=== PATIENT | male | born 1975 | race Caucasian/White ===

== ENCOUNTER 2017-07-22 23:41 | Inpatient (IN) | payer MEDICARE, OTHER ==
[2017-07-23] MEDS: ALBUTEROL 0.083% (NEB) 2.5 MG/3 ML AMP HHN (00:58)
[2017-07-23] MEDS: METHYLPREDNISOLONE 125 MG INJ IV (01:02)
[2017-07-23] MEDS: CEFEPIME 1GM/50 ML (PMX) 50 ML IVPB ×2 (01:03→23:32)
[2017-07-23] MEDS: SODIUM CHLORIDE 0.9% 1L BAG IV* (01:03)
[2017-07-23 01:12] LABS: ADD MAN DIFF? NO
[2017-07-23 01:17] LABS: WHITE BLOOD COUNT 8.9 10^3/ul (4.8-10.8)
[2017-07-23 01:17] LABS: ABNORMAL IP MESSAGE 1; BASOPHILS % 0.1 % (0.0-2.0); EOSINOPHILS % 0.5 % (0.0-7.0); HEMATOCRIT 36.9 % (42.0-52.0); HEMOGLOBIN 11.3 g/dl (14.0-18.0); LYMPHOCYTES # 0.3 10^3/ul (0.8-2.9); LYMPHOCYTES % 2.9 % (15.0-51.0); MEAN CORPUSCULAR HGB CONC 30.6 g/dl (32.0-37.0); MEAN CORPUSCULAR VOLUME 94.9 fl (82.0-101.0); MEAN PLATELET VOLUME 13.3 fl (7.4-10.4); MONOCYTE # 0.3 10^3/ul (0.3-0.9); MONOCYTES % 2.9 % (0.0-11.0); NEUTROPHIL # 8.3 10^3/ul (1.6-7.5); NEUTROPHILS % 93.4 % (39.0-77.0); PLATELET COUNT 145 10^3/UL (140-415); POSITIVE DIFF @See below; RED BLOOD COUNT 3.89 10^6/ul (4.70-6.10); RED CELL DISTRIBUTION WIDTH 16.1 % (11.5-14.5)
[2017-07-23 01:18] LABS: AADO2 Arterial 592.7 mmHg (7.0-24.0); Allen Test ACCEPTAB; Arterial Base Excess -6.5 mmol/L (-3.0-3); Arterial Blood Gas Oxygen Sat 95.4 mmHG (95.0-98.0); Arterial COHb 0.3 % (0.0-3.0); Arterial Fraction of Oxyhgb 94.9 % (93.0-99.0); Arterial HCO3 19.3 mmol/L (22.0-26.0); Arterial MetHb 0.2 % (0.0-1.5); Arterial Total Hemglobin 12.1 g/dl (12.0-18.0); Arterial pCO2 39.8 mmhg (35-45); MODE VENT - AC; Site Right Radial
[2017-07-23 01:27] LABS: INR 0.98; PROTIME 13.1 Sec (11.9-14.9)
[2017-07-23 01:28] LABS: PARTIAL THROMBOPLASTIN TIME 35.8 Sec (25.0-35.0)
[2017-07-23 01:36] LABS: ALANINE AMINOTRANSFERASE 22 IU/L (13-69); ALBUMIN 4.5 g/dl (3.3-4.9); ALBUMIN/GLOBULIN RATIO 0.83; ALKALINE PHOSPHATASE 232 IU/L (42-121); ANION GAP 26 (8-16); ASPARTATE AMINO TRANSFERASE 22 IU/L (15-46); BILIRUBIN,INDIRECT 0.2 mg/dl (0-1.1); BILIRUBIN,TOTAL 0.2 mg/dl (0.2-1.3); CALCIUM 10.4 mg/dl (8.4-10.2); CARBON DIOXIDE 19 mmol/L (21-31); CHLORIDE 111 mmol/L (97-110); CREATININE 2.16 mg/dl (0.61-1.24); GLUCOSE 124 mg/dl (70-220); LIPASE 409 U/L (23-300); POTASSIUM 4.7 mmol/L (3.5-5.1); SODIUM 151 mmol/L (135-144); TOTAL PROTEIN 9.9 g/dl (6.1-8.1)
[2017-07-23 01:37] LABS: LACTIC ACID 0.8 mmol/L (0.5-2.0)
[2017-07-23 01:39] LABS: ADD UMIC YES; UR ASCORBIC ACID 40 mg/dL (NEGATIVE); UR BACTERIA FEW /HPF (NONE SEEN); UR BILIRUBIN (Dip) NEGATIVE (NEGATIVE); UR BLOOD (Dip) 3+ mg/dL (NEGATIVE); UR CLARITY TURBID (CLEAR); UR COLOR RED (YELLOW); UR GLUCOSE (Dip) NEGATIVE (NEGATIVE); UR KETONES (Dip) NEGATIVE (NEGATIVE); UR LEUKOCYTE ESTERASE (Dip) 3+ Leu/ul (NEGATIVE); UR NITRITE (Dip) NEGATIVE (NEGATIVE); UR RBC 5 /HPF (0-5); UR SPECIFIC GRAVITY (Dip) 1.013 (1.003-1.030); UR TOTAL PROTEIN (Dip) 2+ mg/dl (NEGATIVE); UR UROBILINOGEN (Dip) NEGATIVE (NEGATIVE); UR WBC 22 /HPF (0-5)
[2017-07-23 01:57] LABS: TROPONIN-I < 0.012 ng/ml (0.00-0.12)
[2017-07-23 02:11] LABS: BLOOD UREA NITROGEN 122 mg/dl (7-20)
[2017-07-23] MEDS: VANCOMYCIN 1 GM (PMX) 250 ML IVPB (02:35)
[2017-07-23 06:32] LABS: LACTIC ACID 0.7 mmol/L (0.5-2.0)
[2017-07-23] MEDS: DEXTROSE 5% 1,000 ML IV ×3 (11:09→21:55)
[2017-07-23] MEDS ORDERED: ONDANSETRON 4 MG TAB GTB (11:30)
[2017-07-23] MEDS ORDERED: BACLOFEN 10 MG TAB GTB (11:30)
[2017-07-23] MEDS ORDERED: BISACODYL 10 MG SUPP PR (11:30)
[2017-07-23] MEDS ORDERED: MAGNESIUM HYDROXIDE 30ML CUP GTB (11:30)
[2017-07-23] MEDS ORDERED: VANCOMYCIN IV PER PHARMACY XX (11:30)
[2017-07-23] MEDS ORDERED: VANCOMYCIN 1.5 GM in DEXTROSE 5% 500 ML IVPB (12:00)
[2017-07-23] MEDS: traMADol 50 MG TAB GTB (13:17)
[2017-07-23] MEDS: FAMOTIDINE 20 MG TAB GTB (13:17)
[2017-07-23] MEDS: CHLORHEXIDINE GLUCONATE 15 ML UD CUP MM ×2 (13:18→21:54)
[2017-07-23] MEDS: QUETIAPINE 25 MG TAB GTB ×2 (13:18→21:54)
[2017-07-23] MEDS: SENNA TAB GTB ×2 (13:18→21:54)
[2017-07-23] MEDS: FERROUS SULFATE 220 MG/5 ML ML GTB (13:43)
[2017-07-23] MEDS: ACETAMINOPHEN 325 MG TAB GTB (18:45)
[2017-07-23] MEDS: LORAZEPAM 0.5 MG TAB GTB (18:45)
[2017-07-23] MEDS ORDERED: NON-FORMULARY/PATIENT OWN MED (Cran/Vitc/Mannose/Inulin/Brom (Uti-Stat Liquid) 3,875 MG) GTB (21:00)
[2017-07-23] MEDS ORDERED: CEFEPIME 1GM/50 ML (PMX) 50 ML IVPB (21:00)
[2017-07-23] MEDS: traZODone 100 MG TAB GTB (21:54)
[2017-07-24] MEDS: traMADol 50 MG TAB GTB ×2 (03:43→08:26)
[2017-07-24] MEDS: LORAZEPAM 0.5 MG TAB GTB ×2 (03:51→15:32)
[2017-07-24 06:03] LABS: ADD MAN DIFF? NO
[2017-07-24 06:10] LABS: WHITE BLOOD COUNT 8.7 10^3/ul (4.8-10.8)
[2017-07-24 06:10] LABS: ABNORMAL IP MESSAGE 1; BASOPHILS % 0.2 % (0.0-2.0); EOSINOPHILS % 0.1 % (0.0-7.0); HEMATOCRIT 34.5 % (42.0-52.0); HEMOGLOBIN 10.3 g/dl (14.0-18.0); LYMPHOCYTES # 0.5 10^3/ul (0.8-2.9); LYMPHOCYTES % 5.7 % (15.0-51.0); MEAN CORPUSCULAR HEMOGLOBIN 29.3 pg (29.0-33.0); MEAN CORPUSCULAR HGB CONC 29.9 g/dl (32.0-37.0); MEAN CORPUSCULAR VOLUME 98.3 fl (82.0-101.0); MEAN PLATELET VOLUME 12.6 fl (7.4-10.4); MONOCYTE # 0.5 10^3/ul (0.3-0.9); MONOCYTES % 6.2 % (0.0-11.0); NEUTROPHIL # 7.6 10^3/ul (1.6-7.5); NEUTROPHILS % 87.5 % (39.0-77.0); PLATELET COUNT 144 10^3/UL (140-415); POSITIVE DIFF @See below; RED BLOOD COUNT 3.51 10^6/ul (4.70-6.10); RED CELL DISTRIBUTION WIDTH 16.1 % (11.5-14.5)
[2017-07-24 06:37] LABS: ANION GAP 19 (8-16); BLOOD UREA NITROGEN 93 mg/dl (7-20); CALCIUM 9.4 mg/dl (8.4-10.2); CARBON DIOXIDE 18 mmol/L (21-31); CHLORIDE 119 mmol/L (97-110); CREATININE 1.69 mg/dl (0.61-1.24); GLUCOSE 85 mg/dl (70-220); POTASSIUM 4.6 mmol/L (3.5-5.1); SODIUM 151 mmol/L (135-144)
[2017-07-24] MEDS: DEXTROSE 5% 1,000 ML IV ×3 (07:55→23:18)
[2017-07-24] MEDS: SENNA TAB GTB ×2 (08:58→21:00)
[2017-07-24] MEDS ORDERED: NON-FORMULARY/PATIENT OWN MED (Cranberry Fruit Concentrate (Cranberry) 450 MG) GTB (09:00)
[2017-07-24] MEDS: QUETIAPINE 25 MG TAB GTB ×2 (09:15→22:19)
[2017-07-24] MEDS: ASCORBIC ACID 500 MG TAB GTB (09:15)
[2017-07-24] MEDS: CHLORHEXIDINE GLUCONATE 15 ML UD CUP MM ×2 (09:15→21:43)
[2017-07-24] MEDS: FERROUS SULFATE 220 MG/5 ML ML GTB (09:16)
[2017-07-24] MEDS: FAMOTIDINE 20 MG TAB GTB (09:16)
[2017-07-24] MEDS: ZINC SULFATE 220 MG CAP GTB (09:16)
[2017-07-24] MEDS: MULTIVITAMINS THERAPEUTIC TAB GTB (09:16)
[2017-07-24] MEDS ORDERED: VANCOMYCIN 1 GM in SODIUM CHLORIDE 0.45 % 250 ML IVPB (12:00)
[2017-07-24] MEDS: ALBUTEROL 0.083% (NEB) 2.5 MG/3 ML AMP NEB ×2 (14:57→20:17)
[2017-07-24] MEDS: ACETYLCYSTEINE 20% 4 ML VIAL NEB ×2 (14:57→20:17)
[2017-07-24] MEDS: LORAZEPAM 2 MG INJ IV (18:30)
[2017-07-24] MEDS: VANCOMYCIN 1.25 GM in SODIUM CHLORIDE 0.45 % 250 ML IVPB (20:25)
[2017-07-24] MEDS ORDERED: ATENOLOL 25 MG TAB GTB (21:00)
[2017-07-24] MEDS: ATENOLOL 25 MG TAB PO (21:45)
[2017-07-24] MEDS: traZODone 100 MG TAB GTB (21:46)
[2017-07-24] MEDS: CEFEPIME 1GM/50 ML (PMX) 50 ML IVPB (23:18)
[2017-07-25] MEDS: ALBUTEROL 0.083% (NEB) 2.5 MG/3 ML AMP NEB ×2 (01:54→19:56)
[2017-07-25] MEDS: ACETYLCYSTEINE 20% 4 ML VIAL NEB ×4 (01:54→19:56)
[2017-07-25] MEDS: HYDROmorphONE 2 MG TAB GTB (03:48)
[2017-07-25] MEDS: traMADol 50 MG TAB GTB (03:50)
[2017-07-25 06:13] LABS: ADD MAN DIFF? NO
[2017-07-25 06:29] LABS: BASOPHILS % 0.2 % (0.0-2.0); EOSINOPHILS % 0.1 % (0.0-7.0); HEMATOCRIT 34.2 % (42.0-52.0); HEMOGLOBIN 10.4 g/dl (14.0-18.0); LYMPHOCYTES # 0.8 10^3/ul (0.8-2.9); LYMPHOCYTES % 6.8 % (15.0-51.0); MEAN CORPUSCULAR HEMOGLOBIN 29.2 pg (29.0-33.0); MEAN CORPUSCULAR HGB CONC 30.4 g/dl (32.0-37.0); MEAN CORPUSCULAR VOLUME 96.1 fl (82.0-101.0); MEAN PLATELET VOLUME 12.2 fl (7.4-10.4); MONOCYTE # 0.9 10^3/ul (0.3-0.9); MONOCYTES % 7.2 % (0.0-11.0); NEUTROPHIL # 10.5 10^3/ul (1.6-7.5); NEUTROPHILS % 85.4 % (39.0-77.0); PLATELET COUNT 128 10^3/UL (140-415); RED BLOOD COUNT 3.56 10^6/ul (4.70-6.10); RED CELL DISTRIBUTION WIDTH 16.1 % (11.5-14.5)
[2017-07-25 06:29] LABS: WHITE BLOOD COUNT 12.3 10^3/ul (4.8-10.8)
[2017-07-25 07:15] LABS: ANION GAP 20 (8-16); BLOOD UREA NITROGEN 77 mg/dl (7-20); CALCIUM 9.6 mg/dl (8.4-10.2); CARBON DIOXIDE 16 mmol/L (21-31); CHLORIDE 116 mmol/L (97-110); GLUCOSE 91 mg/dl (70-220); POTASSIUM 4.2 mmol/L (3.5-5.1); SODIUM 148 mmol/L (135-144)
[2017-07-25 07:32] LABS: HDL CHOLESTEROL 27 mg/dl (27-67); LDL CHOLESTEROL,CALCULATED 26 mg/dl; TRIGLYCERIDES 141 mg/dl (0-149)
[2017-07-25 07:32] LABS: CHOLESTEROL 81 mg/dl (100-200)
[2017-07-25 08:18] LABS: HEMOGLOBIN A1C 4.7 % (0-5.9)
[2017-07-25] MEDS ORDERED: LORAZEPAM 2 MG INJ IV (11:30)
[2017-07-25] MEDS: DEXTROSE 5% 1,000 ML IV ×2 (13:30→22:30)
[2017-07-25] MEDS: SENNA TAB GTB ×2 (14:00→21:45)
[2017-07-25] MEDS: MULTIVITAMINS THERAPEUTIC TAB GTB (14:00)
[2017-07-25] MEDS: ATENOLOL 25 MG TAB PO ×2 (14:00→21:49)
[2017-07-25] MEDS: ASCORBIC ACID 500 MG TAB GTB (14:00)
[2017-07-25] MEDS: CHLORHEXIDINE GLUCONATE 15 ML UD CUP MM ×2 (14:00→21:44)
[2017-07-25] MEDS: CITRIC ACID/SODIUM CITRATE 15 ML CUP PO ×2 (14:00→21:44)
[2017-07-25] MEDS: FAMOTIDINE 20 MG TAB GTB (14:00)
[2017-07-25] MEDS: QUETIAPINE 25 MG TAB GTB ×2 (14:00→21:44)
[2017-07-25] MEDS: ZINC SULFATE 220 MG CAP GTB (14:00)
[2017-07-25] MEDS: LORAZEPAM 0.5 MG TAB GTB (14:05)
[2017-07-25] MEDS: FERROUS SULFATE 60 MG/ML 5ML CUP GTB (14:13)
[2017-07-25] MEDS ORDERED: METOPROLOL 5 MG INJ IV (17:30)
[2017-07-25 20:36] LABS: THYROID STIMULATING HORMONE 0.169 MIU/L (0.465-4.680)
[2017-07-25] MEDS: traZODone 100 MG TAB GTB (21:44)
[2017-07-25] MEDS: ACETAMINOPHEN 325 MG TAB GTB (21:45)
[2017-07-26] MEDS: ACETYLCYSTEINE 20% 4 ML VIAL NEB ×4 (01:01→19:49)
[2017-07-26] MEDS: CEFEPIME 1GM/50 ML (PMX) 50 ML IVPB ×2 (01:34→23:00)
[2017-07-26] MEDS: HYDROmorphONE 2 MG TAB GTB ×3 (01:35→21:48)
[2017-07-26] MEDS: ALBUTEROL 0.083% (NEB) 2.5 MG/3 ML AMP NEB ×3 (07:56→19:48)
[2017-07-26] MEDS: ZINC SULFATE 220 MG CAP GTB (08:16)
[2017-07-26] MEDS: ASCORBIC ACID 500 MG TAB GTB (08:16)
[2017-07-26] MEDS: DEXTROSE 5% 1,000 ML IV ×2 (08:16→17:17)
[2017-07-26] MEDS: FERROUS SULFATE 60 MG/ML 5ML CUP GTB (08:17)
[2017-07-26] MEDS: MULTIVITAMINS THERAPEUTIC TAB GTB (08:17)
[2017-07-26] MEDS: FAMOTIDINE 20 MG TAB GTB (08:17)
[2017-07-26] MEDS: ACETAMINOPHEN 325 MG TAB GTB (08:17)
[2017-07-26] MEDS: QUETIAPINE 25 MG TAB GTB ×2 (08:17→21:48)
[2017-07-26] MEDS: CHLORHEXIDINE GLUCONATE 15 ML UD CUP MM ×2 (08:18→21:48)
[2017-07-26] MEDS: CITRIC ACID/SODIUM CITRATE 15 ML CUP PO ×3 (08:18→21:47)
[2017-07-26] MEDS: ATENOLOL 25 MG TAB PO ×2 (08:18→21:49)
[2017-07-26] MEDS: SENNA TAB GTB ×2 (08:19→21:00)
[2017-07-26 09:04] LABS: ADD MAN DIFF? NO
[2017-07-26 09:08] LABS: WHITE BLOOD COUNT 12.4 10^3/ul (4.8-10.8)
[2017-07-26 09:08] LABS: ABNORMAL IP MESSAGE 1; BASOPHILS % 0.2 % (0.0-2.0); EOSINOPHILS % 0.2 % (0.0-7.0); HEMATOCRIT 28.9 % (42.0-52.0); HEMOGLOBIN 9.1 g/dl (14.0-18.0); LYMPHOCYTES # 0.5 10^3/ul (0.8-2.9); MEAN CORPUSCULAR HEMOGLOBIN 29.4 pg (29.0-33.0); MEAN CORPUSCULAR HGB CONC 31.5 g/dl (32.0-37.0); MEAN CORPUSCULAR VOLUME 93.5 fl (82.0-101.0); MEAN PLATELET VOLUME 12.6 fl (7.4-10.4); MONOCYTE # 0.7 10^3/ul (0.3-0.9); MONOCYTES % 5.8 % (0.0-11.0); NEUTROPHIL # 11.1 10^3/ul (1.6-7.5); NEUTROPHILS % 89.5 % (39.0-77.0); PLATELET COUNT 139 10^3/UL (140-415); POSITIVE DIFF @See below; RED BLOOD COUNT 3.09 10^6/ul (4.70-6.10); RED CELL DISTRIBUTION WIDTH 16.1 % (11.5-14.5)
[2017-07-26 09:32] LABS: ANION GAP 21 (8-16); BLOOD UREA NITROGEN 74 mg/dl (7-20); CALCIUM 9.2 mg/dl (8.4-10.2); CARBON DIOXIDE 16 mmol/L (21-31); CHLORIDE 119 mmol/L (97-110); CREATININE 1.73 mg/dl (0.61-1.24); GLUCOSE 137 mg/dl (70-220); POTASSIUM 3.7 mmol/L (3.5-5.1); SODIUM 152 mmol/L (135-144)
[2017-07-26] MEDS: VANCOMYCIN 1.25 GM in SODIUM CHLORIDE 0.45 % 250 ML IVPB (17:16)
[2017-07-26 17:34] LABS: CK-MB 0.86 ng/ml (0.0-2.4); CREATINE KINASE < 20 IU/L (23-200); TROPONIN-I < 0.012 ng/ml (0.00-0.12)
[2017-07-26 19:13] LABS: TROPONIN-I < 0.012 ng/ml (0.00-0.12)
[2017-07-26] MEDS: traZODone 100 MG TAB GTB (21:47)
[2017-07-26] MEDS: COLLAGENASE 30 GM TUBE TOP (21:48)
[2017-07-27] MEDS: ALBUTEROL 0.083% (NEB) 2.5 MG/3 ML AMP NEB ×3 (01:34→19:52)
[2017-07-27] MEDS: ACETYLCYSTEINE 20% 4 ML VIAL NEB ×4 (01:34→19:52)
[2017-07-27 03:28] LABS: TROPONIN-I < 0.012 ng/ml (0.00-0.12)
[2017-07-27] MEDS: DEXTROSE 5% 1,000 ML IV ×3 (04:30→23:53)
[2017-07-27] MEDS: FERROUS SULFATE 60 MG/ML 5ML CUP GTB (09:01)
[2017-07-27] MEDS: ZINC SULFATE 220 MG CAP GTB (09:02)
[2017-07-27] MEDS: CITRIC ACID/SODIUM CITRATE 15 ML CUP PO ×3 (09:02→21:40)
[2017-07-27] MEDS: CHLORHEXIDINE GLUCONATE 15 ML UD CUP MM ×2 (09:02→21:43)
[2017-07-27] MEDS: SENNA TAB GTB ×2 (09:03→21:43)
[2017-07-27] MEDS: ATENOLOL 25 MG TAB PO ×2 (09:03→21:42)
[2017-07-27] MEDS: MULTIVITAMINS THERAPEUTIC TAB GTB (09:03)
[2017-07-27] MEDS: FAMOTIDINE 20 MG TAB GTB (09:03)
[2017-07-27] MEDS: COLLAGENASE 30 GM TUBE TOP (09:04)
[2017-07-27] MEDS: ASCORBIC ACID 500 MG TAB GTB (09:04)
[2017-07-27] MEDS: QUETIAPINE 25 MG TAB GTB ×2 (09:04→21:41)
[2017-07-27 09:12] LABS: ADD MAN DIFF? NO
[2017-07-27] MEDS: HYDROmorphONE 2 MG TAB GTB ×3 (09:14→23:52)
[2017-07-27 09:15] LABS: BASOPHILS % 0.1 % (0.0-2.0); EOSINOPHILS # 0.1 10^3/ul (0.0-0.5); HEMATOCRIT 26.6 % (42.0-52.0); HEMOGLOBIN 8.3 g/dl (14.0-18.0); LYMPHOCYTES # 0.7 10^3/ul (0.8-2.9); LYMPHOCYTES % 9.1 % (15.0-51.0); MEAN CORPUSCULAR HEMOGLOBIN 29.3 pg (29.0-33.0); MEAN CORPUSCULAR HGB CONC 31.2 g/dl (32.0-37.0); MEAN PLATELET VOLUME 12.4 fl (7.4-10.4); MONOCYTE # 0.5 10^3/ul (0.3-0.9); MONOCYTES % 6.8 % (0.0-11.0); NEUTROPHIL # 6.4 10^3/ul (1.6-7.5); NEUTROPHILS % 82.6 % (39.0-77.0); PLATELET COUNT 108 10^3/UL (140-415); RED BLOOD COUNT 2.83 10^6/ul (4.70-6.10)
[2017-07-27 09:15] LABS: WHITE BLOOD COUNT 7.8 10^3/ul (4.8-10.8)
[2017-07-27 09:38] LABS: ANION GAP 21 (8-16); BLOOD UREA NITROGEN 67 mg/dl (7-20); CALCIUM 8.9 mg/dl (8.4-10.2); CARBON DIOXIDE 18 mmol/L (21-31); CHLORIDE 114 mmol/L (97-110); GLUCOSE 108 mg/dl (70-220); SODIUM 149 mmol/L (135-144)
[2017-07-27] MEDS: MUPIROCIN 2% 22 GM OINT TOP ×2 (14:00→21:42)
[2017-07-27] MEDS: traZODone 100 MG TAB GTB (21:40)
[2017-07-27] MEDS: CEFEPIME 1GM/50 ML (PMX) 50 ML IVPB (23:44)
[2017-07-28] MEDS: ACETYLCYSTEINE 20% 4 ML VIAL NEB ×4 (03:19→19:34)
[2017-07-28] MEDS: ALBUTEROL 0.083% (NEB) 2.5 MG/3 ML AMP NEB ×4 (03:19→19:33)
[2017-07-28] MEDS: FERROUS SULFATE 60 MG/ML 5ML CUP GTB (09:23)
[2017-07-28] MEDS: CHLORHEXIDINE GLUCONATE 15 ML UD CUP MM ×2 (09:23→20:56)
[2017-07-28] MEDS: ATENOLOL 25 MG TAB PO ×2 (09:24→20:56)
[2017-07-28] MEDS: CITRIC ACID/SODIUM CITRATE 15 ML CUP PO ×3 (09:24→20:56)
[2017-07-28] MEDS: ZINC SULFATE 220 MG CAP GTB (09:24)
[2017-07-28] MEDS: QUETIAPINE 25 MG TAB GTB ×2 (09:25→20:57)
[2017-07-28] MEDS: SENNA TAB GTB ×2 (09:25→20:57)
[2017-07-28] MEDS: ASCORBIC ACID 500 MG TAB GTB (09:25)
[2017-07-28] MEDS: FAMOTIDINE 20 MG TAB GTB (09:26)
[2017-07-28] MEDS: MULTIVITAMINS THERAPEUTIC TAB GTB (09:26)
[2017-07-28] MEDS: MUPIROCIN 2% 22 GM OINT TOP ×2 (09:27→21:00)
[2017-07-28] MEDS: COLLAGENASE 30 GM TUBE TOP (09:27)
[2017-07-28] MEDS: HYDROmorphONE 2 MG TAB GTB ×3 (09:38→21:00)
[2017-07-28] MEDS: DEXTROSE 5% 1,000 ML IV ×2 (10:29→22:59)
[2017-07-28 17:36] LABS: ADD MAN DIFF? NO
[2017-07-28 17:37] LABS: BASOPHILS % 0.1 % (0.0-2.0); EOSINOPHILS # 0.1 10^3/ul (0.0-0.5); EOSINOPHILS % 0.9 % (0.0-7.0); HEMATOCRIT 27.9 % (42.0-52.0); HEMOGLOBIN 8.9 g/dl (14.0-18.0); LYMPHOCYTES # 0.6 10^3/ul (0.8-2.9); LYMPHOCYTES % 5.4 % (15.0-51.0); MEAN CORPUSCULAR HEMOGLOBIN 29.6 pg (29.0-33.0); MEAN CORPUSCULAR HGB CONC 31.9 g/dl (32.0-37.0); MEAN CORPUSCULAR VOLUME 92.7 fl (82.0-101.0); MEAN PLATELET VOLUME 11.8 fl (7.4-10.4); MONOCYTE # 0.6 10^3/ul (0.3-0.9); MONOCYTES % 4.9 % (0.0-11.0); NEUTROPHIL # 10.6 10^3/ul (1.6-7.5); NEUTROPHILS % 88.4 % (39.0-77.0); PLATELET COUNT 113 10^3/UL (140-415); RED BLOOD COUNT 3.01 10^6/ul (4.70-6.10); RED CELL DISTRIBUTION WIDTH 15.8 % (11.5-14.5)
[2017-07-28 18:01] LABS: ANION GAP 20 (8-16); BLOOD UREA NITROGEN 59 mg/dl (7-20); CARBON DIOXIDE 22 mmol/L (21-31); CHLORIDE 107 mmol/L (97-110); CREATININE 1.61 mg/dl (0.61-1.24); GLUCOSE 110 mg/dl (70-220); POTASSIUM 4.1 mmol/L (3.5-5.1); SODIUM 145 mmol/L (135-144)
[2017-07-28 18:07] LABS: VANCOMYCIN,TROUGH 20.1 ug/ml (10.0-20.0)
[2017-07-28] MEDS: VANCOMYCIN 1.25 GM in SODIUM CHLORIDE 0.45 % 250 ML IVPB (19:56)
[2017-07-28] MEDS: traZODone 100 MG TAB GTB (20:57)
[2017-07-28] MEDS: CEFEPIME 1GM/50 ML (PMX) 50 ML IVPB (23:00)
[2017-07-28] MEDS: ZOLPIDEM 5 MG TAB GTB (23:10)
[2017-07-29] MEDS: ALBUTEROL 0.083% (NEB) 2.5 MG/3 ML AMP NEB ×2 (01:39→19:42)
[2017-07-29] MEDS: ACETYLCYSTEINE 20% 4 ML VIAL NEB ×4 (01:39→19:42)
[2017-07-29] MEDS: DEXTROSE 5% 1,000 ML IV ×2 (06:30→15:56)
[2017-07-29] MEDS: HYDROmorphONE 2 MG TAB GTB ×3 (06:45→22:25)
[2017-07-29 06:54] LABS: ADD MAN DIFF? NO
[2017-07-29 07:02] LABS: BASOPHILS % 0.1 % (0.0-2.0); EOSINOPHILS # 0.2 10^3/ul (0.0-0.5); EOSINOPHILS % 1.8 % (0.0-7.0); HEMATOCRIT 26.6 % (42.0-52.0); HEMOGLOBIN 8.4 g/dl (14.0-18.0); LYMPHOCYTES % 10.1 % (15.0-51.0); MEAN CORPUSCULAR HEMOGLOBIN 29.3 pg (29.0-33.0); MEAN CORPUSCULAR HGB CONC 31.6 g/dl (32.0-37.0); MEAN CORPUSCULAR VOLUME 92.7 fl (82.0-101.0); MEAN PLATELET VOLUME 12.7 fl (7.4-10.4); MONOCYTE # 0.7 10^3/ul (0.3-0.9); MONOCYTES % 6.9 % (0.0-11.0); NEUTROPHIL # 7.7 10^3/ul (1.6-7.5); NEUTROPHILS % 80.7 % (39.0-77.0); PLATELET COUNT 115 10^3/UL (140-415); RED BLOOD COUNT 2.87 10^6/ul (4.70-6.10); RED CELL DISTRIBUTION WIDTH 15.7 % (11.5-14.5)
[2017-07-29 07:02] LABS: WHITE BLOOD COUNT 9.6 10^3/ul (4.8-10.8)
[2017-07-29 07:38] LABS: ANION GAP 20 (8-16); BLOOD UREA NITROGEN 55 mg/dl (7-20); CALCIUM 8.8 mg/dl (8.4-10.2); CARBON DIOXIDE 22 mmol/L (21-31); CHLORIDE 106 mmol/L (97-110); CREATININE 1.54 mg/dl (0.61-1.24); GLUCOSE 87 mg/dl (70-220); POTASSIUM 4.1 mmol/L (3.5-5.1); SODIUM 144 mmol/L (135-144)
[2017-07-29] MEDS: VANCOMYCIN 1 GM 250 ML IVPB (08:32)
[2017-07-29] MEDS: CHLORHEXIDINE GLUCONATE 15 ML UD CUP MM ×2 (08:33→21:00)
[2017-07-29] MEDS: ZINC SULFATE 220 MG CAP GTB (08:33)
[2017-07-29] MEDS: CITRIC ACID/SODIUM CITRATE 15 ML CUP PO ×3 (08:33→21:00)
[2017-07-29] MEDS: FERROUS SULFATE 60 MG/ML 5ML CUP GTB (08:33)
[2017-07-29] MEDS: QUETIAPINE 25 MG TAB GTB ×2 (08:33→21:00)
[2017-07-29] MEDS: SENNA TAB GTB ×2 (08:33→21:00)
[2017-07-29] MEDS: MULTIVITAMINS THERAPEUTIC TAB GTB (08:33)
[2017-07-29] MEDS: FAMOTIDINE 20 MG TAB GTB (08:34)
[2017-07-29] MEDS: ATENOLOL 25 MG TAB PO ×2 (08:34→21:00)
[2017-07-29] MEDS: ASCORBIC ACID 500 MG TAB GTB (08:34)
[2017-07-29] MEDS: MUPIROCIN 2% 22 GM OINT TOP ×2 (08:35→21:00)
[2017-07-29] MEDS: COLLAGENASE 30 GM TUBE TOP (08:35)
[2017-07-29] MEDS ORDERED: GENTAMICIN IV PER PHARMACY XX (18:30)
[2017-07-29] MEDS: ZYVOX 600 MG TAB PO (20:00)
[2017-07-29] MEDS: GENTAMICIN 300 MG in DEXTROSE 5% 100 ML IVPB (21:00)
[2017-07-29] MEDS ORDERED: DOXYCYCLINE 100 MG TAB PO (21:00)
[2017-07-29] MEDS: traZODone 100 MG TAB GTB (21:00)
[2017-07-29] MEDS: PIPER-TAZO 3.375 GM IV (PMX) 50 ML IVPB (22:00)
[2017-07-30] MEDS: ALBUTEROL 0.083% (NEB) 2.5 MG/3 ML AMP NEB ×2 (01:13→19:39)
[2017-07-30] MEDS: ACETYLCYSTEINE 20% 4 ML VIAL NEB ×4 (01:13→19:39)
[2017-07-30] MEDS: ZOLPIDEM 5 MG TAB GTB (03:03)
[2017-07-30] MEDS: DEXTROSE 5% 1,000 ML IV ×2 (03:03→11:36)
[2017-07-30] MEDS: PIPER-TAZO 3.375 GM IV (PMX) 50 ML IVPB ×3 (05:51→21:03)
[2017-07-30] MEDS: HYDROmorphONE 2 MG TAB GTB (05:52)
[2017-07-30 07:30] LABS: GENTAMICIN,RANDOM 11.2 ug/ml
[2017-07-30] MEDS: CITRIC ACID/SODIUM CITRATE 15 ML CUP PO ×3 (09:43→20:47)
[2017-07-30] MEDS: FERROUS SULFATE 60 MG/ML 5ML CUP GTB (09:43)
[2017-07-30] MEDS: CHLORHEXIDINE GLUCONATE 15 ML UD CUP MM ×2 (09:43→20:47)
[2017-07-30] MEDS: ASCORBIC ACID 500 MG TAB GTB (09:44)
[2017-07-30] MEDS: ATENOLOL 25 MG TAB PO ×2 (09:44→20:48)
[2017-07-30] MEDS: MULTIVITAMINS THERAPEUTIC TAB GTB (09:44)
[2017-07-30] MEDS: FAMOTIDINE 20 MG TAB GTB (09:44)
[2017-07-30] MEDS: SENNA TAB GTB ×2 (09:44→20:49)
[2017-07-30] MEDS: QUETIAPINE 25 MG TAB GTB ×2 (09:44→20:48)
[2017-07-30] MEDS: ZYVOX 600 MG TAB PO ×2 (09:44→20:48)
[2017-07-30] MEDS: ZINC SULFATE 220 MG CAP GTB (09:45)
[2017-07-30] MEDS: MUPIROCIN 2% 22 GM OINT TOP ×2 (09:45→20:49)
[2017-07-30] MEDS: COLLAGENASE 30 GM TUBE TOP (09:45)
[2017-07-30] MEDS: SOD CHLORIDE 0.9% 500 ML IV ×2 (12:08→12:11)
[2017-07-30] MEDS: traZODone 100 MG TAB GTB (20:48)
[2017-07-31] MEDS: HYDROmorphONE 2 MG TAB GTB ×5 (00:15→20:22)
[2017-07-31] MEDS: ALBUTEROL 0.083% (NEB) 2.5 MG/3 ML AMP NEB ×3 (00:59→19:28)
[2017-07-31] MEDS: ACETYLCYSTEINE 20% 4 ML VIAL NEB ×4 (01:00→19:28)
[2017-07-31] MEDS: DEXTROSE 5% 1,000 ML IV ×3 (05:12→20:29)
[2017-07-31] MEDS: PIPER-TAZO 3.375 GM IV (PMX) 50 ML IVPB ×3 (05:12→21:08)
[2017-07-31 08:42] LABS: ADD MAN DIFF? NO
[2017-07-31 08:50] LABS: ABNORMAL IP MESSAGE 1; BASOPHILS % 0.1 % (0.0-2.0); EOSINOPHILS # 0.1 10^3/ul (0.0-0.5); EOSINOPHILS % 1.4 % (0.0-7.0); HEMATOCRIT 26.3 % (42.0-52.0); HEMOGLOBIN 8.4 g/dl (14.0-18.0); LYMPHOCYTES # 0.6 10^3/ul (0.8-2.9); LYMPHOCYTES % 7.5 % (15.0-51.0); MEAN CORPUSCULAR HEMOGLOBIN 29.4 pg (29.0-33.0); MEAN CORPUSCULAR HGB CONC 31.9 g/dl (32.0-37.0); MEAN PLATELET VOLUME 13.1 fl (7.4-10.4); MONOCYTE # 0.6 10^3/ul (0.3-0.9); MONOCYTES % 7.7 % (0.0-11.0); NEUTROPHIL # 6.7 10^3/ul (1.6-7.5); NEUTROPHILS % 82.7 % (39.0-77.0); PLATELET COUNT 106 10^3/UL (140-415); POSITIVE DIFF @See below; RED BLOOD COUNT 2.86 10^6/ul (4.70-6.10); RED CELL DISTRIBUTION WIDTH 15.4 % (11.5-14.5)
[2017-07-31 08:50] LABS: WHITE BLOOD COUNT 8.1 10^3/ul (4.8-10.8)
[2017-07-31] MEDS: SENNA TAB GTB ×2 (09:00→20:23)
[2017-07-31 09:22] LABS: ANION GAP 18 (8-16); BLOOD UREA NITROGEN 50 mg/dl (7-20); CALCIUM 8.4 mg/dl (8.4-10.2); CARBON DIOXIDE 24 mmol/L (21-31); CHLORIDE 103 mmol/L (97-110); GLUCOSE 109 mg/dl (70-220); POTASSIUM 3.6 mmol/L (3.5-5.1); SODIUM 141 mmol/L (135-144)
[2017-07-31] MEDS: CITRIC ACID/SODIUM CITRATE 15 ML CUP PO ×3 (10:11→20:22)
[2017-07-31] MEDS: QUETIAPINE 25 MG TAB GTB ×2 (10:12→20:23)
[2017-07-31] MEDS: ATENOLOL 25 MG TAB PO ×2 (10:12→21:09)
[2017-07-31] MEDS: FERROUS SULFATE 60 MG/ML 5ML CUP GTB (10:12)
[2017-07-31] MEDS: ASCORBIC ACID 500 MG TAB GTB (10:12)
[2017-07-31] MEDS: CHLORHEXIDINE GLUCONATE 15 ML UD CUP MM ×2 (10:12→20:22)
[2017-07-31] MEDS: MULTIVITAMINS THERAPEUTIC TAB GTB (10:12)
[2017-07-31] MEDS: ZYVOX 600 MG TAB PO ×2 (10:12→20:23)
[2017-07-31] MEDS: FAMOTIDINE 20 MG TAB GTB (10:13)
[2017-07-31] MEDS: ZINC SULFATE 220 MG CAP GTB (10:13)
[2017-07-31] MEDS: MUPIROCIN 2% 22 GM OINT TOP ×2 (10:14→20:29)
[2017-07-31] MEDS: COLLAGENASE 30 GM TUBE TOP (10:14)
[2017-07-31] MEDS: traZODone 100 MG TAB GTB (20:23)
[2017-08-01] MEDS: DEXTROSE 5% 1,000 ML IV ×2 (00:52→12:05)
[2017-08-01] MEDS: ACETYLCYSTEINE 20% 4 ML VIAL NEB ×4 (01:26→19:20)
[2017-08-01] MEDS: ALBUTEROL 0.083% (NEB) 2.5 MG/3 ML AMP NEB ×3 (01:26→19:20)
[2017-08-01] MEDS: HYDROmorphONE 2 MG TAB GTB ×3 (03:12→18:31)
[2017-08-01] MEDS: PIPER-TAZO 3.375 GM IV (PMX) 50 ML IVPB ×2 (05:11→15:00)
[2017-08-01 08:54] LABS: ADD MAN DIFF? NO
[2017-08-01] MEDS: CITRIC ACID/SODIUM CITRATE 15 ML CUP PO ×2 (09:00→15:00)
[2017-08-01] MEDS: FERROUS SULFATE 60 MG/ML 5ML CUP GTB (09:00)
[2017-08-01] MEDS: ATENOLOL 25 MG TAB PO (09:00)
[2017-08-01] MEDS: COLLAGENASE 30 GM TUBE TOP (09:00)
[2017-08-01] MEDS: ZINC SULFATE 220 MG CAP GTB (09:00)
[2017-08-01] MEDS: ZYVOX 600 MG TAB PO (09:00)
[2017-08-01] MEDS: SENNA TAB GTB (09:00)
[2017-08-01] MEDS: MULTIVITAMINS THERAPEUTIC TAB GTB (09:00)
[2017-08-01] MEDS: ASCORBIC ACID 500 MG TAB GTB (09:00)
[2017-08-01] MEDS: QUETIAPINE 25 MG TAB GTB (09:00)
[2017-08-01] MEDS: MUPIROCIN 2% 22 GM OINT TOP (09:00)
[2017-08-01] MEDS: FAMOTIDINE 20 MG TAB GTB (09:00)
[2017-08-01] MEDS: CHLORHEXIDINE GLUCONATE 15 ML UD CUP MM (09:00)
[2017-08-01 09:03] LABS: WHITE BLOOD COUNT 7.9 10^3/ul (4.8-10.8)
[2017-08-01 09:03] LABS: ABNORMAL IP MESSAGE 1; BASOPHILS % 0.3 % (0.0-2.0); EOSINOPHILS # 0.2 10^3/ul (0.0-0.5); EOSINOPHILS % 1.9 % (0.0-7.0); HEMATOCRIT 26.9 % (42.0-52.0); HEMOGLOBIN 8.4 g/dl (14.0-18.0); LYMPHOCYTES # 0.5 10^3/ul (0.8-2.9); LYMPHOCYTES % 6.4 % (15.0-51.0); MEAN CORPUSCULAR HEMOGLOBIN 29.3 pg (29.0-33.0); MEAN CORPUSCULAR HGB CONC 31.2 g/dl (32.0-37.0); MEAN CORPUSCULAR VOLUME 93.7 fl (82.0-101.0); MEAN PLATELET VOLUME 13.5 fl (7.4-10.4); MONOCYTE # 0.6 10^3/ul (0.3-0.9); MONOCYTES % 7.2 % (0.0-11.0); NEUTROPHIL # 6.6 10^3/ul (1.6-7.5); NEUTROPHILS % 83.6 % (39.0-77.0); PLATELET COUNT 116 10^3/UL (140-415); POSITIVE DIFF @See below; RED BLOOD COUNT 2.87 10^6/ul (4.70-6.10)
[2017-08-01 09:31] LABS: ANION GAP 18 (8-16); BLOOD UREA NITROGEN 48 mg/dl (7-20); CALCIUM 8.8 mg/dl (8.4-10.2); CARBON DIOXIDE 27 mmol/L (21-31); CHLORIDE 102 mmol/L (97-110); CREATININE 1.85 mg/dl (0.61-1.24); GLUCOSE 108 mg/dl (70-220); POTASSIUM 3.5 mmol/L (3.5-5.1); SODIUM 143 mmol/L (135-144)
[2017-08-01] MEDS: METOCLOPRAMIDE 5 MG TAB GTB (11:02)
== END 2017-08-01 20:30 | DRG 207 ==
LOC: E/R 23:41 → TEL 07-23 02:15
PROC: 5A1955Z Respiratory Ventilation, Greater than 96 Consecutive Hours (ICD-10-PCS; principal; 2017-07-25)
DX: J18.9 Pneumonia, unspecified organism (principal); N17.0 Acute kidney failure with tubular necrosis; G93.40 Encephalopathy, unspecified; A41.9 Sepsis, unspecified organism; G82.50 Quadriplegia, unspecified; L89.154 Pressure ulcer of sacral region, stage 4; J96.20 Acute and chronic respiratory failure, unspecified whether with hypoxia or hypercapnia; L89.223 Pressure ulcer of left hip, stage 3; E87.0 Hyperosmolality and hypernatremia; Z99.11 Dependence on respirator [ventilator] status; N39.0 Urinary tract infection, site not specified; E86.0 Dehydration; N31.9 Neuromuscular dysfunction of bladder, unspecified; L89.90 Pressure ulcer of unspecified site, unspecified stage; F31.9 Bipolar disorder, unspecified; Z93.1 Gastrostomy status; B95.62 Methicillin resistant Staphylococcus aureus infection as the cause of diseases classified elsewhere; B96.89 Other specified bacterial agents as the cause of diseases classified elsewhere
CPT/HCPCS: 36415; 36600; 71010; 71045; 80048; 80053; 80061; 80170; 80202; 81001; 82550; 82553; 82803; 83036; 83605; 83690; 84439; 84443; 84484; 85025; 85610; 85730; 87040; 87070; 87081; 87086; 87400; 93005; 93306; 94002; 94003; 94640; 94664; 94667; 94668; 94799; 96365; 96366; 96375; 96376; 97162; 99291-25

== ENCOUNTER 2017-11-30 15:00 | Inpatient (IN) | payer MEDICARE, OTHER, MEDICAID ==
[2017-11-30] MEDS: LACTATED RINGER'S 1,000 ML IV (16:36)
[2017-11-30 17:08] LABS: ADD MAN DIFF? NO
[2017-11-30 17:13] LABS: WHITE BLOOD COUNT 13.7 10^3/ul (4.8-10.8)
[2017-11-30 17:13] LABS: ABNORMAL IP MESSAGE 1; BASOPHILS % 0.2 % (0.0-2.0); EOSINOPHILS # 0.3 10^3/ul (0.0-0.5); EOSINOPHILS % 1.8 % (0.0-7.0); HEMATOCRIT 33.4 % (42.0-52.0); HEMOGLOBIN 9.9 g/dl (14.0-18.0); LYMPHOCYTES # 0.6 10^3/ul (0.8-2.9); LYMPHOCYTES % 4.1 % (15.0-51.0); MEAN CORPUSCULAR HGB CONC 29.6 g/dl (32.0-37.0); MEAN CORPUSCULAR VOLUME 97.9 fl (82.0-101.0); MEAN PLATELET VOLUME 11.6 fl (7.4-10.4); MONOCYTE # 0.8 10^3/ul (0.3-0.9); MONOCYTES % 5.9 % (0.0-11.0); NEUTROPHILS % 87.5 % (39.0-77.0); PLATELET COUNT 175 10^3/UL (140-415); POSITIVE DIFF @See below; RED BLOOD COUNT 3.41 10^6/ul (4.70-6.10)
[2017-11-30 17:34] LABS: ALANINE AMINOTRANSFERASE 21 IU/L (13-69); ALBUMIN 3.4 g/dl (3.3-4.9); ALBUMIN/GLOBULIN RATIO 0.89; ALKALINE PHOSPHATASE 161 IU/L (42-121); ANION GAP 18 (8-16); ASPARTATE AMINO TRANSFERASE 12 IU/L (15-46); BILIRUBIN,INDIRECT 0.1 mg/dl (0-1.1); BILIRUBIN,TOTAL 0.1 mg/dl (0.2-1.3); BLOOD UREA NITROGEN 95 mg/dl (7-20); CALCIUM 8.4 mg/dl (8.4-10.2); CARBON DIOXIDE 22 mmol/L (21-31); CHLORIDE 103 mmol/L (97-110); CREATININE 2.81 mg/dl (0.61-1.24); GLUCOSE 74 mg/dl (70-220); LIPASE 109 U/L (23-300); POTASSIUM 5.1 mmol/L (3.5-5.1); SODIUM 138 mmol/L (135-144); TOTAL PROTEIN 7.2 g/dl (6.1-8.1)
[2017-11-30 17:35] LABS: ADD UMIC YES; UR ASCORBIC ACID 40 mg/dL (NEGATIVE); UR BACTERIA FEW /HPF (NONE SEEN); UR BILIRUBIN (Dip) NEGATIVE (NEGATIVE); UR BLOOD (Dip) 3+ mg/dL (NEGATIVE); UR CLARITY TURBID (CLEAR); UR COLOR YELLOW (YELLOW); UR GLUCOSE (Dip) NEGATIVE (NEGATIVE); UR KETONES (Dip) NEGATIVE (NEGATIVE); UR LEUKOCYTE ESTERASE (Dip) 3+ Leu/ul (NEGATIVE); UR NITRITE (Dip) NEGATIVE (NEGATIVE); UR RBC > 182 /HPF (0-5); UR SPECIFIC GRAVITY (Dip) 1.013 (1.003-1.030); UR SQUAMOUS EPITHELIAL CELL FEW /HPF (FEW); UR TOTAL PROTEIN (Dip) 2+ mg/dl (NEGATIVE); UR UROBILINOGEN (Dip) NEGATIVE (NEGATIVE); UR WBC > 182 /HPF (0-5)
[2017-11-30 17:45] LABS: TROPONIN-I < 0.012 ng/ml (0.00-0.12)
[2017-11-30] MEDS: PIPER-TAZO 3.375 GM IV (PMX) 100 ML IVPB (18:52)
[2017-11-30] MEDS ORDERED: traMADol 50 MG TAB GTB (21:00)
[2017-11-30] MEDS ORDERED: ACETAMINOPHEN 325 MG TAB GTB ×2 (21:00)
[2017-11-30] MEDS ORDERED: ONDANSETRON 4 MG TAB GTB (21:00)
[2017-11-30] MEDS: BISACODYL 10 MG SUPP PR (21:00)
[2017-11-30] MEDS ORDERED: HYDROmorphONE 2 MG TAB GTB (21:00)
[2017-11-30] MEDS ORDERED: ALBUTEROL 0.083% (NEB) 2.5 MG/3 ML AMP NEB (21:00)
[2017-11-30] MEDS: SENNA TAB GTB (23:00)
[2017-11-30] MEDS: CHLORHEXIDINE GLUCONATE 15 ML UD CUP MM (23:00)
[2017-11-30] MEDS: DOCUSATE SODIUM 100 MG CAP PO (23:00)
[2017-11-30] MEDS: ALBUMIN HUMAN 25% 100 ML IV (23:00)
[2017-11-30] MEDS: CITRIC ACID/SODIUM CITRATE 15 ML CUP GTB (23:00)
[2017-11-30] MEDS: DEXTROSE 5%-0.45% NACL 1,000 ML IV (23:30)
[2017-12-01] MEDS: traZODone 100 MG TAB GTB ×2 (02:39→21:23)
[2017-12-01] MEDS: QUETIAPINE 25 MG TAB GTB ×3 (02:39→21:23)
[2017-12-01] MEDS: MAGNESIUM HYDROXIDE 30ML CUP GTB ×2 (02:39→21:23)
[2017-12-01] MEDS: GABAPENTIN 100 MG CAP GTB ×4 (02:39→21:23)
[2017-12-01] MEDS: DANTROLENE 25 MG CAP GTB ×4 (02:39→21:22)
[2017-12-01] MEDS: DEXTROSE 5%-0.45% NACL 1,000 ML IV (03:37)
[2017-12-01 05:34] LABS: ADD MAN DIFF? NO
[2017-12-01 05:46] LABS: ABNORMAL IP MESSAGE 1; BASOPHILS % 0.3 % (0.0-2.0); EOSINOPHILS # 0.2 10^3/ul (0.0-0.5); EOSINOPHILS % 2.2 % (0.0-7.0); HEMATOCRIT 29.6 % (42.0-52.0); HEMOGLOBIN 8.9 g/dl (14.0-18.0); LYMPHOCYTES # 0.5 10^3/ul (0.8-2.9); LYMPHOCYTES % 6.7 % (15.0-51.0); MEAN CORPUSCULAR HEMOGLOBIN 29.7 pg (29.0-33.0); MEAN CORPUSCULAR HGB CONC 30.1 g/dl (32.0-37.0); MEAN CORPUSCULAR VOLUME 98.7 fl (82.0-101.0); MEAN PLATELET VOLUME 11.6 fl (7.4-10.4); MONOCYTE # 0.5 10^3/ul (0.3-0.9); MONOCYTES % 7.1 % (0.0-11.0); NEUTROPHIL # 6.1 10^3/ul (1.6-7.5); NEUTROPHILS % 83.2 % (39.0-77.0); PLATELET COUNT 120 10^3/UL (140-415); POSITIVE DIFF @See below
[2017-12-01 05:46] LABS: WHITE BLOOD COUNT 7.3 10^3/ul (4.8-10.8)
[2017-12-01 06:05] LABS: ANION GAP 13 (8-16); BLOOD UREA NITROGEN 83 mg/dl (7-20); CALCIUM 8.4 mg/dl (8.4-10.2); CARBON DIOXIDE 22 mmol/L (21-31); CHLORIDE 115 mmol/L (97-110); CREATININE 2.39 mg/dl (0.61-1.24); GLUCOSE 90 mg/dl (70-220); POTASSIUM 4.8 mmol/L (3.5-5.1); SODIUM 145 mmol/L (135-144)
[2017-12-01] MEDS: ALBUMIN HUMAN 25% 100 ML IV ×2 (06:06→15:06)
[2017-12-01] MEDS: FERROUS SULFATE 60 MG/ML 5ML CUP GTB (10:26)
[2017-12-01] MEDS: MULTIVITAMINS 30 ML CUP GTB (10:26)
[2017-12-01] MEDS: CITRIC ACID/SODIUM CITRATE 15 ML CUP GTB ×3 (10:26→21:24)
[2017-12-01] MEDS: BACLOFEN 10 MG TAB GTB ×2 (10:27→10:42)
[2017-12-01] MEDS: SENNA TAB GTB ×3 (10:29→21:23)
[2017-12-01] MEDS: METOCLOPRAMIDE 5 MG TAB GTB (10:29)
[2017-12-01] MEDS: PIPER-TAZO 2.25 GM (PMX) 50 ML IVPB ×3 (11:47→21:24)
[2017-12-01 12:08] LABS: Allen Test ACCEPTAB; Arterial Base Excess -6.7 mmol/L (-3.0-3); Arterial Blood Gas Oxygen Sat 94.8 mmHG (95.0-98.0); Arterial COHb 0.1 % (0.0-3.0); Arterial Fraction of Oxyhgb 94.5 % (93.0-99.0); Arterial HCO3 18.3 mmol/L (22.0-26.0); Arterial MetHb 0.2 % (0.0-1.5); Arterial pCO2 34.5 mmhg (35-45); MODE VENT - AC; Site Right Brachial
[2017-12-01] MEDS: CHLORHEXIDINE GLUCONATE 15 ML UD CUP MM ×2 (14:15→21:23)
[2017-12-01] MEDS: FAMOTIDINE 20 MG TAB GTB (14:19)
[2017-12-01] MEDS: HYDROmorphONE 0.5 MG/0.5 ML SYG IV ×3 (14:20→23:07)
[2017-12-01] MEDS: HYDROmorphONE 1 MG/5 ML IV SYRINGE IV (19:15)
[2017-12-01] MEDS: DOCUSATE SODIUM 100 MG CAP PO ×2 (21:00→21:26)
[2017-12-01] MEDS: BISACODYL 10 MG SUPP PR ×2 (21:00→21:26)
[2017-12-02] MEDS ORDERED: traZODone 100 MG TAB PO (01:30)
[2017-12-02] MEDS: LORAZEPAM 0.5 MG TAB GTB (02:03)
[2017-12-02] MEDS: HYDROmorphONE 0.5 MG/0.5 ML SYG IV ×4 (02:30→20:35)
[2017-12-02] MEDS: DEXTROSE 5%-0.45% NACL 1,000 ML IV (03:36)
[2017-12-02] MEDS: DANTROLENE 25 MG CAP GTB ×3 (06:15→21:54)
[2017-12-02] MEDS: PIPER-TAZO 2.25 GM (PMX) 50 ML IVPB ×3 (06:15→21:55)
[2017-12-02 08:49] LABS: ADD MAN DIFF? NO
[2017-12-02] MEDS: METOCLOPRAMIDE 5 MG TAB GTB (09:00)
[2017-12-02] MEDS ORDERED: PIPER-TAZO 2.25 GM (PMX) 50 ML IVPB (09:00)
[2017-12-02 09:13] LABS: ANION GAP 17 (8-16); BLOOD UREA NITROGEN 62 mg/dl (7-20); CALCIUM 8.5 mg/dl (8.4-10.2); CARBON DIOXIDE 20 mmol/L (21-31); CHLORIDE 118 mmol/L (97-110); CREATININE 2.12 mg/dl (0.61-1.24); GLUCOSE 81 mg/dl (70-220); POTASSIUM 4.6 mmol/L (3.5-5.1); SODIUM 150 mmol/L (135-144)
[2017-12-02 09:29] LABS: WHITE BLOOD COUNT 4.2 10^3/ul (4.8-10.8)
[2017-12-02 09:29] LABS: ABNORMAL IP MESSAGE 1; BASOPHILS % 0.5 % (0.0-2.0); EOSINOPHILS # 0.2 10^3/ul (0.0-0.5); EOSINOPHILS % 4.1 % (0.0-7.0); HEMATOCRIT 32.9 % (42.0-52.0); HEMOGLOBIN 9.7 g/dl (14.0-18.0); LYMPHOCYTES # 0.3 10^3/ul (0.8-2.9); LYMPHOCYTES % 7.9 % (15.0-51.0); MEAN CORPUSCULAR HEMOGLOBIN 29.5 pg (29.0-33.0); MEAN CORPUSCULAR HGB CONC 29.5 g/dl (32.0-37.0); MEAN PLATELET VOLUME 11.8 fl (7.4-10.4); MONOCYTE # 0.4 10^3/ul (0.3-0.9); MONOCYTES % 9.8 % (0.0-11.0); NEUTROPHIL # 3.2 10^3/ul (1.6-7.5); NEUTROPHILS % 77.2 % (39.0-77.0); PLATELET COUNT 111 10^3/UL (140-415); POSITIVE DIFF @See below; RED BLOOD COUNT 3.29 10^6/ul (4.70-6.10); RED CELL DISTRIBUTION WIDTH 14.8 % (11.5-14.5)
[2017-12-02] MEDS: IPRATROPIUM (NEB) 0.5 MG/2.5 ML AMP HHN (09:30)
[2017-12-02] MEDS: ALBUTEROL 0.083% (NEB) 2.5 MG/3 ML AMP HHN (09:30)
[2017-12-02] MEDS ORDERED: ALBUTEROL HFA 8 GM INHALER INH (10:00)
[2017-12-02] MEDS: MULTIVITAMINS 30 ML CUP GTB (11:15)
[2017-12-02] MEDS: FERROUS SULFATE 60 MG/ML 5ML CUP GTB (11:15)
[2017-12-02] MEDS: CITRIC ACID/SODIUM CITRATE 15 ML CUP GTB ×3 (11:15→20:35)
[2017-12-02] MEDS: GABAPENTIN 100 MG CAP GTB ×3 (11:16→20:34)
[2017-12-02] MEDS: FAMOTIDINE 20 MG TAB GTB (11:16)
[2017-12-02] MEDS: SENNA TAB GTB ×2 (11:17→20:26)
[2017-12-02] MEDS: CHLORHEXIDINE GLUCONATE 15 ML UD CUP MM ×2 (11:17→20:35)
[2017-12-02] MEDS: QUETIAPINE 25 MG TAB GTB ×2 (13:49→20:34)
[2017-12-02] MEDS: DEXTROSE 5% 1,000 ML IV ×2 (13:50→14:19)
[2017-12-02] MEDS: BACLOFEN 10 MG TAB GTB (14:01)
[2017-12-02] MEDS: ALBUTEROL HFA 8 GM INHALER INH ×2 (14:12→19:55)
[2017-12-02] MEDS: IPRATROPIUM (HFA) 12.9 GM INHALER INH ×2 (14:12→19:54)
[2017-12-02] MEDS: MAGNESIUM HYDROXIDE 30ML CUP GTB (20:26)
[2017-12-02] MEDS: DOCUSATE SODIUM 100 MG CAP PO (20:26)
[2017-12-02] MEDS: BISACODYL 10 MG SUPP PR (20:26)
[2017-12-02] MEDS: ZOLPIDEM 5 MG TAB PO (21:54)
[2017-12-02] MEDS: traZODone 100 MG TAB GTB (21:55)
[2017-12-03] MEDS: HYDROmorphONE 0.5 MG/0.5 ML SYG IV ×5 (03:12→22:47)
[2017-12-03] MEDS: PIPER-TAZO 2.25 GM (PMX) 50 ML IVPB ×3 (05:34→21:23)
[2017-12-03] MEDS: DANTROLENE 25 MG CAP GTB ×3 (05:34→21:15)
[2017-12-03] MEDS: DEXTROSE 5% 1,000 ML IV (05:34)
[2017-12-03 05:49] LABS: ADD MAN DIFF? NO
[2017-12-03 05:52] LABS: ABNORMAL IP MESSAGE 1; BASOPHILS % 0.4 % (0.0-2.0); EOSINOPHILS # 0.2 10^3/ul (0.0-0.5); EOSINOPHILS % 3.4 % (0.0-7.0); HEMOGLOBIN 8.9 g/dl (14.0-18.0); LYMPHOCYTES # 0.5 10^3/ul (0.8-2.9); LYMPHOCYTES % 10.5 % (15.0-51.0); MEAN CORPUSCULAR HEMOGLOBIN 29.4 pg (29.0-33.0); MEAN CORPUSCULAR HGB CONC 29.7 g/dl (32.0-37.0); MEAN PLATELET VOLUME 12.1 fl (7.4-10.4); MONOCYTE # 0.5 10^3/ul (0.3-0.9); MONOCYTES % 9.3 % (0.0-11.0); NEUTROPHIL # 3.8 10^3/ul (1.6-7.5); PLATELET COUNT 124 10^3/UL (140-415); POSITIVE DIFF @See below; RED BLOOD COUNT 3.03 10^6/ul (4.70-6.10); RED CELL DISTRIBUTION WIDTH 14.6 % (11.5-14.5)
[2017-12-03 06:47] LABS: ALANINE AMINOTRANSFERASE 14 IU/L (13-69); ALBUMIN 2.9 g/dl (3.3-4.9); ALKALINE PHOSPHATASE 123 IU/L (42-121); ANION GAP 15 (8-16); ASPARTATE AMINO TRANSFERASE 11 IU/L (15-46); BLOOD UREA NITROGEN 54 mg/dl (7-20); CARBON DIOXIDE 21 mmol/L (21-31); CHLORIDE 112 mmol/L (97-110); CREATININE 2.03 mg/dl (0.61-1.24); GLUCOSE 119 mg/dl (70-220); POTASSIUM 4.6 mmol/L (3.5-5.1); SODIUM 143 mmol/L (135-144); TOTAL PROTEIN 6.1 g/dl (6.1-8.1)
[2017-12-03] MEDS: ALBUTEROL HFA 8 GM INHALER INH ×3 (07:57→19:16)
[2017-12-03] MEDS: IPRATROPIUM (HFA) 12.9 GM INHALER INH ×3 (07:57→19:16)
[2017-12-03] MEDS: CITRIC ACID/SODIUM CITRATE 15 ML CUP GTB ×3 (09:00→21:14)
[2017-12-03] MEDS: SENNA TAB GTB ×2 (09:00→21:15)
[2017-12-03] MEDS: METOCLOPRAMIDE 5 MG TAB GTB (09:45)
[2017-12-03] MEDS: GABAPENTIN 100 MG CAP GTB ×3 (09:45→21:15)
[2017-12-03] MEDS: FAMOTIDINE 20 MG TAB GTB (09:45)
[2017-12-03] MEDS: QUETIAPINE 25 MG TAB GTB ×2 (09:45→21:22)
[2017-12-03] MEDS: FERROUS SULFATE 60 MG/ML 5ML CUP GTB (09:46)
[2017-12-03] MEDS: CHLORHEXIDINE GLUCONATE 15 ML UD CUP MM ×2 (09:46→21:15)
[2017-12-03] MEDS: MULTIVITAMINS 30 ML CUP GTB (09:46)
[2017-12-03] MEDS: COLLAGENASE 5 GM (UD JAR) TOP (09:46)
[2017-12-03] MEDS ORDERED: PENDING SANTYL ORDER FOR WOUND CARE XX (18:00)
[2017-12-03] MEDS: BISACODYL 10 MG SUPP PR (21:00)
[2017-12-03] MEDS: MAGNESIUM HYDROXIDE 30ML CUP GTB (21:14)
[2017-12-03] MEDS: DOCUSATE SODIUM 100 MG CAP PO (21:15)
[2017-12-03] MEDS: traZODone 100 MG TAB GTB (21:22)
[2017-12-04] MEDS: HYDROmorphONE 0.5 MG/0.5 ML SYG IV ×5 (04:09→22:03)
[2017-12-04] MEDS: PIPER-TAZO 2.25 GM (PMX) 50 ML IVPB (05:18)
[2017-12-04] MEDS: DANTROLENE 25 MG CAP GTB ×3 (05:18→22:01)
[2017-12-04] MEDS: ALBUTEROL HFA 8 GM INHALER INH ×3 (08:35→19:57)
[2017-12-04] MEDS: IPRATROPIUM (HFA) 12.9 GM INHALER INH ×3 (08:35→19:57)
[2017-12-04] MEDS: CITRIC ACID/SODIUM CITRATE 15 ML CUP GTB ×3 (09:00→22:01)
[2017-12-04] MEDS: METOCLOPRAMIDE 5 MG TAB GTB (09:48)
[2017-12-04] MEDS: CHLORHEXIDINE GLUCONATE 15 ML UD CUP MM ×2 (09:48→20:24)
[2017-12-04] MEDS: MULTIVITAMINS 30 ML CUP GTB (09:48)
[2017-12-04] MEDS: FERROUS SULFATE 60 MG/ML 5ML CUP GTB (09:48)
[2017-12-04] MEDS: COLLAGENASE 5 GM (UD JAR) TOP (09:48)
[2017-12-04] MEDS: GABAPENTIN 100 MG CAP GTB ×3 (09:48→20:32)
[2017-12-04] MEDS: FAMOTIDINE 20 MG TAB GTB (09:48)
[2017-12-04] MEDS: SENNA TAB GTB ×2 (09:48→20:24)
[2017-12-04] MEDS: QUETIAPINE 25 MG TAB GTB ×2 (09:49→20:24)
[2017-12-04 11:43] LABS: ADD MAN DIFF? NO
[2017-12-04 11:57] LABS: WHITE BLOOD COUNT 6.2 10^3/ul (4.8-10.8)
[2017-12-04 11:57] LABS: ABNORMAL IP MESSAGE 1; BASOPHILS % 0.2 % (0.0-2.0); EOSINOPHILS # 0.2 10^3/ul (0.0-0.5); EOSINOPHILS % 3.1 % (0.0-7.0); HEMATOCRIT 31.2 % (42.0-52.0); HEMOGLOBIN 9.4 g/dl (14.0-18.0); LYMPHOCYTES # 0.4 10^3/ul (0.8-2.9); MEAN CORPUSCULAR HEMOGLOBIN 29.4 pg (29.0-33.0); MEAN CORPUSCULAR HGB CONC 30.1 g/dl (32.0-37.0); MEAN CORPUSCULAR VOLUME 97.5 fl (82.0-101.0); MEAN PLATELET VOLUME 11.8 fl (7.4-10.4); MONOCYTE # 0.4 10^3/ul (0.3-0.9); MONOCYTES % 5.7 % (0.0-11.0); NEUTROPHIL # 5.2 10^3/ul (1.6-7.5); NEUTROPHILS % 83.7 % (39.0-77.0); PLATELET COUNT 118 10^3/UL (140-415); POSITIVE DIFF @See below; RED CELL DISTRIBUTION WIDTH 14.5 % (11.5-14.5)
[2017-12-04 12:03] LABS: ANION GAP 15 (8-16); BLOOD UREA NITROGEN 49 mg/dl (7-20); CALCIUM 8.2 mg/dl (8.4-10.2); CARBON DIOXIDE 23 mmol/L (21-31); CHLORIDE 110 mmol/L (97-110); GLUCOSE 115 mg/dl (70-220); SODIUM 143 mmol/L (135-144)
[2017-12-04] MEDS: COLISTIMETHATE (25 MG/ML INHAL SYG) NEB (20:00)
[2017-12-04] MEDS: DOCUSATE SODIUM 100 MG CAP PO (20:24)
[2017-12-04] MEDS: traZODone 100 MG TAB GTB (20:24)
[2017-12-04] MEDS: MAGNESIUM HYDROXIDE 30ML CUP GTB (20:25)
[2017-12-04] MEDS: CEFEPIME 1GM/50 ML (PMX) 50 ML IVPB (20:32)
[2017-12-04] MEDS: BISACODYL 10 MG SUPP PR (21:00)
[2017-12-05] MEDS: ACETAMINOPHEN 650MG/20.3ML CUP PO ×2 (00:43→10:04)
[2017-12-05] MEDS: HYDROmorphONE 0.5 MG/0.5 ML SYG IV ×6 (02:05→22:10)
[2017-12-05] MEDS: DANTROLENE 25 MG CAP GTB ×3 (06:05→20:49)
[2017-12-05 06:21] LABS: ADD MAN DIFF? NO
[2017-12-05 06:42] LABS: BASOPHILS % 0.3 % (0.0-2.0); EOSINOPHILS # 0.2 10^3/ul (0.0-0.5); EOSINOPHILS % 2.5 % (0.0-7.0); HEMOGLOBIN 9.1 g/dl (14.0-18.0); LYMPHOCYTES # 0.7 10^3/ul (0.8-2.9); LYMPHOCYTES % 8.8 % (15.0-51.0); MEAN CORPUSCULAR HEMOGLOBIN 29.9 pg (29.0-33.0); MEAN CORPUSCULAR HGB CONC 30.3 g/dl (32.0-37.0); MEAN CORPUSCULAR VOLUME 98.7 fl (82.0-101.0); MONOCYTE # 0.6 10^3/ul (0.3-0.9); MONOCYTES % 7.5 % (0.0-11.0); NEUTROPHIL # 6.1 10^3/ul (1.6-7.5); NEUTROPHILS % 80.6 % (39.0-77.0); PLATELET COUNT 133 10^3/UL (140-415); RED BLOOD COUNT 3.04 10^6/ul (4.70-6.10); RED CELL DISTRIBUTION WIDTH 14.3 % (11.5-14.5)
[2017-12-05 06:42] LABS: WHITE BLOOD COUNT 7.5 10^3/ul (4.8-10.8)
[2017-12-05 07:14] LABS: ANION GAP 15 (8-16); BLOOD UREA NITROGEN 47 mg/dl (7-20); CALCIUM 8.6 mg/dl (8.4-10.2); CARBON DIOXIDE 24 mmol/L (21-31); CHLORIDE 114 mmol/L (97-110); CREATININE 1.89 mg/dl (0.61-1.24); GLUCOSE 81 mg/dl (70-220); POTASSIUM 5.1 mmol/L (3.5-5.1); SODIUM 148 mmol/L (135-144)
[2017-12-05] MEDS: CEFEPIME 1GM/50 ML (PMX) 50 ML IVPB ×2 (10:05→20:49)
[2017-12-05] MEDS: MULTIVITAMINS 30 ML CUP GTB (10:06)
[2017-12-05] MEDS: COLLAGENASE 5 GM (UD JAR) TOP (10:06)
[2017-12-05] MEDS: FERROUS SULFATE 60 MG/ML 5ML CUP GTB (10:06)
[2017-12-05] MEDS: CITRIC ACID/SODIUM CITRATE 15 ML CUP GTB ×3 (10:07→20:48)
[2017-12-05] MEDS: METOCLOPRAMIDE 5 MG TAB GTB (10:07)
[2017-12-05] MEDS: CHLORHEXIDINE GLUCONATE 15 ML UD CUP MM ×2 (10:07→20:48)
[2017-12-05] MEDS: FAMOTIDINE 20 MG TAB GTB (10:07)
[2017-12-05] MEDS: SENNA TAB GTB ×2 (10:09→20:49)
[2017-12-05] MEDS: QUETIAPINE 25 MG TAB GTB ×2 (10:09→20:49)
[2017-12-05] MEDS: GABAPENTIN 100 MG CAP GTB ×3 (10:10→20:49)
[2017-12-05] MEDS: ALBUTEROL HFA 8 GM INHALER INH ×3 (11:21→19:37)
[2017-12-05] MEDS: IPRATROPIUM (HFA) 12.9 GM INHALER INH ×3 (11:21→19:37)
[2017-12-05] MEDS: COLISTIMETHATE (25 MG/ML INHAL SYG) NEB ×2 (11:22→19:38)
[2017-12-05] MEDS: DEXTROSE 5% 1,000 ML IV (12:00)
[2017-12-05] MEDS: MAGNESIUM HYDROXIDE 30ML CUP GTB (20:48)
[2017-12-05] MEDS: DOCUSATE SODIUM 100 MG CAP PO (20:50)
[2017-12-05] MEDS: BISACODYL 10 MG SUPP PR (20:50)
[2017-12-05] MEDS: traZODone 100 MG TAB GTB (20:50)
[2017-12-06] MEDS: DEXTROSE 5% 1,000 ML IV ×2 (01:47→16:36)
[2017-12-06] MEDS: HYDROmorphONE 0.5 MG/0.5 ML SYG IV ×5 (01:47→20:25)
[2017-12-06 05:31] LABS: ADD MAN DIFF? NO
[2017-12-06 05:43] LABS: WHITE BLOOD COUNT 4.3 10^3/ul (4.8-10.8)
[2017-12-06 05:43] LABS: BASOPHILS % 0.2 % (0.0-2.0); EOSINOPHILS # 0.3 10^3/ul (0.0-0.5); EOSINOPHILS % 6.3 % (0.0-7.0); HEMOGLOBIN 8.8 g/dl (14.0-18.0); LYMPHOCYTES # 0.7 10^3/ul (0.8-2.9); LYMPHOCYTES % 17.1 % (15.0-51.0); MEAN CORPUSCULAR HEMOGLOBIN 29.8 pg (29.0-33.0); MEAN CORPUSCULAR HGB CONC 30.3 g/dl (32.0-37.0); MEAN CORPUSCULAR VOLUME 98.3 fl (82.0-101.0); MEAN PLATELET VOLUME 11.8 fl (7.4-10.4); MONOCYTE # 0.4 10^3/ul (0.3-0.9); MONOCYTES % 9.8 % (0.0-11.0); NEUTROPHIL # 2.8 10^3/ul (1.6-7.5); NEUTROPHILS % 66.4 % (39.0-77.0); PLATELET COUNT 113 10^3/UL (140-415); RED BLOOD COUNT 2.95 10^6/ul (4.70-6.10); RED CELL DISTRIBUTION WIDTH 14.4 % (11.5-14.5)
[2017-12-06] MEDS: DANTROLENE 25 MG CAP GTB ×3 (05:49→20:24)
[2017-12-06 05:54] LABS: ANION GAP 15 (8-16); BLOOD UREA NITROGEN 44 mg/dl (7-20); CALCIUM 8.6 mg/dl (8.4-10.2); CARBON DIOXIDE 21 mmol/L (21-31); CHLORIDE 114 mmol/L (97-110); CREATININE 1.93 mg/dl (0.61-1.24); GLUCOSE 99 mg/dl (70-220); POTASSIUM 5.8 mmol/L (3.5-5.1); SODIUM 144 mmol/L (135-144)
[2017-12-06] MEDS: IPRATROPIUM (HFA) 12.9 GM INHALER INH ×3 (08:54→19:33)
[2017-12-06] MEDS: ALBUTEROL HFA 8 GM INHALER INH ×3 (08:54→19:33)
[2017-12-06] MEDS: COLISTIMETHATE (25 MG/ML INHAL SYG) NEB ×2 (08:55→19:32)
[2017-12-06] MEDS: CEFEPIME 1GM/50 ML (PMX) 50 ML IVPB ×2 (09:09→20:24)
[2017-12-06] MEDS: COLLAGENASE 5 GM (UD JAR) TOP (09:10)
[2017-12-06] MEDS: FERROUS SULFATE 60 MG/ML 5ML CUP GTB (09:11)
[2017-12-06] MEDS: MULTIVITAMINS 30 ML CUP GTB (09:11)
[2017-12-06] MEDS: CITRIC ACID/SODIUM CITRATE 15 ML CUP GTB ×3 (09:12→20:24)
[2017-12-06] MEDS: CHLORHEXIDINE GLUCONATE 15 ML UD CUP MM ×2 (09:12→20:24)
[2017-12-06] MEDS: GABAPENTIN 100 MG CAP GTB ×3 (09:13→20:25)
[2017-12-06] MEDS: FAMOTIDINE 20 MG TAB GTB (09:13)
[2017-12-06] MEDS: METOCLOPRAMIDE 5 MG TAB GTB (09:13)
[2017-12-06] MEDS: QUETIAPINE 25 MG TAB GTB ×2 (09:13→20:24)
[2017-12-06] MEDS: SENNA TAB GTB ×2 (09:13→20:24)
[2017-12-06] MEDS: NA POLYST SULFON 15 GM/60 ML BTL PO (14:53)
[2017-12-06] MEDS: MAGNESIUM HYDROXIDE 30ML CUP GTB (20:23)
[2017-12-06] MEDS: DOCUSATE SODIUM 100 MG CAP PO (20:25)
[2017-12-06] MEDS: traZODone 100 MG TAB GTB (20:25)
[2017-12-06] MEDS: BISACODYL 10 MG SUPP PR (20:26)
[2017-12-07] MEDS: HYDROmorphONE 0.5 MG/0.5 ML SYG IV ×5 (00:11→19:44)
[2017-12-07 05:26] LABS: ADD MAN DIFF? NO
[2017-12-07] MEDS: DANTROLENE 25 MG CAP GTB ×3 (05:31→21:31)
[2017-12-07 05:32] LABS: BASOPHILS % 0.4 % (0.0-2.0); EOSINOPHILS # 0.4 10^3/ul (0.0-0.5); EOSINOPHILS % 8.4 % (0.0-7.0); HEMATOCRIT 31.5 % (42.0-52.0); HEMOGLOBIN 9.4 g/dl (14.0-18.0); LYMPHOCYTES # 0.7 10^3/ul (0.8-2.9); LYMPHOCYTES % 15.8 % (15.0-51.0); MEAN CORPUSCULAR HEMOGLOBIN 29.3 pg (29.0-33.0); MEAN CORPUSCULAR HGB CONC 29.8 g/dl (32.0-37.0); MEAN CORPUSCULAR VOLUME 98.1 fl (82.0-101.0); MEAN PLATELET VOLUME 11.6 fl (7.4-10.4); MONOCYTE # 0.3 10^3/ul (0.3-0.9); MONOCYTES % 7.3 % (0.0-11.0); NEUTROPHIL # 3.2 10^3/ul (1.6-7.5); NEUTROPHILS % 67.9 % (39.0-77.0); RED BLOOD COUNT 3.21 10^6/ul (4.70-6.10); RED CELL DISTRIBUTION WIDTH 14.3 % (11.5-14.5)
[2017-12-07 05:32] LABS: WHITE BLOOD COUNT 4.7 10^3/ul (4.8-10.8)
[2017-12-07 05:42] LABS: PLATELET COUNT 136 10^3/UL (140-415)
[2017-12-07 05:53] LABS: ANION GAP 13 (8-16); BLOOD UREA NITROGEN 42 mg/dl (7-20); CARBON DIOXIDE 25 mmol/L (21-31); CHLORIDE 117 mmol/L (97-110); CREATININE 1.85 mg/dl (0.61-1.24); GLUCOSE 88 mg/dl (70-220); POTASSIUM 5.4 mmol/L (3.5-5.1); SODIUM 150 mmol/L (135-144)
[2017-12-07] MEDS: DEXTROSE 5% 1,000 ML IV ×2 (06:54→17:35)
[2017-12-07] MEDS: ALBUTEROL HFA 8 GM INHALER INH ×3 (07:34→19:14)
[2017-12-07] MEDS: IPRATROPIUM (HFA) 12.9 GM INHALER INH ×3 (07:34→19:14)
[2017-12-07] MEDS: GABAPENTIN 100 MG CAP GTB ×3 (08:35→21:31)
[2017-12-07] MEDS: SENNA TAB GTB ×2 (08:35→21:31)
[2017-12-07] MEDS: FERROUS SULFATE 60 MG/ML 5ML CUP GTB (08:36)
[2017-12-07] MEDS: METOCLOPRAMIDE 5 MG TAB GTB (08:36)
[2017-12-07] MEDS: QUETIAPINE 25 MG TAB GTB ×2 (08:36→21:31)
[2017-12-07] MEDS: CEFEPIME 1GM/50 ML (PMX) 50 ML IVPB ×2 (08:37→21:32)
[2017-12-07] MEDS: MULTIVITAMINS 30 ML CUP GTB (08:37)
[2017-12-07] MEDS: COLLAGENASE 5 GM (UD JAR) TOP (08:37)
[2017-12-07] MEDS: FAMOTIDINE 20 MG TAB GTB (08:37)
[2017-12-07] MEDS: CHLORHEXIDINE GLUCONATE 15 ML UD CUP MM ×2 (08:37→21:31)
[2017-12-07] MEDS: CITRIC ACID/SODIUM CITRATE 15 ML CUP GTB ×3 (08:38→21:31)
[2017-12-07] MEDS: COLISTIMETHATE (25 MG/ML INHAL SYG) NEB ×2 (08:43→19:13)
[2017-12-07] MEDS: NA POLYST SULFON 15 GM/60 ML BTL PO (10:24)
[2017-12-07] MEDS: ACETAMINOPHEN 650MG/20.3ML CUP PO (13:01)
[2017-12-07] MEDS: DOCUSATE SODIUM 100 MG CAP PO (21:31)
[2017-12-07] MEDS: BISACODYL 10 MG SUPP PR (21:31)
[2017-12-07] MEDS: traZODone 100 MG TAB GTB (21:32)
[2017-12-07] MEDS: MAGNESIUM HYDROXIDE 30ML CUP GTB (21:33)
[2017-12-08] MEDS: HYDROmorphONE 0.5 MG/0.5 ML SYG IV ×5 (01:17→22:55)
[2017-12-08] MEDS: EPOETIN 10000 UNITS/1 ML INJ (ESRD) SC (01:41)
[2017-12-08] MEDS: DEXTROSE 5% 1,000 ML IV ×3 (03:35→23:35)
[2017-12-08] MEDS: DANTROLENE 25 MG CAP GTB ×3 (05:43→21:51)
[2017-12-08 08:01] LABS: ADD MAN DIFF? NO
[2017-12-08 08:10] LABS: WHITE BLOOD COUNT 4.8 10^3/ul (4.8-10.8)
[2017-12-08 08:10] LABS: BASOPHILS % 0.6 % (0.0-2.0); EOSINOPHILS # 0.6 10^3/ul (0.0-0.5); EOSINOPHILS % 11.6 % (0.0-7.0); HEMATOCRIT 33.3 % (42.0-52.0); HEMOGLOBIN 9.8 g/dl (14.0-18.0); LYMPHOCYTES # 0.8 10^3/ul (0.8-2.9); LYMPHOCYTES % 15.8 % (15.0-51.0); MEAN CORPUSCULAR HEMOGLOBIN 29.3 pg (29.0-33.0); MEAN CORPUSCULAR HGB CONC 29.4 g/dl (32.0-37.0); MEAN CORPUSCULAR VOLUME 99.4 fl (82.0-101.0); MEAN PLATELET VOLUME 11.4 fl (7.4-10.4); MONOCYTE # 0.4 10^3/ul (0.3-0.9); MONOCYTES % 8.1 % (0.0-11.0); NEUTROPHIL # 3.1 10^3/ul (1.6-7.5); NEUTROPHILS % 63.5 % (39.0-77.0); PLATELET COUNT 139 10^3/UL (140-415); RED BLOOD COUNT 3.35 10^6/ul (4.70-6.10); RED CELL DISTRIBUTION WIDTH 14.4 % (11.5-14.5)
[2017-12-08] MEDS: IPRATROPIUM (HFA) 12.9 GM INHALER INH ×3 (08:10→21:00)
[2017-12-08] MEDS: ALBUTEROL HFA 8 GM INHALER INH ×3 (08:10→21:00)
[2017-12-08 08:29] LABS: ANION GAP 14 (8-16); BLOOD UREA NITROGEN 39 mg/dl (7-20); CALCIUM 8.9 mg/dl (8.4-10.2); CARBON DIOXIDE 27 mmol/L (21-31); CHLORIDE 116 mmol/L (97-110); CREATININE 1.58 mg/dl (0.61-1.24); GLUCOSE 91 mg/dl (70-220); POTASSIUM 4.9 mmol/L (3.5-5.1); SODIUM 152 mmol/L (135-144)
[2017-12-08] MEDS: CEFEPIME 1GM/50 ML (PMX) 50 ML IVPB (08:52)
[2017-12-08] MEDS: FERROUS SULFATE 60 MG/ML 5ML CUP GTB (08:54)
[2017-12-08] MEDS: GABAPENTIN 100 MG CAP GTB ×3 (08:54→21:58)
[2017-12-08] MEDS: COLLAGENASE 5 GM (UD JAR) TOP (08:54)
[2017-12-08] MEDS: CITRIC ACID/SODIUM CITRATE 15 ML CUP GTB ×3 (08:54→21:48)
[2017-12-08] MEDS: CHLORHEXIDINE GLUCONATE 15 ML UD CUP MM ×2 (08:55→21:50)
[2017-12-08] MEDS: SENNA TAB GTB ×2 (08:55→21:50)
[2017-12-08] MEDS: METOCLOPRAMIDE 5 MG TAB GTB (08:55)
[2017-12-08] MEDS: QUETIAPINE 25 MG TAB GTB ×2 (08:55→21:50)
[2017-12-08] MEDS: FAMOTIDINE 20 MG TAB GTB (08:55)
[2017-12-08] MEDS: COLISTIMETHATE (25 MG/ML INHAL SYG) NEB (09:00)
[2017-12-08] MEDS: MULTIVITAMINS 30 ML CUP GTB (14:54)
[2017-12-08] MEDS: BALSAM PERU/CASTOR OIL 60 GM TUBE TOP ×2 (14:54→22:07)
[2017-12-08] MEDS: traZODone 100 MG TAB GTB (21:48)
[2017-12-08] MEDS: MAGNESIUM HYDROXIDE 30ML CUP GTB (21:49)
[2017-12-08] MEDS: BISACODYL 10 MG SUPP PR (21:51)
[2017-12-08] MEDS: DOCUSATE SODIUM 100 MG CAP PO (21:58)
[2017-12-09] MEDS: HYDROmorphONE 0.5 MG/0.5 ML SYG IV ×6 (00:50→22:27)
[2017-12-09] MEDS: DANTROLENE 25 MG CAP GTB ×3 (05:28→23:36)
[2017-12-09 07:07] LABS: ADD MAN DIFF? NO
[2017-12-09 07:19] LABS: BASOPHILS % 0.4 % (0.0-2.0); EOSINOPHILS # 0.6 10^3/ul (0.0-0.5); EOSINOPHILS % 11.7 % (0.0-7.0); HEMATOCRIT 30.1 % (42.0-52.0); HEMOGLOBIN 9.1 g/dl (14.0-18.0); LYMPHOCYTES # 0.9 10^3/ul (0.8-2.9); LYMPHOCYTES % 18.4 % (15.0-51.0); MEAN CORPUSCULAR HEMOGLOBIN 29.8 pg (29.0-33.0); MEAN CORPUSCULAR HGB CONC 30.2 g/dl (32.0-37.0); MEAN CORPUSCULAR VOLUME 98.7 fl (82.0-101.0); MEAN PLATELET VOLUME 11.6 fl (7.4-10.4); MONOCYTE # 0.4 10^3/ul (0.3-0.9); MONOCYTES % 7.5 % (0.0-11.0); NEUTROPHIL # 3.1 10^3/ul (1.6-7.5); NEUTROPHILS % 61.8 % (39.0-77.0); PLATELET COUNT 135 10^3/UL (140-415); RED BLOOD COUNT 3.05 10^6/ul (4.70-6.10); RED CELL DISTRIBUTION WIDTH 14.3 % (11.5-14.5)
[2017-12-09 07:19] LABS: WHITE BLOOD COUNT 4.9 10^3/ul (4.8-10.8)
[2017-12-09 07:56] LABS: ANION GAP 15 (8-16); BLOOD UREA NITROGEN 39 mg/dl (7-20); CALCIUM 8.9 mg/dl (8.4-10.2); CARBON DIOXIDE 29 mmol/L (21-31); CHLORIDE 109 mmol/L (97-110); CREATININE 1.48 mg/dl (0.61-1.24); GLUCOSE 87 mg/dl (70-220); POTASSIUM 5.1 mmol/L (3.5-5.1); SODIUM 148 mmol/L (135-144)
[2017-12-09] MEDS: IPRATROPIUM (HFA) 12.9 GM INHALER INH ×3 (08:00→19:53)
[2017-12-09] MEDS: ALBUTEROL HFA 8 GM INHALER INH ×3 (08:00→19:53)
[2017-12-09] MEDS: GABAPENTIN 100 MG CAP GTB ×3 (08:30→22:28)
[2017-12-09] MEDS: FERROUS SULFATE 60 MG/ML 5ML CUP GTB (08:30)
[2017-12-09] MEDS: CITRIC ACID/SODIUM CITRATE 15 ML CUP GTB ×2 (08:30→22:29)
[2017-12-09] MEDS: SENNA TAB GTB ×2 (08:31→21:00)
[2017-12-09] MEDS: FAMOTIDINE 20 MG TAB GTB (08:31)
[2017-12-09] MEDS: COLLAGENASE 5 GM (UD JAR) TOP (08:32)
[2017-12-09] MEDS: MULTIVITAMINS 30 ML CUP GTB (08:32)
[2017-12-09] MEDS: CHLORHEXIDINE GLUCONATE 15 ML UD CUP MM ×2 (08:32→22:29)
[2017-12-09] MEDS: METOCLOPRAMIDE 5 MG TAB GTB (08:32)
[2017-12-09] MEDS: QUETIAPINE 25 MG TAB GTB ×2 (08:32→22:28)
[2017-12-09] MEDS: BALSAM PERU/CASTOR OIL 60 GM TUBE TOP ×2 (08:32→22:30)
[2017-12-09] MEDS: DEXTROSE 5% 1,000 ML IV ×2 (09:35→19:35)
[2017-12-09] MEDS: MAGNESIUM HYDROXIDE 30ML CUP GTB (21:00)
[2017-12-09] MEDS: BISACODYL 10 MG SUPP PR (21:00)
[2017-12-09] MEDS: DOCUSATE SODIUM 100 MG CAP PO (21:00)
[2017-12-09] MEDS: traZODone 100 MG TAB GTB (22:27)
[2017-12-10] MEDS: DANTROLENE 25 MG CAP GTB ×3 (06:36→21:38)
[2017-12-10 07:03] LABS: ADD MAN DIFF? NO
[2017-12-10 07:05] LABS: WHITE BLOOD COUNT 5.4 10^3/ul (4.8-10.8)
[2017-12-10 07:05] LABS: BASOPHILS % 0.2 % (0.0-2.0); EOSINOPHILS # 0.6 10^3/ul (0.0-0.5); EOSINOPHILS % 11.6 % (0.0-7.0); HEMATOCRIT 33.7 % (42.0-52.0); HEMOGLOBIN 10.1 g/dl (14.0-18.0); LYMPHOCYTES # 0.8 10^3/ul (0.8-2.9); LYMPHOCYTES % 14.4 % (15.0-51.0); MEAN CORPUSCULAR HEMOGLOBIN 29.7 pg (29.0-33.0); MEAN CORPUSCULAR VOLUME 99.1 fl (82.0-101.0); MEAN PLATELET VOLUME 11.8 fl (7.4-10.4); MONOCYTE # 0.5 10^3/ul (0.3-0.9); MONOCYTES % 8.3 % (0.0-11.0); NEUTROPHIL # 3.5 10^3/ul (1.6-7.5); NEUTROPHILS % 65.3 % (39.0-77.0); PLATELET COUNT 133 10^3/UL (140-415); RED CELL DISTRIBUTION WIDTH 14.6 % (11.5-14.5)
[2017-12-10] MEDS: CITRIC ACID/SODIUM CITRATE 15 ML CUP GTB ×2 (08:45→21:38)
[2017-12-10] MEDS: QUETIAPINE 25 MG TAB GTB ×2 (08:45→21:38)
[2017-12-10] MEDS: FERROUS SULFATE 60 MG/ML 5ML CUP GTB (08:45)
[2017-12-10] MEDS: SENNA TAB GTB ×2 (08:46→21:00)
[2017-12-10] MEDS: COLLAGENASE 5 GM (UD JAR) TOP (08:46)
[2017-12-10] MEDS: GABAPENTIN 100 MG CAP GTB ×3 (08:46→21:38)
[2017-12-10] MEDS: BALSAM PERU/CASTOR OIL 60 GM TUBE TOP ×2 (08:46→21:39)
[2017-12-10] MEDS: METOCLOPRAMIDE 5 MG TAB GTB (08:46)
[2017-12-10] MEDS: FAMOTIDINE 20 MG TAB GTB (08:46)
[2017-12-10] MEDS: MULTIVITAMINS 30 ML CUP GTB (08:50)
[2017-12-10] MEDS: CHLORHEXIDINE GLUCONATE 15 ML UD CUP MM ×2 (08:50→21:38)
[2017-12-10] MEDS: IPRATROPIUM (HFA) 12.9 GM INHALER INH ×3 (09:31→19:29)
[2017-12-10] MEDS: ALBUTEROL HFA 8 GM INHALER INH ×3 (09:32→19:29)
[2017-12-10] MEDS: HYDROmorphONE 0.5 MG/0.5 ML SYG IV ×3 (12:17→21:40)
[2017-12-10] MEDS: MAGNESIUM HYDROXIDE 30ML CUP GTB (21:00)
[2017-12-10] MEDS: BISACODYL 10 MG SUPP PR (21:00)
[2017-12-10] MEDS: DOCUSATE SODIUM 100 MG CAP PO (21:00)
[2017-12-10] MEDS: traZODone 100 MG TAB GTB (21:39)
[2017-12-11] MEDS: HYDROmorphONE 0.5 MG/0.5 ML SYG IV ×4 (02:04→21:26)
[2017-12-11] MEDS: DANTROLENE 25 MG CAP GTB ×3 (06:27→21:29)
[2017-12-11 06:33] LABS: ADD MAN DIFF? NO
[2017-12-11 06:41] LABS: BASOPHILS % 0.5 % (0.0-2.0); EOSINOPHILS # 0.5 10^3/ul (0.0-0.5); EOSINOPHILS % 8.4 % (0.0-7.0); HEMATOCRIT 37.4 % (42.0-52.0); HEMOGLOBIN 11.1 g/dl (14.0-18.0); LYMPHOCYTES % 16.4 % (15.0-51.0); MEAN CORPUSCULAR HEMOGLOBIN 29.6 pg (29.0-33.0); MEAN CORPUSCULAR HGB CONC 29.7 g/dl (32.0-37.0); MEAN CORPUSCULAR VOLUME 99.7 fl (82.0-101.0); MEAN PLATELET VOLUME 12.2 fl (7.4-10.4); MONOCYTE # 0.5 10^3/ul (0.3-0.9); MONOCYTES % 7.7 % (0.0-11.0); NEUTROPHIL # 4.1 10^3/ul (1.6-7.5); NEUTROPHILS % 66.5 % (39.0-77.0); PLATELET COUNT 154 10^3/UL (140-415); RED BLOOD COUNT 3.75 10^6/ul (4.70-6.10); RED CELL DISTRIBUTION WIDTH 14.7 % (11.5-14.5)
[2017-12-11 06:41] LABS: WHITE BLOOD COUNT 6.2 10^3/ul (4.8-10.8)
[2017-12-11 06:58] LABS: ALANINE AMINOTRANSFERASE 72 IU/L (13-69); ALBUMIN 3.7 g/dl (3.3-4.9); ALBUMIN/GLOBULIN RATIO 0.92; ALKALINE PHOSPHATASE 199 IU/L (42-121); ANION GAP 15 (8-16); ASPARTATE AMINO TRANSFERASE 54 IU/L (15-46); BILIRUBIN,INDIRECT 0.1 mg/dl (0-1.1); BILIRUBIN,TOTAL 0.1 mg/dl (0.2-1.3); BLOOD UREA NITROGEN 38 mg/dl (7-20); CALCIUM 8.9 mg/dl (8.4-10.2); CARBON DIOXIDE 27 mmol/L (21-31); CHLORIDE 112 mmol/L (97-110); CREATININE 1.88 mg/dl (0.61-1.24); GLUCOSE 91 mg/dl (70-220); POTASSIUM 5.2 mmol/L (3.5-5.1); SODIUM 149 mmol/L (135-144); TOTAL PROTEIN 7.7 g/dl (6.1-8.1)
[2017-12-11 07:00] LABS: PHOSPHORUS 4.1 mg/dl (2.5-4.9)
[2017-12-11 07:00] LABS: MAGNESIUM 2.4 mg/dl (1.7-2.5)
[2017-12-11 07:02] LABS: PARTIAL THROMBOPLASTIN TIME 37.4 Sec (25.0-35.0); PROTIME 13.3 Sec (11.9-14.9)
[2017-12-11] MEDS: ALBUTEROL HFA 8 GM INHALER INH ×3 (07:52→19:39)
[2017-12-11] MEDS: IPRATROPIUM (HFA) 12.9 GM INHALER INH ×3 (07:53→19:39)
[2017-12-11] MEDS: MULTIVITAMINS 30 ML CUP GTB (09:23)
[2017-12-11] MEDS: CHLORHEXIDINE GLUCONATE 15 ML UD CUP MM ×2 (09:23→21:30)
[2017-12-11] MEDS: NA POLYST SULFON 15 GM/60 ML BTL PO (09:23)
[2017-12-11] MEDS: BALSAM PERU/CASTOR OIL 60 GM TUBE TOP ×2 (09:24→21:31)
[2017-12-11] MEDS: FERROUS SULFATE 60 MG/ML 5ML CUP GTB (09:24)
[2017-12-11] MEDS: COLLAGENASE 5 GM (UD JAR) TOP (09:24)
[2017-12-11] MEDS: CITRIC ACID/SODIUM CITRATE 15 ML CUP GTB ×2 (09:25→21:27)
[2017-12-11] MEDS: SENNA TAB GTB ×2 (09:25→21:00)
[2017-12-11] MEDS: QUETIAPINE 25 MG TAB GTB ×2 (09:25→21:30)
[2017-12-11] MEDS: FAMOTIDINE 20 MG TAB GTB (09:25)
[2017-12-11] MEDS: METOCLOPRAMIDE 5 MG TAB GTB (09:26)
[2017-12-11] MEDS: GABAPENTIN 100 MG CAP GTB ×3 (09:28→21:29)
[2017-12-11] MEDS: DEXTROSE 5% 1,000 ML IV ×2 (09:36→17:58)
[2017-12-11] MEDS: BISACODYL 10 MG SUPP PR (21:00)
[2017-12-11] MEDS: DOCUSATE SODIUM 100 MG CAP PO (21:00)
[2017-12-11] MEDS: MAGNESIUM HYDROXIDE 30ML CUP GTB (21:00)
[2017-12-11] MEDS: traZODone 100 MG TAB GTB (21:29)
[2017-12-12] MEDS: ACETAMINOPHEN 650MG/20.3ML CUP PO (00:11)
[2017-12-12] MEDS: ZOLPIDEM 5 MG TAB PO (00:11)
[2017-12-12] MEDS: DEXTROSE 5% 1,000 ML IV (00:12)
[2017-12-12] MEDS: DANTROLENE 25 MG CAP GTB ×2 (06:57→13:14)
[2017-12-12] MEDS: ALBUTEROL HFA 8 GM INHALER INH ×2 (08:16→13:42)
[2017-12-12] MEDS: IPRATROPIUM (HFA) 12.9 GM INHALER INH ×2 (08:16→13:42)
[2017-12-12 08:51] LABS: ANION GAP 14 (8-16); BLOOD UREA NITROGEN 37 mg/dl (7-20); CALCIUM 8.3 mg/dl (8.4-10.2); CARBON DIOXIDE 25 mmol/L (21-31); CHLORIDE 108 mmol/L (97-110); CREATININE 1.56 mg/dl (0.61-1.24); GLUCOSE 100 mg/dl (70-220); POTASSIUM 4.5 mmol/L (3.5-5.1); SODIUM 142 mmol/L (135-144)
[2017-12-12] MEDS: COLLAGENASE 5 GM (UD JAR) TOP (09:09)
[2017-12-12] MEDS: BALSAM PERU/CASTOR OIL 60 GM TUBE TOP (09:09)
[2017-12-12] MEDS: HYDROmorphONE 0.5 MG/0.5 ML SYG IV (09:10)
[2017-12-12] MEDS: METOCLOPRAMIDE 5 MG TAB GTB (09:12)
[2017-12-12] MEDS: QUETIAPINE 25 MG TAB GTB (09:12)
[2017-12-12] MEDS: SENNA TAB GTB (09:12)
[2017-12-12] MEDS: FAMOTIDINE 20 MG TAB GTB (09:12)
[2017-12-12] MEDS: GABAPENTIN 100 MG CAP GTB ×2 (09:12→13:15)
[2017-12-12] MEDS: CHLORHEXIDINE GLUCONATE 15 ML UD CUP MM (09:13)
[2017-12-12] MEDS: CITRIC ACID/SODIUM CITRATE 15 ML CUP GTB (09:13)
[2017-12-12] MEDS: MULTIVITAMINS 30 ML CUP GTB (09:14)
[2017-12-12] MEDS: FERROUS SULFATE 60 MG/ML 5ML CUP GTB (09:14)
== END 2017-12-12 17:55 | DRG 870 ==
LOC: ICU 18:54 → TEL 12-08 00:45 → ICU 12-02 02:55 → E/R 15:00
PROC: 5A1955Z Respiratory Ventilation, Greater than 96 Consecutive Hours (ICD-10-PCS; principal; 2017-11-30)
DX: A41.9 Sepsis, unspecified organism (principal); L89.154 Pressure ulcer of sacral region, stage 4; J96.20 Acute and chronic respiratory failure, unspecified whether with hypoxia or hypercapnia; J18.9 Pneumonia, unspecified organism; N17.0 Acute kidney failure with tubular necrosis; G82.50 Quadriplegia, unspecified; N39.0 Urinary tract infection, site not specified; I13.0 Hypertensive heart and chronic kidney disease with heart failure and stage 1 through stage 4 chronic kidney disease, or unspecified chronic kidney disease; E87.0 Hyperosmolality and hypernatremia; E44.0 Moderate protein-calorie malnutrition; Z68.1 Body mass index [BMI] 19.9 or less, adult; Z99.11 Dependence on respirator [ventilator] status; D63.1 Anemia in chronic kidney disease; F31.9 Bipolar disorder, unspecified; G89.4 Chronic pain syndrome; I50.9 Heart failure, unspecified; I95.9 Hypotension, unspecified; N18.3 Chronic kidney disease, stage 3 (moderate); N20.0 Calculus of kidney; N31.8 Other neuromuscular dysfunction of bladder; R13.10 Dysphagia, unspecified; S14.9XXS Injury of unspecified nerves of neck, sequela; X58.XXXS Exposure to other specified factors, sequela; Z93.0 Tracheostomy status; Z93.1 Gastrostomy status; Z93.51 Cutaneous-vesicostomy status; Z90.5 Acquired absence of kidney
CPT/HCPCS: 36415; 36600; 71045; 80048; 80053; 81001; 82803; 83690; 83735; 84100; 84484; 85025; 85610; 85730; 87070; 87081; 87086; 89220; 93005; 94002; 94003; 94640; 96365; 96366; 96375; 96376; 97162; 99285-25

== ENCOUNTER 2018-03-03 21:07 | Inpatient (IN) | payer MEDICARE, OTHER ==
[2018-03-03 21:31] LABS: ADD MAN DIFF? NO
[2018-03-03 21:35] LABS: ABNORMAL IP MESSAGE 1; BASOPHILS % 0.1 % (0.0-2.0); EOSINOPHILS % 0.5 % (0.0-7.0); HEMATOCRIT 32.2 % (42.0-52.0); IMMATURE GRANS #M 0.03 10^3/ul; IMMATURE GRANS % (M) 0.3 %; LYMPHOCYTES # 0.4 10^3/ul (0.8-2.9); LYMPHOCYTES % 4.6 % (15.0-51.0); MEAN CORPUSCULAR HEMOGLOBIN 29.9 pg (29.0-33.0); MEAN CORPUSCULAR HGB CONC 31.1 g/dl (32.0-37.0); MEAN CORPUSCULAR VOLUME 96.1 fl (82.0-101.0); MEAN PLATELET VOLUME 11.3 fl (7.4-10.4); MONOCYTE # 0.5 10^3/ul (0.3-0.9); MONOCYTES % 6.1 % (0.0-11.0); NEUTROPHIL # 7.7 10^3/ul (1.6-7.5); NEUTROPHILS % 88.4 % (39.0-77.0); PLATELET COUNT 131 10^3/UL (140-415); POSITIVE DIFF @See below; RED BLOOD COUNT 3.35 10^6/ul (4.70-6.10); RED CELL DISTRIBUTION WIDTH 12.7 % (11.5-14.5)
[2018-03-03 21:35] LABS: WHITE BLOOD COUNT 8.8 10^3/ul (4.8-10.8)
[2018-03-03] MEDS: ACETAMINOPHEN 325 MG TAB GTB (21:35)
[2018-03-03] MEDS: SODIUM CHLORIDE 0.9% 1L BAG IV* (21:35)
[2018-03-03] MEDS: CEFEPIME 2GM/50 ML (PMX) 50 ML IVPB (21:39)
[2018-03-03] MEDS ORDERED: ACETAMINOPHEN 650 MG SUPP PR (21:49)
[2018-03-03 21:50] LABS: LACTIC ACID 0.6 mmol/L (0.5-2.0)
[2018-03-03] MEDS: HYDROmorphONE 0.5 MG/0.5 ML SYG IV (21:50)
[2018-03-03 21:53] LABS: ALANINE AMINOTRANSFERASE 19 IU/L (13-69); ALBUMIN/GLOBULIN RATIO 1.02; ALKALINE PHOSPHATASE 210 IU/L (42-121); ANION GAP 16 (8-16); ASPARTATE AMINO TRANSFERASE 16 IU/L (15-46); BLOOD UREA NITROGEN 70 mg/dl (7-20); CALCIUM 8.9 mg/dl (8.4-10.2); CARBON DIOXIDE 26 mmol/L (21-31); CHLORIDE 104 mmol/L (97-110); CREATININE 2.61 mg/dl (0.61-1.24); GLUCOSE 138 mg/dl (70-220); POTASSIUM 5.2 mmol/L (3.5-5.1); SODIUM 141 mmol/L (135-144); TOTAL PROTEIN 7.9 g/dl (6.1-8.1)
[2018-03-03 21:55] LABS: INR 1.06; PROTIME 13.9 Sec (11.9-14.9); PT RATIO 1.1
[2018-03-03 21:56] LABS: PARTIAL THROMBOPLASTIN TIME 40.5 Sec (25.0-35.0)
[2018-03-03 22:03] LABS: TROPONIN-I < 0.010 ng/ml (0.000-0.120)
[2018-03-03 22:13] LABS: ADD UMIC YES; UR AMORPHOUS CRYSTAL FEW /HPF (NONE SEEN); UR ASCORBIC ACID NEGATIVE (NEGATIVE); UR BACTERIA MODERATE /HPF (NONE SEEN); UR BILIRUBIN (Dip) NEGATIVE (NEGATIVE); UR BLOOD (Dip) 1+ mg/dL (NEGATIVE); UR CLARITY TURBID (CLEAR); UR COLOR AMBER (YELLOW); UR GLUCOSE (Dip) NEGATIVE (NEGATIVE); UR KETONES (Dip) NEGATIVE (NEGATIVE); UR LEUKOCYTE ESTERASE (Dip) 3+ Leu/ul (NEGATIVE); UR MUCUS FEW /HPF (NONE SEEN); UR NITRITE (Dip) NEGATIVE (NEGATIVE); UR RBC 54 /HPF (0-5); UR SQUAMOUS EPITHELIAL CELL MODERATE /HPF (FEW); UR TOTAL PROTEIN (Dip) 2+ mg/dl (NEGATIVE); UR UROBILINOGEN (Dip) NEGATIVE (NEGATIVE); UR WBC > 182 /HPF (0-5)
[2018-03-03] MEDS: VANCOMYCIN 1 GM (PMX) 250 ML IVPB (22:30)
[2018-03-03 22:37] LABS: AADO2 Arterial 298.8 mmHg (7.0-24.0); Allen Test ACCEPTAB; Arterial Blood Gas Oxygen Sat 99.4 mmHG (95.0-98.0); Arterial COHb 0.3 % (0.0-3.0); Arterial Fraction of Oxyhgb 98.6 % (93.0-99.0); Arterial HCO3 22.2 mmol/L (22.0-26.0); Arterial MetHb 0.5 % (0.0-1.5); Arterial Total Hemglobin 9.4 g/dl (12.0-18.0); Arterial pCO2 45.6 mmhg (35-45); MODE VENT - AC/VC+; Site Right Radial
[2018-03-03] MEDS: SOD CHLORIDE 0.9% 1,000 ML IV (22:58)
[2018-03-03] MEDS ORDERED: ONDANSETRON 4 MG INJ IV (23:00)
[2018-03-03] MEDS ORDERED: VANCOMYCIN IV PER PHARMACY XX (23:00)
[2018-03-03] MEDS ORDERED: NORepinephrine 8MG/250 ML (PMX 250 ML (23:19)
[2018-03-03 23:58] LABS: HEMOGLOBIN A1C 4.9 % (0-5.9)
[2018-03-04 00:21] LABS: LACTIC ACID < 0.5 mmol/L (0.5-2.0)
[2018-03-04] MEDS: SOD CHLORIDE 0.9% 1,000 ML IV ×3 (00:28→07:09)
[2018-03-04 00:36] LABS: ANION GAP 15 (8-16); BLOOD UREA NITROGEN 63 mg/dl (7-20); CALCIUM 7.7 mg/dl (8.4-10.2); CARBON DIOXIDE 20 mmol/L (21-31); CHLORIDE 110 mmol/L (97-110); CREATININE 2.24 mg/dl (0.61-1.24); GLUCOSE 128 mg/dl (70-220); POTASSIUM 4.7 mmol/L (3.5-5.1); SODIUM 140 mmol/L (135-144)
[2018-03-04] MEDS: morphine 2 MG INJ IV ×6 (01:29→23:24)
[2018-03-04 01:51] LABS: LACTIC ACID < 0.5 mmol/L (0.5-2.0)
[2018-03-04] MEDS: NORepinephrine 8MG/250 ML (PMX 250 ML IV (07:17)
[2018-03-04] MEDS ORDERED: NORepinephrine 8MG/250 ML (PMX 250 ML IV (09:00)
[2018-03-04] MEDS ORDERED: CEFEPIME 1GM/50 ML (PMX) 50 ML IVPB (09:00)
[2018-03-04] MEDS: LACTATED RINGER'S 1,000 ML IV ×2 (09:37→16:59)
[2018-03-04] MEDS: FAMOTIDINE 20 MG INJ IV (09:37)
[2018-03-04] MEDS: ENOXAPARIN 30 MG/0.3 ML SYG SC (09:38)
[2018-03-04 10:07] LABS: ADD MAN DIFF? NO
[2018-03-04 10:09] LABS: WHITE BLOOD COUNT 6.1 10^3/ul (4.8-10.8)
[2018-03-04 10:09] LABS: ABNORMAL IP MESSAGE 1; BASOPHILS % 0.3 % (0.0-2.0); EOSINOPHILS # 0.1 10^3/ul (0.0-0.5); EOSINOPHILS % 1.8 % (0.0-7.0); HEMOGLOBIN 9.2 g/dl (14.0-18.0); IMMATURE GRANS #M 0.01 10^3/ul; IMMATURE GRANS % (M) 0.2 %; LYMPHOCYTES # 0.5 10^3/ul (0.8-2.9); LYMPHOCYTES % 8.4 % (15.0-51.0); MEAN CORPUSCULAR HEMOGLOBIN 28.8 pg (29.0-33.0); MEAN CORPUSCULAR HGB CONC 29.7 g/dl (32.0-37.0); MEAN CORPUSCULAR VOLUME 96.9 fl (82.0-101.0); MEAN PLATELET VOLUME 11.4 fl (7.4-10.4); MONOCYTE # 0.5 10^3/ul (0.3-0.9); MONOCYTES % 8.5 % (0.0-11.0); NEUTROPHIL # 4.9 10^3/ul (1.6-7.5); NEUTROPHILS % 80.8 % (39.0-77.0); PLATELET COUNT 126 10^3/UL (140-415); POSITIVE DIFF @See below
[2018-03-04 10:30] LABS: ALANINE AMINOTRANSFERASE 13 IU/L (13-69); ALBUMIN 2.8 g/dl (3.3-4.9); ALBUMIN/GLOBULIN RATIO 0.82; ALKALINE PHOSPHATASE 143 IU/L (42-121); ANION GAP 11 (8-16); ASPARTATE AMINO TRANSFERASE 10 IU/L (15-46); BLOOD UREA NITROGEN 56 mg/dl (7-20); CALCIUM 8.5 mg/dl (8.4-10.2); CARBON DIOXIDE 20 mmol/L (21-31); CHLORIDE 118 mmol/L (97-110); CREATININE 2.06 mg/dl (0.61-1.24); GLUCOSE 104 mg/dl (70-220); SODIUM 145 mmol/L (135-144); TOTAL PROTEIN 6.2 g/dl (6.1-8.1)
[2018-03-04] MEDS: MEROPENEM 1 GM/50ML(PMX) 50 ML IVPB ×2 (10:54→21:52)
[2018-03-04] MEDS: BACLOFEN 10 MG TAB GTB ×2 (15:57→20:34)
[2018-03-04] MEDS: DANTROLENE 25 MG CAP GTB ×2 (16:59→21:53)
[2018-03-04] MEDS: traZODone 100 MG TAB GTB (20:34)
[2018-03-04] MEDS: ZOLPIDEM 5 MG TAB PEG (20:35)
[2018-03-04] MEDS: ACETAMINOPHEN 325 MG TAB PO (20:35)
[2018-03-05] MEDS: LACTATED RINGER'S 1,000 ML IV ×3 (01:07→17:10)
[2018-03-05] MEDS: morphine 2 MG INJ IV ×2 (03:24→07:57)
[2018-03-05] MEDS: DANTROLENE 25 MG CAP GTB ×3 (05:49→21:56)
[2018-03-05 05:51] LABS: ADD MAN DIFF? NO
[2018-03-05 05:57] LABS: WHITE BLOOD COUNT 12.8 10^3/ul (4.8-10.8)
[2018-03-05 05:57] LABS: ABNORMAL IP MESSAGE 1; BASOPHILS % 0.2 % (0.0-2.0); EOSINOPHILS # 0.1 10^3/ul (0.0-0.5); EOSINOPHILS % 0.5 % (0.0-7.0); HEMATOCRIT 32.4 % (42.0-52.0); HEMOGLOBIN 9.7 g/dl (14.0-18.0); IMMATURE GRANS #M 0.06 10^3/ul; IMMATURE GRANS % (M) 0.5 %; LYMPHOCYTES # 0.5 10^3/ul (0.8-2.9); LYMPHOCYTES % 3.8 % (15.0-51.0); MEAN CORPUSCULAR HEMOGLOBIN 29.3 pg (29.0-33.0); MEAN CORPUSCULAR HGB CONC 29.9 g/dl (32.0-37.0); MEAN CORPUSCULAR VOLUME 97.9 fl (82.0-101.0); MEAN PLATELET VOLUME 11.5 fl (7.4-10.4); MONOCYTE # 0.9 10^3/ul (0.3-0.9); MONOCYTES % 6.7 % (0.0-11.0); NEUTROPHIL # 11.3 10^3/ul (1.6-7.5); NEUTROPHILS % 88.3 % (39.0-77.0); PLATELET COUNT 158 10^3/UL (140-415); POSITIVE DIFF @See below; RED BLOOD COUNT 3.31 10^6/ul (4.70-6.10); RED CELL DISTRIBUTION WIDTH 13.1 % (11.5-14.5)
[2018-03-05 06:12] LABS: LACTIC ACID 0.7 mmol/L (0.5-2.0)
[2018-03-05 06:25] LABS: ANION GAP 11 (8-16); BLOOD UREA NITROGEN 44 mg/dl (7-20); CALCIUM 8.8 mg/dl (8.4-10.2); CARBON DIOXIDE 22 mmol/L (21-31); CHLORIDE 120 mmol/L (97-110); CREATININE 1.77 mg/dl (0.61-1.24); GLUCOSE 103 mg/dl (70-220); POTASSIUM 4.2 mmol/L (3.5-5.1); SODIUM 149 mmol/L (135-144)
[2018-03-05] MEDS: ACETAMINOPHEN 325 MG TAB PO (06:44)
[2018-03-05] MEDS: FAMOTIDINE 20 MG INJ IV (09:15)
[2018-03-05] MEDS: HYDROmorphONE 1 MG/ML SYG IV ×4 (09:15→21:56)
[2018-03-05] MEDS: BACLOFEN 10 MG TAB GTB ×3 (09:15→21:03)
[2018-03-05] MEDS: ENOXAPARIN 30 MG/0.3 ML SYG SC (09:17)
[2018-03-05] MEDS: MEROPENEM 1 GM/50ML(PMX) 50 ML IVPB ×2 (12:06→21:03)
[2018-03-05] MEDS: traZODone 100 MG TAB GTB (21:02)
[2018-03-05] MEDS: ZOLPIDEM 5 MG TAB PEG (21:03)
[2018-03-05] MEDS: VANCOMYCIN 1 GM 250 ML IVPB (21:56)
[2018-03-06] MEDS: LACTATED RINGER'S 1,000 ML IV ×3 (02:54→16:49)
[2018-03-06] MEDS: DANTROLENE 25 MG CAP GTB ×3 (05:09→21:09)
[2018-03-06] MEDS: HYDROmorphONE 1 MG/ML SYG IV ×4 (05:09→21:09)
[2018-03-06 06:12] LABS: ADD MAN DIFF? NO
[2018-03-06 06:17] LABS: WHITE BLOOD COUNT 7.6 10^3/ul (4.8-10.8)
[2018-03-06 06:17] LABS: ABNORMAL IP MESSAGE 1; BASOPHILS % 0.1 % (0.0-2.0); EOSINOPHILS # 0.3 10^3/ul (0.0-0.5); EOSINOPHILS % 3.4 % (0.0-7.0); HEMATOCRIT 29.4 % (42.0-52.0); IMMATURE GRANS #M 0.03 10^3/ul; IMMATURE GRANS % (M) 0.4 %; LYMPHOCYTES # 0.2 10^3/ul (0.8-2.9); LYMPHOCYTES % 3.2 % (15.0-51.0); MEAN CORPUSCULAR HEMOGLOBIN 29.6 pg (29.0-33.0); MEAN CORPUSCULAR HGB CONC 30.6 g/dl (32.0-37.0); MEAN CORPUSCULAR VOLUME 96.7 fl (82.0-101.0); MEAN PLATELET VOLUME 11.1 fl (7.4-10.4); MONOCYTE # 0.4 10^3/ul (0.3-0.9); MONOCYTES % 4.7 % (0.0-11.0); NEUTROPHIL # 6.7 10^3/ul (1.6-7.5); NEUTROPHILS % 88.2 % (39.0-77.0); PLATELET COUNT 126 10^3/UL (140-415); POSITIVE DIFF @See below; RED BLOOD COUNT 3.04 10^6/ul (4.70-6.10)
[2018-03-06 06:58] LABS: ANION GAP 13 (8-16); BLOOD UREA NITROGEN 33 mg/dl (7-20); CALCIUM 8.6 mg/dl (8.4-10.2); CARBON DIOXIDE 21 mmol/L (21-31); CHLORIDE 114 mmol/L (97-110); CREATININE 1.59 mg/dl (0.61-1.24); GLUCOSE 87 mg/dl (70-220); POTASSIUM 4.7 mmol/L (3.5-5.1); SODIUM 143 mmol/L (135-144)
[2018-03-06] MEDS: BACLOFEN 10 MG TAB GTB ×3 (09:15→20:57)
[2018-03-06] MEDS: MEROPENEM 1 GM/50ML(PMX) 50 ML IVPB ×2 (09:15→20:57)
[2018-03-06] MEDS: traZODone 100 MG TAB GTB (20:57)
[2018-03-07] MEDS: LACTATED RINGER'S 1,000 ML IV ×3 (00:49→14:23)
[2018-03-07] MEDS: HYDROmorphONE 1 MG/ML SYG IV ×4 (03:36→16:33)
[2018-03-07 05:30] LABS: ADD MAN DIFF? NO
[2018-03-07 05:41] LABS: ABNORMAL IP MESSAGE 1; BASOPHILS % 0.2 % (0.0-2.0); EOSINOPHILS # 0.4 10^3/ul (0.0-0.5); EOSINOPHILS % 6.8 % (0.0-7.0); HEMATOCRIT 29.9 % (42.0-52.0); HEMOGLOBIN 9.1 g/dl (14.0-18.0); IMMATURE GRANS #M 0.03 10^3/ul; IMMATURE GRANS % (M) 0.6 %; LYMPHOCYTES # 0.3 10^3/ul (0.8-2.9); LYMPHOCYTES % 4.7 % (15.0-51.0); MEAN CORPUSCULAR HEMOGLOBIN 29.2 pg (29.0-33.0); MEAN CORPUSCULAR HGB CONC 30.4 g/dl (32.0-37.0); MEAN CORPUSCULAR VOLUME 95.8 fl (82.0-101.0); MEAN PLATELET VOLUME 11.2 fl (7.4-10.4); MONOCYTE # 0.3 10^3/ul (0.3-0.9); MONOCYTES % 6.3 % (0.0-11.0); NEUTROPHIL # 4.3 10^3/ul (1.6-7.5); NEUTROPHILS % 81.4 % (39.0-77.0); PLATELET COUNT 120 10^3/UL (140-415); POSITIVE DIFF @See below; RED BLOOD COUNT 3.12 10^6/ul (4.70-6.10)
[2018-03-07 05:41] LABS: WHITE BLOOD COUNT 5.3 10^3/ul (4.8-10.8)
[2018-03-07] MEDS: PANTOPRAZOLE 40 MG INJ IV (05:49)
[2018-03-07] MEDS: DANTROLENE 25 MG CAP GTB ×3 (05:51→21:00)
[2018-03-07 06:06] LABS: ANION GAP 10 (8-16)
[2018-03-07 06:08] LABS: BLOOD UREA NITROGEN 26 mg/dl (7-20); CALCIUM 8.5 mg/dl (8.4-10.2); CARBON DIOXIDE 22 mmol/L (21-31); CHLORIDE 115 mmol/L (97-110); GLUCOSE 78 mg/dl (70-220); POTASSIUM 4.5 mmol/L (3.5-5.1); SODIUM 142 mmol/L (135-144)
[2018-03-07] MEDS: MEROPENEM 1 GM/50ML(PMX) 50 ML IVPB ×2 (09:12→20:30)
[2018-03-07] MEDS: BACLOFEN 10 MG TAB GTB ×3 (09:12→20:22)
[2018-03-07] MEDS: traZODone 100 MG TAB GTB (20:22)
[2018-03-07] MEDS: QUETIAPINE 25 MG TAB GTB (20:22)
[2018-03-07] MEDS: VANCOMYCIN 1 GM 250 ML IVPB (22:54)
[2018-03-08] MEDS: LACTATED RINGER'S 1,000 ML IV ×3 (03:32→12:34)
[2018-03-08] MEDS: DANTROLENE 25 MG CAP GTB ×3 (05:34→21:49)
[2018-03-08] MEDS: PANTOPRAZOLE 40 MG INJ IV (05:34)
[2018-03-08 06:09] LABS: ADD MAN DIFF? NO
[2018-03-08 06:15] LABS: WHITE BLOOD COUNT 3.5 10^3/ul (4.8-10.8)
[2018-03-08 06:15] LABS: ABNORMAL IP MESSAGE 1; BASOPHILS % 0.3 % (0.0-2.0); EOSINOPHILS # 0.2 10^3/ul (0.0-0.5); EOSINOPHILS % 6.9 % (0.0-7.0); HEMATOCRIT 30.6 % (42.0-52.0); HEMOGLOBIN 9.3 g/dl (14.0-18.0); LYMPHOCYTES # 0.3 10^3/ul (0.8-2.9); LYMPHOCYTES % 9.8 % (15.0-51.0); MEAN CORPUSCULAR HEMOGLOBIN 29.2 pg (29.0-33.0); MEAN CORPUSCULAR HGB CONC 30.4 g/dl (32.0-37.0); MEAN CORPUSCULAR VOLUME 95.9 fl (82.0-101.0); MONOCYTE # 0.4 10^3/ul (0.3-0.9); MONOCYTES % 11.3 % (0.0-11.0); NEUTROPHIL # 2.5 10^3/ul (1.6-7.5); NEUTROPHILS % 71.4 % (39.0-77.0); PLATELET COUNT 137 10^3/UL (140-415); POSITIVE DIFF @See below; RED BLOOD COUNT 3.19 10^6/ul (4.70-6.10); RED CELL DISTRIBUTION WIDTH 13.1 % (11.5-14.5)
[2018-03-08 06:48] LABS: ANION GAP 16 (8-16); BLOOD UREA NITROGEN 20 mg/dl (7-20); CALCIUM 8.4 mg/dl (8.4-10.2); CARBON DIOXIDE 18 mmol/L (21-31); CHLORIDE 116 mmol/L (97-110); CREATININE 1.46 mg/dl (0.61-1.24); GLUCOSE 74 mg/dl (70-220); POTASSIUM 4.5 mmol/L (3.5-5.1); SODIUM 145 mmol/L (135-144)
[2018-03-08] MEDS: MEROPENEM 1 GM/50ML(PMX) 50 ML IVPB ×2 (07:48→20:36)
[2018-03-08] MEDS: BACLOFEN 10 MG TAB GTB ×3 (07:48→20:37)
[2018-03-08] MEDS: HYDROmorphONE 1 MG/ML SYG IV ×4 (07:48→22:43)
[2018-03-08] MEDS: QUETIAPINE 25 MG TAB GTB ×2 (07:48→20:36)
[2018-03-08] MEDS: traZODone 100 MG TAB GTB (20:37)
[2018-03-08] MEDS: BALSAM PERU/CASTOR OIL 60 GM TUBE TOP (20:38)
[2018-03-09] MEDS: LACTATED RINGER'S 1,000 ML IV ×2 (00:16→08:15)
[2018-03-09 01:49] LABS: TROPONIN-I < 0.010 ng/ml (0.000-0.120)
[2018-03-09] MEDS: DANTROLENE 25 MG CAP GTB ×3 (05:59→22:34)
[2018-03-09] MEDS: PANTOPRAZOLE 40 MG INJ IV (05:59)
[2018-03-09] MEDS: HYDROmorphONE 1 MG/ML SYG IV ×5 (06:00→23:09)
[2018-03-09 08:05] LABS: ADD MAN DIFF? NO
[2018-03-09 08:11] LABS: WHITE BLOOD COUNT 4.6 10^3/ul (4.8-10.8)
[2018-03-09 08:11] LABS: ABNORMAL IP MESSAGE 1; EOSINOPHILS # 0.2 10^3/ul (0.0-0.5); EOSINOPHILS % 3.7 % (0.0-7.0); HEMATOCRIT 31.2 % (42.0-52.0); HEMOGLOBIN 9.6 g/dl (14.0-18.0); LYMPHOCYTES # 0.3 10^3/ul (0.8-2.9); LYMPHOCYTES % 7.1 % (15.0-51.0); MEAN CORPUSCULAR HEMOGLOBIN 29.2 pg (29.0-33.0); MEAN CORPUSCULAR HGB CONC 30.8 g/dl (32.0-37.0); MEAN CORPUSCULAR VOLUME 94.8 fl (82.0-101.0); MEAN PLATELET VOLUME 10.9 fl (7.4-10.4); MONOCYTE # 0.4 10^3/ul (0.3-0.9); MONOCYTES % 7.8 % (0.0-11.0); NEUTROPHIL # 3.7 10^3/ul (1.6-7.5); NEUTROPHILS % 80.8 % (39.0-77.0); PLATELET COUNT 138 10^3/UL (140-415); POSITIVE DIFF @See below; RED BLOOD COUNT 3.29 10^6/ul (4.70-6.10); RED CELL DISTRIBUTION WIDTH 13.2 % (11.5-14.5)
[2018-03-09] MEDS: MEROPENEM 1 GM/50ML(PMX) 50 ML IVPB ×2 (08:14→20:42)
[2018-03-09] MEDS: COLLAGENASE 5 GM (UD JAR) TOP (08:14)
[2018-03-09] MEDS: BACLOFEN 10 MG TAB GTB ×3 (08:15→20:42)
[2018-03-09] MEDS: BALSAM PERU/CASTOR OIL 60 GM TUBE TOP ×2 (08:15→20:42)
[2018-03-09] MEDS: QUETIAPINE 25 MG TAB GTB ×2 (08:15→20:42)
[2018-03-09 08:29] LABS: MAGNESIUM 1.5 mg/dl (1.7-2.5)
[2018-03-09 08:29] LABS: CHOL/HDL RATIO 4.7 RATIO; CHOLESTEROL 81 mg/dl (100-200); HDL CHOLESTEROL 17 mg/dl (27-67); LDL CHOLESTEROL,CALCULATED 30 mg/dl; TRIGLYCERIDES 170 mg/dl (0-149)
[2018-03-09 08:32] LABS: ANION GAP 14 (8-16); BLOOD UREA NITROGEN 17 mg/dl (7-20); CALCIUM 8.4 mg/dl (8.4-10.2); CARBON DIOXIDE 21 mmol/L (21-31); CHLORIDE 117 mmol/L (97-110); CREATININE 1.22 mg/dl (0.61-1.24); GLUCOSE 91 mg/dl (70-220); POTASSIUM 4.7 mmol/L (3.5-5.1); SODIUM 147 mmol/L (135-144)
[2018-03-09 08:41] LABS: TROPONIN-I < 0.010 ng/ml (0.000-0.120)
[2018-03-09] MEDS: MAGNESIUM SULFATE 2 GM/50 ML 50 ML IVPB (11:53)
[2018-03-09] MEDS: ALBUTEROL/IPRATROPIUM (NEB) 3 ML AMP HHN ×2 (17:16→19:21)
[2018-03-09] MEDS: traZODone 100 MG TAB GTB (20:41)
[2018-03-09 21:52] LABS: VANCOMYCIN,TROUGH 9.5 ug/ml (10.0-20.0)
[2018-03-09] MEDS: VANCOMYCIN 1 GM 250 ML IVPB (22:33)
[2018-03-10] MEDS: ALBUTEROL/IPRATROPIUM (NEB) 3 ML AMP HHN ×4 (01:08→19:10)
[2018-03-10] MEDS: HYDROmorphONE 1 MG/ML SYG IV ×5 (03:01→21:51)
[2018-03-10] MEDS: DANTROLENE 25 MG CAP GTB ×3 (05:30→20:57)
[2018-03-10] MEDS: PANTOPRAZOLE 40 MG INJ IV (05:30)
[2018-03-10] MEDS: MEROPENEM 1 GM/50ML(PMX) 50 ML IVPB ×2 (08:19→21:51)
[2018-03-10] MEDS: QUETIAPINE 25 MG TAB GTB ×2 (08:19→20:57)
[2018-03-10] MEDS: BACLOFEN 10 MG TAB GTB ×3 (08:20→20:57)
[2018-03-10] MEDS: BALSAM PERU/CASTOR OIL 60 GM TUBE TOP ×2 (08:20→20:57)
[2018-03-10] MEDS: COLLAGENASE 5 GM (UD JAR) TOP (08:20)
[2018-03-10 08:53] LABS: ANION GAP 11 (8-16); BLOOD UREA NITROGEN 19 mg/dl (7-20); CALCIUM 8.2 mg/dl (8.4-10.2); CARBON DIOXIDE 23 mmol/L (21-31); CHLORIDE 116 mmol/L (97-110); CREATININE 1.22 mg/dl (0.61-1.24); GLUCOSE 84 mg/dl (70-220); POTASSIUM 4.9 mmol/L (3.5-5.1); SODIUM 145 mmol/L (135-144)
[2018-03-10 12:58] LABS: MAGNESIUM 1.9 mg/dl (1.7-2.5)
[2018-03-10] MEDS: traZODone 100 MG TAB GTB (20:56)
[2018-03-11] MEDS: ALBUTEROL/IPRATROPIUM (NEB) 3 ML AMP HHN ×4 (01:10→20:00)
[2018-03-11] MEDS: HYDROmorphONE 1 MG/ML SYG IV ×5 (01:26→22:12)
[2018-03-11] MEDS: PANTOPRAZOLE 40 MG INJ IV (05:41)
[2018-03-11] MEDS: DANTROLENE 25 MG CAP GTB ×3 (05:41→22:11)
[2018-03-11 08:33] LABS: ADD MAN DIFF? NO
[2018-03-11 08:40] LABS: BASOPHILS % 0.5 % (0.0-2.0); EOSINOPHILS # 0.4 10^3/ul (0.0-0.5); EOSINOPHILS % 9.5 % (0.0-7.0); HEMATOCRIT 33.9 % (42.0-52.0); HEMOGLOBIN 10.2 g/dl (14.0-18.0); LYMPHOCYTES # 0.8 10^3/ul (0.8-2.9); LYMPHOCYTES % 20.4 % (15.0-51.0); MEAN CORPUSCULAR HEMOGLOBIN 29.4 pg (29.0-33.0); MEAN CORPUSCULAR HGB CONC 30.1 g/dl (32.0-37.0); MEAN CORPUSCULAR VOLUME 97.7 fl (82.0-101.0); MEAN PLATELET VOLUME 11.4 fl (7.4-10.4); MONOCYTE # 0.4 10^3/ul (0.3-0.9); MONOCYTES % 9.2 % (0.0-11.0); NEUTROPHIL # 2.5 10^3/ul (1.6-7.5); NEUTROPHILS % 59.7 % (39.0-77.0); PLATELET COUNT 144 10^3/UL (140-415); RED BLOOD COUNT 3.47 10^6/ul (4.70-6.10); RED CELL DISTRIBUTION WIDTH 13.4 % (11.5-14.5)
[2018-03-11 08:40] LABS: WHITE BLOOD COUNT 4.1 10^3/ul (4.8-10.8)
[2018-03-11 09:10] LABS: ANION GAP 11 (8-16); BLOOD UREA NITROGEN 21 mg/dl (7-20); CALCIUM 8.7 mg/dl (8.4-10.2); CARBON DIOXIDE 24 mmol/L (21-31); CHLORIDE 118 mmol/L (97-110); CREATININE 1.35 mg/dl (0.61-1.24); GLUCOSE 84 mg/dl (70-220); POTASSIUM 5.3 mmol/L (3.5-5.1); SODIUM 148 mmol/L (135-144)
[2018-03-11] MEDS: BACLOFEN 10 MG TAB GTB ×3 (09:14→20:11)
[2018-03-11] MEDS: MEROPENEM 1 GM/50ML(PMX) 50 ML IVPB ×2 (09:14→20:11)
[2018-03-11] MEDS: QUETIAPINE 25 MG TAB GTB ×2 (09:14→20:11)
[2018-03-11] MEDS: BALSAM PERU/CASTOR OIL 60 GM TUBE TOP ×2 (09:15→20:10)
[2018-03-11] MEDS: COLLAGENASE 5 GM (UD JAR) TOP (09:15)
[2018-03-11] MEDS: NA POLYST SULFON 15 GM/60 ML BTL PO (10:55)
[2018-03-11] MEDS: VANCOMYCIN 1 GM 250 ML IVPB (10:55)
[2018-03-11] MEDS: DEXTROSE 5% 1,000 ML IV (10:55)
[2018-03-11] MEDS: GLYCOPYRROLATE 1 MG TAB PO ×2 (13:15→20:11)
[2018-03-11] MEDS: traZODone 100 MG TAB GTB (20:11)
[2018-03-12] MEDS: DEXTROSE 5% 1,000 ML IV (02:11)
[2018-03-12] MEDS: HYDROmorphONE 1 MG/ML SYG IV ×5 (02:17→20:08)
[2018-03-12] MEDS: ALBUTEROL/IPRATROPIUM (NEB) 3 ML AMP HHN ×4 (02:53→19:37)
[2018-03-12] MEDS: PANTOPRAZOLE 40 MG INJ IV (05:35)
[2018-03-12] MEDS: DANTROLENE 25 MG CAP GTB ×3 (05:35→22:03)
[2018-03-12 09:40] LABS: ADD MAN DIFF? NO
[2018-03-12 09:44] LABS: ABNORMAL IP MESSAGE 1; BASOPHILS % 0.6 % (0.0-2.0); EOSINOPHILS # 0.5 10^3/ul (0.0-0.5); EOSINOPHILS % 8.5 % (0.0-7.0); HEMATOCRIT 31.7 % (42.0-52.0); HEMOGLOBIN 9.5 g/dl (14.0-18.0); LYMPHOCYTES # 0.6 10^3/ul (0.8-2.9); LYMPHOCYTES % 11.1 % (15.0-51.0); MEAN CORPUSCULAR HEMOGLOBIN 29.9 pg (29.0-33.0); MEAN CORPUSCULAR VOLUME 99.7 fl (82.0-101.0); MEAN PLATELET VOLUME 11.8 fl (7.4-10.4); MONOCYTE # 0.4 10^3/ul (0.3-0.9); MONOCYTES % 7.1 % (0.0-11.0); NEUTROPHIL # 3.9 10^3/ul (1.6-7.5); NEUTROPHILS % 72.3 % (39.0-77.0); PLATELET COUNT 140 10^3/UL (140-415); POSITIVE DIFF @See below; RED BLOOD COUNT 3.18 10^6/ul (4.70-6.10); RED CELL DISTRIBUTION WIDTH 13.4 % (11.5-14.5)
[2018-03-12 09:44] LABS: WHITE BLOOD COUNT 5.3 10^3/ul (4.8-10.8)
[2018-03-12] MEDS: MEROPENEM 1 GM/50ML(PMX) 50 ML IVPB (09:53)
[2018-03-12] MEDS: GLYCOPYRROLATE 1 MG TAB PO ×3 (09:53→20:10)
[2018-03-12] MEDS: QUETIAPINE 25 MG TAB GTB ×2 (09:54→20:09)
[2018-03-12] MEDS: BACLOFEN 10 MG TAB GTB ×3 (09:54→20:09)
[2018-03-12] MEDS: BALSAM PERU/CASTOR OIL 60 GM TUBE TOP ×2 (09:57→21:00)
[2018-03-12 10:16] LABS: ALANINE AMINOTRANSFERASE 18 IU/L (13-69); ALBUMIN 2.8 g/dl (3.3-4.9); ALBUMIN/GLOBULIN RATIO 0.84; ALKALINE PHOSPHATASE 147 IU/L (42-121); ANION GAP 15 (8-16); ASPARTATE AMINO TRANSFERASE 21 IU/L (15-46); BILIRUBIN,INDIRECT 0.1 mg/dl (0-1.1); BILIRUBIN,TOTAL 0.1 mg/dl (0.2-1.3); BLOOD UREA NITROGEN 24 mg/dl (7-20); CALCIUM 8.4 mg/dl (8.4-10.2); CARBON DIOXIDE 19 mmol/L (21-31); CHLORIDE 116 mmol/L (97-110); CREATININE 1.23 mg/dl (0.61-1.24); GLUCOSE 116 mg/dl (70-220); POTASSIUM 5.4 mmol/L (3.5-5.1); SODIUM 145 mmol/L (135-144); TOTAL PROTEIN 6.1 g/dl (6.1-8.1)
[2018-03-12] MEDS: COLLAGENASE 5 GM (UD JAR) TOP (10:21)
[2018-03-12 11:13] LABS: MAGNESIUM 1.5 mg/dl (1.7-2.5)
[2018-03-12] MEDS: NA POLYST SULFON 15 GM/60 ML BTL PO (12:43)
[2018-03-12] MEDS: SODIUM BICARBONATE (IV ADD) 100 MEQ in DEXTROSE 5% 900 ML IV (15:16)
[2018-03-12] MEDS: MAGNESIUM SULFATE 2 GM/50 ML 50 ML IVPB (20:09)
[2018-03-12] MEDS: CEFEPIME 1GM/50 ML (PMX) 50 ML IVPB (20:17)
[2018-03-12] MEDS: traZODone 100 MG TAB GTB (20:17)
[2018-03-13] MEDS: ALBUTEROL/IPRATROPIUM (NEB) 3 ML AMP HHN ×3 (02:00→14:15)
[2018-03-13] MEDS: HYDROmorphONE 1 MG/ML SYG IV ×4 (03:15→16:21)
[2018-03-13] MEDS: PANTOPRAZOLE 40 MG INJ IV (06:05)
[2018-03-13] MEDS: SODIUM BICARBONATE (IV ADD) 100 MEQ in DEXTROSE 5% 900 ML IV (06:05)
[2018-03-13] MEDS: DANTROLENE 25 MG CAP GTB ×3 (06:06→22:00)
[2018-03-13 07:18] LABS: ADD MAN DIFF? NO
[2018-03-13 07:24] LABS: BASOPHILS % 0.3 % (0.0-2.0); EOSINOPHILS # 0.5 10^3/ul (0.0-0.5); EOSINOPHILS % 12.4 % (0.0-7.0); HEMATOCRIT 30.6 % (42.0-52.0); HEMOGLOBIN 9.2 g/dl (14.0-18.0); LYMPHOCYTES # 0.6 10^3/ul (0.8-2.9); LYMPHOCYTES % 16.5 % (15.0-51.0); MEAN CORPUSCULAR HEMOGLOBIN 29.1 pg (29.0-33.0); MEAN CORPUSCULAR HGB CONC 30.1 g/dl (32.0-37.0); MEAN CORPUSCULAR VOLUME 96.8 fl (82.0-101.0); MEAN PLATELET VOLUME 11.6 fl (7.4-10.4); MONOCYTE # 0.4 10^3/ul (0.3-0.9); MONOCYTES % 9.6 % (0.0-11.0); NEUTROPHIL # 2.2 10^3/ul (1.6-7.5); NEUTROPHILS % 60.9 % (39.0-77.0); PLATELET COUNT 138 10^3/UL (140-415); RED BLOOD COUNT 3.16 10^6/ul (4.70-6.10); RED CELL DISTRIBUTION WIDTH 13.4 % (11.5-14.5)
[2018-03-13 07:24] LABS: WHITE BLOOD COUNT 3.6 10^3/ul (4.8-10.8)
[2018-03-13 07:43] LABS: ANION GAP 13 (8-16); BLOOD UREA NITROGEN 24 mg/dl (7-20); CALCIUM 8.6 mg/dl (8.4-10.2); CARBON DIOXIDE 24 mmol/L (21-31); CHLORIDE 114 mmol/L (97-110); CREATININE 1.45 mg/dl (0.61-1.24); GLUCOSE 86 mg/dl (70-220); POTASSIUM 4.7 mmol/L (3.5-5.1); SODIUM 146 mmol/L (135-144)
[2018-03-13] MEDS: CEFEPIME 1GM/50 ML (PMX) 50 ML IVPB ×2 (09:58→20:16)
[2018-03-13] MEDS: COLLAGENASE 5 GM (UD JAR) TOP (09:58)
[2018-03-13] MEDS: BACLOFEN 10 MG TAB GTB ×3 (09:58→20:14)
[2018-03-13] MEDS: BALSAM PERU/CASTOR OIL 60 GM TUBE TOP ×2 (09:58→20:15)
[2018-03-13] MEDS: GLYCOPYRROLATE 1 MG TAB PO ×3 (09:59→20:14)
[2018-03-13] MEDS: QUETIAPINE 25 MG TAB GTB ×2 (09:59→20:15)
[2018-03-13] MEDS: ACETAMINOPHEN 325 MG TAB PO (15:28)
[2018-03-13] MEDS: ALBUTEROL HFA 8 GM INHALER INH (19:33)
[2018-03-13] MEDS: IPRATROPIUM (HFA) 12.9 GM INHALER INH (19:33)
[2018-03-13] MEDS: traZODone 100 MG TAB GTB (20:14)
[2018-03-13] MEDS: HYDROmorphONE 4 MG TAB PO (20:30)
[2018-03-13] MEDS: ZOLPIDEM 5 MG TAB PEG (22:00)
== END 2018-03-13 23:30 | DRG 870 ==
LOC: E/R 21:07 → ICU 23:10 → TEL 03-07 21:16
PROC: 05HM33Z Insertion of Infusion Device into Right Internal Jugular Vein, Percutaneous Approach (ICD-10-PCS; principal; 2018-03-03)
PROC: 5A1955Z Respiratory Ventilation, Greater than 96 Consecutive Hours (ICD-10-PCS; 2018-03-03)
DX: A41.9 Sepsis, unspecified organism (principal); L89.153 Pressure ulcer of sacral region, stage 3; R65.21 Severe sepsis with septic shock; J96.21 Acute and chronic respiratory failure with hypoxia; N17.0 Acute kidney failure with tubular necrosis; J18.9 Pneumonia, unspecified organism; N39.0 Urinary tract infection, site not specified; G82.20 Paraplegia, unspecified; E87.0 Hyperosmolality and hypernatremia; Z99.11 Dependence on respirator [ventilator] status; N18.9 Chronic kidney disease, unspecified; F31.9 Bipolar disorder, unspecified; R13.10 Dysphagia, unspecified; N31.9 Neuromuscular dysfunction of bladder, unspecified; D63.1 Anemia in chronic kidney disease; D69.6 Thrombocytopenia, unspecified; I49.8 Other specified cardiac arrhythmias; D64.9 Anemia, unspecified; I44.1 Atrioventricular block, second degree; I12.9 Hypertensive chronic kidney disease with stage 1 through stage 4 chronic kidney disease, or unspecified chronic kidney disease; Z93.0 Tracheostomy status; Z93.1 Gastrostomy status
CPT/HCPCS: 36415; 36600; 71045; 76937; 80048; 80053; 80061; 80202; 81001; 82803; 83036; 83605; 83735; 84100; 84443; 84484; 85025; 85610; 85730; 87040; 87045; 87075; 87081; 87086; 92526; 92610; 93005; 93306; 94002; 94003; 94640; 94664; 94799; 96374; 96375; 99291-25

== ENCOUNTER 2018-05-10 06:21 | Inpatient (IN) | payer MEDICARE, OTHER ==
[2018-05-10] MEDS: SOD CHLORIDE 0.9% 1,000 ML IV ×2 (06:43→19:39)
[2018-05-10 07:50] LABS: ADD MAN DIFF? NO
[2018-05-10 07:52] LABS: ABNORMAL IP MESSAGE 1; HEMATOCRIT 25.3 % (42.0-52.0); HEMOGLOBIN 7.8 g/dl (14.0-18.0); LYMPHOCYTES # 0.2 10^3/ul (0.8-2.9); LYMPHOCYTES % 1.9 % (15.0-51.0); MEAN CORPUSCULAR HEMOGLOBIN 29.7 pg (29.0-33.0); MEAN CORPUSCULAR HGB CONC 30.8 g/dl (32.0-37.0); MEAN CORPUSCULAR VOLUME 96.2 fl (82.0-101.0); MEAN PLATELET VOLUME 12.7 fl (7.4-10.4); MONOCYTE # 0.4 10^3/ul (0.3-0.9); MONOCYTES % 4.3 % (0.0-11.0); NEUTROPHILS % 93.3 % (39.0-77.0); PLATELET COUNT 94 10^3/UL (140-415); POSITIVE DIFF @See below; RED BLOOD COUNT 2.63 10^6/ul (4.70-6.10); RED CELL DISTRIBUTION WIDTH 15.6 % (11.5-14.5)
[2018-05-10 07:52] LABS: WHITE BLOOD COUNT 9.6 10^3/ul (4.8-10.8)
[2018-05-10] MEDS ORDERED: ALBUTEROL/IPRATROPIUM (NEB) 3 ML AMP NEB (08:00)
[2018-05-10 08:20] LABS: LACTIC ACID 0.7 mmol/L (0.5-2.0)
[2018-05-10] MEDS: NORepinephrine 8MG/250 ML (PMX 250 ML IV (08:29)
[2018-05-10 08:41] LABS: ANION GAP 11 (5-13); BLOOD UREA NITROGEN 44 mg/dl (7-20); CALCIUM 8.4 mg/dl (8.4-10.2); CARBON DIOXIDE 17 mmol/L (21-31); CHLORIDE 111 mmol/L (97-110); CREATININE 1.76 mg/dl (0.61-1.24); GLUCOSE 147 mg/dl (70-220); POTASSIUM 5.1 mmol/L (3.5-5.1); SODIUM 139 mmol/L (135-144)
[2018-05-10] MEDS: QUETIAPINE 25 MG TAB PO (10:33)
[2018-05-10] MEDS: ENOXAPARIN 30 MG/0.3 ML SYG SC (10:36)
[2018-05-10] MEDS: HYDROmorphONE 2 MG TAB PO ×4 (10:48→23:49)
[2018-05-10] MEDS: IPRATROPIUM (HFA) 12.9 GM INHALER INH ×3 (11:28→19:18)
[2018-05-10] MEDS: ALBUTEROL HFA 8 GM INHALER INH ×3 (11:29→19:18)
[2018-05-10] MEDS ORDERED: ONDANSETRON 4 MG TAB GTB (13:30)
[2018-05-10] MEDS ORDERED: ALBUTEROL 0.083% (NEB) 2.5 MG/3 ML AMP NEB (14:00)
[2018-05-10] MEDS: MAGNESIUM HYDROXIDE 30ML CUP GTB (14:30)
[2018-05-10] MEDS: BISACODYL 10 MG SUPP PR (14:30)
[2018-05-10] MEDS: MEROPENEM 1 GM/50ML(PMX) 50 ML IVPB ×2 (14:47→22:25)
[2018-05-10] MEDS: GLYCOPYRROLATE 1 MG TAB GTB ×2 (14:47→20:57)
[2018-05-10] MEDS: BACLOFEN 10 MG TAB GTB (14:52)
[2018-05-10 14:57] LABS: THYROID STIMULATING HORMONE 0.353 MIU/L (0.465-4.680)
[2018-05-10] MEDS: EPOETIN 10000 UNITS/ML (NON ESRD/NON ONCOLOGY) SC (17:46)
[2018-05-10 18:38] LABS: CREATINE KINASE 43 IU/L (23-200)
[2018-05-10 18:49] LABS: CK INDEX 3.9; CK-MB 1.68 ng/ml (0.0-2.4); TROPONIN-I < 0.012 ng/ml (0.000-0.120)
[2018-05-10] MEDS: METOPROLOL 25 MG TAB GTB (20:57)
[2018-05-10] MEDS: traZODone 100 MG TAB GTB (20:57)
[2018-05-10] MEDS: QUETIAPINE 25 MG TAB GTB (20:57)
[2018-05-10] MEDS: DOCUSATE SODIUM 10 MG/ML (10ML CUP) GTB (21:00)
[2018-05-10] MEDS: SENNA TAB GTB (21:00)
[2018-05-10] MEDS ORDERED: QUETIAPINE 25 MG TAB GTB (21:00)
[2018-05-11] MEDS: IPRATROPIUM (HFA) 12.9 GM INHALER INH ×4 (01:12→19:51)
[2018-05-11] MEDS: ALBUTEROL HFA 8 GM INHALER INH ×4 (01:13→19:51)
[2018-05-11 02:12] LABS: CREATINE KINASE 23 IU/L (23-200)
[2018-05-11 02:23] LABS: CK-MB 1.39 ng/ml (0.0-2.4); TROPONIN-I < 0.012 ng/ml (0.000-0.120)
[2018-05-11] MEDS: ALBUTEROL 0.083% (NEB) 2.5 MG/3 ML AMP NEB (03:55)
[2018-05-11] MEDS: HYDROmorphONE 2 MG TAB PO ×4 (04:06→20:17)
[2018-05-11 05:26] LABS: ADD MAN DIFF? NO
[2018-05-11 06:04] LABS: ANION GAP 12 (5-13); BLOOD UREA NITROGEN 47 mg/dl (7-20); CALCIUM 8.4 mg/dl (8.4-10.2); CARBON DIOXIDE 15 mmol/L (21-31); CHLORIDE 115 mmol/L (97-110); CREATININE 1.76 mg/dl (0.61-1.24); GLUCOSE 96 mg/dl (70-220); MAGNESIUM 1.9 mg/dl (1.7-2.5); PHOSPHORUS 4.8 mg/dl (2.5-4.9); POTASSIUM 5.1 mmol/L (3.5-5.1); SODIUM 142 mmol/L (135-144)
[2018-05-11] MEDS: MEROPENEM 1 GM/50ML(PMX) 50 ML IVPB ×3 (06:14→22:25)
[2018-05-11 06:16] LABS: WHITE BLOOD COUNT 5.9 10^3/ul (4.8-10.8)
[2018-05-11 06:16] LABS: ABNORMAL IP MESSAGE 1; BASOPHILS % 0.2 % (0.0-2.0); EOSINOPHILS # 0.1 10^3/ul (0.0-0.5); EOSINOPHILS % 1.5 % (0.0-7.0); HEMATOCRIT 26.2 % (42.0-52.0); HEMOGLOBIN 7.9 g/dl (14.0-18.0); LYMPHOCYTES # 0.7 10^3/ul (0.8-2.9); MEAN CORPUSCULAR HEMOGLOBIN 29.3 pg (29.0-33.0); MEAN CORPUSCULAR HGB CONC 30.2 g/dl (32.0-37.0); MEAN PLATELET VOLUME 13.3 fl (7.4-10.4); MONOCYTE # 0.5 10^3/ul (0.3-0.9); NEUTROPHIL # 4.6 10^3/ul (1.6-7.5); NEUTROPHILS % 78.1 % (39.0-77.0); PLATELET COUNT 107 10^3/UL (140-415); POSITIVE DIFF @See below; RED CELL DISTRIBUTION WIDTH 15.7 % (11.5-14.5)
[2018-05-11 08:18] LABS: AADO2 Arterial 82.7 mmHg (7.0-24.0); Allen Test ACCEPTAB; Arterial Base Excess -10.2 mmol/L (-3.0-3); Arterial Blood Gas Oxygen Sat 95.8 mmHG (95.0-98.0); Arterial COHb 0.7 % (0.0-3.0); Arterial Fraction of Oxyhgb 94.8 % (93.0-99.0); Arterial HCO3 16.2 mmol/L (22.0-26.0); Arterial MetHb 0.3 % (0.0-1.5); Arterial Total Hemglobin 8.9 g/dl (12.0-18.0); Arterial pCO2 37.8 mmhg (35-45); MODE VENT - AC; Site Left Radial
[2018-05-11] MEDS: METOPROLOL 25 MG TAB GTB ×2 (09:00→20:37)
[2018-05-11] MEDS: FAMOTIDINE 20 MG TAB GTB (09:26)
[2018-05-11] MEDS: ASCORBIC ACID 500 MG TAB GTB (09:26)
[2018-05-11] MEDS: MULTIVITAMINS THERAPEUTIC TAB GTB (09:26)
[2018-05-11] MEDS: ZINC SULFATE 220 MG CAP GTB (09:27)
[2018-05-11] MEDS: SENNA TAB GTB ×2 (09:27→20:17)
[2018-05-11] MEDS: QUETIAPINE 25 MG TAB GTB ×2 (09:27→20:18)
[2018-05-11] MEDS: GLYCOPYRROLATE 1 MG TAB GTB ×3 (09:27→20:17)
[2018-05-11] MEDS: ENOXAPARIN 30 MG/0.3 ML SYG SC (09:38)
[2018-05-11] MEDS: SOD CHLORIDE 0.9% 1,000 ML IV ×3 (10:14→23:16)
[2018-05-11 10:25] LABS: CHOLESTEROL 73 mg/dl (100-200)
[2018-05-11 10:25] LABS: CHOL/HDL RATIO 3.3 RATIO; CREATINE KINASE 27 IU/L (23-200); HDL CHOLESTEROL 22 mg/dl (27-67); LDL CHOLESTEROL,CALCULATED 36 mg/dl; TRIGLYCERIDES 76 mg/dl (0-149)
[2018-05-11 10:38] LABS: CK INDEX 4.6; CK-MB 1.24 ng/ml (0.0-2.4); TROPONIN-I < 0.012 ng/ml (0.000-0.120)
[2018-05-11] MEDS: NA BICARBONATE 8.4% 50 ML SYG IV (14:10)
[2018-05-11] MEDS: MAGNESIUM HYDROXIDE 30ML CUP GTB (14:24)
[2018-05-11] MEDS: BISACODYL 10 MG SUPP PR (14:24)
[2018-05-11] MEDS: LIDOCAINE 1% (MPF) 5 ML VIAL SC (15:25)
[2018-05-11 17:30] LABS: AHG CROSSMATCH 1 1
[2018-05-11] MEDS: EPOETIN 10000 UNITS/ML (NON ESRD/NON ONCOLOGY) SC (18:25)
[2018-05-11] MEDS: traZODone 100 MG TAB GTB (20:18)
[2018-05-11] MEDS: DOCUSATE SODIUM 10 MG/ML (10ML CUP) GTB (20:38)
[2018-05-12] MEDS: HYDROmorphONE 2 MG TAB PO ×4 (00:17→19:45)
[2018-05-12 00:40] LABS: AADO2 Arterial 28.3 mmHg (7.0-24.0); Arterial Base Excess -10.1 mmol/L (-3.0-3); Arterial Blood Gas Oxygen Sat 98.7 mmHG (95.0-98.0); Arterial COHb 0.3 % (0.0-3.0); Arterial Fraction of Oxyhgb 97.9 % (93.0-99.0); Arterial HCO3 14.8 mmol/L (22.0-26.0); Arterial MetHb 0.5 % (0.0-1.5); Arterial Total Hemglobin 9.6 g/dl (12.0-18.0); Arterial pCO2 29.3 mmhg (35-45); MODE VENT - AC; Site Right Brachial
[2018-05-12] MEDS: IPRATROPIUM (HFA) 12.9 GM INHALER INH ×4 (01:37→20:22)
[2018-05-12] MEDS: ALBUTEROL HFA 8 GM INHALER INH ×4 (01:37→20:22)
[2018-05-12 04:45] LABS: ADD MAN DIFF? NO
[2018-05-12 04:48] LABS: ABNORMAL IP MESSAGE 1; EOSINOPHILS # 0.1 10^3/ul (0.0-0.5); HEMATOCRIT 27.5 % (42.0-52.0); HEMOGLOBIN 8.4 g/dl (14.0-18.0); LYMPHOCYTES # 0.4 10^3/ul (0.8-2.9); LYMPHOCYTES % 9.8 % (15.0-51.0); MEAN CORPUSCULAR HEMOGLOBIN 29.7 pg (29.0-33.0); MEAN CORPUSCULAR HGB CONC 30.5 g/dl (32.0-37.0); MEAN CORPUSCULAR VOLUME 97.2 fl (82.0-101.0); MEAN PLATELET VOLUME 12.7 fl (7.4-10.4); MONOCYTE # 0.6 10^3/ul (0.3-0.9); MONOCYTES % 13.7 % (0.0-11.0); NEUTROPHILS % 73.8 % (39.0-77.0); PLATELET COUNT 104 10^3/UL (140-415); POSITIVE DIFF @See below; RED BLOOD COUNT 2.83 10^6/ul (4.70-6.10); RED CELL DISTRIBUTION WIDTH 15.3 % (11.5-14.5)
[2018-05-12 04:48] LABS: WHITE BLOOD COUNT 4.1 10^3/ul (4.8-10.8)
[2018-05-12 05:06] LABS: ANION GAP 10 (5-13); BLOOD UREA NITROGEN 40 mg/dl (7-20); CALCIUM 8.5 mg/dl (8.4-10.2); CARBON DIOXIDE 16 mmol/L (21-31); CHLORIDE 119 mmol/L (97-110); CREATININE 1.66 mg/dl (0.61-1.24); GLUCOSE 92 mg/dl (70-220); POTASSIUM 5.2 mmol/L (3.5-5.1); SODIUM 145 mmol/L (135-144)
[2018-05-12] MEDS: MEROPENEM 1 GM/50ML(PMX) 50 ML IVPB ×3 (05:33→22:33)
[2018-05-12] MEDS ORDERED: PENDING SANTYL ORDER FOR WOUND CARE XX (06:00)
[2018-05-12] MEDS: MULTIVITAMINS THERAPEUTIC TAB GTB (08:45)
[2018-05-12] MEDS: SENNA TAB GTB ×2 (08:46→20:52)
[2018-05-12] MEDS: FAMOTIDINE 20 MG TAB GTB (08:46)
[2018-05-12] MEDS: ZINC SULFATE 220 MG CAP GTB (08:46)
[2018-05-12] MEDS: GLYCOPYRROLATE 1 MG TAB GTB ×3 (08:46→20:52)
[2018-05-12] MEDS: QUETIAPINE 25 MG TAB GTB ×2 (08:47→20:52)
[2018-05-12] MEDS: ASCORBIC ACID 500 MG TAB GTB (08:47)
[2018-05-12] MEDS: ENOXAPARIN 30 MG/0.3 ML SYG SC (08:49)
[2018-05-12] MEDS: METOPROLOL 25 MG TAB GTB ×2 (08:59→20:52)
[2018-05-12] MEDS: SOD CHLORIDE 0.9% 1,000 ML IV (12:53)
[2018-05-12] MEDS: BISACODYL 10 MG SUPP PR (14:30)
[2018-05-12] MEDS: MAGNESIUM HYDROXIDE 30ML CUP GTB (14:30)
[2018-05-12] MEDS: NA POLYST SULFON 15 GM/60 ML BTL PO (15:55)
[2018-05-12] MEDS: FLUCONAZOLE 100 MG TAB PO (16:06)
[2018-05-12] MEDS: traZODone 100 MG TAB GTB (20:52)
[2018-05-12] MEDS: DOCUSATE SODIUM 10 MG/ML (10ML CUP) GTB (20:52)
[2018-05-13] MEDS: SOD CHLORIDE 0.9% 1,000 ML IV ×3 (00:39→13:40)
[2018-05-13] MEDS: HYDROmorphONE 2 MG TAB PO ×6 (00:46→23:00)
[2018-05-13] MEDS: ALBUTEROL HFA 8 GM INHALER INH ×4 (01:52→20:27)
[2018-05-13] MEDS: IPRATROPIUM (HFA) 12.9 GM INHALER INH ×4 (01:52→20:27)
[2018-05-13 04:51] LABS: ADD MAN DIFF? NO
[2018-05-13 04:56] LABS: ABNORMAL IP MESSAGE 1; BASOPHILS % 0.3 % (0.0-2.0); EOSINOPHILS # 0.3 10^3/ul (0.0-0.5); EOSINOPHILS % 7.1 % (0.0-7.0); HEMATOCRIT 29.8 % (42.0-52.0); HEMOGLOBIN 9.1 g/dl (14.0-18.0); LYMPHOCYTES # 0.7 10^3/ul (0.8-2.9); LYMPHOCYTES % 18.5 % (15.0-51.0); MEAN CORPUSCULAR HEMOGLOBIN 29.8 pg (29.0-33.0); MEAN CORPUSCULAR HGB CONC 30.5 g/dl (32.0-37.0); MEAN CORPUSCULAR VOLUME 97.7 fl (82.0-101.0); MEAN PLATELET VOLUME 12.5 fl (7.4-10.4); MONOCYTE # 0.7 10^3/ul (0.3-0.9); MONOCYTES % 18.5 % (0.0-11.0); NEUTROPHIL # 1.9 10^3/ul (1.6-7.5); NEUTROPHILS % 54.7 % (39.0-77.0); PLATELET COUNT 99 10^3/UL (140-415); POSITIVE DIFF @See below; RED BLOOD COUNT 3.05 10^6/ul (4.70-6.10); RED CELL DISTRIBUTION WIDTH 15.3 % (11.5-14.5)
[2018-05-13 04:56] LABS: WHITE BLOOD COUNT 3.5 10^3/ul (4.8-10.8)
[2018-05-13 05:38] LABS: ALANINE AMINOTRANSFERASE 23 IU/L (13-69); ALBUMIN 2.9 g/dl (3.3-4.9); ALBUMIN/GLOBULIN RATIO 0.78; ALKALINE PHOSPHATASE 130 IU/L (42-121); ANION GAP 10 (5-13); ASPARTATE AMINO TRANSFERASE 18 IU/L (15-46); BILIRUBIN,INDIRECT 0.2 mg/dl (0-1.1); BILIRUBIN,TOTAL 0.2 mg/dl (0.2-1.3); BLOOD UREA NITROGEN 37 mg/dl (7-20); CALCIUM 9.2 mg/dl (8.4-10.2); CARBON DIOXIDE 18 mmol/L (21-31); CHLORIDE 117 mmol/L (97-110); CREATININE 1.43 mg/dl (0.61-1.24); GLUCOSE 105 mg/dl (70-220); SODIUM 145 mmol/L (135-144); TOTAL PROTEIN 6.6 g/dl (6.1-8.1)
[2018-05-13 05:44] LABS: POTASSIUM 6.1 mmol/L (3.5-5.1)
[2018-05-13] MEDS: ACETAMINOPHEN 325 MG TAB PO (05:54)
[2018-05-13] MEDS: MEROPENEM 1 GM/50ML(PMX) 50 ML IVPB (05:54)
[2018-05-13] MEDS: NA POLYST SULFON 15 GM/60 ML BTL PO (06:23)
[2018-05-13] MEDS: METOPROLOL 25 MG TAB GTB ×2 (08:52→20:24)
[2018-05-13] MEDS: MULTIVITAMINS THERAPEUTIC TAB GTB (08:53)
[2018-05-13] MEDS: ZINC SULFATE 220 MG CAP GTB (08:53)
[2018-05-13] MEDS: ASCORBIC ACID 500 MG TAB GTB (08:53)
[2018-05-13] MEDS: FLUCONAZOLE 100 MG TAB PO (08:53)
[2018-05-13] MEDS: FAMOTIDINE 20 MG TAB GTB (08:53)
[2018-05-13] MEDS: GLYCOPYRROLATE 1 MG TAB GTB ×3 (08:53→20:24)
[2018-05-13] MEDS: QUETIAPINE 25 MG TAB GTB ×2 (08:53→20:24)
[2018-05-13] MEDS: SENNA TAB GTB ×2 (08:53→20:24)
[2018-05-13] MEDS: ENOXAPARIN 30 MG/0.3 ML SYG SC (09:01)
[2018-05-13] MEDS: MAGNESIUM HYDROXIDE 30ML CUP GTB (14:28)
[2018-05-13] MEDS: BISACODYL 10 MG SUPP PR (14:29)
[2018-05-13] MEDS: traZODone 100 MG TAB GTB (20:24)
[2018-05-13] MEDS: DOCUSATE SODIUM 10 MG/ML (10ML CUP) GTB (20:24)
[2018-05-13] MEDS: VORICONAZOLE 200 MG TAB PO (20:24)
[2018-05-13] MEDS: SODIUM BICARBONATE (IV ADD) 100 MEQ in DEXTROSE 5% 1,000 ML IV (21:00)
[2018-05-13] MEDS: TOBRAMYCIN/0.25NS 300 MG/5 ML INHAL NEB (21:47)
[2018-05-14] MEDS: IPRATROPIUM (HFA) 12.9 GM INHALER INH ×4 (01:48→20:42)
[2018-05-14] MEDS: ALBUTEROL HFA 8 GM INHALER INH ×4 (01:48→20:43)
[2018-05-14] MEDS: HYDROmorphONE 2 MG TAB PO ×5 (02:59→23:50)
[2018-05-14] MEDS: ALBUTEROL 0.083% (NEB) 2.5 MG/3 ML AMP NEB (03:31)
[2018-05-14 04:58] LABS: ADD MAN DIFF? NO
[2018-05-14 04:59] LABS: ABNORMAL IP MESSAGE 1; EOSINOPHILS # 0.4 10^3/ul (0.0-0.5); EOSINOPHILS % 11.9 % (0.0-7.0); HEMATOCRIT 26.8 % (42.0-52.0); HEMOGLOBIN 8.3 g/dl (14.0-18.0); LYMPHOCYTES # 0.5 10^3/ul (0.8-2.9); LYMPHOCYTES % 13.7 % (15.0-51.0); MEAN CORPUSCULAR HEMOGLOBIN 30.1 pg (29.0-33.0); MEAN CORPUSCULAR VOLUME 97.1 fl (82.0-101.0); MEAN PLATELET VOLUME 11.8 fl (7.4-10.4); MONOCYTE # 0.5 10^3/ul (0.3-0.9); MONOCYTES % 12.7 % (0.0-11.0); NEUTROPHIL # 2.3 10^3/ul (1.6-7.5); NEUTROPHILS % 60.9 % (39.0-77.0); PLATELET COUNT 97 10^3/UL (140-415); POSITIVE DIFF @See below; RED BLOOD COUNT 2.76 10^6/ul (4.70-6.10); RED CELL DISTRIBUTION WIDTH 15.1 % (11.5-14.5)
[2018-05-14 04:59] LABS: WHITE BLOOD COUNT 3.7 10^3/ul (4.8-10.8)
[2018-05-14 05:52] LABS: ANION GAP 8 (5-13); BLOOD UREA NITROGEN 30 mg/dl (7-20); CALCIUM 8.5 mg/dl (8.4-10.2); CARBON DIOXIDE 21 mmol/L (21-31); CHLORIDE 113 mmol/L (97-110); GLUCOSE 85 mg/dl (70-220); MAGNESIUM 1.3 mg/dl (1.7-2.5); PHOSPHORUS 3.1 mg/dl (2.5-4.9); POTASSIUM 4.8 mmol/L (3.5-5.1); SODIUM 142 mmol/L (135-144)
[2018-05-14] MEDS: SODIUM BICARBONATE (IV ADD) 100 MEQ in DEXTROSE 5% 1,000 ML IV ×2 (06:14→11:26)
[2018-05-14] MEDS: GLYCOPYRROLATE 1 MG TAB GTB ×3 (08:36→21:28)
[2018-05-14] MEDS: VORICONAZOLE 200 MG TAB PO ×2 (08:36→21:29)
[2018-05-14] MEDS: ASCORBIC ACID 500 MG TAB GTB (08:36)
[2018-05-14] MEDS: MULTIVITAMINS THERAPEUTIC TAB GTB (08:36)
[2018-05-14] MEDS: SENNA TAB GTB ×2 (08:36→21:29)
[2018-05-14] MEDS: FAMOTIDINE 20 MG TAB GTB (08:37)
[2018-05-14] MEDS: QUETIAPINE 25 MG TAB GTB ×2 (08:37→21:28)
[2018-05-14] MEDS: ZINC SULFATE 220 MG CAP GTB (08:37)
[2018-05-14] MEDS: METOPROLOL 25 MG TAB GTB ×2 (08:38→21:30)
[2018-05-14] MEDS: ENOXAPARIN 30 MG/0.3 ML SYG SC (08:47)
[2018-05-14] MEDS: TOBRAMYCIN/0.25NS 300 MG/5 ML INHAL NEB ×2 (09:00→20:00)
[2018-05-14] MEDS: ACYCLOVIR 400 MG TAB PO ×2 (12:34→22:24)
[2018-05-14] MEDS: MAGNESIUM HYDROXIDE 30ML CUP GTB (14:30)
[2018-05-14] MEDS: BISACODYL 10 MG SUPP PR (14:30)
[2018-05-14] MEDS: SOD CHLORIDE 0.9% 1,000 ML IV ×2 (16:39→21:32)
[2018-05-14] MEDS: EPOETIN 10000 UNITS/ML (NON ESRD/NON ONCOLOGY) SC (16:53)
[2018-05-14] MEDS: traZODone 100 MG TAB GTB (21:29)
[2018-05-14] MEDS: DOCUSATE SODIUM 10 MG/ML (10ML CUP) GTB (21:31)
[2018-05-15] MEDS: MAGNESIUM SULFATE 3 GM in DEXTROSE 5% 100 ML IVPB (01:14)
[2018-05-15] MEDS: ALBUTEROL HFA 8 GM INHALER INH ×4 (02:03→20:48)
[2018-05-15] MEDS: IPRATROPIUM (HFA) 12.9 GM INHALER INH ×4 (02:03→20:47)
[2018-05-15] MEDS: HYDROmorphONE 2 MG TAB PO ×5 (04:46→22:32)
[2018-05-15 05:40] LABS: ADD MAN DIFF? NO
[2018-05-15 05:55] LABS: WHITE BLOOD COUNT 3.8 10^3/ul (4.8-10.8)
[2018-05-15 05:55] LABS: BASOPHILS % 0.3 % (0.0-2.0); EOSINOPHILS # 0.3 10^3/ul (0.0-0.5); EOSINOPHILS % 7.7 % (0.0-7.0); HEMATOCRIT 28.6 % (42.0-52.0); HEMOGLOBIN 8.8 g/dl (14.0-18.0); LYMPHOCYTES # 0.8 10^3/ul (0.8-2.9); LYMPHOCYTES % 20.3 % (15.0-51.0); MEAN CORPUSCULAR HEMOGLOBIN 29.9 pg (29.0-33.0); MEAN CORPUSCULAR HGB CONC 30.8 g/dl (32.0-37.0); MEAN CORPUSCULAR VOLUME 97.3 fl (82.0-101.0); MEAN PLATELET VOLUME 12.2 fl (7.4-10.4); MONOCYTE # 0.5 10^3/ul (0.3-0.9); MONOCYTES % 13.9 % (0.0-11.0); NEUTROPHIL # 2.2 10^3/ul (1.6-7.5); NEUTROPHILS % 57.3 % (39.0-77.0); PLATELET COUNT 103 10^3/UL (140-415); RED BLOOD COUNT 2.94 10^6/ul (4.70-6.10)
[2018-05-15] MEDS: SOD CHLORIDE 0.9% 1,000 ML IV ×2 (05:59→17:26)
[2018-05-15 06:01] LABS: ANION GAP 9 (5-13); BLOOD UREA NITROGEN 28 mg/dl (7-20); CALCIUM 8.5 mg/dl (8.4-10.2); CARBON DIOXIDE 23 mmol/L (21-31); CHLORIDE 112 mmol/L (97-110); CREATININE 1.43 mg/dl (0.61-1.24); GLUCOSE 85 mg/dl (70-220); POTASSIUM 4.7 mmol/L (3.5-5.1); SODIUM 144 mmol/L (135-144)
[2018-05-15 06:04] LABS: MAGNESIUM 2.3 mg/dl (1.7-2.5)
[2018-05-15] MEDS: ACYCLOVIR 400 MG TAB PO ×2 (09:00→22:33)
[2018-05-15] MEDS: GLYCOPYRROLATE 1 MG TAB GTB ×3 (09:00→22:33)
[2018-05-15] MEDS: TOBRAMYCIN/0.25NS 300 MG/5 ML INHAL NEB ×2 (09:00→20:51)
[2018-05-15] MEDS: METOPROLOL 25 MG TAB GTB ×2 (09:01→22:34)
[2018-05-15] MEDS: ZINC SULFATE 220 MG CAP GTB (09:01)
[2018-05-15] MEDS: VORICONAZOLE 200 MG TAB PO ×2 (09:01→22:32)
[2018-05-15] MEDS: QUETIAPINE 25 MG TAB GTB ×2 (09:01→22:32)
[2018-05-15] MEDS: FAMOTIDINE 20 MG TAB GTB (09:02)
[2018-05-15] MEDS: SENNA TAB GTB ×2 (09:02→22:33)
[2018-05-15] MEDS: MULTIVITAMINS THERAPEUTIC TAB GTB (09:02)
[2018-05-15] MEDS: ASCORBIC ACID 500 MG TAB GTB (09:02)
[2018-05-15] MEDS: ENOXAPARIN 30 MG/0.3 ML SYG SC (09:21)
[2018-05-15] MEDS: MAGNESIUM HYDROXIDE 30ML CUP GTB (14:22)
[2018-05-15] MEDS: BISACODYL 10 MG SUPP PR (14:22)
[2018-05-15] MEDS: traZODone 100 MG TAB GTB (22:32)
[2018-05-15] MEDS: DOCUSATE SODIUM 10 MG/ML (10ML CUP) GTB (22:33)
[2018-05-16] MEDS: HYDROmorphONE 2 MG TAB PO ×4 (03:25→21:35)
[2018-05-16] MEDS ORDERED: COLLAGENASE 5 GM (UD JAR) TOP (03:30)
[2018-05-16] MEDS: IPRATROPIUM (HFA) 12.9 GM INHALER INH ×4 (03:32→19:42)
[2018-05-16] MEDS: ALBUTEROL HFA 8 GM INHALER INH ×4 (03:33→19:42)
[2018-05-16 06:03] LABS: ADD MAN DIFF? NO
[2018-05-16 06:09] LABS: ABNORMAL IP MESSAGE 1; BASOPHILS % 0.3 % (0.0-2.0); EOSINOPHILS # 0.2 10^3/ul (0.0-0.5); EOSINOPHILS % 7.2 % (0.0-7.0); HEMATOCRIT 31.8 % (42.0-52.0); HEMOGLOBIN 9.7 g/dl (14.0-18.0); LYMPHOCYTES # 0.9 10^3/ul (0.8-2.9); LYMPHOCYTES % 26.3 % (15.0-51.0); MEAN CORPUSCULAR HGB CONC 30.5 g/dl (32.0-37.0); MEAN CORPUSCULAR VOLUME 98.5 fl (82.0-101.0); MEAN PLATELET VOLUME 12.7 fl (7.4-10.4); MONOCYTE # 0.4 10^3/ul (0.3-0.9); MONOCYTES % 12.2 % (0.0-11.0); NEUTROPHIL # 1.8 10^3/ul (1.6-7.5); NEUTROPHILS % 53.4 % (39.0-77.0); PLATELET COUNT 90 10^3/UL (140-415); POSITIVE DIFF @See below; RED BLOOD COUNT 3.23 10^6/ul (4.70-6.10); RED CELL DISTRIBUTION WIDTH 15.7 % (11.5-14.5)
[2018-05-16 06:09] LABS: WHITE BLOOD COUNT 3.4 10^3/ul (4.8-10.8)
[2018-05-16 06:45] LABS: ANION GAP 10 (5-13); BLOOD UREA NITROGEN 31 mg/dl (7-20); CALCIUM 8.6 mg/dl (8.4-10.2); CARBON DIOXIDE 22 mmol/L (21-31); CHLORIDE 114 mmol/L (97-110); Estimated GFR 45 mL/min (>60); GLUCOSE 81 mg/dl (70-220); POTASSIUM 5.1 mmol/L (3.5-5.1); SODIUM 146 mmol/L (135-144)
[2018-05-16] MEDS: METOPROLOL 25 MG TAB GTB ×2 (09:00→21:34)
[2018-05-16] MEDS: ASCORBIC ACID 500 MG TAB GTB (09:03)
[2018-05-16] MEDS: COLLAGENASE 5 GM (UD JAR) TOP (09:03)
[2018-05-16] MEDS: ENOXAPARIN 30 MG/0.3 ML SYG SC (09:03)
[2018-05-16] MEDS: MULTIVITAMINS THERAPEUTIC TAB GTB (09:03)
[2018-05-16] MEDS: QUETIAPINE 25 MG TAB GTB ×2 (09:03→21:34)
[2018-05-16] MEDS: GLYCOPYRROLATE 1 MG TAB GTB ×3 (09:04→21:35)
[2018-05-16] MEDS: SENNA TAB GTB ×2 (09:04→21:00)
[2018-05-16] MEDS: FAMOTIDINE 20 MG TAB GTB (09:04)
[2018-05-16] MEDS: VORICONAZOLE 200 MG TAB PO ×2 (09:04→21:32)
[2018-05-16] MEDS: ACYCLOVIR 400 MG TAB PO ×2 (09:04→21:34)
[2018-05-16] MEDS: ZINC SULFATE 220 MG CAP GTB (09:06)
[2018-05-16] MEDS: SOD CHLORIDE 0.9% 1,000 ML IV (09:25)
[2018-05-16] MEDS: TOBRAMYCIN/0.25NS 300 MG/5 ML INHAL NEB ×2 (09:54→19:42)
[2018-05-16] MEDS: MAGNESIUM HYDROXIDE 30ML CUP GTB (14:43)
[2018-05-16] MEDS: BISACODYL 10 MG SUPP PR (14:43)
[2018-05-16] MEDS: EPOETIN 10000 UNITS/ML (NON ESRD/NON ONCOLOGY) SC (16:19)
[2018-05-16] MEDS: DOCUSATE SODIUM 10 MG/ML (10ML CUP) GTB (21:00)
[2018-05-16] MEDS: traZODone 100 MG TAB GTB (21:33)
[2018-05-17] MEDS: HYDROmorphONE 2 MG TAB PO ×3 (01:48→22:12)
[2018-05-17] MEDS: IPRATROPIUM (HFA) 12.9 GM INHALER INH ×4 (01:51→20:29)
[2018-05-17] MEDS: ALBUTEROL HFA 8 GM INHALER INH ×4 (01:51→20:29)
[2018-05-17 05:38] LABS: ADD MAN DIFF? NO
[2018-05-17 05:42] LABS: BASOPHILS % 0.2 % (0.0-2.0); EOSINOPHILS # 0.2 10^3/ul (0.0-0.5); EOSINOPHILS % 5.2 % (0.0-7.0); HEMATOCRIT 30.9 % (42.0-52.0); LYMPHOCYTES # 0.7 10^3/ul (0.8-2.9); LYMPHOCYTES % 18.2 % (15.0-51.0); MEAN CORPUSCULAR HEMOGLOBIN 29.5 pg (29.0-33.0); MEAN CORPUSCULAR HGB CONC 29.1 g/dl (32.0-37.0); MEAN CORPUSCULAR VOLUME 101.3 fl (82.0-101.0); MEAN PLATELET VOLUME 11.9 fl (7.4-10.4); MONOCYTE # 0.3 10^3/ul (0.3-0.9); MONOCYTES % 8.5 % (0.0-11.0); NEUTROPHIL # 2.7 10^3/ul (1.6-7.5); NEUTROPHILS % 67.7 % (39.0-77.0); PLATELET COUNT 115 10^3/UL (140-415); RED BLOOD COUNT 3.05 10^6/ul (4.70-6.10); RED CELL DISTRIBUTION WIDTH 16.2 % (11.5-14.5)
[2018-05-17 06:17] LABS: ANION GAP 10 (5-13); BLOOD UREA NITROGEN 37 mg/dl (7-20); CALCIUM 8.7 mg/dl (8.4-10.2); CARBON DIOXIDE 21 mmol/L (21-31); CHLORIDE 114 mmol/L (97-110); CREATININE 1.76 mg/dl (0.61-1.24); Estimated GFR 43 mL/min (>60); GLUCOSE 83 mg/dl (70-220); POTASSIUM 5.4 mmol/L (3.5-5.1); SODIUM 145 mmol/L (135-144)
[2018-05-17] MEDS: ENOXAPARIN 30 MG/0.3 ML SYG SC (08:58)
[2018-05-17] MEDS: ACYCLOVIR 400 MG TAB PO ×2 (09:00→22:13)
[2018-05-17] MEDS: METOPROLOL 25 MG TAB GTB ×2 (09:00→22:13)
[2018-05-17] MEDS: GLYCOPYRROLATE 1 MG TAB GTB ×3 (09:00→22:12)
[2018-05-17] MEDS: VORICONAZOLE 200 MG TAB PO ×2 (09:00→22:12)
[2018-05-17] MEDS: ZINC SULFATE 220 MG CAP GTB (09:00)
[2018-05-17] MEDS: MULTIVITAMINS THERAPEUTIC TAB GTB (09:00)
[2018-05-17] MEDS: ASCORBIC ACID 500 MG TAB GTB (09:00)
[2018-05-17] MEDS: SENNA TAB GTB ×2 (09:01→22:12)
[2018-05-17] MEDS: FAMOTIDINE 20 MG TAB GTB (09:01)
[2018-05-17] MEDS: QUETIAPINE 25 MG TAB GTB ×2 (09:01→22:13)
[2018-05-17] MEDS: COLLAGENASE 5 GM (UD JAR) TOP (09:02)
[2018-05-17] MEDS: TOBRAMYCIN/0.25NS 300 MG/5 ML INHAL NEB ×2 (09:17→20:29)
[2018-05-17] MEDS: BISACODYL 10 MG SUPP PR ×2 (13:49→14:00)
[2018-05-17] MEDS: MAGNESIUM HYDROXIDE 30ML CUP GTB (13:49)
[2018-05-17] MEDS: NA POLYST SULFON 15 GM/60 ML BTL GTB (18:26)
[2018-05-17] MEDS: DOCUSATE SODIUM 10 MG/ML (10ML CUP) GTB (22:11)
[2018-05-17] MEDS: traZODone 100 MG TAB GTB (22:12)
[2018-05-18] MEDS: IPRATROPIUM (HFA) 12.9 GM INHALER INH ×4 (02:03→20:10)
[2018-05-18] MEDS: ALBUTEROL HFA 8 GM INHALER INH ×4 (02:03→20:10)
[2018-05-18] MEDS: HYDROmorphONE 2 MG TAB PO ×3 (02:14→18:49)
[2018-05-18] MEDS: TOBRAMYCIN/0.25NS 300 MG/5 ML INHAL NEB ×2 (09:00→20:23)
[2018-05-18] MEDS: ZINC SULFATE 220 MG CAP GTB (09:24)
[2018-05-18] MEDS: ASCORBIC ACID 500 MG TAB GTB (09:25)
[2018-05-18] MEDS: ACYCLOVIR 400 MG TAB PO ×2 (09:25→21:46)
[2018-05-18] MEDS: VORICONAZOLE 200 MG TAB PO ×2 (09:25→21:47)
[2018-05-18] MEDS: SENNA TAB GTB ×2 (09:25→21:00)
[2018-05-18] MEDS: GLYCOPYRROLATE 1 MG TAB GTB ×3 (09:25→21:46)
[2018-05-18] MEDS: QUETIAPINE 25 MG TAB GTB ×2 (09:26→21:47)
[2018-05-18] MEDS: MULTIVITAMINS THERAPEUTIC TAB GTB (09:26)
[2018-05-18] MEDS: COLLAGENASE 5 GM (UD JAR) TOP (09:30)
[2018-05-18] MEDS: ENOXAPARIN 30 MG/0.3 ML SYG SC (09:41)
[2018-05-18] MEDS: METOPROLOL 25 MG TAB GTB ×2 (09:43→21:47)
[2018-05-18] MEDS: FAMOTIDINE 20 MG TAB GTB (09:43)
[2018-05-18] MEDS: MAGNESIUM HYDROXIDE 30ML CUP GTB (13:20)
[2018-05-18] MEDS: BISACODYL 10 MG SUPP PR (13:29)
[2018-05-18] MEDS: EPOETIN 10000 UNITS/ML (NON ESRD/NON ONCOLOGY) SC (18:52)
[2018-05-18] MEDS: DOCUSATE SODIUM 10 MG/ML (10ML CUP) GTB (21:00)
[2018-05-18] MEDS: traZODone 100 MG TAB GTB (21:47)
[2018-05-19] MEDS: IPRATROPIUM (HFA) 12.9 GM INHALER INH ×4 (01:37→19:32)
[2018-05-19] MEDS: ALBUTEROL HFA 8 GM INHALER INH ×4 (01:37→19:32)
[2018-05-19] MEDS: HYDROmorphONE 2 MG TAB PO ×4 (01:46→22:04)
[2018-05-19 06:20] LABS: ADD MAN DIFF? NO
[2018-05-19 06:26] LABS: ABNORMAL IP MESSAGE 1; BASOPHILS % 0.2 % (0.0-2.0); EOSINOPHILS # 0.1 10^3/ul (0.0-0.5); EOSINOPHILS % 2.7 % (0.0-7.0); HEMATOCRIT 31.2 % (42.0-52.0); HEMOGLOBIN 9.5 g/dl (14.0-18.0); LYMPHOCYTES # 0.8 10^3/ul (0.8-2.9); LYMPHOCYTES % 18.7 % (15.0-51.0); MEAN CORPUSCULAR HEMOGLOBIN 30.7 pg (29.0-33.0); MEAN CORPUSCULAR HGB CONC 30.4 g/dl (32.0-37.0); MEAN PLATELET VOLUME 13.1 fl (7.4-10.4); MONOCYTE # 0.4 10^3/ul (0.3-0.9); NEUTROPHIL # 2.8 10^3/ul (1.6-7.5); NEUTROPHILS % 68.9 % (39.0-77.0); PLATELET COUNT 113 10^3/UL (140-415); POSITIVE DIFF @See below; RED BLOOD COUNT 3.09 10^6/ul (4.70-6.10); RED CELL DISTRIBUTION WIDTH 17.3 % (11.5-14.5)
[2018-05-19 06:45] LABS: ANION GAP 8 (5-13); BLOOD UREA NITROGEN 42 mg/dl (7-20); CALCIUM 8.9 mg/dl (8.4-10.2); CARBON DIOXIDE 23 mmol/L (21-31); CHLORIDE 111 mmol/L (97-110); CREATININE 1.79 mg/dl (0.61-1.24); Estimated GFR 42 mL/min (>60); GLUCOSE 80 mg/dl (70-220); POTASSIUM 5.1 mmol/L (3.5-5.1); SODIUM 142 mmol/L (135-144)
[2018-05-19] MEDS: TOBRAMYCIN/0.25NS 300 MG/5 ML INHAL NEB ×2 (08:33→19:33)
[2018-05-19] MEDS: FAMOTIDINE 20 MG TAB GTB (09:00)
[2018-05-19] MEDS: SENNA TAB GTB ×2 (09:00→21:25)
[2018-05-19] MEDS: VORICONAZOLE 200 MG TAB PO ×2 (10:00→21:25)
[2018-05-19] MEDS: MULTIVITAMINS THERAPEUTIC TAB GTB (10:00)
[2018-05-19] MEDS: QUETIAPINE 25 MG TAB GTB ×2 (10:01→21:32)
[2018-05-19] MEDS: METOPROLOL 25 MG TAB GTB ×2 (10:01→21:00)
[2018-05-19] MEDS: ZINC SULFATE 220 MG CAP GTB (10:01)
[2018-05-19] MEDS: ACYCLOVIR 400 MG TAB PO ×2 (10:02→21:32)
[2018-05-19] MEDS: GLYCOPYRROLATE 1 MG TAB GTB ×3 (10:02→21:25)
[2018-05-19] MEDS: ASCORBIC ACID 500 MG TAB GTB (10:02)
[2018-05-19] MEDS: COLLAGENASE 5 GM (UD JAR) TOP (10:03)
[2018-05-19] MEDS: ENOXAPARIN 30 MG/0.3 ML SYG SC (10:18)
[2018-05-19] MEDS: BISACODYL 10 MG SUPP PR (13:41)
[2018-05-19] MEDS: ACETAMINOPHEN 325 MG TAB PO (13:41)
[2018-05-19] MEDS: MAGNESIUM HYDROXIDE 30ML CUP GTB (13:41)
[2018-05-19] MEDS: DOCUSATE SODIUM 10 MG/ML (10ML CUP) GTB (21:25)
[2018-05-19] MEDS: traZODone 100 MG TAB GTB (21:32)
[2018-05-20] MEDS: ALBUTEROL HFA 8 GM INHALER INH ×4 (01:31→19:36)
[2018-05-20] MEDS: IPRATROPIUM (HFA) 12.9 GM INHALER INH ×4 (01:31→19:36)
[2018-05-20] MEDS: HYDROmorphONE 2 MG TAB PO ×4 (03:18→20:10)
[2018-05-20 06:19] LABS: ADD MAN DIFF? NO
[2018-05-20 06:35] LABS: ABNORMAL IP MESSAGE 1; BASOPHILS % 0.2 % (0.0-2.0); EOSINOPHILS # 0.1 10^3/ul (0.0-0.5); EOSINOPHILS % 2.5 % (0.0-7.0); HEMATOCRIT 33.8 % (42.0-52.0); LYMPHOCYTES # 0.7 10^3/ul (0.8-2.9); LYMPHOCYTES % 13.6 % (15.0-51.0); MEAN CORPUSCULAR HEMOGLOBIN 30.1 pg (29.0-33.0); MEAN CORPUSCULAR HGB CONC 29.6 g/dl (32.0-37.0); MEAN CORPUSCULAR VOLUME 101.8 fl (82.0-101.0); MEAN PLATELET VOLUME 13.2 fl (7.4-10.4); MONOCYTE # 0.4 10^3/ul (0.3-0.9); NEUTROPHIL # 4.1 10^3/ul (1.6-7.5); NEUTROPHILS % 76.3 % (39.0-77.0); PLATELET COUNT 142 10^3/UL (140-415); POSITIVE DIFF @See below; RED BLOOD COUNT 3.32 10^6/ul (4.70-6.10); RED CELL DISTRIBUTION WIDTH 17.9 % (11.5-14.5)
[2018-05-20 06:35] LABS: WHITE BLOOD COUNT 5.3 10^3/ul (4.8-10.8)
[2018-05-20 07:09] LABS: ANION GAP 10 (5-13); BLOOD UREA NITROGEN 46 mg/dl (7-20); CALCIUM 8.9 mg/dl (8.4-10.2); CARBON DIOXIDE 22 mmol/L (21-31); CHLORIDE 110 mmol/L (97-110); CREATININE 1.84 mg/dl (0.61-1.24); Estimated GFR 41 mL/min (>60); GLUCOSE 73 mg/dl (70-220); SODIUM 142 mmol/L (135-144)
[2018-05-20 07:17] LABS: POTASSIUM 5.4 mmol/L (3.5-5.1)
[2018-05-20] MEDS: TOBRAMYCIN/0.25NS 300 MG/5 ML INHAL NEB ×2 (08:34→19:36)
[2018-05-20] MEDS: SENNA TAB GTB ×2 (08:49→21:43)
[2018-05-20] MEDS: QUETIAPINE 25 MG TAB GTB ×2 (08:49→21:42)
[2018-05-20] MEDS: GLYCOPYRROLATE 1 MG TAB GTB ×3 (08:49→21:43)
[2018-05-20] MEDS: ACYCLOVIR 400 MG TAB PO ×2 (08:49→21:42)
[2018-05-20] MEDS: MULTIVITAMINS THERAPEUTIC TAB GTB (08:49)
[2018-05-20] MEDS: VORICONAZOLE 200 MG TAB PO ×2 (08:50→21:42)
[2018-05-20] MEDS: FAMOTIDINE 20 MG TAB GTB (08:50)
[2018-05-20] MEDS: ASCORBIC ACID 500 MG TAB GTB (08:50)
[2018-05-20] MEDS: METOPROLOL 25 MG TAB GTB ×2 (08:50→21:43)
[2018-05-20] MEDS: COLLAGENASE 5 GM (UD JAR) TOP (08:51)
[2018-05-20] MEDS: ZINC SULFATE 220 MG CAP GTB (09:11)
[2018-05-20] MEDS: ENOXAPARIN 30 MG/0.3 ML SYG SC (09:11)
[2018-05-20] MEDS: MAGNESIUM HYDROXIDE 30ML CUP GTB (13:11)
[2018-05-20] MEDS: BISACODYL 10 MG SUPP PR (14:30)
[2018-05-20] MEDS: traZODone 100 MG TAB GTB (21:42)
[2018-05-20] MEDS: DOCUSATE SODIUM 10 MG/ML (10ML CUP) GTB (21:42)
[2018-05-20] MEDS: ALBUTEROL 0.083% (NEB) 2.5 MG/3 ML AMP NEB (23:08)
[2018-05-21] MEDS: HYDROmorphONE 2 MG TAB PO ×6 (00:18→23:15)
[2018-05-21] MEDS: IPRATROPIUM (HFA) 12.9 GM INHALER INH ×3 (01:11→21:30)
[2018-05-21] MEDS: ALBUTEROL HFA 8 GM INHALER INH ×4 (01:11→21:29)
[2018-05-21 05:45] LABS: ADD MAN DIFF? NO
[2018-05-21 06:00] LABS: WHITE BLOOD COUNT 4.5 10^3/ul (4.8-10.8)
[2018-05-21 06:00] LABS: BASOPHILS % 0.2 % (0.0-2.0); EOSINOPHILS # 0.2 10^3/ul (0.0-0.5); EOSINOPHILS % 3.3 % (0.0-7.0); HEMATOCRIT 35.7 % (42.0-52.0); HEMOGLOBIN 10.7 g/dl (14.0-18.0); LYMPHOCYTES # 0.9 10^3/ul (0.8-2.9); LYMPHOCYTES % 19.9 % (15.0-51.0); MEAN CORPUSCULAR HEMOGLOBIN 30.4 pg (29.0-33.0); MEAN CORPUSCULAR VOLUME 101.4 fl (82.0-101.0); MONOCYTE # 0.3 10^3/ul (0.3-0.9); MONOCYTES % 7.5 % (0.0-11.0); NEUTROPHIL # 3.1 10^3/ul (1.6-7.5); NEUTROPHILS % 68.9 % (39.0-77.0); PLATELET COUNT 138 10^3/UL (140-415); RED BLOOD COUNT 3.52 10^6/ul (4.70-6.10); RED CELL DISTRIBUTION WIDTH 17.8 % (11.5-14.5)
[2018-05-21 06:20] LABS: ANION GAP 10 (5-13); BLOOD UREA NITROGEN 57 mg/dl (7-20); CALCIUM 9.1 mg/dl (8.4-10.2); CARBON DIOXIDE 21 mmol/L (21-31); CHLORIDE 111 mmol/L (97-110); CREATININE 2.02 mg/dl (0.61-1.24); Estimated GFR 37 mL/min (>60); GLUCOSE 80 mg/dl (70-220); POTASSIUM 5.8 mmol/L (3.5-5.1); SODIUM 142 mmol/L (135-144)
[2018-05-21] MEDS: METOPROLOL 25 MG TAB GTB ×2 (09:00→21:00)
[2018-05-21] MEDS: GLYCOPYRROLATE 1 MG TAB GTB ×3 (09:03→21:49)
[2018-05-21] MEDS: ACYCLOVIR 400 MG TAB PO (09:03)
[2018-05-21] MEDS: ZINC SULFATE 220 MG CAP GTB (09:03)
[2018-05-21] MEDS: QUETIAPINE 25 MG TAB GTB ×2 (09:04→21:49)
[2018-05-21] MEDS: VORICONAZOLE 200 MG TAB PO (09:04)
[2018-05-21] MEDS: ASCORBIC ACID 500 MG TAB GTB (09:04)
[2018-05-21] MEDS: FAMOTIDINE 20 MG TAB GTB (09:04)
[2018-05-21] MEDS: MULTIVITAMINS THERAPEUTIC TAB GTB (09:04)
[2018-05-21] MEDS: SENNA TAB GTB ×2 (09:04→21:50)
[2018-05-21] MEDS: COLLAGENASE 5 GM (UD JAR) TOP (09:05)
[2018-05-21] MEDS: ENOXAPARIN 30 MG/0.3 ML SYG SC (09:23)
[2018-05-21] MEDS: TOBRAMYCIN/0.25NS 300 MG/5 ML INHAL NEB (09:47)
[2018-05-21] MEDS: MAGNESIUM HYDROXIDE 30ML CUP GTB (13:20)
[2018-05-21] MEDS: BISACODYL 10 MG SUPP PR (13:21)
[2018-05-21] MEDS: NA POLYST SULFON 15 GM/60 ML BTL PO (15:53)
[2018-05-21] MEDS: EPOETIN 10000 UNITS/ML (NON ESRD/NON ONCOLOGY) SC (18:03)
[2018-05-21] MEDS: DOCUSATE SODIUM 10 MG/ML (10ML CUP) GTB (21:49)
[2018-05-21] MEDS: traZODone 100 MG TAB GTB (21:52)
[2018-05-22] MEDS: IPRATROPIUM (HFA) 12.9 GM INHALER INH ×5 (02:00→19:50)
[2018-05-22] MEDS: ALBUTEROL HFA 8 GM INHALER INH ×4 (02:00→19:50)
[2018-05-22] MEDS: HYDROmorphONE 2 MG TAB PO ×4 (04:12→21:52)
[2018-05-22 06:46] LABS: ANION GAP 12 (5-13); BLOOD UREA NITROGEN 62 mg/dl (7-20); CALCIUM 9.4 mg/dl (8.4-10.2); CARBON DIOXIDE 22 mmol/L (21-31); CHLORIDE 109 mmol/L (97-110); CREATININE 2.14 mg/dl (0.61-1.24); Estimated GFR 34 mL/min (>60); GLUCOSE 85 mg/dl (70-220); POTASSIUM 5.5 mmol/L (3.5-5.1); SODIUM 143 mmol/L (135-144)
[2018-05-22] MEDS: METOPROLOL 25 MG TAB GTB ×2 (08:43→21:00)
[2018-05-22] MEDS: SENNA TAB GTB ×2 (08:43→21:51)
[2018-05-22] MEDS: QUETIAPINE 25 MG TAB GTB ×2 (08:43→21:51)
[2018-05-22] MEDS: ZINC SULFATE 220 MG CAP GTB (08:43)
[2018-05-22] MEDS: GLYCOPYRROLATE 1 MG TAB GTB ×3 (08:43→21:51)
[2018-05-22] MEDS: ASCORBIC ACID 500 MG TAB GTB (08:43)
[2018-05-22] MEDS: FAMOTIDINE 20 MG TAB GTB (08:43)
[2018-05-22] MEDS: COLLAGENASE 5 GM (UD JAR) TOP (08:44)
[2018-05-22] MEDS: MULTIVITAMINS THERAPEUTIC TAB GTB (08:44)
[2018-05-22] MEDS: ENOXAPARIN 30 MG/0.3 ML SYG SC (08:59)
[2018-05-22] MEDS: NA POLYST SULFON 15 GM/60 ML BTL PO (09:30)
[2018-05-22] MEDS: BISACODYL 10 MG SUPP PR (14:14)
[2018-05-22] MEDS: MAGNESIUM HYDROXIDE 30ML CUP GTB (14:14)
[2018-05-22] MEDS: SOD CHLORIDE 0.9% 250 ML IV (16:29)
[2018-05-22] MEDS: DOCUSATE SODIUM 10 MG/ML (10ML CUP) GTB (21:51)
[2018-05-22] MEDS: traZODone 100 MG TAB GTB (21:51)
[2018-05-22] MEDS: DEXTROSE 5%-0.45% NACL 1,000 ML IV (21:53)
[2018-05-23] MEDS: ALBUTEROL HFA 8 GM INHALER INH ×4 (01:00→19:44)
[2018-05-23] MEDS: IPRATROPIUM (HFA) 12.9 GM INHALER INH ×4 (01:00→19:44)
[2018-05-23] MEDS: HYDROmorphONE 2 MG TAB PO ×3 (02:14→21:01)
[2018-05-23 05:21] LABS: ADD MAN DIFF? NO
[2018-05-23 05:34] LABS: WHITE BLOOD COUNT 6.3 10^3/ul (4.8-10.8)
[2018-05-23 05:34] LABS: BASOPHILS % 0.3 % (0.0-2.0); EOSINOPHILS # 0.1 10^3/ul (0.0-0.5); EOSINOPHILS % 0.8 % (0.0-7.0); HEMATOCRIT 34.9 % (42.0-52.0); HEMOGLOBIN 10.7 g/dl (14.0-18.0); LYMPHOCYTES # 0.6 10^3/ul (0.8-2.9); LYMPHOCYTES % 9.9 % (15.0-51.0); MEAN CORPUSCULAR HEMOGLOBIN 30.9 pg (29.0-33.0); MEAN CORPUSCULAR HGB CONC 30.7 g/dl (32.0-37.0); MEAN CORPUSCULAR VOLUME 100.9 fl (82.0-101.0); MEAN PLATELET VOLUME 12.6 fl (7.4-10.4); MONOCYTE # 0.6 10^3/ul (0.3-0.9); MONOCYTES % 8.7 % (0.0-11.0); NEUTROPHIL # 5.1 10^3/ul (1.6-7.5); PLATELET COUNT 136 10^3/UL (140-415); RED BLOOD COUNT 3.46 10^6/ul (4.70-6.10); RED CELL DISTRIBUTION WIDTH 18.2 % (11.5-14.5)
[2018-05-23 05:59] LABS: ANION GAP 13 (5-13); BLOOD UREA NITROGEN 62 mg/dl (7-20); CALCIUM 8.8 mg/dl (8.4-10.2); CARBON DIOXIDE 22 mmol/L (21-31); CHLORIDE 107 mmol/L (97-110); CREATININE 2.26 mg/dl (0.61-1.24); Estimated GFR 32 mL/min (>60); GLUCOSE 100 mg/dl (70-220); POTASSIUM 4.5 mmol/L (3.5-5.1); SODIUM 142 mmol/L (135-144)
[2018-05-23] MEDS: SENNA TAB GTB ×2 (08:57→21:01)
[2018-05-23] MEDS: GLYCOPYRROLATE 1 MG TAB GTB ×3 (08:57→21:00)
[2018-05-23] MEDS: QUETIAPINE 25 MG TAB GTB ×2 (08:57→21:00)
[2018-05-23] MEDS: FAMOTIDINE 20 MG TAB GTB (08:57)
[2018-05-23] MEDS: ASCORBIC ACID 500 MG TAB GTB (08:57)
[2018-05-23] MEDS: ZINC SULFATE 220 MG CAP GTB (08:57)
[2018-05-23] MEDS: MULTIVITAMINS THERAPEUTIC TAB GTB (08:57)
[2018-05-23] MEDS: COLLAGENASE 5 GM (UD JAR) TOP (08:57)
[2018-05-23] MEDS: METOPROLOL 25 MG TAB GTB ×2 (08:58→21:01)
[2018-05-23] MEDS: ENOXAPARIN 30 MG/0.3 ML SYG SC (09:06)
[2018-05-23] MEDS: DEXTROSE 5%-0.45% NACL 1,000 ML IV (11:50)
[2018-05-23] MEDS: BISACODYL 10 MG SUPP PR (16:54)
[2018-05-23] MEDS: MAGNESIUM HYDROXIDE 30ML CUP GTB (16:54)
[2018-05-23] MEDS: DOCUSATE SODIUM 10 MG/ML (10ML CUP) GTB (21:01)
[2018-05-23] MEDS: traZODone 100 MG TAB GTB (21:01)
[2018-05-23] MEDS: EPOETIN 10000 UNITS/ML (NON ESRD/NON ONCOLOGY) SC (23:31)
[2018-05-24] MEDS: ALBUTEROL HFA 8 GM INHALER INH ×4 (01:08→19:33)
[2018-05-24] MEDS: IPRATROPIUM (HFA) 12.9 GM INHALER INH ×4 (01:08→19:33)
[2018-05-24] MEDS: HYDROmorphONE 2 MG TAB PO ×5 (01:20→18:00)
[2018-05-24 06:21] LABS: ANION GAP 12 (5-13); BLOOD UREA NITROGEN 56 mg/dl (7-20); CALCIUM 8.9 mg/dl (8.4-10.2); CARBON DIOXIDE 21 mmol/L (21-31); CHLORIDE 109 mmol/L (97-110); CREATININE 2.07 mg/dl (0.61-1.24); Estimated GFR 36 mL/min (>60); GLUCOSE 103 mg/dl (70-220); POTASSIUM 4.8 mmol/L (3.5-5.1); SODIUM 142 mmol/L (135-144)
[2018-05-24] MEDS: SENNA TAB GTB ×2 (09:07→21:04)
[2018-05-24] MEDS: ZINC SULFATE 220 MG CAP GTB (09:07)
[2018-05-24] MEDS: QUETIAPINE 25 MG TAB GTB ×2 (09:08→21:04)
[2018-05-24] MEDS: FAMOTIDINE 20 MG TAB GTB (09:08)
[2018-05-24] MEDS: METOPROLOL 25 MG TAB GTB ×2 (09:09→21:04)
[2018-05-24] MEDS: ASCORBIC ACID 500 MG TAB GTB (09:09)
[2018-05-24] MEDS: MULTIVITAMINS THERAPEUTIC TAB GTB (09:09)
[2018-05-24] MEDS: GLYCOPYRROLATE 1 MG TAB GTB ×3 (09:09→21:04)
[2018-05-24] MEDS: ENOXAPARIN 30 MG/0.3 ML SYG SC (09:16)
[2018-05-24] MEDS: COLLAGENASE 5 GM (UD JAR) TOP (09:27)
[2018-05-24] MEDS: MAGNESIUM HYDROXIDE 30ML CUP GTB (13:52)
[2018-05-24] MEDS: BISACODYL 10 MG SUPP PR ×2 (13:53→14:02)
[2018-05-24] MEDS: DOCUSATE SODIUM 10 MG/ML (10ML CUP) GTB (21:03)
[2018-05-24] MEDS: traZODone 100 MG TAB GTB (21:04)
[2018-05-25] MEDS: HYDROmorphONE 2 MG TAB PO ×4 (00:02→17:10)
[2018-05-25] MEDS: IPRATROPIUM (HFA) 12.9 GM INHALER INH ×4 (01:42→19:24)
[2018-05-25] MEDS: ALBUTEROL HFA 8 GM INHALER INH ×4 (01:42→19:25)
[2018-05-25] MEDS: GLYCOPYRROLATE 1 MG TAB GTB ×3 (08:46→21:07)
[2018-05-25] MEDS: MULTIVITAMINS THERAPEUTIC TAB GTB (08:47)
[2018-05-25] MEDS: ASCORBIC ACID 500 MG TAB GTB (08:47)
[2018-05-25] MEDS: ZINC SULFATE 220 MG CAP GTB (08:47)
[2018-05-25] MEDS: QUETIAPINE 25 MG TAB GTB ×2 (08:47→21:07)
[2018-05-25] MEDS: METOPROLOL 25 MG TAB GTB ×2 (08:47→21:09)
[2018-05-25] MEDS: COLLAGENASE 5 GM (UD JAR) TOP (08:48)
[2018-05-25] MEDS: SENNA TAB GTB ×2 (09:00→21:08)
[2018-05-25] MEDS: FAMOTIDINE 20 MG TAB GTB (09:00)
[2018-05-25] MEDS: ENOXAPARIN 30 MG/0.3 ML SYG SC (09:13)
[2018-05-25] MEDS: BISACODYL 10 MG SUPP PR (14:30)
[2018-05-25 15:12] LABS: ANION GAP 9 (5-13); BLOOD UREA NITROGEN 54 mg/dl (7-20); CALCIUM 8.9 mg/dl (8.4-10.2); CARBON DIOXIDE 21 mmol/L (21-31); CHLORIDE 112 mmol/L (97-110); CREATININE 1.73 mg/dl (0.61-1.24); Estimated GFR 44 mL/min (>60); GLUCOSE 93 mg/dl (70-220); POTASSIUM 5.7 mmol/L (3.5-5.1); SODIUM 142 mmol/L (135-144)
[2018-05-25] MEDS: MAGNESIUM HYDROXIDE 30ML CUP GTB (17:10)
[2018-05-25] MEDS: EPOETIN 10000 UNITS/ML (NON ESRD/NON ONCOLOGY) SC (17:13)
[2018-05-25] MEDS: DOCUSATE SODIUM 10 MG/ML (10ML CUP) GTB (21:07)
[2018-05-25] MEDS: traZODone 100 MG TAB GTB (21:07)
[2018-05-26] MEDS: IPRATROPIUM (HFA) 12.9 GM INHALER INH ×4 (01:39→20:29)
[2018-05-26] MEDS: ALBUTEROL HFA 8 GM INHALER INH ×4 (01:39→20:29)
[2018-05-26] MEDS: HYDROmorphONE 2 MG TAB PO ×3 (03:13→13:48)
[2018-05-26] MEDS: METOPROLOL 25 MG TAB GTB ×2 (09:27→21:01)
[2018-05-26] MEDS: SENNA TAB GTB ×2 (09:27→21:02)
[2018-05-26] MEDS: MULTIVITAMINS THERAPEUTIC TAB GTB (09:27)
[2018-05-26] MEDS: FAMOTIDINE 20 MG TAB GTB (09:27)
[2018-05-26] MEDS: ASCORBIC ACID 500 MG TAB GTB (09:27)
[2018-05-26] MEDS: QUETIAPINE 25 MG TAB GTB ×2 (09:27→21:01)
[2018-05-26] MEDS: GLYCOPYRROLATE 1 MG TAB GTB ×3 (09:27→21:01)
[2018-05-26] MEDS: ZINC SULFATE 220 MG CAP GTB (09:28)
[2018-05-26] MEDS: COLLAGENASE 5 GM (UD JAR) TOP (09:28)
[2018-05-26] MEDS: ENOXAPARIN 30 MG/0.3 ML SYG SC (09:30)
[2018-05-26] MEDS: MAGNESIUM HYDROXIDE 30ML CUP GTB (13:46)
[2018-05-26] MEDS: BISACODYL 10 MG SUPP PR ×2 (13:46→14:08)
[2018-05-26] MEDS: DOCUSATE SODIUM 10 MG/ML (10ML CUP) GTB (21:01)
[2018-05-26] MEDS: traZODone 100 MG TAB GTB (21:01)
[2018-05-27] MEDS: HYDROmorphONE 2 MG TAB PO ×2 (01:01→09:44)
[2018-05-27] MEDS: ALBUTEROL HFA 8 GM INHALER INH ×4 (01:11→19:34)
[2018-05-27] MEDS: IPRATROPIUM (HFA) 12.9 GM INHALER INH ×4 (01:11→19:34)
[2018-05-27 05:54] LABS: ADD MAN DIFF? NO
[2018-05-27 05:56] LABS: ABNORMAL IP MESSAGE 1; BASOPHILS % 0.6 % (0.0-2.0); EOSINOPHILS # 0.1 10^3/ul (0.0-0.5); EOSINOPHILS % 2.1 % (0.0-7.0); HEMATOCRIT 40.3 % (42.0-52.0); LYMPHOCYTES # 0.7 10^3/ul (0.8-2.9); LYMPHOCYTES % 21.2 % (15.0-51.0); MEAN CORPUSCULAR HEMOGLOBIN 30.5 pg (29.0-33.0); MEAN CORPUSCULAR HGB CONC 29.8 g/dl (32.0-37.0); MEAN CORPUSCULAR VOLUME 102.5 fl (82.0-101.0); MEAN PLATELET VOLUME 13.3 fl (7.4-10.4); MONOCYTE # 0.4 10^3/ul (0.3-0.9); MONOCYTES % 12.9 % (0.0-11.0); NEUTROPHIL # 2.1 10^3/ul (1.6-7.5); NEUTROPHILS % 62.9 % (39.0-77.0); PLATELET COUNT 149 10^3/UL (140-415); POSITIVE DIFF @See below; RED BLOOD COUNT 3.93 10^6/ul (4.70-6.10); RED CELL DISTRIBUTION WIDTH 18.6 % (11.5-14.5)
[2018-05-27 05:56] LABS: WHITE BLOOD COUNT 3.3 10^3/ul (4.8-10.8)
[2018-05-27 06:29] LABS: ANION GAP 11 (5-13); BLOOD UREA NITROGEN 65 mg/dl (7-20); CALCIUM 9.2 mg/dl (8.4-10.2); CARBON DIOXIDE 21 mmol/L (21-31); CHLORIDE 110 mmol/L (97-110); CREATININE 2.19 mg/dl (0.61-1.24); Estimated GFR 33 mL/min (>60); GLUCOSE 88 mg/dl (70-220); POTASSIUM 5.9 mmol/L (3.5-5.1); SODIUM 142 mmol/L (135-144)
[2018-05-27] MEDS: COLLAGENASE 5 GM (UD JAR) TOP (09:44)
[2018-05-27] MEDS: METOPROLOL 25 MG TAB GTB ×2 (09:45→20:42)
[2018-05-27] MEDS: QUETIAPINE 25 MG TAB GTB ×2 (09:45→20:43)
[2018-05-27] MEDS: GLYCOPYRROLATE 1 MG TAB GTB ×3 (09:45→20:41)
[2018-05-27] MEDS: SENNA TAB GTB ×2 (09:45→20:41)
[2018-05-27] MEDS: MULTIVITAMINS THERAPEUTIC TAB GTB (09:45)
[2018-05-27] MEDS: ASCORBIC ACID 500 MG TAB GTB (09:45)
[2018-05-27] MEDS: ZINC SULFATE 220 MG CAP GTB (09:45)
[2018-05-27] MEDS: FAMOTIDINE 20 MG TAB GTB (09:45)
[2018-05-27] MEDS: ENOXAPARIN 30 MG/0.3 ML SYG SC (09:46)
[2018-05-27] MEDS: BISACODYL 10 MG SUPP PR (13:32)
[2018-05-27] MEDS: NA POLYST SULFON 15 GM/60 ML BTL PO (13:32)
[2018-05-27] MEDS: MAGNESIUM HYDROXIDE 30ML CUP GTB (13:32)
[2018-05-27 15:54] LABS: ANION GAP 6 (5-13); BLOOD UREA NITROGEN 68 mg/dl (7-20); CARBON DIOXIDE 23 mmol/L (21-31); CHLORIDE 113 mmol/L (97-110); CREATININE 2.11 mg/dl (0.61-1.24); Estimated GFR 35 mL/min (>60); GLUCOSE 92 mg/dl (70-220); POTASSIUM 5.6 mmol/L (3.5-5.1); SODIUM 142 mmol/L (135-144)
[2018-05-27] MEDS: traZODone 100 MG TAB GTB (20:41)
[2018-05-27] MEDS: DOCUSATE SODIUM 10 MG/ML (10ML CUP) GTB (20:41)
[2018-05-28] MEDS: HYDROmorphONE 2 MG TAB PO ×3 (02:32→20:04)
[2018-05-28] MEDS: IPRATROPIUM (HFA) 12.9 GM INHALER INH ×4 (03:34→19:44)
[2018-05-28] MEDS: ALBUTEROL HFA 8 GM INHALER INH ×4 (03:34→19:44)
[2018-05-28 05:33] LABS: ADD MAN DIFF? NO
[2018-05-28 05:34] LABS: ABNORMAL IP MESSAGE 1; BASOPHILS % 0.5 % (0.0-2.0); EOSINOPHILS # 0.1 10^3/ul (0.0-0.5); EOSINOPHILS % 2.5 % (0.0-7.0); HEMATOCRIT 41.2 % (42.0-52.0); HEMOGLOBIN 12.2 g/dl (14.0-18.0); LYMPHOCYTES # 0.7 10^3/ul (0.8-2.9); MEAN CORPUSCULAR HEMOGLOBIN 30.7 pg (29.0-33.0); MEAN CORPUSCULAR HGB CONC 29.6 g/dl (32.0-37.0); MEAN CORPUSCULAR VOLUME 103.5 fl (82.0-101.0); MEAN PLATELET VOLUME 13.1 fl (7.4-10.4); MONOCYTE # 0.4 10^3/ul (0.3-0.9); MONOCYTES % 10.9 % (0.0-11.0); NEUTROPHIL # 2.5 10^3/ul (1.6-7.5); NEUTROPHILS % 67.8 % (39.0-77.0); PLATELET COUNT 136 10^3/UL (140-415); POSITIVE DIFF @See below; RED BLOOD COUNT 3.98 10^6/ul (4.70-6.10); RED CELL DISTRIBUTION WIDTH 18.2 % (11.5-14.5)
[2018-05-28 05:34] LABS: WHITE BLOOD COUNT 3.7 10^3/ul (4.8-10.8)
[2018-05-28 05:58] LABS: ANION GAP 12 (5-13); BLOOD UREA NITROGEN 64 mg/dl (7-20); CALCIUM 8.6 mg/dl (8.4-10.2); CARBON DIOXIDE 21 mmol/L (21-31); CHLORIDE 110 mmol/L (97-110); CREATININE 1.82 mg/dl (0.61-1.24); Estimated GFR 41 mL/min (>60); GLUCOSE 104 mg/dl (70-220); POTASSIUM 4.3 mmol/L (3.5-5.1); SODIUM 143 mmol/L (135-144)
[2018-05-28] MEDS: COLLAGENASE 5 GM (UD JAR) TOP (09:49)
[2018-05-28] MEDS: ASCORBIC ACID 500 MG TAB GTB (09:49)
[2018-05-28] MEDS: MULTIVITAMINS THERAPEUTIC TAB GTB (09:50)
[2018-05-28] MEDS: METOPROLOL 25 MG TAB GTB ×2 (09:50→21:24)
[2018-05-28] MEDS: SENNA TAB GTB ×2 (09:50→20:05)
[2018-05-28] MEDS: QUETIAPINE 25 MG TAB GTB ×2 (09:50→20:05)
[2018-05-28] MEDS: GLYCOPYRROLATE 1 MG TAB GTB ×3 (09:50→20:05)
[2018-05-28] MEDS: FAMOTIDINE 20 MG TAB GTB (09:50)
[2018-05-28] MEDS: ZINC SULFATE 220 MG CAP GTB (09:50)
[2018-05-28] MEDS: ENOXAPARIN 30 MG/0.3 ML SYG SC (09:52)
[2018-05-28] MEDS: MAGNESIUM HYDROXIDE 30ML CUP GTB (16:18)
[2018-05-28] MEDS: BISACODYL 10 MG SUPP PR (16:18)
[2018-05-28] MEDS: traZODone 100 MG TAB GTB (20:03)
[2018-05-28] MEDS: DOCUSATE SODIUM 10 MG/ML (10ML CUP) GTB (20:03)
[2018-05-29] MEDS: IPRATROPIUM (HFA) 12.9 GM INHALER INH ×4 (01:20→19:48)
[2018-05-29] MEDS: ALBUTEROL HFA 8 GM INHALER INH ×4 (01:20→19:48)
[2018-05-29] MEDS: HYDROmorphONE 2 MG TAB PO ×3 (05:35→17:45)
[2018-05-29 05:48] LABS: ADD MAN DIFF? NO
[2018-05-29 05:52] LABS: WHITE BLOOD COUNT 4.4 10^3/ul (4.8-10.8)
[2018-05-29 05:52] LABS: BASOPHILS % 0.2 % (0.0-2.0); EOSINOPHILS # 0.2 10^3/ul (0.0-0.5); EOSINOPHILS % 3.6 % (0.0-7.0); HEMATOCRIT 43.3 % (42.0-52.0); HEMOGLOBIN 13.3 g/dl (14.0-18.0); LYMPHOCYTES # 0.7 10^3/ul (0.8-2.9); LYMPHOCYTES % 15.2 % (15.0-51.0); MEAN CORPUSCULAR HEMOGLOBIN 31.2 pg (29.0-33.0); MEAN CORPUSCULAR HGB CONC 30.7 g/dl (32.0-37.0); MEAN CORPUSCULAR VOLUME 101.6 fl (82.0-101.0); MEAN PLATELET VOLUME 12.8 fl (7.4-10.4); MONOCYTE # 0.5 10^3/ul (0.3-0.9); MONOCYTES % 10.5 % (0.0-11.0); NEUTROPHIL # 3.1 10^3/ul (1.6-7.5); NEUTROPHILS % 70.3 % (39.0-77.0); PLATELET COUNT 133 10^3/UL (140-415); RED BLOOD COUNT 4.26 10^6/ul (4.70-6.10); RED CELL DISTRIBUTION WIDTH 18.2 % (11.5-14.5)
[2018-05-29 06:09] LABS: ANION GAP 10 (5-13); BLOOD UREA NITROGEN 69 mg/dl (7-20); CALCIUM 9.2 mg/dl (8.4-10.2); CARBON DIOXIDE 24 mmol/L (21-31); CHLORIDE 110 mmol/L (97-110); CREATININE 1.76 mg/dl (0.61-1.24); Estimated GFR 43 mL/min (>60); GLUCOSE 93 mg/dl (70-220); SODIUM 144 mmol/L (135-144)
[2018-05-29] MEDS: FAMOTIDINE 20 MG TAB GTB (09:14)
[2018-05-29] MEDS: SENNA TAB GTB ×2 (09:14→20:34)
[2018-05-29] MEDS: GLYCOPYRROLATE 1 MG TAB GTB ×3 (09:15→20:34)
[2018-05-29] MEDS: METOPROLOL 25 MG TAB GTB ×2 (09:15→20:35)
[2018-05-29] MEDS: MULTIVITAMINS THERAPEUTIC TAB GTB (09:15)
[2018-05-29] MEDS: ASCORBIC ACID 500 MG TAB GTB (09:15)
[2018-05-29] MEDS: ZINC SULFATE 220 MG CAP GTB (09:15)
[2018-05-29] MEDS: QUETIAPINE 25 MG TAB GTB ×2 (09:16→20:34)
[2018-05-29] MEDS: ENOXAPARIN 30 MG/0.3 ML SYG SC (09:21)
[2018-05-29] MEDS: COLLAGENASE 5 GM (UD JAR) TOP (09:23)
[2018-05-29] MEDS: BISACODYL 10 MG SUPP PR ×2 (14:30→17:41)
[2018-05-29] MEDS: MAGNESIUM HYDROXIDE 30ML CUP GTB (17:41)
[2018-05-29] MEDS: traZODone 100 MG TAB GTB (20:34)
[2018-05-29] MEDS: DOCUSATE SODIUM 10 MG/ML (10ML CUP) GTB (21:00)
== END 2018-05-29 22:22 | disposition short-term general hospital (02) | DRG 870 ==
LOC: 6WM 05-14 18:21 → ICU 06:21
PROVIDERS: Internal Medicine
PROC: 5A1955Z Respiratory Ventilation, Greater than 96 Consecutive Hours (ICD-10-PCS; principal; 2018-05-10)
PROC: 30233N1 Transfusion of Nonautologous Red Blood Cells into Peripheral Vein, Percutaneous Approach (ICD-10-PCS; 2018-05-11)
PROC: 02HV33Z Insertion of Infusion Device into Superior Vena Cava, Percutaneous Approach (ICD-10-PCS; 2018-05-11)
PROC: B54CZZA Ultrasonography of Left Lower Extremity Veins, Guidance (ICD-10-PCS; 2018-05-11)
DX: A41.9 Sepsis, unspecified organism (principal); L89.154 Pressure ulcer of sacral region, stage 4; R65.21 Severe sepsis with septic shock; N17.0 Acute kidney failure with tubular necrosis; J96.20 Acute and chronic respiratory failure, unspecified whether with hypoxia or hypercapnia; N39.0 Urinary tract infection, site not specified; E87.0 Hyperosmolality and hypernatremia; Z99.11 Dependence on respirator [ventilator] status; E87.2 Acidosis; G82.20 Paraplegia, unspecified; I12.9 Hypertensive chronic kidney disease with stage 1 through stage 4 chronic kidney disease, or unspecified chronic kidney disease; N18.9 Chronic kidney disease, unspecified; T17.990A Other foreign object in respiratory tract, part unspecified in causing asphyxiation, initial encounter; Z90.5 Acquired absence of kidney; D63.1 Anemia in chronic kidney disease; Z93.0 Tracheostomy status; Z93.1 Gastrostomy status; Z96.0 Presence of urogenital implants; F31.9 Bipolar disorder, unspecified; N31.9 Neuromuscular dysfunction of bladder, unspecified; R13.10 Dysphagia, unspecified; Z87.442 Personal history of urinary calculi; G89.4 Chronic pain syndrome; E87.5 Hyperkalemia; D69.6 Thrombocytopenia, unspecified; B00.1 Herpesviral vesicular dermatitis; T14.8XXS Other injury of unspecified body region, sequela
CPT/HCPCS: 36430; 36569; 36600; 71045; 76937; 80048; 80053; 80061; 82550; 82553; 82803; 83605; 83735; 84100; 84443; 84484; 85025; 86850; 86870; 86900; 86901; 86920; 87040; 87070; 87081; 87086; 89220; 93005; 94002; 94003; 94640; 94664

== ENCOUNTER 2018-10-29 13:22 | Inpatient (IN) | payer MEDICARE, OTHER ==
[2018-10-29 14:21] LABS: URINE PH (Dip) POC 7.5 (5.0-8.5)
[2018-10-29 14:21] LABS: URINE BLOOD (Dip) POC 2+ (NEGATIVE); URINE GLUCOSE (Dip) POC Negative (NEGATIVE); URINE KETONES (Dip) POC Negative (NEGATIVE); URINE LEUKOCYTE EST (Dip) POC 3+ (NEGATIVE); URINE NITRITE (Dip) POC Negative (NEGATIVE); URINE TOTAL PROTEIN POC 2+ (NEGATIVE)
[2018-10-29 14:52] LABS: ADD UMIC YES; UR ASCORBIC ACID 40 mg/dL (NEGATIVE); UR BACTERIA FEW /HPF (NONE SEEN); UR BILIRUBIN (Dip) NEGATIVE (NEGATIVE); UR BLOOD (Dip) 1+ mg/dL (NEGATIVE); UR CLARITY SLIGHTLY CLOUDY (CLEAR); UR COLOR YELLOW (YELLOW); UR GLUCOSE (Dip) NEGATIVE (NEGATIVE); UR KETONES (Dip) NEGATIVE (NEGATIVE); UR LEUKOCYTE ESTERASE (Dip) 3+ Leu/ul (NEGATIVE); UR MUCUS FEW /HPF (NONE SEEN); UR NITRITE (Dip) NEGATIVE (NEGATIVE); UR RBC 11 /HPF (0-5); UR SPECIFIC GRAVITY (Dip) 1.011 (1.003-1.030); UR SQUAMOUS EPITHELIAL CELL FEW /HPF (FEW); UR TOTAL PROTEIN (Dip) 1+ mg/dl (NEGATIVE); UR UROBILINOGEN (Dip) NEGATIVE (NEGATIVE); UR WBC 56 /HPF (0-5)
[2018-10-29 15:05] LABS: ADD MAN DIFF? NO
[2018-10-29 15:19] LABS: ABNORMAL IP MESSAGE 1; BASOPHILS % 0.2 % (0.0-2.0); EOSINOPHILS % 0.1 % (0.0-7.0); HEMATOCRIT 28.5 % (42.0-52.0); HEMOGLOBIN 8.7 g/dl (14.0-18.0); LYMPHOCYTES # 0.3 10^3/ul (0.8-2.9); LYMPHOCYTES % 2.5 % (15.0-51.0); MEAN CORPUSCULAR HEMOGLOBIN 28.7 pg (29.0-33.0); MEAN CORPUSCULAR HGB CONC 30.5 g/dl (32.0-37.0); MEAN CORPUSCULAR VOLUME 94.1 fl (82.0-101.0); MEAN PLATELET VOLUME 12.3 fl (7.4-10.4); MONOCYTE # 0.6 10^3/ul (0.3-0.9); MONOCYTES % 4.9 % (0.0-11.0); NEUTROPHIL # 11.9 10^3/ul (1.6-7.5); NEUTROPHILS % 91.3 % (39.0-77.0); PLATELET COUNT 188 10^3/UL (140-415); POSITIVE DIFF @See below; RED BLOOD COUNT 3.03 10^6/ul (4.70-6.10); RED CELL DISTRIBUTION WIDTH 15.1 % (11.5-14.5)
[2018-10-29 15:27] LABS: ALANINE AMINOTRANSFERASE 8 IU/L (13-69); ALBUMIN 3.3 g/dl (3.3-4.9); ALKALINE PHOSPHATASE 135 IU/L (42-121); ANION GAP 10 (5-13); ASPARTATE AMINO TRANSFERASE 13 IU/L (15-46); CALCIUM 9.1 mg/dl (8.4-10.2); CARBON DIOXIDE 32 mmol/L (21-31); CHLORIDE 96 mmol/L (97-110); CREATININE 3.01 mg/dl (0.61-1.24); Estimated GFR 23 mL/min (>60); GLUCOSE 126 mg/dl (70-220); POTASSIUM 4.7 mmol/L (3.5-5.1); SODIUM 138 mmol/L (135-144); TOTAL PROTEIN 7.4 g/dl (6.1-8.1)
[2018-10-29 15:29] LABS: INR 1.03; PROTIME 13.6 Sec (11.9-14.9); PT RATIO 1.1
[2018-10-29 15:30] LABS: PARTIAL THROMBOPLASTIN TIME 31.5 Sec (23.0-35.0)
[2018-10-29 15:35] LABS: BLOOD UREA NITROGEN 154 mg/dl (7-20)
[2018-10-29 15:39] LABS: TROPONIN-I < 0.012 ng/ml (0.000-0.120)
[2018-10-29] MEDS: PIPER-TAZO 2.25 GM (PMX) 50 ML IVPB (15:52)
[2018-10-29] MEDS: HYDROmorphONE 1 MG/ML SYG IV (15:52)
[2018-10-29] MEDS: SOD CHLORIDE 0.9% 2,040 ML IV (15:53)
[2018-10-29] MEDS: LEVOFLOXACIN 750MG/D5W (PMX) 150 ML IVPB (16:28)
[2018-10-29] MEDS: ACETAMINOPHEN 650 MG SUPP PR (16:38)
[2018-10-29 18:20] LABS: AADO2 Arterial 246.6 mmHg (7.0-24.0); Allen Test ACCEPTAB; Arterial Base Excess 4.6 mmol/L (-3.0-3); Arterial COHb 0.3 % (0.0-3.0); Arterial Fraction of Oxyhgb 95.4 % (93.0-99.0); Arterial HCO3 27.8 mmol/L (22.0-26.0); Arterial MetHb 0.3 % (0.0-1.5); Arterial pCO2 35.1 mmhg (35-45); MODE VENT - AC; Site Left Radial
[2018-10-29] MEDS ORDERED: NACL 0.9% 3 ML SYG IV (18:30)
[2018-10-29] MEDS ORDERED: ONDANSETRON 4 MG INJ IV (18:30)
[2018-10-29] MEDS ORDERED: MAGNESIUM HYDROXIDE 30ML CUP PO (18:30)
[2018-10-29] MEDS ORDERED: DOCUSATE SODIUM 100 MG CAP PO (18:30)
[2018-10-29] MEDS: VANCOMYCIN 1 GM (PMX) 250 ML IVPB (18:36)
[2018-10-29] MEDS: FAMOTIDINE 20 MG TAB PO (21:00)
[2018-10-29] MEDS: SOD CHLORIDE 0.9% 1,000 ML IV (21:32)
[2018-10-29] MEDS: HYDROmorphONE 0.5 MG/0.5 ML SYG IV (22:28)
[2018-10-29] MEDS ORDERED: PENDING SANTYL ORDER FOR WOUND CARE XX (23:00)
[2018-10-30] MEDS: HYDROmorphONE 0.5 MG/0.5 ML SYG IV ×6 (03:13→20:53)
[2018-10-30 05:25] LABS: ADD MAN DIFF? NO
[2018-10-30 05:32] LABS: WHITE BLOOD COUNT 19.2 10^3/ul (4.8-10.8)
[2018-10-30 05:32] LABS: ABNORMAL IP MESSAGE 1; BASOPHILS % 0.2 % (0.0-2.0); HEMOGLOBIN 9.1 g/dl (14.0-18.0); LYMPHOCYTES # 0.4 10^3/ul (0.8-2.9); LYMPHOCYTES % 2.1 % (15.0-51.0); MEAN CORPUSCULAR HEMOGLOBIN 28.5 pg (29.0-33.0); MEAN CORPUSCULAR HGB CONC 30.3 g/dl (32.0-37.0); MEAN PLATELET VOLUME 11.3 fl (7.4-10.4); MONOCYTE # 0.8 10^3/ul (0.3-0.9); MONOCYTES % 4.2 % (0.0-11.0); NEUTROPHIL # 17.9 10^3/ul (1.6-7.5); NEUTROPHILS % 92.9 % (39.0-77.0); PLATELET COUNT 226 10^3/UL (140-415); POSITIVE DIFF @See below; RED BLOOD COUNT 3.19 10^6/ul (4.70-6.10); RED CELL DISTRIBUTION WIDTH 15.4 % (11.5-14.5)
[2018-10-30 05:49] LABS: ALANINE AMINOTRANSFERASE 9 IU/L (13-69); ALBUMIN/GLOBULIN RATIO 0.76; ALKALINE PHOSPHATASE 123 IU/L (42-121); ANION GAP 10 (5-13); ASPARTATE AMINO TRANSFERASE 14 IU/L (15-46); BILIRUBIN,INDIRECT 0.2 mg/dl (0-1.1); BILIRUBIN,TOTAL 0.2 mg/dl (0.2-1.3); CALCIUM 8.4 mg/dl (8.4-10.2); CARBON DIOXIDE 29 mmol/L (21-31); CHLORIDE 105 mmol/L (97-110); CREATININE 2.91 mg/dl (0.61-1.24); Estimated GFR 24 mL/min (>60); GLUCOSE 107 mg/dl (70-220); POTASSIUM 4.3 mmol/L (3.5-5.1); SODIUM 144 mmol/L (135-144); TOTAL PROTEIN 6.9 g/dl (6.1-8.1)
[2018-10-30 06:04] LABS: BLOOD UREA NITROGEN 139 mg/dl (7-20)
[2018-10-30 06:20] LABS: THYROID STIMULATING HORMONE 0.502 MIU/L (0.465-4.680)
[2018-10-30] MEDS ORDERED: PHENYLephrine 20MG IN 250 ML 0 ML (06:34)
[2018-10-30] MEDS: SOD CHLORIDE 0.9% 1,000 ML IV ×3 (06:45→14:37)
[2018-10-30] MEDS: HYDROCODONE/APAP (5/325) TAB PO ×5 (06:49→11:58)
[2018-10-30] MEDS: FAMOTIDINE 20 MG TAB PO (08:00)
[2018-10-30] MEDS: ENOXAPARIN 30 MG/0.3 ML SYG SC (08:07)
[2018-10-30] MEDS: LIDOCAINE 1% (MPF) 5 ML VIAL SC (09:00)
[2018-10-30 09:03] LABS: HEMOGLOBIN A1C 4.7 % (0-5.9)
[2018-10-30] MEDS: PHENYLephrine 20MG IN 250 ML 250 ML IV ×3 (09:08→16:55)
[2018-10-30] MEDS: ALBUTEROL HFA 8 GM INHALER INH ×2 (13:19→19:16)
[2018-10-30] MEDS: IPRATROPIUM (HFA) 12.9 GM INHALER INH ×2 (13:20→19:16)
[2018-10-30] MEDS ORDERED: ALBUTEROL/IPRATROPIUM (NEB) 3 ML AMP HHN (14:00)
[2018-10-30] MEDS: COLLAGENASE 5 GM (UD JAR) TOP (16:29)
[2018-10-30] MEDS: CHLORHEXIDINE GLUCONATE 15 ML UD CUP MM (16:29)
[2018-10-30] MEDS: LINEZOLID 600 MG/D5W (PMX) 300 ML IVPB ×2 (16:30→22:06)
[2018-10-30] MEDS: LEVETIRACETAM (100 MG/ML) 5ML CUP GTB (16:59)
[2018-10-30] MEDS: MEROPENEM 500MG/50 ML (PMX) 50 ML IVPB (18:40)
[2018-10-30] MEDS: DOCUSATE SODIUM 10 MG/ML (10ML CUP) GTB (20:53)
[2018-10-30] MEDS: QUETIAPINE 25 MG TAB GTB (20:54)
[2018-10-30] MEDS ORDERED: DOCUSATE SODIUM 100 MG CAP PO (21:00)
[2018-10-31] MEDS: HYDROCODONE/APAP (5/325) TAB PO (00:15)
[2018-10-31] MEDS: MEROPENEM 500MG/50 ML (PMX) 50 ML IVPB ×3 (01:12→20:04)
[2018-10-31] MEDS: IPRATROPIUM (HFA) 12.9 GM INHALER INH ×4 (01:16→20:00)
[2018-10-31] MEDS: ALBUTEROL HFA 8 GM INHALER INH ×4 (01:16→20:00)
[2018-10-31] MEDS: SOD CHLORIDE 0.9% 1,000 ML IV (01:45)
[2018-10-31] MEDS: HYDROmorphONE 0.5 MG/0.5 ML SYG IV ×5 (02:06→22:08)
[2018-10-31] MEDS: PHENYLephrine 20MG IN 250 ML 250 ML IV ×2 (02:53→14:59)
[2018-10-31 05:22] LABS: ADD MAN DIFF? NO
[2018-10-31 05:35] LABS: WHITE BLOOD COUNT 14.7 10^3/ul (4.8-10.8)
[2018-10-31 05:35] LABS: BASOPHILS % 0.3 % (0.0-2.0); EOSINOPHILS % 0.2 % (0.0-7.0); HEMATOCRIT 28.8 % (42.0-52.0); HEMOGLOBIN 8.7 g/dl (14.0-18.0); LYMPHOCYTES # 0.7 10^3/ul (0.8-2.9); LYMPHOCYTES % 4.8 % (15.0-51.0); MEAN CORPUSCULAR HEMOGLOBIN 28.9 pg (29.0-33.0); MEAN CORPUSCULAR HGB CONC 30.2 g/dl (32.0-37.0); MEAN CORPUSCULAR VOLUME 95.7 fl (82.0-101.0); MEAN PLATELET VOLUME 11.8 fl (7.4-10.4); MONOCYTE # 0.8 10^3/ul (0.3-0.9); MONOCYTES % 5.3 % (0.0-11.0); NEUTROPHIL # 13.1 10^3/ul (1.6-7.5); NEUTROPHILS % 88.7 % (39.0-77.0); PLATELET COUNT 197 10^3/UL (140-415); RED BLOOD COUNT 3.01 10^6/ul (4.70-6.10); RED CELL DISTRIBUTION WIDTH 15.7 % (11.5-14.5)
[2018-10-31 05:43] LABS: ANION GAP 7 (5-13); BLOOD UREA NITROGEN 111 mg/dl (7-20); CALCIUM 7.6 mg/dl (8.4-10.2); CARBON DIOXIDE 24 mmol/L (21-31); CHLORIDE 116 mmol/L (97-110); CREATININE 2.37 mg/dl (0.61-1.24); Estimated GFR 30 mL/min (>60); GLUCOSE 111 mg/dl (70-220); POTASSIUM 3.5 mmol/L (3.5-5.1); SODIUM 147 mmol/L (135-144)
[2018-10-31] MEDS: DOCUSATE SODIUM 10 MG/ML (10ML CUP) GTB ×2 (08:03→20:04)
[2018-10-31] MEDS: FAMOTIDINE 20 MG TAB PO (08:03)
[2018-10-31] MEDS: CHLORHEXIDINE GLUCONATE 15 ML UD CUP MM ×2 (08:03→20:04)
[2018-10-31] MEDS: LINEZOLID 600 MG/D5W (PMX) 300 ML IVPB ×2 (08:03→21:13)
[2018-10-31] MEDS: LEVETIRACETAM (100 MG/ML) 5ML CUP GTB ×2 (08:03→20:04)
[2018-10-31] MEDS: QUETIAPINE 25 MG TAB GTB ×2 (08:03→20:04)
[2018-10-31] MEDS: MULTIVIT/CA CARB/B CMPLX/FA TAB GTB (08:04)
[2018-10-31] MEDS: ZINC SULFATE 220 MG CAP GTB (08:04)
[2018-10-31] MEDS: ASCORBIC ACID 250 MG TAB GTB (08:04)
[2018-10-31] MEDS: COLLAGENASE 5 GM (UD JAR) TOP (08:04)
[2018-10-31] MEDS: ENOXAPARIN 30 MG/0.3 ML SYG SC (08:05)
[2018-10-31] MEDS: DEXTROSE 5%-0.45% NACL 1,000 ML IV ×2 (10:02→20:04)
[2018-10-31] MEDS: ACETAMINOPHEN 650MG/20.3ML CUP PO (21:13)
[2018-11-01] MEDS: ALBUTEROL HFA 8 GM INHALER INH ×4 (01:38→19:23)
[2018-11-01] MEDS: IPRATROPIUM (HFA) 12.9 GM INHALER INH ×4 (01:38→19:22)
[2018-11-01] MEDS: HYDROmorphONE 0.5 MG/0.5 ML SYG IV ×5 (01:47→20:37)
[2018-11-01 05:37] LABS: ADD MAN DIFF? NO
[2018-11-01] MEDS: DEXTROSE 5%-0.45% NACL 1,000 ML IV ×2 (05:59→16:13)
[2018-11-01 06:01] LABS: ANION GAP 9 (5-13); BLOOD UREA NITROGEN 88 mg/dl (7-20); CALCIUM 7.4 mg/dl (8.4-10.2); CARBON DIOXIDE 23 mmol/L (21-31); CHLORIDE 114 mmol/L (97-110); CREATININE 2.13 mg/dl (0.61-1.24); Estimated GFR 34 mL/min (>60); GLUCOSE 111 mg/dl (70-220); POTASSIUM 3.4 mmol/L (3.5-5.1); SODIUM 146 mmol/L (135-144)
[2018-11-01] MEDS: DOCUSATE SODIUM 10 MG/ML (10ML CUP) GTB ×2 (08:33→20:23)
[2018-11-01] MEDS: ZINC SULFATE 220 MG CAP GTB (09:20)
[2018-11-01] MEDS: CHLORHEXIDINE GLUCONATE 15 ML UD CUP MM ×2 (09:20→20:23)
[2018-11-01] MEDS: MEROPENEM 500MG/50 ML (PMX) 50 ML IVPB ×2 (09:20→20:23)
[2018-11-01] MEDS: LEVETIRACETAM (100 MG/ML) 5ML CUP GTB ×2 (09:20→20:23)
[2018-11-01] MEDS: LINEZOLID 600 MG/D5W (PMX) 300 ML IVPB ×2 (09:20→21:12)
[2018-11-01] MEDS: FAMOTIDINE 20 MG TAB PO (09:21)
[2018-11-01] MEDS: COLLAGENASE 5 GM (UD JAR) TOP (09:21)
[2018-11-01] MEDS: MULTIVIT/CA CARB/B CMPLX/FA TAB GTB (09:21)
[2018-11-01] MEDS: ASCORBIC ACID 250 MG TAB GTB (09:21)
[2018-11-01] MEDS: QUETIAPINE 25 MG TAB GTB ×2 (09:21→20:23)
[2018-11-01] MEDS: ENOXAPARIN 30 MG/0.3 ML SYG SC (09:34)
[2018-11-01 09:56] LABS: ABNORMAL IP MESSAGE 1; BASOPHILS % 0.1 % (0.0-2.0); EOSINOPHILS # 0.1 10^3/ul (0.0-0.5); EOSINOPHILS % 1.1 % (0.0-7.0); HEMOGLOBIN 7.5 g/dl (14.0-18.0); LYMPHOCYTES # 0.6 10^3/ul (0.8-2.9); LYMPHOCYTES % 7.2 % (15.0-51.0); MEAN CORPUSCULAR HEMOGLOBIN 28.1 pg (29.0-33.0); MEAN CORPUSCULAR HGB CONC 28.8 g/dl (32.0-37.0); MEAN CORPUSCULAR VOLUME 97.4 fl (82.0-101.0); MEAN PLATELET VOLUME 11.8 fl (7.4-10.4); MONOCYTE # 0.6 10^3/ul (0.3-0.9); MONOCYTES % 7.2 % (0.0-11.0); NEUTROPHIL # 6.6 10^3/ul (1.6-7.5); NEUTROPHILS % 83.6 % (39.0-77.0); PLATELET COUNT 169 10^3/UL (140-415); POSITIVE DIFF @See below; RED BLOOD COUNT 2.67 10^6/ul (4.70-6.10); RED CELL DISTRIBUTION WIDTH 16.1 % (11.5-14.5)
[2018-11-01 09:56] LABS: WHITE BLOOD COUNT 7.9 10^3/ul (4.8-10.8)
[2018-11-01] MEDS: D5W-0.45 NACL + KCL 20 MEQ 1,000 ML IV (19:35)
[2018-11-02] MEDS: HYDROmorphONE 0.5 MG/0.5 ML SYG IV ×6 (01:01→20:48)
[2018-11-02] MEDS: IPRATROPIUM (HFA) 12.9 GM INHALER INH ×4 (01:07→19:26)
[2018-11-02] MEDS: ALBUTEROL HFA 8 GM INHALER INH ×4 (01:07→19:26)
[2018-11-02 05:37] LABS: ADD MAN DIFF? NO
[2018-11-02 05:42] LABS: WHITE BLOOD COUNT 5.6 10^3/ul (4.8-10.8)
[2018-11-02 05:42] LABS: ABNORMAL IP MESSAGE 1; BASOPHILS % 0.2 % (0.0-2.0); EOSINOPHILS # 0.3 10^3/ul (0.0-0.5); EOSINOPHILS % 5.5 % (0.0-7.0); HEMATOCRIT 25.4 % (42.0-52.0); HEMOGLOBIN 7.4 g/dl (14.0-18.0); LYMPHOCYTES # 0.3 10^3/ul (0.8-2.9); MEAN CORPUSCULAR HEMOGLOBIN 27.8 pg (29.0-33.0); MEAN CORPUSCULAR HGB CONC 29.1 g/dl (32.0-37.0); MEAN CORPUSCULAR VOLUME 95.5 fl (82.0-101.0); MEAN PLATELET VOLUME 12.4 fl (7.4-10.4); MONOCYTE # 0.3 10^3/ul (0.3-0.9); MONOCYTES % 5.5 % (0.0-11.0); NEUTROPHIL # 4.6 10^3/ul (1.6-7.5); NEUTROPHILS % 82.3 % (39.0-77.0); PLATELET COUNT 155 10^3/UL (140-415); POSITIVE DIFF @See below; RED BLOOD COUNT 2.66 10^6/ul (4.70-6.10); RED CELL DISTRIBUTION WIDTH 15.9 % (11.5-14.5)
[2018-11-02 06:18] LABS: ANION GAP 10 (5-13); BLOOD UREA NITROGEN 71 mg/dl (7-20); CALCIUM 7.6 mg/dl (8.4-10.2); CARBON DIOXIDE 20 mmol/L (21-31); CHLORIDE 117 mmol/L (97-110); CREATININE 1.84 mg/dl (0.61-1.24); Estimated GFR 41 mL/min (>60); GLUCOSE 102 mg/dl (70-220); POTASSIUM 3.8 mmol/L (3.5-5.1); SODIUM 147 mmol/L (135-144)
[2018-11-02] MEDS: DOCUSATE SODIUM 10 MG/ML (10ML CUP) GTB ×2 (07:53→20:48)
[2018-11-02] MEDS: LINEZOLID 600 MG/D5W (PMX) 300 ML IVPB ×2 (10:33→20:48)
[2018-11-02] MEDS: COLLAGENASE 5 GM (UD JAR) TOP (10:33)
[2018-11-02] MEDS: LEVETIRACETAM (100 MG/ML) 5ML CUP GTB ×2 (10:33→20:49)
[2018-11-02] MEDS: MEROPENEM 500MG/50 ML (PMX) 50 ML IVPB ×2 (10:33→20:49)
[2018-11-02] MEDS: D5W-0.45 NACL + KCL 20 MEQ 1,000 ML IV ×2 (10:33→21:47)
[2018-11-02] MEDS: ZINC SULFATE 220 MG CAP GTB (10:34)
[2018-11-02] MEDS: CHLORHEXIDINE GLUCONATE 15 ML UD CUP MM ×2 (10:34→20:48)
[2018-11-02] MEDS: ASCORBIC ACID 250 MG TAB GTB (10:34)
[2018-11-02] MEDS: FAMOTIDINE 20 MG TAB PO (10:34)
[2018-11-02] MEDS: QUETIAPINE 25 MG TAB GTB ×2 (10:34→20:48)
[2018-11-02] MEDS: MULTIVIT/CA CARB/B CMPLX/FA TAB GTB (10:34)
[2018-11-02] MEDS: ENOXAPARIN 30 MG/0.3 ML SYG SC (11:14)
[2018-11-02] MEDS: LORAZEPAM 2 MG INJ IV (12:19)
[2018-11-02] MEDS: HYDROCODONE/APAP (5/325) TAB PO (23:39)
[2018-11-03] MEDS: HYDROmorphONE 0.5 MG/0.5 ML SYG IV ×6 (01:26→21:58)
[2018-11-03] MEDS: LORAZEPAM 2 MG INJ IV (01:56)
[2018-11-03] MEDS: D5W-0.45 NACL + KCL 20 MEQ 1,000 ML IV ×3 (01:59→18:00)
[2018-11-03] MEDS: ALBUTEROL HFA 8 GM INHALER INH ×4 (02:00→20:16)
[2018-11-03] MEDS: IPRATROPIUM (HFA) 12.9 GM INHALER INH ×4 (02:00→20:16)
[2018-11-03 06:56] LABS: ALANINE AMINOTRANSFERASE 11 IU/L (13-69); ALBUMIN 2.7 g/dl (3.3-4.9); ALBUMIN/GLOBULIN RATIO 0.71; ALKALINE PHOSPHATASE 90 IU/L (42-121); ANION GAP 9 (5-13); ASPARTATE AMINO TRANSFERASE 15 IU/L (15-46); BILIRUBIN,INDIRECT 0.1 mg/dl (0-1.1); BILIRUBIN,TOTAL 0.1 mg/dl (0.2-1.3); BLOOD UREA NITROGEN 59 mg/dl (7-20); CALCIUM 7.8 mg/dl (8.4-10.2); CARBON DIOXIDE 21 mmol/L (21-31); CHLORIDE 114 mmol/L (97-110); CREATININE 1.67 mg/dl (0.61-1.24); Estimated GFR 46 mL/min (>60); GLUCOSE 108 mg/dl (70-220); POTASSIUM 4.2 mmol/L (3.5-5.1); SODIUM 144 mmol/L (135-144); TOTAL PROTEIN 6.5 g/dl (6.1-8.1)
[2018-11-03] MEDS: DOCUSATE SODIUM 10 MG/ML (10ML CUP) GTB ×2 (09:00→20:34)
[2018-11-03] MEDS: MULTIVIT/CA CARB/B CMPLX/FA TAB GTB (10:05)
[2018-11-03] MEDS: FAMOTIDINE 20 MG TAB PO (10:05)
[2018-11-03] MEDS: QUETIAPINE 25 MG TAB GTB ×2 (10:06→20:29)
[2018-11-03] MEDS: ZINC SULFATE 220 MG CAP GTB (10:06)
[2018-11-03] MEDS: LEVETIRACETAM (100 MG/ML) 5ML CUP GTB ×2 (10:07→20:28)
[2018-11-03] MEDS: LINEZOLID 600 MG/D5W (PMX) 300 ML IVPB (10:08)
[2018-11-03] MEDS: CHLORHEXIDINE GLUCONATE 15 ML UD CUP MM ×2 (10:17→20:28)
[2018-11-03] MEDS: ENOXAPARIN 30 MG/0.3 ML SYG SC (10:28)
[2018-11-03] MEDS: MEROPENEM 500MG/50 ML (PMX) 50 ML IVPB ×2 (11:02→20:29)
[2018-11-03] MEDS: COLLAGENASE 5 GM (UD JAR) TOP (14:00)
[2018-11-03] MEDS ORDERED: ALBUTEROL HFA 8 GM INHALER INH (14:00)
[2018-11-03] MEDS: ASCORBIC ACID 250 MG TAB GTB (14:00)
[2018-11-03] MEDS: HYDROCODONE/APAP (5/325) TAB PO (20:29)
[2018-11-03] MEDS: BALSAM PERU/CASTOR OIL 60 GM TUBE TOP (20:29)
[2018-11-04] MEDS: LORAZEPAM 2 MG INJ IV ×2 (01:41→22:26)
[2018-11-04] MEDS: HYDROmorphONE 0.5 MG/0.5 ML SYG IV ×6 (01:41→22:26)
[2018-11-04] MEDS: IPRATROPIUM (HFA) 12.9 GM INHALER INH ×4 (01:50→19:29)
[2018-11-04] MEDS: ALBUTEROL HFA 8 GM INHALER INH ×4 (01:50→19:29)
[2018-11-04] MEDS: BALSAM PERU/CASTOR OIL 60 GM TUBE TOP ×2 (08:35→20:56)
[2018-11-04] MEDS: MULTIVIT/CA CARB/B CMPLX/FA TAB GTB (08:36)
[2018-11-04] MEDS: ZINC SULFATE 220 MG CAP GTB (08:36)
[2018-11-04] MEDS: COLLAGENASE 5 GM (UD JAR) TOP (08:36)
[2018-11-04] MEDS: FAMOTIDINE 20 MG TAB PO (08:36)
[2018-11-04] MEDS: LEVETIRACETAM (100 MG/ML) 5ML CUP GTB ×2 (08:36→20:54)
[2018-11-04] MEDS: ASCORBIC ACID 250 MG TAB GTB (08:36)
[2018-11-04] MEDS: CHLORHEXIDINE GLUCONATE 15 ML UD CUP MM ×2 (08:36→20:54)
[2018-11-04] MEDS: QUETIAPINE 25 MG TAB GTB ×2 (08:36→20:55)
[2018-11-04] MEDS: DOCUSATE SODIUM 10 MG/ML (10ML CUP) GTB ×2 (08:37→20:54)
[2018-11-04] MEDS: ENOXAPARIN 30 MG/0.3 ML SYG SC (08:42)
[2018-11-04] MEDS: MEROPENEM 500MG/50 ML (PMX) 50 ML IVPB ×2 (08:45→20:56)
[2018-11-04] MEDS: D5W-0.45 NACL + KCL 20 MEQ 1,000 ML IV (09:59)
[2018-11-04] MEDS: HYDROCODONE/APAP (5/325) TAB PO (20:55)
[2018-11-05] MEDS: D5W-0.45 NACL + KCL 20 MEQ 1,000 ML IV (01:18)
[2018-11-05] MEDS: IPRATROPIUM (HFA) 12.9 GM INHALER INH ×4 (01:39→19:44)
[2018-11-05] MEDS: ALBUTEROL HFA 8 GM INHALER INH ×4 (01:39→19:44)
[2018-11-05] MEDS: HYDROmorphONE 0.5 MG/0.5 ML SYG IV ×6 (02:22→21:57)
[2018-11-05 06:46] LABS: ADD MAN DIFF? NO
[2018-11-05 06:53] LABS: WHITE BLOOD COUNT 3.9 10^3/ul (4.8-10.8)
[2018-11-05 06:53] LABS: ABNORMAL IP MESSAGE 1; BASOPHILS % 0.5 % (0.0-2.0); EOSINOPHILS # 0.2 10^3/ul (0.0-0.5); EOSINOPHILS % 4.6 % (0.0-7.0); HEMATOCRIT 25.1 % (42.0-52.0); HEMOGLOBIN 7.3 g/dl (14.0-18.0); LYMPHOCYTES # 0.4 10^3/ul (0.8-2.9); LYMPHOCYTES % 11.1 % (15.0-51.0); MEAN CORPUSCULAR HGB CONC 29.1 g/dl (32.0-37.0); MEAN CORPUSCULAR VOLUME 96.2 fl (82.0-101.0); MEAN PLATELET VOLUME 11.5 fl (7.4-10.4); MONOCYTE # 0.3 10^3/ul (0.3-0.9); MONOCYTES % 6.7 % (0.0-11.0); NEUTROPHILS % 76.6 % (39.0-77.0); PLATELET COUNT 160 10^3/UL (140-415); POSITIVE DIFF @See below; RED BLOOD COUNT 2.61 10^6/ul (4.70-6.10); RED CELL DISTRIBUTION WIDTH 15.7 % (11.5-14.5)
[2018-11-05 07:10] LABS: INR 1.03; PARTIAL THROMBOPLASTIN TIME 35.2 Sec (23.0-35.0); PROTIME 13.6 Sec (11.9-14.9); PT RATIO 1.1
[2018-11-05 07:11] LABS: ALANINE AMINOTRANSFERASE 11 IU/L (13-69); ALBUMIN/GLOBULIN RATIO 0.73; ALKALINE PHOSPHATASE 106 IU/L (42-121); ANION GAP 7 (5-13); ASPARTATE AMINO TRANSFERASE 21 IU/L (15-46); BILIRUBIN,INDIRECT 0.2 mg/dl (0-1.1); BILIRUBIN,TOTAL 0.2 mg/dl (0.2-1.3); BLOOD UREA NITROGEN 49 mg/dl (7-20); CALCIUM 8.7 mg/dl (8.4-10.2); CARBON DIOXIDE 20 mmol/L (21-31); CHLORIDE 120 mmol/L (97-110); CREATININE 1.41 mg/dl (0.61-1.24); Estimated GFR 55 mL/min (>60); GLUCOSE 100 mg/dl (70-220); SODIUM 147 mmol/L (135-144); TOTAL PROTEIN 7.1 g/dl (6.1-8.1)
[2018-11-05 07:33] LABS: MAGNESIUM 2.1 mg/dl (1.7-2.5)
[2018-11-05] MEDS: BALSAM PERU/CASTOR OIL 60 GM TUBE TOP ×2 (09:00→21:16)
[2018-11-05] MEDS: DOCUSATE SODIUM 10 MG/ML (10ML CUP) GTB ×2 (09:59→21:05)
[2018-11-05] MEDS: QUETIAPINE 25 MG TAB GTB ×2 (09:59→21:06)
[2018-11-05] MEDS: CHLORHEXIDINE GLUCONATE 15 ML UD CUP MM ×2 (09:59→21:05)
[2018-11-05] MEDS: FAMOTIDINE 20 MG TAB PO (09:59)
[2018-11-05] MEDS: LEVETIRACETAM (100 MG/ML) 5ML CUP GTB ×2 (09:59→21:06)
[2018-11-05] MEDS: ASCORBIC ACID 250 MG TAB GTB (09:59)
[2018-11-05] MEDS: ZINC SULFATE 220 MG CAP GTB (09:59)
[2018-11-05] MEDS: MULTIVIT/CA CARB/B CMPLX/FA TAB GTB (09:59)
[2018-11-05] MEDS: COLLAGENASE 5 GM (UD JAR) TOP (09:59)
[2018-11-05] MEDS: MEROPENEM 500MG/50 ML (PMX) 50 ML IVPB ×2 (10:57→21:14)
[2018-11-05] MEDS: ENOXAPARIN 30 MG/0.3 ML SYG SC (11:02)
[2018-11-05] MEDS: HYDROCODONE/APAP (5/325) TAB PO ×3 (12:44→21:05)
[2018-11-05] MEDS: DEXTROSE 5% 1,000 ML IV (21:11)
[2018-11-06] MEDS: ALBUTEROL HFA 8 GM INHALER INH ×4 (01:12→19:23)
[2018-11-06] MEDS: IPRATROPIUM (HFA) 12.9 GM INHALER INH ×4 (01:13→19:23)
[2018-11-06] MEDS: HYDROmorphONE 0.5 MG/0.5 ML SYG IV ×6 (02:22→22:40)
[2018-11-06] MEDS: ENOXAPARIN 30 MG/0.3 ML SYG SC (09:00)
[2018-11-06] MEDS: FAMOTIDINE 20 MG TAB PO (09:00)
[2018-11-06] MEDS: ASCORBIC ACID 250 MG TAB GTB (09:45)
[2018-11-06] MEDS: DOCUSATE SODIUM 10 MG/ML (10ML CUP) GTB ×2 (09:45→21:31)
[2018-11-06] MEDS: ZINC SULFATE 220 MG CAP GTB (09:45)
[2018-11-06] MEDS: MEROPENEM 500MG/50 ML (PMX) 50 ML IVPB ×2 (09:45→21:30)
[2018-11-06] MEDS: CHLORHEXIDINE GLUCONATE 15 ML UD CUP MM ×2 (09:45→21:31)
[2018-11-06] MEDS: MULTIVIT/CA CARB/B CMPLX/FA TAB GTB (09:46)
[2018-11-06] MEDS: BALSAM PERU/CASTOR OIL 60 GM TUBE TOP ×2 (09:46→21:32)
[2018-11-06] MEDS: LEVETIRACETAM (100 MG/ML) 5ML CUP GTB ×2 (09:46→21:31)
[2018-11-06] MEDS: QUETIAPINE 25 MG TAB GTB ×2 (09:46→21:32)
[2018-11-06] MEDS: COLLAGENASE 5 GM (UD JAR) TOP (09:46)
[2018-11-06] MEDS: DEXTROSE 5% 1,000 ML IV (10:31)
[2018-11-06 15:13] LABS: ADD MAN DIFF? NO
[2018-11-06 15:15] LABS: ABNORMAL IP MESSAGE 1; BASOPHILS % 0.2 % (0.0-2.0); EOSINOPHILS # 0.1 10^3/ul (0.0-0.5); EOSINOPHILS % 3.1 % (0.0-7.0); HEMATOCRIT 24.9 % (42.0-52.0); HEMOGLOBIN 7.4 g/dl (14.0-18.0); LYMPHOCYTES # 0.4 10^3/ul (0.8-2.9); LYMPHOCYTES % 8.8 % (15.0-51.0); MEAN CORPUSCULAR HEMOGLOBIN 28.5 pg (29.0-33.0); MEAN CORPUSCULAR HGB CONC 29.7 g/dl (32.0-37.0); MEAN CORPUSCULAR VOLUME 95.8 fl (82.0-101.0); MEAN PLATELET VOLUME 12.5 fl (7.4-10.4); MONOCYTE # 0.3 10^3/ul (0.3-0.9); MONOCYTES % 6.4 % (0.0-11.0); NEUTROPHIL # 3.4 10^3/ul (1.6-7.5); PLATELET COUNT 129 10^3/UL (140-415); POSITIVE DIFF @See below; RED CELL DISTRIBUTION WIDTH 15.5 % (11.5-14.5)
[2018-11-06 15:15] LABS: WHITE BLOOD COUNT 4.2 10^3/ul (4.8-10.8)
[2018-11-06 15:41] LABS: ANION GAP 8 (5-13); Estimated GFR > 60 mL/min (>60)
[2018-11-06 15:52] LABS: BLOOD UREA NITROGEN 43 mg/dl (7-20); CALCIUM 8.6 mg/dl (8.4-10.2); CARBON DIOXIDE 20 mmol/L (21-31); CHLORIDE 112 mmol/L (97-110); CREATININE 1.26 mg/dl (0.61-1.24); GLUCOSE 236 mg/dl (70-220); POTASSIUM 5.3 mmol/L (3.5-5.1); SODIUM 140 mmol/L (135-144)
[2018-11-06] MEDS: NA POLYST SULFON 15 GM/60 ML BTL PO (17:30)
[2018-11-07] MEDS: DEXTROSE 5% 1,000 ML IV (00:51)
[2018-11-07] MEDS: ALBUTEROL HFA 8 GM INHALER INH ×4 (01:10→20:03)
[2018-11-07] MEDS: IPRATROPIUM (HFA) 12.9 GM INHALER INH ×4 (01:10→20:03)
[2018-11-07] MEDS: HYDROmorphONE 0.5 MG/0.5 ML SYG IV ×5 (02:56→23:22)
[2018-11-07 06:47] LABS: ADD MAN DIFF? NO
[2018-11-07 06:52] LABS: ABNORMAL IP MESSAGE 1; BASOPHILS % 0.3 % (0.0-2.0); EOSINOPHILS # 0.1 10^3/ul (0.0-0.5); EOSINOPHILS % 3.8 % (0.0-7.0); HEMATOCRIT 25.8 % (42.0-52.0); HEMOGLOBIN 7.7 g/dl (14.0-18.0); LYMPHOCYTES # 0.4 10^3/ul (0.8-2.9); LYMPHOCYTES % 13.3 % (15.0-51.0); MEAN CORPUSCULAR HEMOGLOBIN 28.3 pg (29.0-33.0); MEAN CORPUSCULAR HGB CONC 29.8 g/dl (32.0-37.0); MEAN CORPUSCULAR VOLUME 94.9 fl (82.0-101.0); MEAN PLATELET VOLUME 11.8 fl (7.4-10.4); MONOCYTE # 0.3 10^3/ul (0.3-0.9); MONOCYTES % 9.5 % (0.0-11.0); NEUTROPHIL # 2.3 10^3/ul (1.6-7.5); NEUTROPHILS % 72.8 % (39.0-77.0); PLATELET COUNT 150 10^3/UL (140-415); POSITIVE DIFF @See below; RED BLOOD COUNT 2.72 10^6/ul (4.70-6.10); RED CELL DISTRIBUTION WIDTH 15.6 % (11.5-14.5)
[2018-11-07 06:52] LABS: WHITE BLOOD COUNT 3.2 10^3/ul (4.8-10.8)
[2018-11-07 07:13] LABS: ANION GAP 9 (5-13); BLOOD UREA NITROGEN 46 mg/dl (7-20); CARBON DIOXIDE 22 mmol/L (21-31); CHLORIDE 112 mmol/L (97-110); CREATININE 1.26 mg/dl (0.61-1.24); Estimated GFR > 60 mL/min (>60); GLUCOSE 106 mg/dl (70-220); POTASSIUM 5.9 mmol/L (3.5-5.1); SODIUM 143 mmol/L (135-144)
[2018-11-07] MEDS: COLLAGENASE 5 GM (UD JAR) TOP (09:00)
[2018-11-07] MEDS: DOCUSATE SODIUM 10 MG/ML (10ML CUP) GTB ×2 (10:19→20:56)
[2018-11-07] MEDS: BALSAM PERU/CASTOR OIL 60 GM TUBE TOP ×2 (10:19→20:57)
[2018-11-07] MEDS: LEVETIRACETAM (100 MG/ML) 5ML CUP GTB ×2 (10:19→20:56)
[2018-11-07] MEDS: CHLORHEXIDINE GLUCONATE 15 ML UD CUP MM ×2 (10:19→20:56)
[2018-11-07] MEDS: ASCORBIC ACID 250 MG TAB GTB (10:20)
[2018-11-07] MEDS: MULTIVIT/CA CARB/B CMPLX/FA TAB GTB (10:20)
[2018-11-07] MEDS: FAMOTIDINE 20 MG TAB PO (10:20)
[2018-11-07] MEDS: QUETIAPINE 25 MG TAB GTB ×2 (10:20→20:57)
[2018-11-07] MEDS: ZINC SULFATE 220 MG CAP GTB (10:20)
[2018-11-07] MEDS: MEROPENEM 500MG/50 ML (PMX) 50 ML IVPB (10:21)
[2018-11-07] MEDS: ENOXAPARIN 30 MG/0.3 ML SYG SC (10:37)
[2018-11-07] MEDS: NA POLYST SULFON 15 GM/60 ML BTL GTB (11:17)
[2018-11-07 16:47] LABS: ANION GAP 8 (5-13); BLOOD UREA NITROGEN 46 mg/dl (7-20); CALCIUM 9.3 mg/dl (8.4-10.2); CARBON DIOXIDE 22 mmol/L (21-31); CHLORIDE 114 mmol/L (97-110); CREATININE 1.26 mg/dl (0.61-1.24); Estimated GFR > 60 mL/min (>60); GLUCOSE 97 mg/dl (70-220); POTASSIUM 5.5 mmol/L (3.5-5.1); SODIUM 144 mmol/L (135-144)
[2018-11-07] MEDS: HYDROCODONE/APAP (5/325) TAB PO (20:57)
[2018-11-08] MEDS: ALBUTEROL HFA 8 GM INHALER INH ×4 (01:23→19:21)
[2018-11-08] MEDS: IPRATROPIUM (HFA) 12.9 GM INHALER INH ×4 (01:23→19:21)
[2018-11-08] MEDS: HYDROmorphONE 0.5 MG/0.5 ML SYG IV ×4 (03:50→22:23)
[2018-11-08] MEDS: ASCORBIC ACID 250 MG TAB GTB (08:08)
[2018-11-08] MEDS: LEVETIRACETAM (100 MG/ML) 5ML CUP GTB ×2 (08:08→22:23)
[2018-11-08] MEDS: DOCUSATE SODIUM 10 MG/ML (10ML CUP) GTB ×2 (08:08→22:23)
[2018-11-08] MEDS: QUETIAPINE 25 MG TAB GTB ×2 (08:08→22:24)
[2018-11-08] MEDS: MULTIVIT/CA CARB/B CMPLX/FA TAB GTB (08:08)
[2018-11-08] MEDS: ZINC SULFATE 220 MG CAP GTB (08:08)
[2018-11-08] MEDS: FAMOTIDINE 20 MG TAB PO (08:08)
[2018-11-08] MEDS: CHLORHEXIDINE GLUCONATE 15 ML UD CUP MM ×2 (08:09→22:24)
[2018-11-08] MEDS: COLLAGENASE 5 GM (UD JAR) TOP (08:09)
[2018-11-08] MEDS: BALSAM PERU/CASTOR OIL 60 GM TUBE TOP ×2 (08:10→21:00)
[2018-11-08] MEDS: ENOXAPARIN 30 MG/0.3 ML SYG SC (08:11)
[2018-11-08] MEDS: HYDROCODONE/APAP (5/325) TAB PO (08:15)
[2018-11-08 10:30] LABS: ADD MAN DIFF? NO
[2018-11-08 10:32] LABS: WHITE BLOOD COUNT 2.8 10^3/ul (4.8-10.8)
[2018-11-08 10:32] LABS: ABNORMAL IP MESSAGE 1; BASOPHILS % 0.4 % (0.0-2.0); EOSINOPHILS # 0.1 10^3/ul (0.0-0.5); HEMATOCRIT 24.2 % (42.0-52.0); HEMOGLOBIN 7.3 g/dl (14.0-18.0); LYMPHOCYTES # 0.5 10^3/ul (0.8-2.9); LYMPHOCYTES % 17.8 % (15.0-51.0); MEAN CORPUSCULAR HEMOGLOBIN 28.7 pg (29.0-33.0); MEAN CORPUSCULAR HGB CONC 30.2 g/dl (32.0-37.0); MEAN CORPUSCULAR VOLUME 95.3 fl (82.0-101.0); MEAN PLATELET VOLUME 11.9 fl (7.4-10.4); MONOCYTE # 0.2 10^3/ul (0.3-0.9); MONOCYTES % 8.3 % (0.0-11.0); NEUTROPHIL # 1.9 10^3/ul (1.6-7.5); NEUTROPHILS % 69.1 % (39.0-77.0); PLATELET COUNT 140 10^3/UL (140-415); POSITIVE DIFF @See below; RED BLOOD COUNT 2.54 10^6/ul (4.70-6.10); RED CELL DISTRIBUTION WIDTH 15.4 % (11.5-14.5)
[2018-11-08 11:17] LABS: ANION GAP 7 (5-13); BLOOD UREA NITROGEN 44 mg/dl (7-20); CALCIUM 9.2 mg/dl (8.4-10.2); CARBON DIOXIDE 21 mmol/L (21-31); CHLORIDE 115 mmol/L (97-110); CREATININE 1.32 mg/dl (0.61-1.24); Estimated GFR 60 mL/min (>60); GLUCOSE 113 mg/dl (70-220); POTASSIUM 5.3 mmol/L (3.5-5.1); SODIUM 143 mmol/L (135-144)
[2018-11-08] MEDS: NA POLYST SULFON 15 GM/60 ML BTL GTB (13:00)
[2018-11-08] MEDS: ALTEPLASE (CATHFLO) 2 MG INJ CATHETER (16:03)
[2018-11-09] MEDS: ALBUTEROL HFA 8 GM INHALER INH ×4 (02:02→19:18)
[2018-11-09] MEDS: IPRATROPIUM (HFA) 12.9 GM INHALER INH ×4 (02:02→19:19)
[2018-11-09] MEDS: HYDROmorphONE 0.5 MG/0.5 ML SYG IV ×5 (04:03→23:11)
[2018-11-09 06:28] LABS: ANION GAP 9 (5-13); BLOOD UREA NITROGEN 61 mg/dl (7-20); CALCIUM 9.3 mg/dl (8.4-10.2); CARBON DIOXIDE 21 mmol/L (21-31); CHLORIDE 117 mmol/L (97-110); CREATININE 1.25 mg/dl (0.61-1.24); Estimated GFR > 60 mL/min (>60); GLUCOSE 125 mg/dl (70-220); POTASSIUM 5.1 mmol/L (3.5-5.1); SODIUM 147 mmol/L (135-144)
[2018-11-09] MEDS: ASCORBIC ACID 250 MG TAB GTB (09:00)
[2018-11-09] MEDS: MULTIVIT/CA CARB/B CMPLX/FA TAB GTB (09:00)
[2018-11-09] MEDS: COLLAGENASE 5 GM (UD JAR) TOP (09:01)
[2018-11-09] MEDS: FAMOTIDINE 20 MG TAB PO (09:01)
[2018-11-09] MEDS: DOCUSATE SODIUM 10 MG/ML (10ML CUP) GTB ×2 (09:01→23:12)
[2018-11-09] MEDS: CHLORHEXIDINE GLUCONATE 15 ML UD CUP MM ×2 (09:01→23:12)
[2018-11-09] MEDS: ZINC SULFATE 220 MG CAP GTB (09:01)
[2018-11-09] MEDS: LEVETIRACETAM (100 MG/ML) 5ML CUP GTB ×2 (09:01→23:12)
[2018-11-09] MEDS: QUETIAPINE 25 MG TAB GTB ×2 (09:01→23:12)
[2018-11-09] MEDS: BALSAM PERU/CASTOR OIL 60 GM TUBE TOP ×2 (09:02→23:13)
[2018-11-09] MEDS: ENOXAPARIN 30 MG/0.3 ML SYG SC (09:54)
[2018-11-10] MEDS: ALBUTEROL HFA 8 GM INHALER INH ×4 (01:38→20:06)
[2018-11-10] MEDS: IPRATROPIUM (HFA) 12.9 GM INHALER INH ×4 (01:38→20:06)
[2018-11-10] MEDS: HYDROmorphONE 0.5 MG/0.5 ML SYG IV ×5 (03:01→20:13)
[2018-11-10 06:45] LABS: ANION GAP 12 (5-13); BLOOD UREA NITROGEN 65 mg/dl (7-20); CALCIUM 9.5 mg/dl (8.4-10.2); CARBON DIOXIDE 23 mmol/L (21-31); CHLORIDE 113 mmol/L (97-110); CREATININE 1.32 mg/dl (0.61-1.24); Estimated GFR 60 mL/min (>60); GLUCOSE 112 mg/dl (70-220); POTASSIUM 5.2 mmol/L (3.5-5.1); SODIUM 148 mmol/L (135-144)
[2018-11-10] MEDS: MULTIVIT/CA CARB/B CMPLX/FA TAB GTB (07:57)
[2018-11-10] MEDS: ZINC SULFATE 220 MG CAP GTB (07:57)
[2018-11-10] MEDS: ASCORBIC ACID 250 MG TAB GTB (07:58)
[2018-11-10] MEDS: QUETIAPINE 25 MG TAB GTB ×2 (07:58→20:16)
[2018-11-10] MEDS: CHLORHEXIDINE GLUCONATE 15 ML UD CUP MM ×2 (07:58→20:13)
[2018-11-10] MEDS: DOCUSATE SODIUM 10 MG/ML (10ML CUP) GTB ×2 (07:58→20:12)
[2018-11-10] MEDS: COLLAGENASE 5 GM (UD JAR) TOP (07:58)
[2018-11-10] MEDS: FAMOTIDINE 20 MG TAB PO (07:59)
[2018-11-10] MEDS: BALSAM PERU/CASTOR OIL 60 GM TUBE TOP (07:59)
[2018-11-10] MEDS: ENOXAPARIN 30 MG/0.3 ML SYG SC (08:02)
[2018-11-10] MEDS: LEVETIRACETAM (100 MG/ML) 5ML CUP GTB ×2 (08:12→20:12)
[2018-11-10] MEDS: NA POLYST SULFON 15 GM/60 ML BTL GTB (18:06)
[2018-11-11] MEDS: ALBUTEROL HFA 8 GM INHALER INH ×4 (01:12→19:30)
[2018-11-11] MEDS: IPRATROPIUM (HFA) 12.9 GM INHALER INH ×4 (01:12→19:30)
[2018-11-11] MEDS: BALSAM PERU/CASTOR OIL 60 GM TUBE TOP ×3 (01:19→21:40)
[2018-11-11] MEDS: HYDROmorphONE 0.5 MG/0.5 ML SYG IV ×5 (01:20→19:34)
[2018-11-11] MEDS: COLLAGENASE 5 GM (UD JAR) TOP (08:16)
[2018-11-11] MEDS: LEVETIRACETAM (100 MG/ML) 5ML CUP GTB ×2 (08:16→21:40)
[2018-11-11] MEDS: ZINC SULFATE 220 MG CAP GTB (08:17)
[2018-11-11] MEDS: CHLORHEXIDINE GLUCONATE 15 ML UD CUP MM ×2 (08:17→21:40)
[2018-11-11] MEDS: ASCORBIC ACID 250 MG TAB GTB (08:17)
[2018-11-11] MEDS: FAMOTIDINE 20 MG TAB PO (08:17)
[2018-11-11] MEDS: DOCUSATE SODIUM 10 MG/ML (10ML CUP) GTB ×2 (08:17→21:40)
[2018-11-11] MEDS: MULTIVIT/CA CARB/B CMPLX/FA TAB GTB (08:17)
[2018-11-11] MEDS: QUETIAPINE 25 MG TAB GTB ×2 (08:17→21:39)
[2018-11-11] MEDS: ENOXAPARIN 30 MG/0.3 ML SYG SC (08:29)
[2018-11-11 18:07] LABS: ADD MAN DIFF? NO
[2018-11-11 18:09] LABS: WHITE BLOOD COUNT 5.1 10^3/ul (4.8-10.8)
[2018-11-11 18:09] LABS: BASOPHILS % 0.8 % (0.0-2.0); EOSINOPHILS # 0.3 10^3/ul (0.0-0.5); EOSINOPHILS % 4.9 % (0.0-7.0); HEMOGLOBIN 7.8 g/dl (14.0-18.0); LYMPHOCYTES # 0.9 10^3/ul (0.8-2.9); LYMPHOCYTES % 17.9 % (15.0-51.0); MEAN CORPUSCULAR HEMOGLOBIN 29.1 pg (29.0-33.0); MEAN PLATELET VOLUME 12.3 fl (7.4-10.4); MONOCYTE # 0.4 10^3/ul (0.3-0.9); MONOCYTES % 7.3 % (0.0-11.0); NEUTROPHIL # 3.5 10^3/ul (1.6-7.5); NEUTROPHILS % 68.9 % (39.0-77.0); PLATELET COUNT 157 10^3/UL (140-415); RED BLOOD COUNT 2.68 10^6/ul (4.70-6.10); RED CELL DISTRIBUTION WIDTH 16.9 % (11.5-14.5)
[2018-11-11 18:30] LABS: ANION GAP 13 (5-13); BLOOD UREA NITROGEN 76 mg/dl (7-20); CALCIUM 9.4 mg/dl (8.4-10.2); CARBON DIOXIDE 23 mmol/L (21-31); CHLORIDE 110 mmol/L (97-110); CREATININE 1.41 mg/dl (0.61-1.24); Estimated GFR 55 mL/min (>60); GLUCOSE 96 mg/dl (70-220); SODIUM 146 mmol/L (135-144)
[2018-11-12] MEDS: ALBUTEROL HFA 8 GM INHALER INH ×4 (01:56→20:55)
[2018-11-12] MEDS: IPRATROPIUM (HFA) 12.9 GM INHALER INH ×4 (01:56→20:55)
[2018-11-12] MEDS: HYDROmorphONE 0.5 MG/0.5 ML SYG IV ×4 (02:43→20:51)
[2018-11-12 06:27] LABS: ADD MAN DIFF? NO
[2018-11-12 06:33] LABS: WHITE BLOOD COUNT 5.2 10^3/ul (4.8-10.8)
[2018-11-12 06:33] LABS: BASOPHILS % 0.6 % (0.0-2.0); EOSINOPHILS # 0.2 10^3/ul (0.0-0.5); EOSINOPHILS % 3.6 % (0.0-7.0); HEMATOCRIT 28.3 % (42.0-52.0); HEMOGLOBIN 8.5 g/dl (14.0-18.0); LYMPHOCYTES # 0.8 10^3/ul (0.8-2.9); LYMPHOCYTES % 14.7 % (15.0-51.0); MEAN CORPUSCULAR HEMOGLOBIN 28.7 pg (29.0-33.0); MEAN CORPUSCULAR VOLUME 95.6 fl (82.0-101.0); MEAN PLATELET VOLUME 12.6 fl (7.4-10.4); MONOCYTE # 0.3 10^3/ul (0.3-0.9); MONOCYTES % 5.7 % (0.0-11.0); NEUTROPHIL # 3.9 10^3/ul (1.6-7.5); PLATELET COUNT 153 10^3/UL (140-415); RED BLOOD COUNT 2.96 10^6/ul (4.70-6.10); RED CELL DISTRIBUTION WIDTH 17.2 % (11.5-14.5)
[2018-11-12 07:18] LABS: ANION GAP 13 (5-13); BLOOD UREA NITROGEN 82 mg/dl (7-20); CALCIUM 9.5 mg/dl (8.4-10.2); CARBON DIOXIDE 22 mmol/L (21-31); CHLORIDE 110 mmol/L (97-110); CREATININE 1.42 mg/dl (0.61-1.24); Estimated GFR 55 mL/min (>60); GLUCOSE 103 mg/dl (70-220); POTASSIUM 5.3 mmol/L (3.5-5.1); SODIUM 145 mmol/L (135-144)
[2018-11-12] MEDS: ENOXAPARIN 30 MG/0.3 ML SYG SC (08:48)
[2018-11-12] MEDS: CHLORHEXIDINE GLUCONATE 15 ML UD CUP MM ×2 (08:49→20:52)
[2018-11-12] MEDS: COLLAGENASE 5 GM (UD JAR) TOP (08:49)
[2018-11-12] MEDS: LEVETIRACETAM (100 MG/ML) 5ML CUP GTB ×2 (08:49→20:51)
[2018-11-12] MEDS: DOCUSATE SODIUM 10 MG/ML (10ML CUP) GTB ×2 (08:49→20:51)
[2018-11-12] MEDS: ASCORBIC ACID 250 MG TAB GTB (08:50)
[2018-11-12] MEDS: QUETIAPINE 25 MG TAB GTB ×2 (08:50→20:51)
[2018-11-12] MEDS: MULTIVIT/CA CARB/B CMPLX/FA TAB GTB (08:50)
[2018-11-12] MEDS: ZINC SULFATE 220 MG CAP GTB (08:50)
[2018-11-12] MEDS: FAMOTIDINE 20 MG TAB PO (08:51)
[2018-11-12] MEDS: BALSAM PERU/CASTOR OIL 60 GM TUBE TOP ×2 (08:52→20:52)
[2018-11-13] MEDS: IPRATROPIUM (HFA) 12.9 GM INHALER INH ×4 (01:40→19:35)
[2018-11-13] MEDS: ALBUTEROL HFA 8 GM INHALER INH ×4 (01:40→19:36)
[2018-11-13] MEDS: HYDROmorphONE 0.5 MG/0.5 ML SYG IV ×6 (02:07→23:14)
[2018-11-13] MEDS: LEVETIRACETAM (100 MG/ML) 5ML CUP GTB ×2 (09:35→23:15)
[2018-11-13] MEDS: CHLORHEXIDINE GLUCONATE 15 ML UD CUP MM ×2 (09:35→23:15)
[2018-11-13] MEDS: DOCUSATE SODIUM 10 MG/ML (10ML CUP) GTB ×2 (09:35→21:00)
[2018-11-13] MEDS: FAMOTIDINE 20 MG TAB PO (09:36)
[2018-11-13] MEDS: QUETIAPINE 25 MG TAB GTB ×2 (09:36→23:15)
[2018-11-13] MEDS: ZINC SULFATE 220 MG CAP GTB (09:36)
[2018-11-13] MEDS: MULTIVIT/CA CARB/B CMPLX/FA TAB GTB (09:36)
[2018-11-13] MEDS: COLLAGENASE 5 GM (UD JAR) TOP (09:37)
[2018-11-13] MEDS: ENOXAPARIN 30 MG/0.3 ML SYG SC (09:54)
[2018-11-13] MEDS: ASCORBIC ACID 250 MG TAB GTB (10:01)
[2018-11-13] MEDS: BALSAM PERU/CASTOR OIL 60 GM TUBE TOP ×2 (10:02→23:20)
[2018-11-13 14:10] LABS: ADD MAN DIFF? NO
[2018-11-13 14:13] LABS: WHITE BLOOD COUNT 15.1 10^3/ul (4.8-10.8)
[2018-11-13 14:13] LABS: ABNORMAL IP MESSAGE 1; BASOPHILS % 0.1 % (0.0-2.0); EOSINOPHILS # 0.1 10^3/ul (0.0-0.5); EOSINOPHILS % 0.7 % (0.0-7.0); HEMATOCRIT 29.8 % (42.0-52.0); LYMPHOCYTES # 0.4 10^3/ul (0.8-2.9); LYMPHOCYTES % 2.5 % (15.0-51.0); MEAN CORPUSCULAR HEMOGLOBIN 29.2 pg (29.0-33.0); MEAN CORPUSCULAR HGB CONC 30.2 g/dl (32.0-37.0); MEAN CORPUSCULAR VOLUME 96.8 fl (82.0-101.0); MEAN PLATELET VOLUME 12.9 fl (7.4-10.4); MONOCYTE # 0.6 10^3/ul (0.3-0.9); NEUTROPHIL # 13.9 10^3/ul (1.6-7.5); NEUTROPHILS % 92.1 % (39.0-77.0); PLATELET COUNT 195 10^3/UL (140-415); POSITIVE DIFF @See below; RED BLOOD COUNT 3.08 10^6/ul (4.70-6.10); RED CELL DISTRIBUTION WIDTH 17.5 % (11.5-14.5)
[2018-11-13 14:36] LABS: ANION GAP 13 (5-13); BLOOD UREA NITROGEN 74 mg/dl (7-20); CARBON DIOXIDE 20 mmol/L (21-31); CHLORIDE 113 mmol/L (97-110); CREATININE 1.46 mg/dl (0.61-1.24); Estimated GFR 53 mL/min (>60); GLUCOSE 162 mg/dl (70-220); POTASSIUM 5.1 mmol/L (3.5-5.1); SODIUM 146 mmol/L (135-144)
[2018-11-13] MEDS: DEXTROSE 5% 1,000 ML IV ×2 (14:44→23:24)
[2018-11-13] MEDS: SOD CHLORIDE 0.9% 1,000 ML IV (19:00)
[2018-11-13] MEDS ORDERED: VANCOMYCIN IV PER PHARMACY XX (21:00)
[2018-11-13] MEDS: VANCOMYCIN 1 GM 250 ML IVPB (23:18)
[2018-11-13] MEDS: MEROPENEM 1 GM/50ML(PMX) 50 ML IVPB (23:18)
[2018-11-14] MEDS: IPRATROPIUM (HFA) 12.9 GM INHALER INH ×4 (01:17→19:19)
[2018-11-14] MEDS: ALBUTEROL HFA 8 GM INHALER INH ×4 (01:17→19:20)
[2018-11-14] MEDS: HYDROmorphONE 0.5 MG/0.5 ML SYG IV ×4 (03:40→22:59)
[2018-11-14] MEDS: MEROPENEM 1 GM/50ML(PMX) 50 ML IVPB ×3 (05:00→21:40)
[2018-11-14] MEDS: DOCUSATE SODIUM 10 MG/ML (10ML CUP) GTB ×2 (08:52→21:38)
[2018-11-14] MEDS: LEVETIRACETAM (100 MG/ML) 5ML CUP GTB ×2 (08:52→21:39)
[2018-11-14] MEDS: COLLAGENASE 5 GM (UD JAR) TOP (08:52)
[2018-11-14] MEDS: ASCORBIC ACID 250 MG TAB GTB (08:52)
[2018-11-14] MEDS: MULTIVIT/CA CARB/B CMPLX/FA TAB GTB (08:52)
[2018-11-14] MEDS: ZINC SULFATE 220 MG CAP GTB (08:52)
[2018-11-14] MEDS: QUETIAPINE 25 MG TAB GTB ×2 (08:53→21:38)
[2018-11-14] MEDS: BALSAM PERU/CASTOR OIL 60 GM TUBE TOP ×2 (08:53→21:40)
[2018-11-14] MEDS: FAMOTIDINE 20 MG TAB PO (08:53)
[2018-11-14] MEDS: CHLORHEXIDINE GLUCONATE 15 ML UD CUP MM ×2 (08:53→21:38)
[2018-11-14] MEDS: ENOXAPARIN 30 MG/0.3 ML SYG SC (08:58)
[2018-11-14] MEDS ORDERED: VANCOMYCIN 750 MG (PMX) 250 ML IVPB (10:30)
[2018-11-14 11:02] LABS: ADD MAN DIFF? NO
[2018-11-14 11:07] LABS: WHITE BLOOD COUNT 9.4 10^3/ul (4.8-10.8)
[2018-11-14 11:07] LABS: ABNORMAL IP MESSAGE 1; BASOPHILS % 0.1 % (0.0-2.0); EOSINOPHILS # 0.1 10^3/ul (0.0-0.5); EOSINOPHILS % 0.7 % (0.0-7.0); HEMATOCRIT 25.3 % (42.0-52.0); HEMOGLOBIN 7.6 g/dl (14.0-18.0); LYMPHOCYTES # 0.5 10^3/ul (0.8-2.9); LYMPHOCYTES % 4.9 % (15.0-51.0); MEAN CORPUSCULAR HEMOGLOBIN 29.5 pg (29.0-33.0); MEAN CORPUSCULAR VOLUME 98.1 fl (82.0-101.0); MEAN PLATELET VOLUME 12.4 fl (7.4-10.4); MONOCYTE # 0.5 10^3/ul (0.3-0.9); MONOCYTES % 5.6 % (0.0-11.0); NEUTROPHIL # 8.3 10^3/ul (1.6-7.5); NEUTROPHILS % 88.3 % (39.0-77.0); PLATELET COUNT 143 10^3/UL (140-415); POSITIVE DIFF @See below; RED BLOOD COUNT 2.58 10^6/ul (4.70-6.10); RED CELL DISTRIBUTION WIDTH 18.1 % (11.5-14.5)
[2018-11-14 11:22] LABS: ANION GAP 10 (5-13); BLOOD UREA NITROGEN 78 mg/dl (7-20); CALCIUM 9.3 mg/dl (8.4-10.2); CARBON DIOXIDE 20 mmol/L (21-31); CHLORIDE 114 mmol/L (97-110); CREATININE 1.76 mg/dl (0.61-1.24); Estimated GFR 43 mL/min (>60); GLUCOSE 116 mg/dl (70-220); POTASSIUM 5.1 mmol/L (3.5-5.1); SODIUM 144 mmol/L (135-144)
[2018-11-14] MEDS: SODIUM BICARBONATE (IV ADD) 50 MEQ in DEXTROSE 5% 1,000 ML IV (16:05)
[2018-11-14] MEDS: DEXTROSE 5%-0.45% NACL 1,000 ML IV (18:30)
[2018-11-14] MEDS: ATENOLOL 25 MG TAB GTB (21:39)
[2018-11-15] MEDS: SOD CHLORIDE 0.9% 500 ML IV ×2 (01:12)
[2018-11-15] MEDS: IPRATROPIUM (HFA) 12.9 GM INHALER INH ×4 (01:17→19:47)
[2018-11-15] MEDS: ALBUTEROL HFA 8 GM INHALER INH ×4 (01:17→19:47)
[2018-11-15] MEDS: SODIUM BICARBONATE (IV ADD) 50 MEQ in DEXTROSE 5% 1,000 ML IV ×2 (02:00→11:33)
[2018-11-15] MEDS: HYDROmorphONE 0.5 MG/0.5 ML SYG IV ×2 (05:11→21:32)
[2018-11-15] MEDS: VANCOMYCIN 1 GM 250 ML IVPB (05:12)
[2018-11-15] MEDS: COLLAGENASE 5 GM (UD JAR) TOP (08:44)
[2018-11-15] MEDS: CHLORHEXIDINE GLUCONATE 15 ML UD CUP MM ×2 (08:44→21:31)
[2018-11-15] MEDS: LEVETIRACETAM (100 MG/ML) 5ML CUP GTB ×2 (08:44→21:30)
[2018-11-15] MEDS: DOCUSATE SODIUM 10 MG/ML (10ML CUP) GTB ×2 (08:44→21:31)
[2018-11-15] MEDS: BALSAM PERU/CASTOR OIL 60 GM TUBE TOP ×2 (08:44→21:33)
[2018-11-15] MEDS: MEROPENEM 1 GM/50ML(PMX) 50 ML IVPB ×2 (08:45→21:31)
[2018-11-15] MEDS: QUETIAPINE 25 MG TAB GTB ×2 (08:45→21:31)
[2018-11-15] MEDS: ZINC SULFATE 220 MG CAP GTB (08:45)
[2018-11-15] MEDS: ASCORBIC ACID 250 MG TAB GTB (08:45)
[2018-11-15] MEDS: FAMOTIDINE 20 MG TAB PO (08:46)
[2018-11-15] MEDS: MULTIVIT/CA CARB/B CMPLX/FA TAB GTB (08:46)
[2018-11-15] MEDS: ATENOLOL 25 MG TAB GTB ×2 (08:46→21:31)
[2018-11-15] MEDS: ENOXAPARIN 30 MG/0.3 ML SYG SC (08:48)
[2018-11-15] MEDS: HYDROCODONE/APAP (5/325) TAB PO (16:03)
[2018-11-15] MEDS: FLUCONAZOLE 100 MG TAB PO (16:03)
[2018-11-15 20:54] LABS: ADD MAN DIFF? NO
[2018-11-15 20:55] LABS: WHITE BLOOD COUNT 4.4 10^3/ul (4.8-10.8)
[2018-11-15 20:55] LABS: ABNORMAL IP MESSAGE 1; BASOPHILS % 0.2 % (0.0-2.0); EOSINOPHILS # 0.5 10^3/ul (0.0-0.5); EOSINOPHILS % 12.3 % (0.0-7.0); HEMATOCRIT 24.9 % (42.0-52.0); HEMOGLOBIN 7.5 g/dl (14.0-18.0); LYMPHOCYTES # 0.4 10^3/ul (0.8-2.9); LYMPHOCYTES % 9.6 % (15.0-51.0); MEAN CORPUSCULAR HEMOGLOBIN 29.3 pg (29.0-33.0); MEAN CORPUSCULAR HGB CONC 30.1 g/dl (32.0-37.0); MEAN CORPUSCULAR VOLUME 97.3 fl (82.0-101.0); MEAN PLATELET VOLUME 13.2 fl (7.4-10.4); MONOCYTE # 0.4 10^3/ul (0.3-0.9); NEUTROPHIL # 3.1 10^3/ul (1.6-7.5); NEUTROPHILS % 69.7 % (39.0-77.0); PLATELET COUNT 121 10^3/UL (140-415); POSITIVE DIFF @See below; RED BLOOD COUNT 2.56 10^6/ul (4.70-6.10); RED CELL DISTRIBUTION WIDTH 17.9 % (11.5-14.5)
[2018-11-15 21:21] LABS: ANION GAP 11 (5-13); BLOOD UREA NITROGEN 76 mg/dl (7-20); CALCIUM 9.4 mg/dl (8.4-10.2); CARBON DIOXIDE 21 mmol/L (21-31); CHLORIDE 113 mmol/L (97-110); CREATININE 1.76 mg/dl (0.61-1.24); Estimated GFR 43 mL/min (>60); GLUCOSE 121 mg/dl (70-220); SODIUM 145 mmol/L (135-144)
[2018-11-16] MEDS: ALBUTEROL HFA 8 GM INHALER INH ×4 (01:15→20:05)
[2018-11-16] MEDS: IPRATROPIUM (HFA) 12.9 GM INHALER INH ×4 (01:15→20:05)
[2018-11-16] MEDS: HYDROmorphONE 0.5 MG/0.5 ML SYG IV ×5 (04:24→21:30)
[2018-11-16 06:09] LABS: ADD MAN DIFF? NO
[2018-11-16 06:18] LABS: WHITE BLOOD COUNT 3.4 10^3/ul (4.8-10.8)
[2018-11-16 06:18] LABS: ABNORMAL IP MESSAGE 1; BASOPHILS % 0.3 % (0.0-2.0); EOSINOPHILS # 0.7 10^3/ul (0.0-0.5); EOSINOPHILS % 20.2 % (0.0-7.0); HEMATOCRIT 24.2 % (42.0-52.0); HEMOGLOBIN 7.1 g/dl (14.0-18.0); LYMPHOCYTES # 0.3 10^3/ul (0.8-2.9); MEAN CORPUSCULAR HGB CONC 29.3 g/dl (32.0-37.0); MEAN CORPUSCULAR VOLUME 98.8 fl (82.0-101.0); MEAN PLATELET VOLUME 13.7 fl (7.4-10.4); MONOCYTE # 0.3 10^3/ul (0.3-0.9); MONOCYTES % 8.6 % (0.0-11.0); NEUTROPHIL # 2.1 10^3/ul (1.6-7.5); NEUTROPHILS % 62.6 % (39.0-77.0); PLATELET COUNT 113 10^3/UL (140-415); POSITIVE DIFF @See below; RED BLOOD COUNT 2.45 10^6/ul (4.70-6.10); RED CELL DISTRIBUTION WIDTH 17.8 % (11.5-14.5)
[2018-11-16 06:39] LABS: CREATININE 1.73 mg/dl (0.61-1.24)
[2018-11-16 06:39] LABS: BLOOD UREA NITROGEN 80 mg/dl (7-20)
[2018-11-16 06:51] LABS: ANION GAP 9 (5-13); BLOOD UREA NITROGEN 80 mg/dl (7-20); CALCIUM 9.4 mg/dl (8.4-10.2); CARBON DIOXIDE 21 mmol/L (21-31); CHLORIDE 116 mmol/L (97-110); CREATININE 1.79 mg/dl (0.61-1.24); Estimated GFR 42 mL/min (>60); GLUCOSE 127 mg/dl (70-220); POTASSIUM 4.9 mmol/L (3.5-5.1); SODIUM 146 mmol/L (135-144)
[2018-11-16] MEDS: DOCUSATE SODIUM 10 MG/ML (10ML CUP) GTB ×2 (08:59→21:30)
[2018-11-16] MEDS: QUETIAPINE 25 MG TAB GTB ×2 (08:59→21:30)
[2018-11-16] MEDS: ASCORBIC ACID 250 MG TAB GTB (08:59)
[2018-11-16] MEDS: FLUCONAZOLE 100 MG TAB PO (08:59)
[2018-11-16] MEDS: CHLORHEXIDINE GLUCONATE 15 ML UD CUP MM ×2 (08:59→21:30)
[2018-11-16] MEDS: MULTIVIT/CA CARB/B CMPLX/FA TAB GTB (08:59)
[2018-11-16] MEDS: FAMOTIDINE 20 MG TAB PO (08:59)
[2018-11-16] MEDS: ZINC SULFATE 220 MG CAP GTB (08:59)
[2018-11-16] MEDS: LEVETIRACETAM (100 MG/ML) 5ML CUP GTB ×2 (08:59→21:30)
[2018-11-16] MEDS: COLLAGENASE 5 GM (UD JAR) TOP (09:00)
[2018-11-16] MEDS: MEROPENEM 1 GM/50ML(PMX) 50 ML IVPB (09:00)
[2018-11-16] MEDS: ATENOLOL 25 MG TAB GTB ×2 (09:00→21:30)
[2018-11-16] MEDS: BALSAM PERU/CASTOR OIL 60 GM TUBE TOP (09:01)
[2018-11-16] MEDS: ENOXAPARIN 30 MG/0.3 ML SYG SC (09:02)
[2018-11-16 16:04] LABS: ADD UMIC YES; UR ASCORBIC ACID 20 mg/dL (NEGATIVE); UR BACTERIA FEW /HPF (NONE SEEN); UR BILIRUBIN (Dip) NEGATIVE (NEGATIVE); UR BLOOD (Dip) 2+ mg/dL (NEGATIVE); UR CLARITY TURBID (CLEAR); UR COLOR AMBER (YELLOW); UR GLUCOSE (Dip) NEGATIVE (NEGATIVE); UR KETONES (Dip) NEGATIVE (NEGATIVE); UR LEUKOCYTE ESTERASE (Dip) 3+ Leu/ul (NEGATIVE); UR MUCUS FEW /HPF (NONE SEEN); UR NITRITE (Dip) NEGATIVE (NEGATIVE); UR NONSQUAMOUS EPITHELIAL CELL 1 /HPF (NONE SEEN); UR RBC 33 /HPF (0-5); UR SPECIFIC GRAVITY (Dip) 1.012 (1.003-1.030); UR SQUAMOUS EPITHELIAL CELL MODERATE /HPF (FEW); UR TOTAL PROTEIN (Dip) 2+ mg/dl (NEGATIVE); UR UROBILINOGEN (Dip) 2+ mg/dL (NEGATIVE); UR WBC > 182 /HPF (0-5)
[2018-11-16] MEDS: VANCOMYCIN 1 GM 250 ML IVPB (17:35)
== END 2018-11-16 21:45 | DRG 870 ==
LOC: 6WM 11-07 11:57 → ICU 18:34 → E/R 13:22 → TEL 11-02 21:38
PROVIDERS: Internal Medicine
PROC: 5A1955Z Respiratory Ventilation, Greater than 96 Consecutive Hours (ICD-10-PCS; 2018-10-29)
PROC: 02HV33Z Insertion of Infusion Device into Superior Vena Cava, Percutaneous Approach (ICD-10-PCS; principal; 2018-10-30)
DX: A41.9 Sepsis, unspecified organism (principal); L89.313 Pressure ulcer of right buttock, stage 3; L89.323 Pressure ulcer of left buttock, stage 3; R65.21 Severe sepsis with septic shock; L89.154 Pressure ulcer of sacral region, stage 4; L89.223 Pressure ulcer of left hip, stage 3; L89.213 Pressure ulcer of right hip, stage 3; J18.9 Pneumonia, unspecified organism; N39.0 Urinary tract infection, site not specified; G82.20 Paraplegia, unspecified; Z68.1 Body mass index [BMI] 19.9 or less, adult; N17.9 Acute kidney failure, unspecified; J96.10 Chronic respiratory failure, unspecified whether with hypoxia or hypercapnia; E87.0 Hyperosmolality and hypernatremia; Z99.11 Dependence on respirator [ventilator] status; N31.9 Neuromuscular dysfunction of bladder, unspecified; N18.9 Chronic kidney disease, unspecified; F31.9 Bipolar disorder, unspecified; G40.909 Epilepsy, unspecified, not intractable, without status epilepticus; E87.5 Hyperkalemia; E86.0 Dehydration; B96.4 Proteus (mirabilis) (morganii) as the cause of diseases classified elsewhere; Z93.1 Gastrostomy status; Z93.0 Tracheostomy status; Z93.50 Unspecified cystostomy status
CPT/HCPCS: 36415; 36569; 36600; 71045; 76937; 80048; 80053; 81001; 81003; 82565; 82803; 83036; 83605; 83735; 84443; 84484; 84520; 85025; 85610; 85730; 87040-91; 87070; 87081; 87086; 89220; 92610; 93005; 93306; 94002; 94003; 94640; 99285-25

== ENCOUNTER 2019-01-02 12:02 | Inpatient (IN) | payer MEDICARE ==
[2019-01-02] MEDS ORDERED: NORepinephrine 8MG/250 ML (PMX 250 ML IV (12:17)
[2019-01-02 12:34] LABS: ADD MAN DIFF? NO
[2019-01-02 12:36] LABS: WHITE BLOOD COUNT 9.9 10^3/ul (4.8-10.8)
[2019-01-02 12:36] LABS: ABNORMAL IP MESSAGE 1; BASOPHILS % 0.1 % (0.0-2.0); HEMATOCRIT 28.1 % (42.0-52.0); HEMOGLOBIN 8.3 g/dl (14.0-18.0); LYMPHOCYTES # 0.6 10^3/ul (0.8-2.9); LYMPHOCYTES % 6.1 % (15.0-51.0); MEAN CORPUSCULAR HEMOGLOBIN 27.8 pg (29.0-33.0); MEAN CORPUSCULAR HGB CONC 29.5 g/dl (32.0-37.0); MEAN PLATELET VOLUME 13.8 fl (7.4-10.4); MONOCYTE # 0.7 10^3/ul (0.3-0.9); NEUTROPHIL # 8.5 10^3/ul (1.6-7.5); NEUTROPHILS % 86.3 % (39.0-77.0); PLATELET COUNT 111 10^3/UL (140-415); POSITIVE DIFF @See below; RED BLOOD COUNT 2.99 10^6/ul (4.70-6.10); RED CELL DISTRIBUTION WIDTH 18.4 % (11.5-14.5)
[2019-01-02 12:55] LABS: ALANINE AMINOTRANSFERASE 19 IU/L (13-69); ALBUMIN 2.9 g/dl (3.3-4.9); ALKALINE PHOSPHATASE 67 IU/L (42-121); ANION GAP 17 (5-13); ASPARTATE AMINO TRANSFERASE 22 IU/L (15-46); BILIRUBIN,INDIRECT 0.2 mg/dl (0-1.1); BILIRUBIN,TOTAL 0.2 mg/dl (0.2-1.3); CALCIUM 6.9 mg/dl (8.4-10.2); CARBON DIOXIDE 31 mmol/L (21-31); CHLORIDE 88 mmol/L (97-110); CREATININE 5.69 mg/dl (0.61-1.24); Estimated GFR 11 mL/min (>60); GLUCOSE 115 mg/dl (70-220); POTASSIUM 4.6 mmol/L (3.5-5.1); SODIUM 136 mmol/L (135-144); TOTAL PROTEIN 6.5 g/dl (6.1-8.1)
[2019-01-02 13:02] LABS: INR 1.21; PROTIME 15.4 Sec (11.9-14.9); PT RATIO 1.2
[2019-01-02 13:03] LABS: PARTIAL THROMBOPLASTIN TIME 37.4 Sec (23.0-35.0)
[2019-01-02 13:04] LABS: BLOOD UREA NITROGEN 216 mg/dl (7-20)
[2019-01-02 13:06] LABS: TROPONIN-I < 0.012 ng/ml (0.000-0.120)
[2019-01-02] MEDS: SODIUM CHLORIDE 0.9% 1L BAG IV* (13:13)
[2019-01-02] MEDS: ACETAMINOPHEN 650MG/20.3ML CUP NGT (13:14)
[2019-01-02] MEDS: CEFEPIME 2GM/50 ML (PMX) 50 ML IVPB (13:14)
[2019-01-02 13:55] LABS: ADD UMIC YES; UR AMORPHOUS CRYSTAL MANY /HPF (NONE SEEN); UR ASCORBIC ACID 20 mg/dL (NEGATIVE); UR BILIRUBIN (Dip) NEGATIVE (NEGATIVE); UR BLOOD (Dip) 1+ mg/dL (NEGATIVE); UR CLARITY CLOUDY (CLEAR); UR COLOR AMBER (YELLOW); UR GLUCOSE (Dip) NEGATIVE (NEGATIVE); UR KETONES (Dip) NEGATIVE (NEGATIVE); UR LEUKOCYTE ESTERASE (Dip) 3+ Leu/ul (NEGATIVE); UR NITRITE (Dip) NEGATIVE (NEGATIVE); UR RBC 0 /HPF (0-5); UR SPECIFIC GRAVITY (Dip) 1.018 (1.003-1.030); UR TOTAL PROTEIN (Dip) 2+ mg/dl (NEGATIVE); UR UROBILINOGEN (Dip) NEGATIVE (NEGATIVE); UR WBC 0 /HPF (0-5)
[2019-01-02] MEDS: VANCOMYCIN 1 GM (PMX) 250 ML IVPB (13:59)
[2019-01-02 14:45] LABS: LACTIC ACID 0.8 mmol/L (0.5-2.0)
[2019-01-02 16:59] LABS: LACTIC ACID 0.6 mmol/L (0.5-2.0)
[2019-01-02] MEDS: NORepinephrine 8MG/250 ML (PMX 250 ML IV (17:30)
[2019-01-02] MEDS ORDERED: VANCOMYCIN IV PER PHARMACY XX (18:30)
[2019-01-02] MEDS ORDERED: NACL 0.9% 3 ML SYG IV (18:30)
[2019-01-02] MEDS ORDERED: HYDROCODONE/APAP (5/325) TAB PO (18:30)
[2019-01-02] MEDS ORDERED: HYDROmorphONE 0.5 MG/0.5 ML SYG IV (18:30)
[2019-01-02] MEDS ORDERED: DOCUSATE SODIUM 100 MG CAP PO (18:30)
[2019-01-02] MEDS ORDERED: ACETAMINOPHEN 650MG/20.3ML CUP PO (18:30)
[2019-01-02] MEDS: SOD CHLORIDE 0.9% 1,000 ML IV ×2 (18:33→18:50)
[2019-01-02] MEDS: ALBUMIN HUMAN 25% 100 ML IV (18:47)
[2019-01-02] MEDS: FAMOTIDINE 20 MG TAB PO (18:52)
[2019-01-02 18:54] LABS: ADD MAN DIFF? NO
[2019-01-02 19:02] LABS: ABNORMAL IP MESSAGE 1; BASOPHILS % 0.1 % (0.0-2.0); HEMATOCRIT 31.4 % (42.0-52.0); HEMOGLOBIN 9.3 g/dl (14.0-18.0); LYMPHOCYTES # 0.7 10^3/ul (0.8-2.9); LYMPHOCYTES % 5.6 % (15.0-51.0); MEAN CORPUSCULAR HEMOGLOBIN 27.6 pg (29.0-33.0); MEAN CORPUSCULAR HGB CONC 29.6 g/dl (32.0-37.0); MEAN CORPUSCULAR VOLUME 93.2 fl (82.0-101.0); MONOCYTE # 0.9 10^3/ul (0.3-0.9); MONOCYTES % 6.6 % (0.0-11.0); NEUTROPHIL # 11.4 10^3/ul (1.6-7.5); NEUTROPHILS % 87.1 % (39.0-77.0); PLATELET COUNT 124 10^3/UL (140-415); POSITIVE DIFF @See below; RED BLOOD COUNT 3.37 10^6/ul (4.70-6.10); RED CELL DISTRIBUTION WIDTH 18.5 % (11.5-14.5)
[2019-01-02 19:02] LABS: WHITE BLOOD COUNT 13.1 10^3/ul (4.8-10.8)
[2019-01-02 19:23] LABS: ANION GAP 18 (5-13); CALCIUM 6.6 mg/dl (8.4-10.2); CARBON DIOXIDE 25 mmol/L (21-31); CHLORIDE 93 mmol/L (97-110); CREATININE 5.12 mg/dl (0.61-1.24); Estimated GFR 13 mL/min (>60); GLUCOSE 112 mg/dl (70-220); MAGNESIUM 4.4 mg/dl (1.7-2.5); POTASSIUM 4.4 mmol/L (3.5-5.1); SODIUM 136 mmol/L (135-144)
[2019-01-02 19:31] LABS: BLOOD UREA NITROGEN 212 mg/dl (7-20)
[2019-01-02] MEDS: LIDOCAINE 1% (MPF) 5 ML VIAL SC (20:00)
[2019-01-02] MEDS ORDERED: FAMOTIDINE 20 MG TAB PO (21:00)
[2019-01-02] MEDS: LEVETIRACETAM (100 MG/ML PO SYG) GTB (21:29)
[2019-01-02] MEDS: DOCUSATE SODIUM 100 MG CAP PO (21:30)
[2019-01-02] MEDS: QUETIAPINE 25 MG TAB GTB (21:30)
[2019-01-02] MEDS: HEPARIN 5,000 UNIT/1 ML VIAL SC (21:32)
[2019-01-03] MEDS: ALBUMIN HUMAN 25% 100 ML IV ×3 (01:37→18:37)
[2019-01-03] MEDS: SOD CHLORIDE 0.9% 1,000 ML IV ×3 (01:37→17:15)
[2019-01-03] MEDS: NORepinephrine 8MG/250 ML (PMX 250 ML IV ×2 (04:42→19:36)
[2019-01-03] MEDS: LEVETIRACETAM (100 MG/ML PO SYG) GTB ×2 (05:55→18:37)
[2019-01-03] MEDS: HYDROmorphONE 0.5 MG/0.5 ML SYG IV ×4 (08:41→22:42)
[2019-01-03] MEDS: ZINC SULFATE 220 MG CAP GTB (09:11)
[2019-01-03] MEDS: QUETIAPINE 25 MG TAB GTB ×2 (09:11→21:20)
[2019-01-03] MEDS: BISACODYL 10 MG SUPP PR (09:11)
[2019-01-03] MEDS: MULTIVITAMINS THERAPEUTIC TAB GTB (09:11)
[2019-01-03] MEDS: HEPARIN 5,000 UNIT/1 ML VIAL SC ×2 (09:12→21:55)
[2019-01-03 10:55] LABS: Allen Test ACCEPTAB; Arterial Base Excess -2.2 mmol/L (-3.0-3); Arterial Blood Gas Oxygen Sat 94.2 mmHG (95.0-98.0); Arterial COHb 0.5 % (0.0-3.0); Arterial Fraction of Oxyhgb 93.3 % (93.0-99.0); Arterial HCO3 21.4 mmol/L (22.0-26.0); Arterial MetHb 0.5 % (0.0-1.5); Arterial pCO2 33.2 mmhg (35-45); MODE VENT - AC; Site Right Radial
[2019-01-03] MEDS: ACETAMINOPHEN 650MG/20.3ML CUP GTB (10:58)
[2019-01-03] MEDS: HYDROCODONE/APAP (5/325) TAB GTB (12:57)
[2019-01-03] MEDS: CEFEPIME 1GM/50 ML (PMX) 50 ML IVPB (12:57)
[2019-01-03] MEDS: MEROPENEM 500MG/50 ML (PMX) 50 ML IVPB ×2 (14:44→21:19)
[2019-01-03] MEDS: FLUCONAZOLE 100 MG/50 ML (PMX) 50 ML IVPB (15:12)
[2019-01-03] MEDS: DOCUSATE SODIUM 10 MG/ML (10ML CUP) GTB (21:19)
[2019-01-03] MEDS: FAMOTIDINE 20 MG TAB GTB (21:20)
[2019-01-03] MEDS: LINEZOLID 600 MG/300 ML (PMX) 300 ML IVPB (21:20)
[2019-01-04] MEDS: HYDROCODONE/APAP (5/325) TAB GTB ×2 (01:18→13:44)
[2019-01-04] MEDS: SOD CHLORIDE 0.9% 1,000 ML IV ×3 (01:24→18:23)
[2019-01-04] MEDS: ALBUMIN HUMAN 25% 100 ML IV ×2 (02:22→11:05)
[2019-01-04] MEDS: HYDROmorphONE 0.5 MG/0.5 ML SYG IV ×6 (02:27→22:52)
[2019-01-04] MEDS: IPRATROPIUM (NEB) 0.5 MG/2.5 ML AMP NEB (03:25)
[2019-01-04] MEDS: ALBUTEROL 0.083% (NEB) 2.5 MG/3 ML AMP NEB ×2 (03:25→23:05)
[2019-01-04 05:04] LABS: ADD MAN DIFF? NO
[2019-01-04 05:08] LABS: ABNORMAL IP MESSAGE 1; BASOPHIL # 0.1 10^3/ul (0.0-0.1); BASOPHILS % 0.5 % (0.0-2.0); EOSINOPHILS % 0.3 % (0.0-7.0); HEMATOCRIT 28.2 % (42.0-52.0); HEMOGLOBIN 7.8 g/dl (14.0-18.0); LYMPHOCYTES # 0.5 10^3/ul (0.8-2.9); LYMPHOCYTES % 4.7 % (15.0-51.0); MEAN CORPUSCULAR HEMOGLOBIN 27.2 pg (29.0-33.0); MEAN CORPUSCULAR HGB CONC 27.7 g/dl (32.0-37.0); MEAN CORPUSCULAR VOLUME 98.3 fl (82.0-101.0); MONOCYTE # 0.7 10^3/ul (0.3-0.9); MONOCYTES % 5.9 % (0.0-11.0); NEUTROPHIL # 9.9 10^3/ul (1.6-7.5); NEUTROPHILS % 86.7 % (39.0-77.0); PLATELET COUNT 123 10^3/UL (140-415); POSITIVE DIFF @See below; RED BLOOD COUNT 2.87 10^6/ul (4.70-6.10); RED CELL DISTRIBUTION WIDTH 18.3 % (11.5-14.5)
[2019-01-04 05:08] LABS: WHITE BLOOD COUNT 11.4 10^3/ul (4.8-10.8)
[2019-01-04 05:36] LABS: ANION GAP 18 (5-13); CALCIUM 7.6 mg/dl (8.4-10.2); CARBON DIOXIDE 18 mmol/L (21-31); CHLORIDE 107 mmol/L (97-110); CREATININE 4.26 mg/dl (0.61-1.24); Estimated GFR 15 mL/min (>60); GLUCOSE 110 mg/dl (70-220); POTASSIUM 3.9 mmol/L (3.5-5.1); SODIUM 143 mmol/L (135-144)
[2019-01-04 05:52] LABS: BLOOD UREA NITROGEN 169 mg/dl (7-20)
[2019-01-04] MEDS: LEVETIRACETAM (100 MG/ML PO SYG) GTB (06:11)
[2019-01-04] MEDS: QUETIAPINE 25 MG TAB GTB ×2 (08:34→21:59)
[2019-01-04] MEDS: MULTIVITAMINS THERAPEUTIC TAB GTB (08:34)
[2019-01-04] MEDS: BISACODYL 10 MG SUPP PR (08:34)
[2019-01-04] MEDS: ZINC SULFATE 220 MG CAP GTB (08:34)
[2019-01-04] MEDS: NORepinephrine 8MG/250 ML (PMX 250 ML IV ×2 (08:36→18:23)
[2019-01-04] MEDS: HEPARIN 5,000 UNIT/1 ML VIAL SC ×2 (08:36→22:08)
[2019-01-04] MEDS: MEROPENEM 500MG/50 ML (PMX) 50 ML IVPB (08:37)
[2019-01-04] MEDS: LINEZOLID 600 MG/300 ML (PMX) 300 ML IVPB ×2 (08:37→21:00)
[2019-01-04] MEDS ORDERED: GENTAMICIN IV PER PHARMACY XX (14:00)
[2019-01-04] MEDS: FLUCONAZOLE 100 MG/50 ML (PMX) 50 ML IVPB (15:02)
[2019-01-04] MEDS: GENTAMICIN 180 MG in SOD CHLORIDE 0.9% 100 ML IVPB (16:12)
[2019-01-04] MEDS: FAMOTIDINE 20 MG TAB GTB (18:23)
[2019-01-04] MEDS: ACETAMINOPHEN 650MG/20.3ML CUP GTB (21:59)
[2019-01-04] MEDS: LEVETIRACETAM (100 MG/ML) 5ML CUP GTB (21:59)
[2019-01-04] MEDS: DOCUSATE SODIUM 10 MG/ML (10ML CUP) GTB (21:59)
[2019-01-05] MEDS: HYDROCODONE/APAP (5/325) TAB GTB ×3 (01:51→22:50)
[2019-01-05] MEDS: SOD CHLORIDE 0.9% 1,000 ML IV ×2 (03:00→11:05)
[2019-01-05] MEDS: HYDROmorphONE 0.5 MG/0.5 ML SYG IV ×5 (03:54→19:52)
[2019-01-05] MEDS: NORepinephrine 8MG/250 ML (PMX 250 ML IV ×2 (04:55→17:52)
[2019-01-05] MEDS: LEVETIRACETAM (100 MG/ML) 5ML CUP GTB ×2 (09:52→20:56)
[2019-01-05] MEDS: LINEZOLID 600 MG/300 ML (PMX) 300 ML IVPB ×2 (09:55→21:04)
[2019-01-05] MEDS: MULTIVITAMINS THERAPEUTIC TAB GTB (09:55)
[2019-01-05] MEDS: ZINC SULFATE 220 MG CAP GTB (09:55)
[2019-01-05] MEDS: BISACODYL 10 MG SUPP PR (09:55)
[2019-01-05] MEDS: QUETIAPINE 25 MG TAB GTB ×2 (09:55→20:56)
[2019-01-05] MEDS: HEPARIN 5,000 UNIT/1 ML VIAL SC ×2 (10:29→20:59)
[2019-01-05] MEDS: metroNIDAZOLE 500 MG TAB PO ×2 (14:58→22:50)
[2019-01-05] MEDS: FLUCONAZOLE 100 MG/50 ML (PMX) 50 ML IVPB (14:59)
[2019-01-05] MEDS: FAMOTIDINE 20 MG TAB GTB (19:51)
[2019-01-05] MEDS: MUPIROCIN 2% 22 GM OINT TOP (20:55)
[2019-01-05] MEDS: DOCUSATE SODIUM 10 MG/ML (10ML CUP) GTB (21:00)
[2019-01-06] MEDS: HYDROmorphONE 0.5 MG/0.5 ML SYG IV ×6 (01:24→23:04)
[2019-01-06 05:13] LABS: ADD MAN DIFF? NO
[2019-01-06 05:23] LABS: WHITE BLOOD COUNT 4.4 10^3/ul (4.8-10.8)
[2019-01-06 05:23] LABS: ABNORMAL IP MESSAGE 1; BASOPHILS % 0.2 % (0.0-2.0); EOSINOPHILS # 0.2 10^3/ul (0.0-0.5); EOSINOPHILS % 4.1 % (0.0-7.0); HEMATOCRIT 25.8 % (42.0-52.0); HEMOGLOBIN 7.2 g/dl (14.0-18.0); LYMPHOCYTES # 0.5 10^3/ul (0.8-2.9); LYMPHOCYTES % 10.3 % (15.0-51.0); MEAN CORPUSCULAR HEMOGLOBIN 27.7 pg (29.0-33.0); MEAN CORPUSCULAR HGB CONC 27.9 g/dl (32.0-37.0); MEAN CORPUSCULAR VOLUME 99.2 fl (82.0-101.0); MONOCYTE # 0.4 10^3/ul (0.3-0.9); MONOCYTES % 8.3 % (0.0-11.0); NEUTROPHIL # 3.3 10^3/ul (1.6-7.5); NEUTROPHILS % 76.2 % (39.0-77.0); PLATELET COUNT 98 10^3/UL (140-415); POSITIVE DIFF @See below; RED CELL DISTRIBUTION WIDTH 18.5 % (11.5-14.5)
[2019-01-06] MEDS: metroNIDAZOLE 500 MG TAB PO ×3 (05:35→21:55)
[2019-01-06 05:42] LABS: ANION GAP 11 (5-13); BLOOD UREA NITROGEN 114 mg/dl (7-20); CALCIUM 7.6 mg/dl (8.4-10.2); CARBON DIOXIDE 19 mmol/L (21-31); CHLORIDE 118 mmol/L (97-110); CREATININE 2.51 mg/dl (0.61-1.24); Estimated GFR 28 mL/min (>60); GLUCOSE 99 mg/dl (70-220); POTASSIUM 3.1 mmol/L (3.5-5.1); SODIUM 148 mmol/L (135-144)
[2019-01-06] MEDS: BISACODYL 10 MG SUPP PR (09:00)
[2019-01-06] MEDS: COLLAGENASE 5 GM (UD JAR) TOP ×2 (09:00→20:39)
[2019-01-06] MEDS: DAKINS 0.0125%(1/40) 473 ML SOLUTION TP ×2 (09:00→20:40)
[2019-01-06] MEDS: MUPIROCIN 2% 22 GM OINT TOP ×2 (09:00→20:41)
[2019-01-06] MEDS: LEVETIRACETAM (100 MG/ML) 5ML CUP GTB ×2 (09:25→20:39)
[2019-01-06] MEDS: BALSAM PERU/CASTOR OIL 60 GM TUBE TOP ×2 (09:26→21:55)
[2019-01-06] MEDS: QUETIAPINE 25 MG TAB GTB ×2 (09:26→20:39)
[2019-01-06] MEDS: MULTIVITAMINS THERAPEUTIC TAB GTB (09:26)
[2019-01-06] MEDS: ZINC SULFATE 220 MG CAP GTB (09:26)
[2019-01-06] MEDS: LINEZOLID 600 MG/300 ML (PMX) 300 ML IVPB ×2 (09:26→23:31)
[2019-01-06] MEDS: HEPARIN 5,000 UNIT/1 ML VIAL SC ×2 (09:50→20:43)
[2019-01-06] MEDS: FAMOTIDINE 20 MG TAB GTB (19:58)
[2019-01-06] MEDS: DOCUSATE SODIUM 10 MG/ML (10ML CUP) GTB (20:45)
[2019-01-07] MEDS: HYDROmorphONE 0.5 MG/0.5 ML SYG IV ×4 (03:34→21:25)
[2019-01-07] MEDS: HYDROCODONE/APAP (5/325) TAB GTB ×2 (04:34→11:57)
[2019-01-07] MEDS: metroNIDAZOLE 500 MG TAB PO ×3 (05:33→21:26)
[2019-01-07 05:53] LABS: ADD MAN DIFF? NO
[2019-01-07 06:15] LABS: WHITE BLOOD COUNT 5.3 10^3/ul (4.8-10.8)
[2019-01-07 06:15] LABS: ABNORMAL IP MESSAGE 1; BASOPHILS % 0.4 % (0.0-2.0); EOSINOPHILS # 0.2 10^3/ul (0.0-0.5); EOSINOPHILS % 3.2 % (0.0-7.0); HEMATOCRIT 27.8 % (42.0-52.0); HEMOGLOBIN 7.5 g/dl (14.0-18.0); LYMPHOCYTES # 0.4 10^3/ul (0.8-2.9); LYMPHOCYTES % 6.6 % (15.0-51.0); MEAN CORPUSCULAR HEMOGLOBIN 27.6 pg (29.0-33.0); MEAN CORPUSCULAR VOLUME 102.2 fl (82.0-101.0); MONOCYTE # 0.2 10^3/ul (0.3-0.9); MONOCYTES % 4.5 % (0.0-11.0); NEUTROPHIL # 4.5 10^3/ul (1.6-7.5); NEUTROPHILS % 84.9 % (39.0-77.0); PLATELET COUNT 114 10^3/UL (140-415); POSITIVE DIFF @See below; RED BLOOD COUNT 2.72 10^6/ul (4.70-6.10); RED CELL DISTRIBUTION WIDTH 18.5 % (11.5-14.5)
[2019-01-07 07:04] LABS: ANION GAP 9 (5-13); BLOOD UREA NITROGEN 103 mg/dl (7-20); CALCIUM 7.9 mg/dl (8.4-10.2); CARBON DIOXIDE 21 mmol/L (21-31); CHLORIDE 119 mmol/L (97-110); CREATININE 2.19 mg/dl (0.61-1.24); Estimated GFR 33 mL/min (>60); GLUCOSE 90 mg/dl (70-220); POTASSIUM 3.7 mmol/L (3.5-5.1); SODIUM 149 mmol/L (135-144)
[2019-01-07] MEDS: ONDANSETRON 4 MG INJ IV ×2 (07:51→21:38)
[2019-01-07] MEDS: BISACODYL 10 MG SUPP PR (08:29)
[2019-01-07] MEDS: QUETIAPINE 25 MG TAB GTB ×2 (08:46→21:26)
[2019-01-07] MEDS: LEVETIRACETAM (100 MG/ML) 5ML CUP GTB ×2 (08:46→21:25)
[2019-01-07] MEDS: LINEZOLID 600 MG/300 ML (PMX) 300 ML IVPB ×2 (08:46→21:26)
[2019-01-07] MEDS: ZINC SULFATE 220 MG CAP GTB (08:46)
[2019-01-07] MEDS: MULTIVITAMINS THERAPEUTIC TAB GTB (08:46)
[2019-01-07] MEDS: MUPIROCIN 2% 22 GM OINT TOP ×2 (08:47→21:27)
[2019-01-07] MEDS: BALSAM PERU/CASTOR OIL 60 GM TUBE TOP ×2 (08:47→21:26)
[2019-01-07] MEDS: COLLAGENASE 5 GM (UD JAR) TOP ×2 (08:47→21:26)
[2019-01-07] MEDS: DAKINS 0.0125%(1/40) 473 ML SOLUTION TP ×2 (08:48→21:27)
[2019-01-07] MEDS: HEPARIN 5,000 UNIT/1 ML VIAL SC (08:50)
[2019-01-07 14:52] LABS: ADD MAN DIFF? NO
[2019-01-07 14:54] LABS: ABNORMAL IP MESSAGE 1; BASOPHILS % 0.1 % (0.0-2.0); HEMATOCRIT 26.4 % (42.0-52.0); HEMOGLOBIN 7.2 g/dl (14.0-18.0); LYMPHOCYTES # 0.1 10^3/ul (0.8-2.9); LYMPHOCYTES % 1.4 % (15.0-51.0); MEAN CORPUSCULAR HEMOGLOBIN 27.6 pg (29.0-33.0); MEAN CORPUSCULAR HGB CONC 27.3 g/dl (32.0-37.0); MEAN CORPUSCULAR VOLUME 101.1 fl (82.0-101.0); MEAN PLATELET VOLUME 14.7 fl (7.4-10.4); MONOCYTE # 0.3 10^3/ul (0.3-0.9); MONOCYTES % 4.2 % (0.0-11.0); NEUTROPHIL # 7.3 10^3/ul (1.6-7.5); PLATELET COUNT 101 10^3/UL (140-415); POSITIVE DIFF @See below; RED BLOOD COUNT 2.61 10^6/ul (4.70-6.10); RED CELL DISTRIBUTION WIDTH 18.7 % (11.5-14.5)
[2019-01-07 14:54] LABS: WHITE BLOOD COUNT 7.9 10^3/ul (4.8-10.8)
[2019-01-07] MEDS: GENTAMICIN 180 MG in SOD CHLORIDE 0.9% 100 ML IVPB (15:05)
[2019-01-07] MEDS: FAMOTIDINE 20 MG TAB GTB (16:58)
[2019-01-07] MEDS ORDERED: NORepinephrine 8MG/250 ML (PMX 250 ML IV (17:30)
[2019-01-07] MEDS: SOD CHLORIDE 0.9% 250 ML IV* (18:16)
[2019-01-07] MEDS: DEXTROSE 5% 1,000 ML IV (18:29)
[2019-01-07] MEDS: EPOETIN ALFA-EPBX (NON-ESRD 10,000 UNIT/ML VIAL SC (19:43)
[2019-01-07] MEDS: FAMOTIDINE 20 MG INJ IV (21:25)
[2019-01-07] MEDS: ACETAMINOPHEN 650MG/20.3ML CUP GTB (21:26)
[2019-01-07] MEDS: DOCUSATE SODIUM 10 MG/ML (10ML CUP) GTB (21:26)
[2019-01-08] MEDS: HYDROmorphONE 0.5 MG/0.5 ML SYG IV ×4 (03:28→23:27)
[2019-01-08] MEDS: DEXTROSE 5% 1,000 ML IV ×2 (03:30→13:41)
[2019-01-08 05:08] LABS: ADD MAN DIFF? NO
[2019-01-08 05:11] LABS: ABNORMAL IP MESSAGE 1; BASOPHILS % 0.2 % (0.0-2.0); HEMATOCRIT 25.4 % (42.0-52.0); LYMPHOCYTES # 0.4 10^3/ul (0.8-2.9); LYMPHOCYTES % 5.9 % (15.0-51.0); MEAN CORPUSCULAR HEMOGLOBIN 27.3 pg (29.0-33.0); MEAN CORPUSCULAR HGB CONC 26.8 g/dl (32.0-37.0); MEAN PLATELET VOLUME 14.9 fl (7.4-10.4); MONOCYTE # 0.4 10^3/ul (0.3-0.9); MONOCYTES % 6.3 % (0.0-11.0); NEUTROPHIL # 5.5 10^3/ul (1.6-7.5); NEUTROPHILS % 87.3 % (39.0-77.0); PLATELET COUNT 97 10^3/UL (140-415); POSITIVE DIFF @See below; RED BLOOD COUNT 2.49 10^6/ul (4.70-6.10)
[2019-01-08 05:11] LABS: WHITE BLOOD COUNT 6.3 10^3/ul (4.8-10.8)
[2019-01-08 05:20] LABS: HEMOGLOBIN 6.8 g/dl (14.0-18.0)
[2019-01-08 05:32] LABS: ANION GAP 11 (5-13); BLOOD UREA NITROGEN 103 mg/dl (7-20); CALCIUM 8.3 mg/dl (8.4-10.2); CARBON DIOXIDE 21 mmol/L (21-31); CHLORIDE 115 mmol/L (97-110); CREATININE 2.24 mg/dl (0.61-1.24); Estimated GFR 32 mL/min (>60); GLUCOSE 113 mg/dl (70-220); POTASSIUM 3.3 mmol/L (3.5-5.1); SODIUM 147 mmol/L (135-144)
[2019-01-08] MEDS: metroNIDAZOLE 500 MG TAB PO ×3 (06:31→21:09)
[2019-01-08 07:53] LABS: ANISOCYTOSIS 2+ (0-0); BAND NEUTROPHILS #M 0.4 10^3/ul (0.0-0.6); BAND NEUTROPHILS % (M) 7 % (0-4); HYPOCHROMASIA 1+ (0-0); LYMPHOCYTES #M 0.5 10^3/ul (0.8-2.9); LYMPHOCYTES % (M) 8 % (15-51); MICROCYTOSIS 1+ (0-0); MONOCYTE #M 0.1 10^3/ul (0.3-0.9); MONOCYTES % (M) 2 % (0-11); MYELOCYTES #M 0.1 10^3/ul (0.0-0.0); MYELOCYTES % (M) 2 % (0-0); OVALOCYTES 1+ (0-0); PLATELET ESTIMATE DECREASED; POIKILOCYTOSIS 1+ (0-0); POLYCHROMASIA 1+ (0-0); SEG NEUT #M 5.1 10^3/ul (1.6-7.5); SEGMENTED NEUTROPHILS (M) % 81 % (39-77); SMUDGE%M 2 % (0-0)
[2019-01-08] MEDS: BISACODYL 10 MG SUPP PR ×2 (09:00→09:28)
[2019-01-08] MEDS: LINEZOLID 600 MG/300 ML (PMX) 300 ML IVPB (09:26)
[2019-01-08] MEDS: COLLAGENASE 5 GM (UD JAR) TOP ×2 (09:28→21:09)
[2019-01-08] MEDS: LEVETIRACETAM (100 MG/ML) 5ML CUP GTB ×2 (09:28→21:08)
[2019-01-08] MEDS: METOCLOPRAMIDE 10 MG INJ IV ×3 (09:28→21:08)
[2019-01-08] MEDS: QUETIAPINE 25 MG TAB GTB ×2 (09:29→21:08)
[2019-01-08] MEDS: MULTIVITAMINS THERAPEUTIC TAB GTB (09:29)
[2019-01-08] MEDS: ZINC SULFATE 220 MG CAP GTB (09:29)
[2019-01-08] MEDS: HYDROCODONE/APAP (5/325) TAB GTB ×3 (09:30→21:09)
[2019-01-08] MEDS: DAKINS 0.0125%(1/40) 473 ML SOLUTION TP ×2 (09:30→21:10)
[2019-01-08] MEDS: BALSAM PERU/CASTOR OIL 60 GM TUBE TOP ×2 (09:31→21:09)
[2019-01-08] MEDS: FAMOTIDINE 20 MG INJ IV ×2 (09:48→21:38)
[2019-01-08 10:09] LABS: RETICULOCYTE RBC 2.43
[2019-01-08 10:09] LABS: RETICULOCYTE COUNT # 0.048 X10^6 (0.020-0.110)
[2019-01-08 10:51] LABS: IRON < 10 ug/dl (35-150)
[2019-01-08 10:58] LABS: TOTAL IRON BINDING CAPACITY 122 ug/dl (241-421)
[2019-01-08] MEDS: MUPIROCIN 2% 22 GM OINT TOP ×2 (11:49→21:09)
[2019-01-08] MEDS: ACETAMINOPHEN 650MG/20.3ML CUP GTB (12:05)
[2019-01-08 13:04] LABS: FOLATE > 20.0 ng/ml (2.8-20.0)
[2019-01-08 16:07] LABS: AHG CROSSMATCH 1 1
[2019-01-08] MEDS: D5W + KCL 20 MEQ 1,000 ML IV ×2 (16:30→23:26)
[2019-01-08] MEDS: DOCUSATE SODIUM 10 MG/ML (10ML CUP) GTB (21:00)
[2019-01-08 21:14] LABS: ADD MAN DIFF? NO
[2019-01-08 21:15] LABS: ABNORMAL IP MESSAGE 1; BASOPHILS % 0.1 % (0.0-2.0); EOSINOPHILS # 0.1 10^3/ul (0.0-0.5); EOSINOPHILS % 1.2 % (0.0-7.0); HEMATOCRIT 27.9 % (42.0-52.0); HEMOGLOBIN 7.9 g/dl (14.0-18.0); LYMPHOCYTES # 0.2 10^3/ul (0.8-2.9); LYMPHOCYTES % 3.2 % (15.0-51.0); MEAN CORPUSCULAR HEMOGLOBIN 27.9 pg (29.0-33.0); MEAN CORPUSCULAR HGB CONC 28.3 g/dl (32.0-37.0); MEAN CORPUSCULAR VOLUME 98.6 fl (82.0-101.0); MEAN PLATELET VOLUME 14.2 fl (7.4-10.4); MONOCYTE # 0.4 10^3/ul (0.3-0.9); MONOCYTES % 5.4 % (0.0-11.0); NEUTROPHIL # 6.2 10^3/ul (1.6-7.5); NEUTROPHILS % 89.8 % (39.0-77.0); PLATELET COUNT 104 10^3/UL (140-415); POSITIVE DIFF @See below; RED BLOOD COUNT 2.83 10^6/ul (4.70-6.10); RED CELL DISTRIBUTION WIDTH 19.6 % (11.5-14.5)
[2019-01-08 21:15] LABS: WHITE BLOOD COUNT 6.9 10^3/ul (4.8-10.8)
[2019-01-09] MEDS: HYDROmorphONE 0.5 MG/0.5 ML SYG IV ×5 (04:07→22:17)
[2019-01-09 04:48] LABS: ADD MAN DIFF? NO
[2019-01-09 04:50] LABS: WHITE BLOOD COUNT 5.7 10^3/ul (4.8-10.8)
[2019-01-09 04:50] LABS: ABNORMAL IP MESSAGE 1; BASOPHILS % 0.2 % (0.0-2.0); EOSINOPHILS # 0.1 10^3/ul (0.0-0.5); EOSINOPHILS % 1.7 % (0.0-7.0); HEMATOCRIT 28.9 % (42.0-52.0); HEMOGLOBIN 8.1 g/dl (14.0-18.0); LYMPHOCYTES # 0.3 10^3/ul (0.8-2.9); LYMPHOCYTES % 4.5 % (15.0-51.0); MEAN CORPUSCULAR HEMOGLOBIN 27.3 pg (29.0-33.0); MEAN CORPUSCULAR VOLUME 97.3 fl (82.0-101.0); MONOCYTE # 0.4 10^3/ul (0.3-0.9); MONOCYTES % 6.3 % (0.0-11.0); NEUTROPHILS % 87.1 % (39.0-77.0); PLATELET COUNT 109 10^3/UL (140-415); POSITIVE DIFF @See below; RED BLOOD COUNT 2.97 10^6/ul (4.70-6.10); RED CELL DISTRIBUTION WIDTH 20.2 % (11.5-14.5)
[2019-01-09 05:15] LABS: ANION GAP 10 (5-13); BLOOD UREA NITROGEN 89 mg/dl (7-20); CALCIUM 8.3 mg/dl (8.4-10.2); CARBON DIOXIDE 20 mmol/L (21-31); CHLORIDE 113 mmol/L (97-110); CREATININE 2.05 mg/dl (0.61-1.24); Estimated GFR 36 mL/min (>60); GLUCOSE 106 mg/dl (70-220); POTASSIUM 3.6 mmol/L (3.5-5.1); SODIUM 143 mmol/L (135-144)
[2019-01-09] MEDS: metroNIDAZOLE 500 MG TAB PO ×3 (05:59→21:23)
[2019-01-09] MEDS: D5W + KCL 20 MEQ 1,000 ML IV ×2 (08:08→18:36)
[2019-01-09] MEDS: COLLAGENASE 5 GM (UD JAR) TOP ×2 (08:08→21:24)
[2019-01-09] MEDS: BISACODYL 10 MG SUPP PR (08:09)
[2019-01-09] MEDS: MULTIVITAMINS THERAPEUTIC TAB GTB (08:09)
[2019-01-09] MEDS: METOCLOPRAMIDE 10 MG INJ IV ×3 (08:09→21:23)
[2019-01-09] MEDS: MUPIROCIN 2% 22 GM OINT TOP ×2 (08:09→21:24)
[2019-01-09] MEDS: QUETIAPINE 25 MG TAB GTB ×2 (08:09→21:23)
[2019-01-09] MEDS: ZINC SULFATE 220 MG CAP GTB (08:09)
[2019-01-09] MEDS: LEVETIRACETAM (100 MG/ML) 5ML CUP GTB ×2 (08:09→21:23)
[2019-01-09] MEDS: BALSAM PERU/CASTOR OIL 60 GM TUBE TOP ×2 (08:10→21:00)
[2019-01-09] MEDS: DAKINS 0.0125%(1/40) 473 ML SOLUTION TP ×2 (08:10→21:24)
[2019-01-09] MEDS: FAMOTIDINE 20 MG INJ IV ×2 (08:52→21:23)
[2019-01-09] MEDS: HYDROCODONE/APAP (5/325) TAB GTB (14:29)
[2019-01-09] MEDS: EPOETIN ALFA-EPBX (NON-ESRD 10,000 UNIT/ML VIAL SC (17:00)
[2019-01-09] MEDS: DOCUSATE SODIUM 10 MG/ML (10ML CUP) GTB (21:23)
[2019-01-09] MEDS ORDERED: ERYTHROMYCIN BASE (DR) 250 MG CAP PO (22:00)
[2019-01-10] MEDS: HYDROmorphONE 0.5 MG/0.5 ML SYG IV ×5 (02:00→21:24)
[2019-01-10] MEDS: D5W + KCL 20 MEQ 1,000 ML IV ×2 (03:22→09:54)
[2019-01-10] MEDS: metroNIDAZOLE 500 MG TAB PO ×3 (05:49→21:23)
[2019-01-10] MEDS: LEVETIRACETAM (100 MG/ML) 5ML CUP GTB ×2 (09:51→20:14)
[2019-01-10] MEDS: MULTIVITAMINS THERAPEUTIC TAB GTB (09:52)
[2019-01-10] MEDS: METOCLOPRAMIDE 10 MG INJ IV ×3 (09:52→20:14)
[2019-01-10] MEDS: BISACODYL 10 MG SUPP PR (09:52)
[2019-01-10] MEDS: FAMOTIDINE 20 MG INJ IV ×2 (09:52→20:14)
[2019-01-10] MEDS: ZINC SULFATE 220 MG CAP GTB (09:52)
[2019-01-10] MEDS: DAKINS 0.0125%(1/40) 473 ML SOLUTION TP ×2 (09:52→21:31)
[2019-01-10] MEDS: DOCUSATE SODIUM 10 MG/ML (10ML CUP) GTB ×2 (09:52→20:25)
[2019-01-10] MEDS: QUETIAPINE 25 MG TAB GTB ×2 (09:52→20:15)
[2019-01-10] MEDS: COLLAGENASE 5 GM (UD JAR) TOP ×2 (09:53→20:13)
[2019-01-10] MEDS: BALSAM PERU/CASTOR OIL 60 GM TUBE TOP ×2 (09:53→21:31)
[2019-01-10] MEDS: MUPIROCIN 2% 22 GM OINT TOP ×2 (09:53→21:31)
[2019-01-10] MEDS: HYDROCODONE/APAP (5/325) TAB GTB ×2 (13:57→20:15)
[2019-01-10] MEDS: GENTAMICIN 180 MG in SOD CHLORIDE 0.9% 100 ML IVPB (17:16)
[2019-01-11] MEDS: HYDROmorphONE 0.5 MG/0.5 ML SYG IV ×6 (01:24→22:01)
[2019-01-11] MEDS: D5W + KCL 20 MEQ 1,000 ML IV ×2 (03:08→09:25)
[2019-01-11] MEDS: metroNIDAZOLE 500 MG TAB PO ×3 (05:33→21:44)
[2019-01-11 06:20] LABS: ADD MAN DIFF? NO
[2019-01-11 06:23] LABS: ABNORMAL IP MESSAGE 1; BASOPHILS % 0.2 % (0.0-2.0); EOSINOPHILS # 0.1 10^3/ul (0.0-0.5); EOSINOPHILS % 2.2 % (0.0-7.0); HEMATOCRIT 28.8 % (42.0-52.0); HEMOGLOBIN 8.1 g/dl (14.0-18.0); LYMPHOCYTES # 0.2 10^3/ul (0.8-2.9); LYMPHOCYTES % 3.2 % (15.0-51.0); MEAN CORPUSCULAR HEMOGLOBIN 27.3 pg (29.0-33.0); MEAN CORPUSCULAR HGB CONC 28.1 g/dl (32.0-37.0); MEAN PLATELET VOLUME 12.3 fl (7.4-10.4); MONOCYTE # 0.4 10^3/ul (0.3-0.9); MONOCYTES % 6.7 % (0.0-11.0); NEUTROPHIL # 5.2 10^3/ul (1.6-7.5); PLATELET COUNT 118 10^3/UL (140-415); POSITIVE DIFF @See below; RED BLOOD COUNT 2.97 10^6/ul (4.70-6.10); RED CELL DISTRIBUTION WIDTH 18.6 % (11.5-14.5)
[2019-01-11] MEDS: DOCUSATE SODIUM 10 MG/ML (10ML CUP) GTB ×2 (09:25→21:41)
[2019-01-11] MEDS: BISACODYL 10 MG SUPP PR (09:25)
[2019-01-11] MEDS: FAMOTIDINE 20 MG INJ IV ×2 (09:25→21:42)
[2019-01-11] MEDS: MULTIVITAMINS THERAPEUTIC TAB GTB (09:25)
[2019-01-11] MEDS: QUETIAPINE 25 MG TAB GTB ×2 (09:25→21:41)
[2019-01-11] MEDS: METOCLOPRAMIDE 10 MG INJ IV ×3 (09:25→21:42)
[2019-01-11] MEDS: LEVETIRACETAM (100 MG/ML) 5ML CUP GTB ×2 (09:25→21:41)
[2019-01-11] MEDS: ZINC SULFATE 220 MG CAP GTB (09:25)
[2019-01-11] MEDS: MUPIROCIN 2% 22 GM OINT TOP ×2 (09:26→21:43)
[2019-01-11] MEDS: BALSAM PERU/CASTOR OIL 60 GM TUBE TOP ×2 (09:26→21:43)
[2019-01-11] MEDS: DAKINS 0.0125%(1/40) 473 ML SOLUTION TP ×2 (09:26→21:43)
[2019-01-11] MEDS: COLLAGENASE 5 GM (UD JAR) TOP ×2 (09:26→21:43)
[2019-01-11 09:31] LABS: ANION GAP 8 (5-13); BLOOD UREA NITROGEN 62 mg/dl (7-20); CALCIUM 8.3 mg/dl (8.4-10.2); CARBON DIOXIDE 20 mmol/L (21-31); CHLORIDE 114 mmol/L (97-110); CREATININE 1.57 mg/dl (0.61-1.24); Estimated GFR 49 mL/min (>60); GLUCOSE 121 mg/dl (70-220); POTASSIUM 5.2 mmol/L (3.5-5.1); SODIUM 142 mmol/L (135-144)
[2019-01-11] MEDS: HYDROCODONE/APAP (5/325) TAB GTB (13:18)
[2019-01-11] MEDS: EPOETIN ALFA-EPBX (NON-ESRD 10,000 UNIT/ML VIAL SC (17:57)
[2019-01-12] MEDS: HYDROmorphONE 0.5 MG/0.5 ML SYG IV ×5 (02:16→20:13)
[2019-01-12 06:35] LABS: ADD MAN DIFF? NO
[2019-01-12 06:39] LABS: ABNORMAL IP MESSAGE 1; BASOPHILS % 0.3 % (0.0-2.0); EOSINOPHILS # 0.2 10^3/ul (0.0-0.5); EOSINOPHILS % 5.1 % (0.0-7.0); HEMATOCRIT 33.8 % (42.0-52.0); HEMOGLOBIN 9.4 g/dl (14.0-18.0); LYMPHOCYTES # 0.4 10^3/ul (0.8-2.9); LYMPHOCYTES % 12.4 % (15.0-51.0); MEAN CORPUSCULAR HEMOGLOBIN 26.9 pg (29.0-33.0); MEAN CORPUSCULAR HGB CONC 27.8 g/dl (32.0-37.0); MEAN CORPUSCULAR VOLUME 96.8 fl (82.0-101.0); MEAN PLATELET VOLUME 13.2 fl (7.4-10.4); MONOCYTE # 0.5 10^3/ul (0.3-0.9); MONOCYTES % 15.3 % (0.0-11.0); NEUTROPHIL # 2.4 10^3/ul (1.6-7.5); NEUTROPHILS % 66.6 % (39.0-77.0); PLATELET COUNT 160 10^3/UL (140-415); POSITIVE DIFF @See below; RED BLOOD COUNT 3.49 10^6/ul (4.70-6.10); RED CELL DISTRIBUTION WIDTH 18.5 % (11.5-14.5)
[2019-01-12 06:39] LABS: WHITE BLOOD COUNT 3.5 10^3/ul (4.8-10.8)
[2019-01-12] MEDS: metroNIDAZOLE 500 MG TAB PO ×3 (06:48→22:53)
[2019-01-12 06:56] LABS: ANION GAP 11 (5-13); BLOOD UREA NITROGEN 53 mg/dl (7-20); CALCIUM 8.9 mg/dl (8.4-10.2); CARBON DIOXIDE 22 mmol/L (21-31); CHLORIDE 116 mmol/L (97-110); CREATININE 1.49 mg/dl (0.61-1.24); Estimated GFR 52 mL/min (>60); GLUCOSE 99 mg/dl (70-220); POTASSIUM 5.1 mmol/L (3.5-5.1)
[2019-01-12 07:38] LABS: SODIUM 146 mmol/L (135-144)
[2019-01-12] MEDS: BISACODYL 10 MG SUPP PR (09:00)
[2019-01-12] MEDS: QUETIAPINE 25 MG TAB GTB ×2 (09:47→22:53)
[2019-01-12] MEDS: METOCLOPRAMIDE 10 MG INJ IV ×3 (09:48→22:53)
[2019-01-12] MEDS: ZINC SULFATE 220 MG CAP GTB (09:48)
[2019-01-12] MEDS: HYDROCODONE/APAP (5/325) TAB GTB (09:48)
[2019-01-12] MEDS: LEVETIRACETAM (100 MG/ML) 5ML CUP GTB ×2 (09:48→22:53)
[2019-01-12] MEDS: MULTIVITAMINS THERAPEUTIC TAB GTB (09:49)
[2019-01-12] MEDS: DAKINS 0.0125%(1/40) 473 ML SOLUTION TP ×2 (09:49→22:55)
[2019-01-12] MEDS: FAMOTIDINE 20 MG INJ IV ×2 (09:49→22:54)
[2019-01-12] MEDS: MUPIROCIN 2% 22 GM OINT TOP ×2 (09:51→22:54)
[2019-01-12] MEDS: COLLAGENASE 5 GM (UD JAR) TOP ×2 (09:51→22:55)
[2019-01-12] MEDS: BALSAM PERU/CASTOR OIL 60 GM TUBE TOP ×2 (09:51→22:54)
[2019-01-12 10:10] LABS: OCCULT BLOOD STOOL NEGATIVE (NEGATIVE)
[2019-01-12] MEDS: MAGNESIUM CITRATE 300 ML BTL PO (13:00)
[2019-01-12] MEDS: IPRATROPIUM (NEB) 0.5 MG/2.5 ML AMP NEB (17:38)
[2019-01-12] MEDS: ALBUTEROL 0.083% (NEB) 2.5 MG/3 ML AMP NEB (17:38)
[2019-01-12] MEDS: DOCUSATE SODIUM 10 MG/ML (10ML CUP) GTB (22:53)
[2019-01-13] MEDS: HYDROmorphONE 0.5 MG/0.5 ML SYG IV ×6 (00:11→20:16)
[2019-01-13] MEDS: HYDROCODONE/APAP (5/325) TAB GTB ×2 (02:26→10:30)
[2019-01-13] MEDS: metroNIDAZOLE 500 MG TAB PO ×3 (06:17→22:07)
[2019-01-13 06:47] LABS: ADD MAN DIFF? NO
[2019-01-13 06:52] LABS: WHITE BLOOD COUNT 3.5 10^3/ul (4.8-10.8)
[2019-01-13 06:52] LABS: ABNORMAL IP MESSAGE 1; BASOPHILS % 0.6 % (0.0-2.0); EOSINOPHILS # 0.1 10^3/ul (0.0-0.5); EOSINOPHILS % 2.3 % (0.0-7.0); HEMATOCRIT 31.7 % (42.0-52.0); HEMOGLOBIN 8.8 g/dl (14.0-18.0); LYMPHOCYTES # 0.4 10^3/ul (0.8-2.9); LYMPHOCYTES % 12.2 % (15.0-51.0); MEAN CORPUSCULAR HGB CONC 27.8 g/dl (32.0-37.0); MEAN CORPUSCULAR VOLUME 97.2 fl (82.0-101.0); MEAN PLATELET VOLUME 12.7 fl (7.4-10.4); MONOCYTE # 0.5 10^3/ul (0.3-0.9); MONOCYTES % 15.4 % (0.0-11.0); NEUTROPHIL # 2.4 10^3/ul (1.6-7.5); NEUTROPHILS % 69.2 % (39.0-77.0); PLATELET COUNT 157 10^3/UL (140-415); POSITIVE DIFF @See below; RED BLOOD COUNT 3.26 10^6/ul (4.70-6.10); RED CELL DISTRIBUTION WIDTH 18.6 % (11.5-14.5)
[2019-01-13 07:13] LABS: ANION GAP 7 (5-13); BLOOD UREA NITROGEN 49 mg/dl (7-20); CALCIUM 8.9 mg/dl (8.4-10.2); CARBON DIOXIDE 24 mmol/L (21-31); CHLORIDE 120 mmol/L (97-110); CREATININE 1.38 mg/dl (0.61-1.24); Estimated GFR 57 mL/min (>60); GLUCOSE 111 mg/dl (70-220); SODIUM 151 mmol/L (135-144)
[2019-01-13 07:30] LABS: POTASSIUM 4.5 mmol/L (3.5-5.1)
[2019-01-13] MEDS: MULTIVITAMINS THERAPEUTIC TAB GTB (08:35)
[2019-01-13] MEDS: COLLAGENASE 5 GM (UD JAR) TOP ×2 (08:35→20:17)
[2019-01-13] MEDS: ZINC SULFATE 220 MG CAP GTB (08:35)
[2019-01-13] MEDS: BALSAM PERU/CASTOR OIL 60 GM TUBE TOP ×2 (08:35→20:31)
[2019-01-13] MEDS: MUPIROCIN 2% 22 GM OINT TOP ×2 (08:35→20:31)
[2019-01-13] MEDS: LEVETIRACETAM (100 MG/ML) 5ML CUP GTB ×2 (08:35→20:16)
[2019-01-13] MEDS: DAKINS 0.0125%(1/40) 473 ML SOLUTION TP ×2 (08:35→20:31)
[2019-01-13] MEDS: QUETIAPINE 25 MG TAB GTB ×2 (08:36→20:17)
[2019-01-13] MEDS: METOCLOPRAMIDE 10 MG INJ IV ×3 (08:44→20:25)
[2019-01-13] MEDS: FAMOTIDINE 20 MG INJ IV ×2 (08:44→20:25)
[2019-01-13] MEDS: BISACODYL 10 MG SUPP PR (08:45)
[2019-01-13] MEDS: ALBUTEROL 0.083% (NEB) 2.5 MG/3 ML AMP NEB ×2 (13:03→23:00)
[2019-01-13] MEDS: IPRATROPIUM (NEB) 0.5 MG/2.5 ML AMP NEB ×2 (13:03→23:00)
[2019-01-13] MEDS: GENTAMICIN 120 MG/NS (PMX) 100 ML IVPB (17:17)
[2019-01-13] MEDS: DOCUSATE SODIUM 10 MG/ML (10ML CUP) GTB (20:16)
[2019-01-14] MEDS: HYDROmorphONE 0.5 MG/0.5 ML SYG IV ×6 (00:13→21:32)
[2019-01-14] MEDS: metroNIDAZOLE 500 MG TAB PO ×2 (06:19→14:41)
[2019-01-14] MEDS: BISACODYL 10 MG SUPP PR ×2 (09:00→09:15)
[2019-01-14] MEDS: COLLAGENASE 5 GM (UD JAR) TOP ×2 (09:14→21:31)
[2019-01-14] MEDS: BALSAM PERU/CASTOR OIL 60 GM TUBE TOP ×2 (09:14→21:31)
[2019-01-14] MEDS: QUETIAPINE 25 MG TAB GTB ×2 (09:14→21:29)
[2019-01-14] MEDS: ZINC SULFATE 220 MG CAP GTB (09:14)
[2019-01-14] MEDS: LEVETIRACETAM (100 MG/ML) 5ML CUP GTB ×2 (09:14→21:29)
[2019-01-14] MEDS: MULTIVITAMINS THERAPEUTIC TAB GTB (09:14)
[2019-01-14] MEDS: MUPIROCIN 2% 22 GM OINT TOP ×2 (09:15→21:31)
[2019-01-14] MEDS: FAMOTIDINE 20 MG INJ IV ×2 (09:15→21:29)
[2019-01-14] MEDS: METOCLOPRAMIDE 10 MG INJ IV ×3 (09:15→21:29)
[2019-01-14] MEDS: DAKINS 0.0125%(1/40) 473 ML SOLUTION TP ×2 (09:16→21:31)
[2019-01-14 10:07] LABS: ADD MAN DIFF? NO
[2019-01-14 10:08] LABS: ABNORMAL IP MESSAGE 1; BASOPHILS % 0.3 % (0.0-2.0); EOSINOPHILS # 0.1 10^3/ul (0.0-0.5); EOSINOPHILS % 2.5 % (0.0-7.0); HEMOGLOBIN 9.7 g/dl (14.0-18.0); LYMPHOCYTES # 0.5 10^3/ul (0.8-2.9); LYMPHOCYTES % 13.8 % (15.0-51.0); MEAN CORPUSCULAR HEMOGLOBIN 27.4 pg (29.0-33.0); MEAN CORPUSCULAR HGB CONC 27.7 g/dl (32.0-37.0); MEAN CORPUSCULAR VOLUME 98.9 fl (82.0-101.0); MEAN PLATELET VOLUME 11.5 fl (7.4-10.4); MONOCYTE # 0.5 10^3/ul (0.3-0.9); MONOCYTES % 13.2 % (0.0-11.0); NEUTROPHIL # 2.5 10^3/ul (1.6-7.5); NEUTROPHILS % 69.9 % (39.0-77.0); PLATELET COUNT 150 10^3/UL (140-415); POSITIVE DIFF @See below; RED BLOOD COUNT 3.54 10^6/ul (4.70-6.10); RED CELL DISTRIBUTION WIDTH 18.8 % (11.5-14.5)
[2019-01-14 10:08] LABS: WHITE BLOOD COUNT 3.6 10^3/ul (4.8-10.8)
[2019-01-14 10:25] LABS: ANION GAP 11 (5-13); BLOOD UREA NITROGEN 45 mg/dl (7-20); CALCIUM 9.2 mg/dl (8.4-10.2); CARBON DIOXIDE 22 mmol/L (21-31); CHLORIDE 122 mmol/L (97-110); Estimated GFR > 60 mL/min (>60); GLUCOSE 110 mg/dl (70-220); SODIUM 155 mmol/L (135-144)
[2019-01-14] MEDS: ALBUTEROL 0.083% (NEB) 2.5 MG/3 ML AMP NEB (13:48)
[2019-01-14] MEDS: IPRATROPIUM (NEB) 0.5 MG/2.5 ML AMP NEB (13:48)
[2019-01-14] MEDS: EPOETIN ALFA-EPBX (NON-ESRD 10,000 UNIT/ML VIAL SC (17:16)
[2019-01-14] MEDS: DEXTROSE 5% 1,000 ML IV (17:41)
[2019-01-14] MEDS: HYDROCODONE/APAP (5/325) TAB GTB (19:57)
[2019-01-14] MEDS: DOCUSATE SODIUM 10 MG/ML (10ML CUP) GTB (21:29)
[2019-01-14] MEDS: LUBIPROSTONE 24 MCG CAP PO (21:30)
[2019-01-15] MEDS: HYDROmorphONE 0.5 MG/0.5 ML SYG IV ×5 (01:58→21:40)
[2019-01-15] MEDS: HYDROCODONE/APAP (5/325) TAB GTB ×3 (04:17→23:12)
[2019-01-15] MEDS: ALBUTEROL 0.083% (NEB) 2.5 MG/3 ML AMP NEB (08:28)
[2019-01-15] MEDS: IPRATROPIUM (NEB) 0.5 MG/2.5 ML AMP NEB (08:28)
[2019-01-15] MEDS: LEVETIRACETAM (100 MG/ML) 5ML CUP GTB ×2 (08:42→21:21)
[2019-01-15] MEDS: METOCLOPRAMIDE 10 MG INJ IV ×3 (08:43→21:21)
[2019-01-15] MEDS: BISACODYL 10 MG SUPP PR (08:43)
[2019-01-15] MEDS: LUBIPROSTONE 24 MCG CAP PO ×2 (08:43→21:22)
[2019-01-15] MEDS: COLLAGENASE 5 GM (UD JAR) TOP ×2 (08:43→21:22)
[2019-01-15] MEDS: FAMOTIDINE 20 MG INJ IV ×2 (08:43→21:21)
[2019-01-15] MEDS: ZINC SULFATE 220 MG CAP GTB (08:43)
[2019-01-15] MEDS: MULTIVITAMINS THERAPEUTIC TAB GTB (08:43)
[2019-01-15] MEDS: MUPIROCIN 2% 22 GM OINT TOP ×2 (08:46→21:22)
[2019-01-15] MEDS: QUETIAPINE 25 MG TAB GTB ×2 (08:47→21:21)
[2019-01-15] MEDS: DAKINS 0.0125%(1/40) 473 ML SOLUTION TP ×2 (08:48→21:22)
[2019-01-15] MEDS: BALSAM PERU/CASTOR OIL 60 GM TUBE TOP ×2 (08:48→21:22)
[2019-01-15] MEDS: LORAZEPAM 2 MG INJ IV (09:26)
[2019-01-15 09:58] LABS: ADD MAN DIFF? NO
[2019-01-15 09:59] LABS: ABNORMAL IP MESSAGE 1; BASOPHILS % 0.2 % (0.0-2.0); EOSINOPHILS # 0.1 10^3/ul (0.0-0.5); HEMOGLOBIN 9.9 g/dl (14.0-18.0); LYMPHOCYTES # 0.5 10^3/ul (0.8-2.9); LYMPHOCYTES % 7.6 % (15.0-51.0); MEAN CORPUSCULAR HEMOGLOBIN 27.9 pg (29.0-33.0); MEAN CORPUSCULAR HGB CONC 28.3 g/dl (32.0-37.0); MEAN CORPUSCULAR VOLUME 98.6 fl (82.0-101.0); MEAN PLATELET VOLUME 12.2 fl (7.4-10.4); MONOCYTE # 0.4 10^3/ul (0.3-0.9); MONOCYTES % 7.3 % (0.0-11.0); NEUTROPHIL # 4.9 10^3/ul (1.6-7.5); NEUTROPHILS % 83.6 % (39.0-77.0); PLATELET COUNT 164 10^3/UL (140-415); POSITIVE DIFF @See below; RED BLOOD COUNT 3.55 10^6/ul (4.70-6.10); RED CELL DISTRIBUTION WIDTH 18.7 % (11.5-14.5)
[2019-01-15 09:59] LABS: WHITE BLOOD COUNT 5.9 10^3/ul (4.8-10.8)
[2019-01-15 10:16] LABS: ANION GAP 13 (5-13); BLOOD UREA NITROGEN 40 mg/dl (7-20); CALCIUM 9.3 mg/dl (8.4-10.2); CARBON DIOXIDE 22 mmol/L (21-31); CHLORIDE 121 mmol/L (97-110); CREATININE 1.54 mg/dl (0.61-1.24); Estimated GFR 50 mL/min (>60); GLUCOSE 149 mg/dl (70-220); POTASSIUM 4.1 mmol/L (3.5-5.1); SODIUM 156 mmol/L (135-144)
[2019-01-15] MEDS: DEXTROSE 5% 1,000 ML IV (10:41)
[2019-01-15] MEDS ORDERED: BISACODYL 10 MG SUPP PR (13:30)
[2019-01-15] MEDS: DOCUSATE SODIUM 10 MG/ML (10ML CUP) GTB (21:21)
[2019-01-16] MEDS: HYDROmorphONE 0.5 MG/0.5 ML SYG IV ×4 (03:55→20:29)
[2019-01-16] MEDS: ALBUTEROL 0.083% (NEB) 2.5 MG/3 ML AMP NEB ×2 (04:44→10:58)
[2019-01-16] MEDS: IPRATROPIUM (NEB) 0.5 MG/2.5 ML AMP NEB (04:44)
[2019-01-16] MEDS: LUBIPROSTONE 24 MCG CAP PO ×2 (08:45→20:27)
[2019-01-16] MEDS: ZINC SULFATE 220 MG CAP GTB (08:46)
[2019-01-16] MEDS: QUETIAPINE 25 MG TAB GTB ×2 (08:46→20:27)
[2019-01-16] MEDS: MULTIVITAMINS THERAPEUTIC TAB GTB (08:46)
[2019-01-16] MEDS: LEVETIRACETAM (100 MG/ML) 5ML CUP GTB ×2 (08:47→20:26)
[2019-01-16] MEDS: METOCLOPRAMIDE 10 MG INJ IV ×3 (08:47→20:26)
[2019-01-16] MEDS: FAMOTIDINE 20 MG INJ IV ×2 (08:48→20:26)
[2019-01-16] MEDS: MUPIROCIN 2% 22 GM OINT TOP ×2 (08:48→20:28)
[2019-01-16] MEDS: COLLAGENASE 5 GM (UD JAR) TOP ×2 (08:48→20:26)
[2019-01-16] MEDS: BALSAM PERU/CASTOR OIL 60 GM TUBE TOP ×2 (08:48→20:28)
[2019-01-16] MEDS: BISACODYL 10 MG SUPP PR (08:49)
[2019-01-16] MEDS: DAKINS 0.0125%(1/40) 473 ML SOLUTION TP ×2 (08:50→20:29)
[2019-01-16] MEDS: HYDROCODONE/APAP (5/325) TAB GTB (09:00)
[2019-01-16] MEDS: EPOETIN ALFA-EPBX (NON-ESRD 10,000 UNIT/ML VIAL SC (17:41)
[2019-01-16] MEDS: DOCUSATE SODIUM 10 MG/ML (10ML CUP) GTB (20:26)
[2019-01-17] MEDS: HYDROmorphONE 0.5 MG/0.5 ML SYG IV ×6 (00:30→20:53)
[2019-01-17 06:44] LABS: ADD MAN DIFF? NO
[2019-01-17 06:54] LABS: ABNORMAL IP MESSAGE 1; BASOPHILS % 0.1 % (0.0-2.0); EOSINOPHILS # 0.1 10^3/ul (0.0-0.5); EOSINOPHILS % 1.3 % (0.0-7.0); HEMATOCRIT 28.2 % (42.0-52.0); HEMOGLOBIN 7.7 g/dl (14.0-18.0); LYMPHOCYTES # 0.6 10^3/ul (0.8-2.9); LYMPHOCYTES % 8.3 % (15.0-51.0); MEAN CORPUSCULAR HEMOGLOBIN 27.3 pg (29.0-33.0); MEAN CORPUSCULAR HGB CONC 27.3 g/dl (32.0-37.0); MEAN PLATELET VOLUME 11.8 fl (7.4-10.4); MONOCYTE # 0.6 10^3/ul (0.3-0.9); MONOCYTES % 7.9 % (0.0-11.0); NEUTROPHIL # 5.9 10^3/ul (1.6-7.5); PLATELET COUNT 179 10^3/UL (140-415); POSITIVE DIFF @See below; RED BLOOD COUNT 2.82 10^6/ul (4.70-6.10); RED CELL DISTRIBUTION WIDTH 18.7 % (11.5-14.5)
[2019-01-17 06:54] LABS: WHITE BLOOD COUNT 7.2 10^3/ul (4.8-10.8)
[2019-01-17 07:49] LABS: ALANINE AMINOTRANSFERASE 12 IU/L (13-69); ALBUMIN 3.5 g/dl (3.3-4.9); ALBUMIN/GLOBULIN RATIO 0.83; ALKALINE PHOSPHATASE 119 IU/L (42-121); ANION GAP 8 (5-13); ASPARTATE AMINO TRANSFERASE 16 IU/L (15-46); BILIRUBIN,INDIRECT 0.4 mg/dl (0-1.1); BILIRUBIN,TOTAL 0.4 mg/dl (0.2-1.3); BLOOD UREA NITROGEN 41 mg/dl (7-20); CALCIUM 9.3 mg/dl (8.4-10.2); CARBON DIOXIDE 25 mmol/L (21-31); CHLORIDE 120 mmol/L (97-110); CREATININE 1.58 mg/dl (0.61-1.24); Estimated GFR 49 mL/min (>60); GLUCOSE 90 mg/dl (70-220); POTASSIUM 3.9 mmol/L (3.5-5.1); SODIUM 153 mmol/L (135-144); TOTAL PROTEIN 7.7 g/dl (6.1-8.1)
[2019-01-17] MEDS: DAKINS 0.0125%(1/40) 473 ML SOLUTION TP ×2 (09:00→20:36)
[2019-01-17] MEDS: BISACODYL 10 MG SUPP PR (09:00)
[2019-01-17] MEDS: LEVETIRACETAM (100 MG/ML) 5ML CUP GTB ×2 (09:16→20:35)
[2019-01-17] MEDS: QUETIAPINE 25 MG TAB GTB ×2 (09:22→20:35)
[2019-01-17] MEDS: ZINC SULFATE 220 MG CAP GTB (09:23)
[2019-01-17] MEDS: MULTIVITAMINS THERAPEUTIC TAB GTB (09:23)
[2019-01-17] MEDS: FAMOTIDINE 20 MG INJ IV ×2 (09:23→20:35)
[2019-01-17] MEDS: LUBIPROSTONE 24 MCG CAP PO ×2 (09:24→20:35)
[2019-01-17] MEDS: METOCLOPRAMIDE 10 MG INJ IV ×3 (09:24→20:35)
[2019-01-17] MEDS: COLLAGENASE 5 GM (UD JAR) TOP ×2 (09:25→20:36)
[2019-01-17] MEDS: MUPIROCIN 2% 22 GM OINT TOP ×2 (09:25→20:36)
[2019-01-17] MEDS: BALSAM PERU/CASTOR OIL 60 GM TUBE TOP ×2 (09:26→20:36)
[2019-01-17] MEDS: ALTEPLASE (CATHFLO) 2 MG INJ CATHETER (15:54)
[2019-01-17] MEDS: DOCUSATE SODIUM 10 MG/ML (10ML CUP) GTB (20:35)
[2019-01-18] MEDS: HYDROmorphONE 0.5 MG/0.5 ML SYG IV ×6 (01:35→21:32)
[2019-01-18] MEDS: BISACODYL 10 MG SUPP PR (09:00)
[2019-01-18] MEDS: LEVETIRACETAM (100 MG/ML) 5ML CUP GTB ×2 (09:24→20:49)
[2019-01-18] MEDS: QUETIAPINE 25 MG TAB GTB ×2 (09:24→20:49)
[2019-01-18] MEDS: MULTIVITAMINS THERAPEUTIC TAB GTB (09:24)
[2019-01-18] MEDS: COLLAGENASE 5 GM (UD JAR) TOP ×2 (09:25→20:49)
[2019-01-18] MEDS: LUBIPROSTONE 24 MCG CAP PO ×2 (09:25→20:49)
[2019-01-18] MEDS: ZINC SULFATE 220 MG CAP GTB (09:25)
[2019-01-18] MEDS: MUPIROCIN 2% 22 GM OINT TOP ×2 (09:25→20:51)
[2019-01-18] MEDS: METOCLOPRAMIDE 10 MG INJ IV ×3 (09:25→20:48)
[2019-01-18] MEDS: FAMOTIDINE 20 MG INJ IV ×2 (09:25→20:48)
[2019-01-18] MEDS: DAKINS 0.0125%(1/40) 473 ML SOLUTION TP ×2 (09:26→20:51)
[2019-01-18] MEDS: BALSAM PERU/CASTOR OIL 60 GM TUBE TOP ×2 (09:26→20:51)
[2019-01-18] MEDS: IPRATROPIUM (NEB) 0.5 MG/2.5 ML AMP NEB (14:38)
[2019-01-18] MEDS: EPOETIN ALFA-EPBX (NON-ESRD 10,000 UNIT/ML VIAL SC (17:28)
[2019-01-18] MEDS: DOCUSATE SODIUM 10 MG/ML (10ML CUP) GTB ×2 (20:52→20:53)
[2019-01-18] MEDS: HYDROCODONE/APAP (5/325) TAB GTB (20:52)
[2019-01-19] MEDS: HYDROmorphONE 0.5 MG/0.5 ML SYG IV ×5 (03:22→21:49)
[2019-01-19] MEDS: HYDROCODONE/APAP (5/325) TAB GTB ×2 (04:44→12:13)
[2019-01-19] MEDS: METOCLOPRAMIDE 10 MG INJ IV ×3 (09:09→22:12)
[2019-01-19] MEDS: FAMOTIDINE 20 MG INJ IV ×2 (09:09→22:12)
[2019-01-19] MEDS: LEVETIRACETAM (100 MG/ML) 5ML CUP GTB ×2 (09:15→22:12)
[2019-01-19] MEDS: ZINC SULFATE 220 MG CAP GTB (09:15)
[2019-01-19] MEDS: MULTIVITAMINS THERAPEUTIC TAB GTB (09:15)
[2019-01-19] MEDS: QUETIAPINE 25 MG TAB GTB ×2 (09:15→22:11)
[2019-01-19] MEDS: LUBIPROSTONE 24 MCG CAP PO ×2 (09:16→22:11)
[2019-01-19] MEDS: BALSAM PERU/CASTOR OIL 60 GM TUBE TOP ×2 (09:16→22:13)
[2019-01-19] MEDS: COLLAGENASE 5 GM (UD JAR) TOP ×2 (09:16→22:12)
[2019-01-19] MEDS: BISACODYL 10 MG SUPP PR (09:16)
[2019-01-19] MEDS: DAKINS 0.0125%(1/40) 473 ML SOLUTION TP ×2 (09:17→22:13)
[2019-01-19] MEDS: MUPIROCIN 2% 22 GM OINT TOP ×2 (09:25→22:13)
[2019-01-19] MEDS: IPRATROPIUM (NEB) 0.5 MG/2.5 ML AMP NEB (12:39)
[2019-01-19] MEDS: ALBUTEROL 0.083% (NEB) 2.5 MG/3 ML AMP NEB (12:39)
[2019-01-19] MEDS: DOCUSATE SODIUM 10 MG/ML (10ML CUP) GTB (22:11)
[2019-01-20] MEDS: HYDROmorphONE 0.5 MG/0.5 ML SYG IV ×2 (06:47→10:48)
[2019-01-20] MEDS: LEVETIRACETAM (100 MG/ML) 5ML CUP GTB ×2 (08:56→21:40)
[2019-01-20] MEDS: QUETIAPINE 25 MG TAB GTB ×2 (08:56→21:40)
[2019-01-20] MEDS: MULTIVITAMINS THERAPEUTIC TAB GTB (08:57)
[2019-01-20] MEDS: ZINC SULFATE 220 MG CAP GTB (08:57)
[2019-01-20] MEDS: FAMOTIDINE 20 MG INJ IV ×2 (08:58→21:40)
[2019-01-20] MEDS: METOCLOPRAMIDE 10 MG INJ IV ×3 (08:58→21:40)
[2019-01-20] MEDS: LUBIPROSTONE 24 MCG CAP PO ×2 (08:58→21:39)
[2019-01-20] MEDS: BISACODYL 10 MG SUPP PR (09:00)
[2019-01-20] MEDS: BALSAM PERU/CASTOR OIL 60 GM TUBE TOP ×2 (09:03→22:06)
[2019-01-20] MEDS: DAKINS 0.0125%(1/40) 473 ML SOLUTION TP ×2 (09:03→22:06)
[2019-01-20] MEDS: COLLAGENASE 5 GM (UD JAR) TOP ×2 (09:04→21:40)
[2019-01-20] MEDS: MUPIROCIN 2% 22 GM OINT TOP ×2 (09:04→22:07)
[2019-01-20] MEDS: IPRATROPIUM (NEB) 0.5 MG/2.5 ML AMP NEB (12:25)
[2019-01-20] MEDS: ALBUTEROL 0.083% (NEB) 2.5 MG/3 ML AMP NEB ×2 (12:25→20:06)
[2019-01-20] MEDS: HYDROmorphONE 1 MG/ML SYG IV ×3 (12:40→21:37)
[2019-01-20] MEDS: DOCUSATE SODIUM 10 MG/ML (10ML CUP) GTB (21:40)
[2019-01-21] MEDS: ALBUTEROL 0.083% (NEB) 2.5 MG/3 ML AMP NEB ×2 (01:02→15:46)
[2019-01-21] MEDS: SOD CHLORIDE 0.9% 500 ML IV (01:28)
[2019-01-21] MEDS: HYDROmorphONE 0.5 MG/0.5 ML SYG IV ×4 (06:01→18:57)
[2019-01-21 06:02] LABS: ADD MAN DIFF? NO
[2019-01-21 06:08] LABS: WHITE BLOOD COUNT 10.2 10^3/ul (4.8-10.8)
[2019-01-21 06:08] LABS: ABNORMAL IP MESSAGE 1; BASOPHILS % 0.3 % (0.0-2.0); EOSINOPHILS % 0.4 % (0.0-7.0); HEMATOCRIT 32.3 % (42.0-52.0); HEMOGLOBIN 9.1 g/dl (14.0-18.0); LYMPHOCYTES # 0.6 10^3/ul (0.8-2.9); LYMPHOCYTES % 5.9 % (15.0-51.0); MEAN CORPUSCULAR HEMOGLOBIN 27.6 pg (29.0-33.0); MEAN CORPUSCULAR HGB CONC 28.2 g/dl (32.0-37.0); MEAN CORPUSCULAR VOLUME 97.9 fl (82.0-101.0); MEAN PLATELET VOLUME 12.7 fl (7.4-10.4); MONOCYTE # 0.6 10^3/ul (0.3-0.9); NEUTROPHIL # 8.9 10^3/ul (1.6-7.5); PLATELET COUNT 154 10^3/UL (140-415); POSITIVE DIFF @See below; RED CELL DISTRIBUTION WIDTH 19.5 % (11.5-14.5)
[2019-01-21 06:29] LABS: MAGNESIUM 2.4 mg/dl (1.7-2.5)
[2019-01-21 06:33] LABS: ALANINE AMINOTRANSFERASE 13 IU/L (13-69); ALBUMIN 3.7 g/dl (3.3-4.9); ALKALINE PHOSPHATASE 137 IU/L (42-121); ANION GAP 9 (5-13); ASPARTATE AMINO TRANSFERASE 15 IU/L (15-46); BILIRUBIN,INDIRECT 0.4 mg/dl (0-1.1); BILIRUBIN,TOTAL 0.4 mg/dl (0.2-1.3); BLOOD UREA NITROGEN 49 mg/dl (7-20); CALCIUM 9.4 mg/dl (8.4-10.2); CARBON DIOXIDE 26 mmol/L (21-31); CHLORIDE 122 mmol/L (97-110); CREATININE 1.96 mg/dl (0.61-1.24); Estimated GFR 38 mL/min (>60); GLUCOSE 115 mg/dl (70-220); SODIUM 157 mmol/L (135-144); TOTAL PROTEIN 8.3 g/dl (6.1-8.1)
[2019-01-21] MEDS ORDERED: METHYLNALTREXONE 12 MG/0.6 ML VIAL SC (09:00)
[2019-01-21] MEDS: LEVETIRACETAM (100 MG/ML) 5ML CUP GTB ×2 (09:00→20:43)
[2019-01-21] MEDS: COLLAGENASE 5 GM (UD JAR) TOP ×2 (09:00→20:42)
[2019-01-21] MEDS: QUETIAPINE 25 MG TAB GTB ×2 (09:00→20:43)
[2019-01-21] MEDS: DAKINS 0.0125%(1/40) 473 ML SOLUTION TP ×2 (09:01→20:44)
[2019-01-21] MEDS: MUPIROCIN 2% 22 GM OINT TOP ×2 (09:01→20:44)
[2019-01-21] MEDS: ZINC SULFATE 220 MG CAP GTB (09:01)
[2019-01-21] MEDS: BISACODYL 10 MG SUPP PR (09:01)
[2019-01-21] MEDS: FAMOTIDINE 20 MG INJ IV ×2 (09:01→20:42)
[2019-01-21] MEDS: MULTIVITAMINS THERAPEUTIC TAB GTB (09:01)
[2019-01-21] MEDS: METOCLOPRAMIDE 10 MG INJ IV ×3 (09:01→20:42)
[2019-01-21] MEDS: BALSAM PERU/CASTOR OIL 60 GM TUBE TOP ×2 (09:02→20:44)
[2019-01-21] MEDS: IPRATROPIUM (NEB) 0.5 MG/2.5 ML AMP NEB ×2 (15:46→21:36)
[2019-01-21] MEDS: EPOETIN ALFA-EPBX (NON-ESRD 10,000 UNIT/ML VIAL SC (18:57)
[2019-01-21] MEDS: DOCUSATE SODIUM 10 MG/ML (10ML CUP) GTB (20:43)
[2019-01-21] MEDS: ACETAMINOPHEN 650MG/20.3ML CUP GTB (20:43)
[2019-01-21] MEDS: SOD CHLORIDE 0.9% 1,000 ML IV (21:50)
[2019-01-22] MEDS: HYDROmorphONE 0.5 MG/0.5 ML SYG IV ×8 (00:51→21:57)
[2019-01-22] MEDS: BISACODYL 10 MG SUPP PR (09:00)
[2019-01-22] MEDS: ALBUTEROL 0.083% (NEB) 2.5 MG/3 ML AMP NEB ×2 (09:18→15:22)
[2019-01-22] MEDS: IPRATROPIUM (NEB) 0.5 MG/2.5 ML AMP NEB ×3 (09:18→18:13)
[2019-01-22] MEDS: FAMOTIDINE 20 MG INJ IV ×2 (09:33→20:42)
[2019-01-22] MEDS: COLLAGENASE 5 GM (UD JAR) TOP ×2 (09:33→20:43)
[2019-01-22] MEDS: METOCLOPRAMIDE 10 MG INJ IV ×3 (09:33→20:42)
[2019-01-22] MEDS: LEVETIRACETAM (100 MG/ML) 5ML CUP GTB ×2 (09:33→20:42)
[2019-01-22] MEDS: ZINC SULFATE 220 MG CAP GTB (09:34)
[2019-01-22] MEDS: BALSAM PERU/CASTOR OIL 60 GM TUBE TOP ×2 (09:34→20:42)
[2019-01-22] MEDS: MUPIROCIN 2% 22 GM OINT TOP ×2 (09:34→20:43)
[2019-01-22] MEDS: MULTIVITAMINS THERAPEUTIC TAB GTB (09:34)
[2019-01-22] MEDS: QUETIAPINE 25 MG TAB GTB ×2 (09:35→20:42)
[2019-01-22] MEDS: DAKINS 0.0125%(1/40) 473 ML SOLUTION TP ×2 (09:38→20:42)
[2019-01-22] MEDS: DEXTROSE 5% 1,000 ML IV ×3 (11:17→21:08)
[2019-01-22 11:41] LABS: ANION GAP 9 (5-13); BLOOD UREA NITROGEN 54 mg/dl (7-20); CARBON DIOXIDE 24 mmol/L (21-31); CHLORIDE 118 mmol/L (97-110); CREATININE 1.92 mg/dl (0.61-1.24); Estimated GFR 39 mL/min (>60); GLUCOSE 116 mg/dl (70-220); POTASSIUM 4.1 mmol/L (3.5-5.1); SODIUM 151 mmol/L (135-144)
[2019-01-22] MEDS: LEVALBUTEROL (NEB) 0.63 MG/3 ML AMP HHN (18:13)
[2019-01-22] MEDS: HYDROCODONE/APAP (5/325) TAB GTB (19:01)
[2019-01-22] MEDS: DOCUSATE SODIUM 10 MG/ML (10ML CUP) GTB (20:42)
[2019-01-22] MEDS: ACETAMINOPHEN 650MG/20.3ML CUP GTB (20:49)
[2019-01-23] MEDS: HYDROmorphONE 0.5 MG/0.5 ML SYG IV ×5 (01:37→19:08)
[2019-01-23 06:43] LABS: ANION GAP 9 (5-13); BLOOD UREA NITROGEN 58 mg/dl (7-20); CALCIUM 8.9 mg/dl (8.4-10.2); CARBON DIOXIDE 23 mmol/L (21-31); CHLORIDE 117 mmol/L (97-110); CREATININE 1.73 mg/dl (0.61-1.24); Estimated GFR 44 mL/min (>60); GLUCOSE 92 mg/dl (70-220); POTASSIUM 4.6 mmol/L (3.5-5.1); SODIUM 149 mmol/L (135-144)
[2019-01-23] MEDS: COLLAGENASE 5 GM (UD JAR) TOP ×2 (08:25→20:32)
[2019-01-23] MEDS: BISACODYL 10 MG SUPP PR ×2 (08:26→09:00)
[2019-01-23] MEDS: METOCLOPRAMIDE 10 MG INJ IV ×3 (08:26→20:32)
[2019-01-23] MEDS: LEVETIRACETAM (100 MG/ML) 5ML CUP GTB ×2 (08:26→20:32)
[2019-01-23] MEDS: QUETIAPINE 25 MG TAB GTB ×2 (08:26→20:32)
[2019-01-23] MEDS: MULTIVITAMINS THERAPEUTIC TAB GTB (08:26)
[2019-01-23] MEDS: FAMOTIDINE 20 MG INJ IV ×2 (08:26→20:32)
[2019-01-23] MEDS: ZINC SULFATE 220 MG CAP GTB (08:26)
[2019-01-23] MEDS: BALSAM PERU/CASTOR OIL 60 GM TUBE TOP ×2 (08:36→20:33)
[2019-01-23] MEDS: MUPIROCIN 2% 22 GM OINT TOP ×2 (08:36→20:33)
[2019-01-23] MEDS: DAKINS 0.0125%(1/40) 473 ML SOLUTION TP ×2 (08:36→20:33)
[2019-01-23] MEDS ORDERED: GENTAMICIN IV PER PHARMACY XX (14:30)
[2019-01-23] MEDS: GENTAMICIN 120 MG/NS (PMX) 100 ML IVPB (17:32)
[2019-01-23] MEDS: EPOETIN ALFA-EPBX (NON-ESRD 10,000 UNIT/ML VIAL SC (17:33)
[2019-01-23] MEDS: LEVALBUTEROL (NEB) 0.63 MG/3 ML AMP HHN (19:38)
[2019-01-23] MEDS: IPRATROPIUM (NEB) 0.5 MG/2.5 ML AMP NEB (19:38)
[2019-01-23] MEDS: HYDROCODONE/APAP (5/325) TAB GTB (20:32)
[2019-01-23] MEDS: DOCUSATE SODIUM 10 MG/ML (10ML CUP) GTB (20:34)
[2019-01-24] MEDS: HYDROmorphONE 0.5 MG/0.5 ML SYG IV ×5 (00:06→18:15)
[2019-01-24] MEDS: IPRATROPIUM (NEB) 0.5 MG/2.5 ML AMP NEB ×2 (03:54→11:49)
[2019-01-24] MEDS: LEVALBUTEROL (NEB) 0.63 MG/3 ML AMP HHN ×2 (03:54→11:49)
[2019-01-24] MEDS: HYDROCODONE/APAP (5/325) TAB GTB ×4 (04:29→21:03)
[2019-01-24 08:54] LABS: ANION GAP 10 (5-13); BLOOD UREA NITROGEN 60 mg/dl (7-20); CARBON DIOXIDE 22 mmol/L (21-31); CHLORIDE 118 mmol/L (97-110); CREATININE 1.74 mg/dl (0.61-1.24); Estimated GFR 43 mL/min (>60); GLUCOSE 107 mg/dl (70-220); POTASSIUM 4.5 mmol/L (3.5-5.1); SODIUM 150 mmol/L (135-144)
[2019-01-24] MEDS: FAMOTIDINE 20 MG INJ IV (08:56)
[2019-01-24] MEDS: MULTIVITAMINS THERAPEUTIC TAB GTB (08:56)
[2019-01-24] MEDS: COLLAGENASE 5 GM (UD JAR) TOP (08:56)
[2019-01-24] MEDS: LEVETIRACETAM (100 MG/ML) 5ML CUP GTB (08:56)
[2019-01-24] MEDS: QUETIAPINE 25 MG TAB GTB (08:56)
[2019-01-24] MEDS: ZINC SULFATE 220 MG CAP GTB (08:56)
[2019-01-24] MEDS: METOCLOPRAMIDE 10 MG INJ IV ×2 (08:57→12:18)
[2019-01-24] MEDS: BALSAM PERU/CASTOR OIL 60 GM TUBE TOP (08:58)
[2019-01-24] MEDS: MUPIROCIN 2% 22 GM OINT TOP (08:58)
[2019-01-24] MEDS: BISACODYL 10 MG SUPP PR (08:58)
[2019-01-24] MEDS: DAKINS 0.0125%(1/40) 473 ML SOLUTION TP (08:58)
[2019-01-24] MEDS: DEXTROSE 5% 1,000 ML IV (12:32)
[2019-01-24] MEDS: LORAZEPAM 2 MG INJ IV (12:32)
[2019-01-24] MEDS: METHYLNALTREXONE 12 MG/0.6 ML VIAL SC (17:24)
== END 2019-01-24 21:20 | disposition short-term general hospital (02) | DRG 870 ==
LOC: ICU 01-05 09:26 → TEL 01-09 16:11 → E/R 12:02 → ICU 13:59
PROVIDERS: Internal Medicine
PROC: 02HV33Z Insertion of Infusion Device into Superior Vena Cava, Percutaneous Approach (ICD-10-PCS; principal; 2019-01-02)
PROC: 5A1955Z Respiratory Ventilation, Greater than 96 Consecutive Hours (ICD-10-PCS; 2019-01-02)
PROC: 30233N1 Transfusion of Nonautologous Red Blood Cells into Peripheral Vein, Percutaneous Approach (ICD-10-PCS; 2019-01-08)
DX: A41.9 Sepsis, unspecified organism (principal); R65.21 Severe sepsis with septic shock; J18.9 Pneumonia, unspecified organism; J96.20 Acute and chronic respiratory failure, unspecified whether with hypoxia or hypercapnia; Z99.11 Dependence on respirator [ventilator] status; G82.20 Paraplegia, unspecified; N17.9 Acute kidney failure, unspecified; N10 Acute pyelonephritis; K56.7 Ileus, unspecified; E87.0 Hyperosmolality and hypernatremia; J95.03 Malfunction of tracheostomy stoma; N18.4 Chronic kidney disease, stage 4 (severe); E86.0 Dehydration; N31.9 Neuromuscular dysfunction of bladder, unspecified; R13.10 Dysphagia, unspecified; F31.9 Bipolar disorder, unspecified; D69.6 Thrombocytopenia, unspecified; E87.6 Hypokalemia; R19.7 Diarrhea, unspecified; D63.1 Anemia in chronic kidney disease; L89.90 Pressure ulcer of unspecified site, unspecified stage; B96.89 Other specified bacterial agents as the cause of diseases classified elsewhere; Z93.1 Gastrostomy status; Z22.322 Carrier or suspected carrier of Methicillin resistant Staphylococcus aureus; Z93.50 Unspecified cystostomy status; Z90.5 Acquired absence of kidney
CPT/HCPCS: 36415; 36430; 36569; 36600; 71045; 74018; 74176; 80048; 80053; 80170; 81001; 82270; 82607; 82728; 82746; 82803; 83540; 83605; 83735; 84484; 85025; 85045; 85610; 85730; 86850; 86870; 86880; 86900; 86901; 86920; 87040-91; 87081; 87086; 92526; 92610; 93005; 94002; 94003; 94640; 94664; 96365; 96375; 99291-25

== ENCOUNTER 2019-02-17 08:09 | Inpatient (IN) | payer MEDICARE ==
[2019-02-17] MEDS: SODIUM CHLORIDE 0.9% 1L BAG IV* (08:21)
[2019-02-17 08:34] LABS: ADD MAN DIFF? NO
[2019-02-17 08:41] LABS: AADO2 Arterial 523.1 mmHg (7.0-24.0); Arterial Base Excess 0.2 mmol/L (-3.0-3); Arterial Blood Gas Oxygen Sat 98.1 mmHG (95.0-98.0); Arterial COHb 0.2 % (0.0-3.0); Arterial Fraction of Oxyhgb 97.3 % (93.0-99.0); Arterial HCO3 25.9 mmol/L (22.0-26.0); Arterial MetHb 0.6 % (0.0-1.5); Arterial pCO2 48.1 mmhg (35-45); Blood Gas Low PEEP Setting 0 cmH2O; MODE VENT - AC; Site Right Brachial
[2019-02-17 08:42] LABS: WHITE BLOOD COUNT 8.8 10^3/ul (4.8-10.8)
[2019-02-17 08:42] LABS: ABNORMAL IP MESSAGE 1; BASOPHILS % 0.2 % (0.0-2.0); EOSINOPHILS # 0.2 10^3/ul (0.0-0.5); LYMPHOCYTES # 1.3 10^3/ul (0.8-2.9); LYMPHOCYTES % 14.6 % (15.0-51.0); MEAN CORPUSCULAR HEMOGLOBIN 29.3 pg (29.0-33.0); MEAN CORPUSCULAR HGB CONC 29.6 g/dl (32.0-37.0); MEAN CORPUSCULAR VOLUME 99.1 fl (82.0-101.0); MEAN PLATELET VOLUME 12.9 fl (7.4-10.4); MONOCYTE # 0.6 10^3/ul (0.3-0.9); MONOCYTES % 6.5 % (0.0-11.0); NEUTROPHIL # 6.7 10^3/ul (1.6-7.5); NEUTROPHILS % 76.2 % (39.0-77.0); PLATELET COUNT 94 10^3/UL (140-415); POSITIVE DIFF @See below; RED BLOOD COUNT 2.32 10^6/ul (4.70-6.10); RED CELL DISTRIBUTION WIDTH 17.3 % (11.5-14.5)
[2019-02-17 08:45] LABS: HEMOGLOBIN 6.8 g/dl (14.0-18.0)
[2019-02-17] MEDS: SOD CHLORIDE 0.9% 0 ML IV (08:45)
[2019-02-17 08:59] LABS: INR 1.09; PROTIME 14.2 Sec (11.9-14.9); PT RATIO 1.1
[2019-02-17 09:00] LABS: PARTIAL THROMBOPLASTIN TIME 43.4 Sec (23.0-35.0)
[2019-02-17] MEDS: CEFEPIME 2GM/50 ML (PMX) 50 ML IVPB (09:05)
[2019-02-17 09:08] LABS: ALANINE AMINOTRANSFERASE 21 IU/L (13-69); ALBUMIN 3.2 g/dl (3.3-4.9); ALBUMIN/GLOBULIN RATIO 0.71; ALKALINE PHOSPHATASE 102 IU/L (42-121); ANION GAP 9 (5-13); ASPARTATE AMINO TRANSFERASE 21 IU/L (15-46); BILIRUBIN,INDIRECT 0.2 mg/dl (0-1.1); BILIRUBIN,TOTAL 0.2 mg/dl (0.2-1.3); BLOOD UREA NITROGEN 113 mg/dl (7-20); CALCIUM 8.7 mg/dl (8.4-10.2); CARBON DIOXIDE 33 mmol/L (21-31); CHLORIDE 102 mmol/L (97-110); CREATININE 2.96 mg/dl (0.61-1.24); Estimated GFR 23 mL/min (>60); GLUCOSE 108 mg/dl (70-220); POTASSIUM 4.8 mmol/L (3.5-5.1); SODIUM 144 mmol/L (135-144); TOTAL PROTEIN 7.7 g/dl (6.1-8.1)
[2019-02-17 09:18] LABS: TROPONIN-I < 0.012 ng/ml (0.000-0.120)
[2019-02-17] MEDS: ACETAMINOPHEN 650 MG SUPP PR (09:22)
[2019-02-17] MEDS: NORepinephrine 8MG/250 ML (PMX 250 ML IV (10:00)
[2019-02-17] MEDS: VANCOMYCIN 1 GM (PMX) 250 ML IVPB (10:02)
[2019-02-17 11:29] LABS: LACTIC ACID < 0.5 mmol/L (0.5-2.0)
[2019-02-17] MEDS ORDERED: ACETAMINOPHEN 325 MG TAB GTB (13:30)
[2019-02-17] MEDS ORDERED: ONDANSETRON 4 MG INJ IV (13:30)
[2019-02-17] MEDS ORDERED: DIPHENHYDRAMINE 25 MG CAP GTB (13:30)
[2019-02-17 13:35] LABS: ADD MAN DIFF? NO
[2019-02-17 13:39] LABS: ABNORMAL IP MESSAGE 1; BASOPHILS % 0.2 % (0.0-2.0); EOSINOPHILS # 0.4 10^3/ul (0.0-0.5); EOSINOPHILS % 3.4 % (0.0-7.0); HEMATOCRIT 21.1 % (42.0-52.0); LYMPHOCYTES # 0.7 10^3/ul (0.8-2.9); LYMPHOCYTES % 6.8 % (15.0-51.0); MEAN CORPUSCULAR HEMOGLOBIN 28.7 pg (29.0-33.0); MEAN CORPUSCULAR HGB CONC 29.4 g/dl (32.0-37.0); MEAN CORPUSCULAR VOLUME 97.7 fl (82.0-101.0); MEAN PLATELET VOLUME 12.4 fl (7.4-10.4); MONOCYTE # 0.6 10^3/ul (0.3-0.9); MONOCYTES % 5.4 % (0.0-11.0); NEUTROPHIL # 9.1 10^3/ul (1.6-7.5); NEUTROPHILS % 83.6 % (39.0-77.0); PLATELET COUNT 66 10^3/UL (140-415); POSITIVE DIFF @See below; RED BLOOD COUNT 2.16 10^6/ul (4.70-6.10); RED CELL DISTRIBUTION WIDTH 17.3 % (11.5-14.5)
[2019-02-17 13:39] LABS: WHITE BLOOD COUNT 10.8 10^3/ul (4.8-10.8)
[2019-02-17 13:42] LABS: HEMOGLOBIN 6.2 g/dl (14.0-18.0)
[2019-02-17 13:57] LABS: ANION GAP 8 (5-13); BLOOD UREA NITROGEN 106 mg/dl (7-20); CALCIUM 7.9 mg/dl (8.4-10.2); CARBON DIOXIDE 25 mmol/L (21-31); CHLORIDE 109 mmol/L (97-110); Estimated GFR 27 mL/min (>60); GLUCOSE 121 mg/dl (70-220); POTASSIUM 4.1 mmol/L (3.5-5.1); SODIUM 142 mmol/L (135-144)
[2019-02-17] MEDS: SOD CHLORIDE 0.9% 1,000 ML IV ×2 (13:58→23:31)
[2019-02-17 14:01] LABS: LACTIC ACID < 0.5 mmol/L (0.5-2.0)
[2019-02-17] MEDS ORDERED: NORepinephrine 8MG/250 ML (PMX 250 ML IV (20:00)
[2019-02-17] MEDS: morphine 2 MG INJ IV (20:03)
[2019-02-17] MEDS: QUETIAPINE 25 MG TAB GTB (20:56)
[2019-02-17] MEDS: FAMOTIDINE 20 MG INJ IV (20:56)
[2019-02-17] MEDS: LEVETIRACETAM (100 MG/ML) 5ML CUP GTB (20:56)
[2019-02-17] MEDS: GABAPENTIN (50 MG/ML PO SYG) GTB (20:56)
[2019-02-17] MEDS ORDERED: LEVETIRACETAM (100 MG/ML PO SYG) GTB (21:00)
[2019-02-17] MEDS ORDERED: POT CITRATE/CITRIC ACID (PO SYG) GTB (21:00)
[2019-02-17 22:51] LABS: AHG CROSSMATCH 1 2
[2019-02-17] MEDS: HYDROCODONE/APAP (5/325) TAB GTB (23:03)
[2019-02-18] MEDS: morphine 2 MG INJ IV ×4 (00:57→16:47)
[2019-02-18] MEDS: HYDROCODONE/APAP (5/325) TAB GTB ×4 (04:05→20:39)
[2019-02-18 05:36] LABS: ADD MAN DIFF? NO
[2019-02-18 05:52] LABS: ABNORMAL IP MESSAGE 1; BASOPHILS % 0.3 % (0.0-2.0); EOSINOPHILS # 0.6 10^3/ul (0.0-0.5); EOSINOPHILS % 3.7 % (0.0-7.0); HEMATOCRIT 30.3 % (42.0-52.0); HEMOGLOBIN 9.1 g/dl (14.0-18.0); LYMPHOCYTES # 0.5 10^3/ul (0.8-2.9); LYMPHOCYTES % 3.4 % (15.0-51.0); MEAN CORPUSCULAR HEMOGLOBIN 29.1 pg (29.0-33.0); MEAN CORPUSCULAR VOLUME 96.8 fl (82.0-101.0); MEAN PLATELET VOLUME 13.3 fl (7.4-10.4); MONOCYTE # 0.6 10^3/ul (0.3-0.9); NEUTROPHIL # 14.1 10^3/ul (1.6-7.5); NEUTROPHILS % 88.1 % (39.0-77.0); PLATELET COUNT 83 10^3/UL (140-415); POSITIVE DIFF @See below; RED BLOOD COUNT 3.13 10^6/ul (4.70-6.10); RED CELL DISTRIBUTION WIDTH 17.9 % (11.5-14.5)
[2019-02-18 05:52] LABS: WHITE BLOOD COUNT 15.9 10^3/ul (4.8-10.8)
[2019-02-18 06:26] LABS: ANION GAP 10 (5-13); BLOOD UREA NITROGEN 102 mg/dl (7-20); CALCIUM 8.4 mg/dl (8.4-10.2); CARBON DIOXIDE 23 mmol/L (21-31); CHLORIDE 113 mmol/L (97-110); CREATININE 2.23 mg/dl (0.61-1.24); Estimated GFR 32 mL/min (>60); GLUCOSE 94 mg/dl (70-220); MAGNESIUM 2.4 mg/dl (1.7-2.5); POTASSIUM 4.6 mmol/L (3.5-5.1); SODIUM 146 mmol/L (135-144)
[2019-02-18 07:42] LABS: PROCALCITONIN 2.61 ng/mL (0.00-0.10)
[2019-02-18] MEDS: ACETAMINOPHEN 650MG/20.3ML CUP GTB ×2 (08:05→16:47)
[2019-02-18] MEDS: LEVETIRACETAM (100 MG/ML) 5ML CUP GTB ×2 (09:32→20:39)
[2019-02-18] MEDS: ZINC SULFATE 220 MG CAP GTB (09:32)
[2019-02-18] MEDS: GABAPENTIN (50 MG/ML PO SYG) GTB ×2 (09:32→20:39)
[2019-02-18] MEDS: ASCORBIC ACID 500 MG TAB GTB (09:32)
[2019-02-18] MEDS: QUETIAPINE 25 MG TAB GTB ×2 (09:34→20:39)
[2019-02-18] MEDS: CEFEPIME 2GM/50 ML (PMX) 50 ML IVPB (09:34)
[2019-02-18] MEDS: ENOXAPARIN 30 MG/0.3 ML SYG SC (09:36)
[2019-02-18] MEDS: SOD CHLORIDE 0.9% 1,000 ML IV ×3 (09:50→21:38)
[2019-02-18] MEDS: ALBUTEROL HFA 8 GM INHALER INH (15:37)
[2019-02-18] MEDS ORDERED: VANCOMYCIN IV PER PHARMACY XX (17:00)
[2019-02-18] MEDS: VANCOMYCIN 750 MG (PMX) 250 ML IVPB (18:23)
[2019-02-18] MEDS: FAMOTIDINE 20 MG INJ IV (20:39)
[2019-02-18] MEDS: NORepinephrine 8MG/250 ML (PMX 250 ML IV (20:47)
[2019-02-19] MEDS: morphine 2 MG INJ IV ×5 (03:25→21:43)
[2019-02-19 05:09] LABS: ADD MAN DIFF? NO
[2019-02-19] MEDS: HYDROCODONE/APAP (5/325) TAB GTB (05:10)
[2019-02-19 05:16] LABS: WHITE BLOOD COUNT 13.3 10^3/ul (4.8-10.8)
[2019-02-19 05:16] LABS: ABNORMAL IP MESSAGE 1; BASOPHILS % 0.2 % (0.0-2.0); EOSINOPHILS # 0.4 10^3/ul (0.0-0.5); EOSINOPHILS % 3.1 % (0.0-7.0); HEMATOCRIT 28.3 % (42.0-52.0); HEMOGLOBIN 8.2 g/dl (14.0-18.0); LYMPHOCYTES # 0.4 10^3/ul (0.8-2.9); LYMPHOCYTES % 3.3 % (15.0-51.0); MEAN CORPUSCULAR HEMOGLOBIN 28.9 pg (29.0-33.0); MEAN CORPUSCULAR VOLUME 99.6 fl (82.0-101.0); MEAN PLATELET VOLUME 13.1 fl (7.4-10.4); MONOCYTE # 0.6 10^3/ul (0.3-0.9); MONOCYTES % 4.8 % (0.0-11.0); NEUTROPHIL # 11.7 10^3/ul (1.6-7.5); NEUTROPHILS % 88.1 % (39.0-77.0); PLATELET COUNT 89 10^3/UL (140-415); POSITIVE DIFF @See below; RED BLOOD COUNT 2.84 10^6/ul (4.70-6.10); RED CELL DISTRIBUTION WIDTH 17.7 % (11.5-14.5)
[2019-02-19 05:39] LABS: ANION GAP 12 (5-13); BLOOD UREA NITROGEN 97 mg/dl (7-20); CALCIUM 8.4 mg/dl (8.4-10.2); CARBON DIOXIDE 17 mmol/L (21-31); CHLORIDE 119 mmol/L (97-110); CREATININE 2.15 mg/dl (0.61-1.24); Estimated GFR 34 mL/min (>60); GLUCOSE 90 mg/dl (70-220); POTASSIUM 4.3 mmol/L (3.5-5.1); SODIUM 148 mmol/L (135-144)
[2019-02-19] MEDS: LEVETIRACETAM (100 MG/ML) 5ML CUP GTB ×2 (09:39→21:42)
[2019-02-19] MEDS: ZINC SULFATE 220 MG CAP GTB (09:39)
[2019-02-19] MEDS: GABAPENTIN (50 MG/ML PO SYG) GTB ×2 (09:39→21:43)
[2019-02-19] MEDS: ASCORBIC ACID 500 MG TAB GTB (09:39)
[2019-02-19] MEDS: QUETIAPINE 25 MG TAB GTB ×2 (09:39→21:43)
[2019-02-19] MEDS: CEFEPIME 2GM/50 ML (PMX) 50 ML IVPB (09:40)
[2019-02-19] MEDS: SOD CHLORIDE 0.9% 1,000 ML IV (09:52)
[2019-02-19] MEDS: ENOXAPARIN 30 MG/0.3 ML SYG SC (10:05)
[2019-02-19] MEDS: ALBUTEROL HFA 8 GM INHALER INH ×2 (10:12→15:03)
[2019-02-19] MEDS: NORepinephrine 8MG/250 ML (PMX 250 ML IV ×2 (12:43→22:13)
[2019-02-19] MEDS: metroNIDAZOLE 500 MG TAB NGT ×2 (13:08→21:42)
[2019-02-19] MEDS: VANCOMYCIN 750 MG (PMX) 250 ML IVPB (17:24)
[2019-02-19 18:10] LABS: ADD UMIC YES; UR ASCORBIC ACID NEGATIVE (NEGATIVE); UR BACTERIA FEW /HPF (NONE SEEN); UR BILIRUBIN (Dip) NEGATIVE (NEGATIVE); UR BLOOD (Dip) 3+ mg/dL (NEGATIVE); UR BUDDING YEAST MANY /HPF (NONE SEEN); UR CLARITY TURBID (CLEAR); UR COLOR YELLOW (YELLOW); UR GLUCOSE (Dip) NEGATIVE (NEGATIVE); UR KETONES (Dip) 1+ mg/dL (NEGATIVE); UR LEUKOCYTE ESTERASE (Dip) 3+ Leu/ul (NEGATIVE); UR MUCUS FEW /HPF (NONE SEEN); UR NITRITE (Dip) NEGATIVE (NEGATIVE); UR NONSQUAMOUS EPITHELIAL CELL 1 /HPF (NONE SEEN); UR RBC 106 /HPF (0-5); UR SPECIFIC GRAVITY (Dip) 1.014 (1.003-1.030); UR SQUAMOUS EPITHELIAL CELL MANY /HPF (FEW); UR TOTAL PROTEIN (Dip) 1+ mg/dl (NEGATIVE); UR UROBILINOGEN (Dip) NEGATIVE (NEGATIVE); UR WBC > 182 /HPF (0-5)
[2019-02-19] MEDS: ACETAMINOPHEN 650MG/20.3ML CUP GTB (21:42)
[2019-02-19] MEDS: FAMOTIDINE 20 MG INJ IV (21:43)
[2019-02-20] MEDS: SOD CHLORIDE 0.9% 1,000 ML IV (02:16)
[2019-02-20] MEDS: metroNIDAZOLE 500 MG TAB NGT ×3 (05:00→21:00)
[2019-02-20 05:09] LABS: ADD MAN DIFF? NO
[2019-02-20 05:15] LABS: WHITE BLOOD COUNT 9.4 10^3/ul (4.8-10.8)
[2019-02-20 05:15] LABS: ABNORMAL IP MESSAGE 1; BASOPHILS % 0.3 % (0.0-2.0); EOSINOPHILS # 0.3 10^3/ul (0.0-0.5); EOSINOPHILS % 3.3 % (0.0-7.0); HEMATOCRIT 29.2 % (42.0-52.0); HEMOGLOBIN 8.2 g/dl (14.0-18.0); LYMPHOCYTES # 0.5 10^3/ul (0.8-2.9); LYMPHOCYTES % 5.1 % (15.0-51.0); MEAN CORPUSCULAR HEMOGLOBIN 28.4 pg (29.0-33.0); MEAN CORPUSCULAR HGB CONC 28.1 g/dl (32.0-37.0); MEAN PLATELET VOLUME 13.3 fl (7.4-10.4); MONOCYTE # 0.7 10^3/ul (0.3-0.9); MONOCYTES % 6.9 % (0.0-11.0); NEUTROPHIL # 7.9 10^3/ul (1.6-7.5); NEUTROPHILS % 83.9 % (39.0-77.0); PLATELET COUNT 101 10^3/UL (140-415); POSITIVE DIFF @See below; RED BLOOD COUNT 2.89 10^6/ul (4.70-6.10); RED CELL DISTRIBUTION WIDTH 17.7 % (11.5-14.5)
[2019-02-20] MEDS: NORepinephrine 8MG/250 ML (PMX 250 ML IV ×2 (05:23→17:12)
[2019-02-20 05:43] LABS: ANION GAP 12 (5-13); BLOOD UREA NITROGEN 91 mg/dl (7-20); CALCIUM 8.2 mg/dl (8.4-10.2); CARBON DIOXIDE 15 mmol/L (21-31); CHLORIDE 124 mmol/L (97-110); Estimated GFR 35 mL/min (>60); GLUCOSE 138 mg/dl (70-220); POTASSIUM 4.2 mmol/L (3.5-5.1); SODIUM 151 mmol/L (135-144)
[2019-02-20] MEDS: LEVETIRACETAM (100 MG/ML) 5ML CUP GTB ×2 (09:12→20:47)
[2019-02-20] MEDS: ASCORBIC ACID 500 MG TAB GTB (09:13)
[2019-02-20] MEDS: ZINC SULFATE 220 MG CAP GTB (09:13)
[2019-02-20] MEDS: GABAPENTIN (50 MG/ML PO SYG) GTB ×2 (09:13→20:57)
[2019-02-20] MEDS: QUETIAPINE 25 MG TAB GTB ×2 (09:13→20:47)
[2019-02-20] MEDS: CEFEPIME 2GM/50 ML (PMX) 50 ML IVPB (09:13)
[2019-02-20] MEDS: ENOXAPARIN 30 MG/0.3 ML SYG SC (09:23)
[2019-02-20] MEDS: ACETYLCYSTEINE 20% 4 ML VIAL NEB ×3 (11:00→19:56)
[2019-02-20] MEDS: IPRATROPIUM (NEB) 0.5 MG/2.5 ML AMP HHN ×3 (11:00→19:56)
[2019-02-20] MEDS: LEVALBUTEROL (NEB) 1.25 MG/0.5 ML AMP HHN ×3 (11:00→19:56)
[2019-02-20] MEDS: morphine 2 MG INJ IV (11:29)
[2019-02-20] MEDS: HYDROCODONE/APAP (5/325) TAB GTB (16:26)
[2019-02-20 17:18] LABS: VANCOMYCIN,TROUGH 19.8 ug/ml (10.0-20.0)
[2019-02-20] MEDS ORDERED: VANCOMYCIN 750 MG (PMX) 250 ML IVPB (19:00)
[2019-02-20] MEDS: VORICONAZOLE 200 MG TAB PO (20:47)
[2019-02-20] MEDS: FAMOTIDINE 20 MG INJ IV (20:55)
[2019-02-21] MEDS: ACETYLCYSTEINE 20% 4 ML VIAL NEB ×4 (01:12→19:38)
[2019-02-21] MEDS: IPRATROPIUM (NEB) 0.5 MG/2.5 ML AMP HHN ×4 (01:12→19:38)
[2019-02-21] MEDS: LEVALBUTEROL (NEB) 1.25 MG/0.5 ML AMP HHN ×4 (01:12→19:38)
[2019-02-21] MEDS: morphine 2 MG INJ IV (02:36)
[2019-02-21] MEDS: HYDROCODONE/APAP (5/325) TAB GTB ×2 (03:48→08:52)
[2019-02-21 04:48] LABS: ADD MAN DIFF? NO
[2019-02-21] MEDS: NORepinephrine 8MG/250 ML (PMX 250 ML IV ×2 (05:00→18:28)
[2019-02-21 05:06] LABS: WHITE BLOOD COUNT 6.9 10^3/ul (4.8-10.8)
[2019-02-21 05:06] LABS: ABNORMAL IP MESSAGE 1; BASOPHILS % 0.1 % (0.0-2.0); EOSINOPHILS # 0.7 10^3/ul (0.0-0.5); EOSINOPHILS % 9.9 % (0.0-7.0); HEMATOCRIT 26.7 % (42.0-52.0); HEMOGLOBIN 7.8 g/dl (14.0-18.0); LYMPHOCYTES # 0.3 10^3/ul (0.8-2.9); LYMPHOCYTES % 4.6 % (15.0-51.0); MEAN CORPUSCULAR HEMOGLOBIN 29.2 pg (29.0-33.0); MEAN CORPUSCULAR HGB CONC 29.2 g/dl (32.0-37.0); MEAN PLATELET VOLUME 13.3 fl (7.4-10.4); MONOCYTE # 0.4 10^3/ul (0.3-0.9); MONOCYTES % 6.3 % (0.0-11.0); NEUTROPHIL # 5.5 10^3/ul (1.6-7.5); NEUTROPHILS % 78.7 % (39.0-77.0); PLATELET COUNT 87 10^3/UL (140-415); POSITIVE DIFF @See below; RED BLOOD COUNT 2.67 10^6/ul (4.70-6.10); RED CELL DISTRIBUTION WIDTH 17.7 % (11.5-14.5)
[2019-02-21] MEDS: VANCOMYCIN 750 MG (PMX) 250 ML IVPB (05:12)
[2019-02-21 05:17] LABS: ANION GAP 7 (5-13); BLOOD UREA NITROGEN 83 mg/dl (7-20); CALCIUM 8.2 mg/dl (8.4-10.2); CARBON DIOXIDE 19 mmol/L (21-31); CHLORIDE 126 mmol/L (97-110); CREATININE 1.94 mg/dl (0.61-1.24); Estimated GFR 38 mL/min (>60); GLUCOSE 155 mg/dl (70-220); MAGNESIUM 2.2 mg/dl (1.7-2.5); PHOSPHORUS 2.6 mg/dl (2.5-4.9); POTASSIUM 3.9 mmol/L (3.5-5.1); SODIUM 152 mmol/L (135-144)
[2019-02-21] MEDS: metroNIDAZOLE 500 MG TAB NGT ×3 (06:18→21:38)
[2019-02-21] MEDS: QUETIAPINE 25 MG TAB GTB ×2 (08:51→20:13)
[2019-02-21] MEDS: LEVETIRACETAM (100 MG/ML) 5ML CUP GTB ×2 (08:51→20:12)
[2019-02-21] MEDS: GABAPENTIN (50 MG/ML PO SYG) GTB ×2 (08:51→20:13)
[2019-02-21] MEDS: ZINC SULFATE 220 MG CAP GTB (08:51)
[2019-02-21] MEDS: VORICONAZOLE 200 MG TAB PO ×2 (08:51→20:12)
[2019-02-21] MEDS: ASCORBIC ACID 500 MG TAB GTB (08:52)
[2019-02-21] MEDS: CEFEPIME 2GM/50 ML (PMX) 50 ML IVPB (08:52)
[2019-02-21] MEDS: ENOXAPARIN 30 MG/0.3 ML SYG SC (08:53)
[2019-02-21] MEDS: FAMOTIDINE 20 MG TAB GTB (20:12)
[2019-02-22] MEDS: ACETYLCYSTEINE 20% 4 ML VIAL NEB ×4 (01:30→19:21)
[2019-02-22] MEDS: IPRATROPIUM (NEB) 0.5 MG/2.5 ML AMP HHN ×4 (01:30→19:21)
[2019-02-22] MEDS: LEVALBUTEROL (NEB) 1.25 MG/0.5 ML AMP HHN ×4 (01:30→19:21)
[2019-02-22 05:13] LABS: ADD MAN DIFF? NO
[2019-02-22 05:21] LABS: ABNORMAL IP MESSAGE 1; BASOPHILS % 0.2 % (0.0-2.0); EOSINOPHILS # 0.8 10^3/ul (0.0-0.5); EOSINOPHILS % 12.7 % (0.0-7.0); HEMOGLOBIN 7.7 g/dl (14.0-18.0); LYMPHOCYTES # 0.5 10^3/ul (0.8-2.9); LYMPHOCYTES % 8.2 % (15.0-51.0); MEAN CORPUSCULAR HEMOGLOBIN 28.8 pg (29.0-33.0); MEAN CORPUSCULAR HGB CONC 28.5 g/dl (32.0-37.0); MEAN CORPUSCULAR VOLUME 101.1 fl (82.0-101.0); MEAN PLATELET VOLUME 12.9 fl (7.4-10.4); MONOCYTE # 0.5 10^3/ul (0.3-0.9); MONOCYTES % 8.4 % (0.0-11.0); NEUTROPHIL # 4.2 10^3/ul (1.6-7.5); PLATELET COUNT 94 10^3/UL (140-415); POSITIVE DIFF @See below; RED BLOOD COUNT 2.67 10^6/ul (4.70-6.10); RED CELL DISTRIBUTION WIDTH 18.1 % (11.5-14.5)
[2019-02-22 05:39] LABS: ANION GAP 4 (5-13); BLOOD UREA NITROGEN 82 mg/dl (7-20); CALCIUM 8.1 mg/dl (8.4-10.2); CARBON DIOXIDE 21 mmol/L (21-31); CHLORIDE 130 mmol/L (97-110); CREATININE 1.84 mg/dl (0.61-1.24); Estimated GFR 41 mL/min (>60); GLUCOSE 114 mg/dl (70-220); MAGNESIUM 2.2 mg/dl (1.7-2.5); POTASSIUM 4.4 mmol/L (3.5-5.1); SODIUM 155 mmol/L (135-144)
[2019-02-22] MEDS: metroNIDAZOLE 500 MG TAB NGT ×3 (06:00→21:05)
[2019-02-22] MEDS: NORepinephrine 8MG/250 ML (PMX 250 ML IV (06:04)
[2019-02-22] MEDS: QUETIAPINE 25 MG TAB GTB ×2 (09:00→21:00)
[2019-02-22] MEDS: ZINC SULFATE 220 MG CAP GTB (09:20)
[2019-02-22] MEDS: GABAPENTIN (50 MG/ML PO SYG) GTB ×2 (09:20→21:05)
[2019-02-22] MEDS: VORICONAZOLE 200 MG TAB PO ×2 (09:20→21:05)
[2019-02-22] MEDS: LEVETIRACETAM (100 MG/ML) 5ML CUP GTB ×2 (09:20→21:05)
[2019-02-22] MEDS: ASCORBIC ACID 500 MG TAB GTB (09:20)
[2019-02-22] MEDS: CEFEPIME 2GM/50 ML (PMX) 50 ML IVPB (09:21)
[2019-02-22] MEDS: DEXTROSE 5% 1,000 ML IV (09:21)
[2019-02-22] MEDS: ENOXAPARIN 30 MG/0.3 ML SYG SC (09:38)
[2019-02-22] MEDS: VANCOMYCIN 750 MG (PMX) 250 ML IVPB (17:44)
[2019-02-22] MEDS: FAMOTIDINE 20 MG TAB GTB (21:05)
[2019-02-23] MEDS: NORepinephrine 8MG/250 ML (PMX 250 ML IV (00:26)
[2019-02-23] MEDS: LEVALBUTEROL (NEB) 1.25 MG/0.5 ML AMP HHN ×4 (01:12→19:18)
[2019-02-23] MEDS: ACETYLCYSTEINE 20% 4 ML VIAL NEB ×4 (01:12→19:18)
[2019-02-23] MEDS: IPRATROPIUM (NEB) 0.5 MG/2.5 ML AMP HHN ×4 (01:12→19:18)
[2019-02-23] MEDS: DEXTROSE 5% 1,000 ML IV (06:17)
[2019-02-23] MEDS: ENOXAPARIN 30 MG/0.3 ML SYG SC (08:30)
[2019-02-23] MEDS: ZINC SULFATE 220 MG CAP GTB (08:31)
[2019-02-23] MEDS: VORICONAZOLE 200 MG TAB PO ×2 (08:31→21:11)
[2019-02-23] MEDS: ASCORBIC ACID 500 MG TAB GTB (08:31)
[2019-02-23] MEDS: LEVETIRACETAM (100 MG/ML) 5ML CUP GTB ×2 (08:31→21:10)
[2019-02-23] MEDS: metroNIDAZOLE 500 MG TAB NGT ×3 (08:32→21:11)
[2019-02-23] MEDS: CEFEPIME 2GM/50 ML (PMX) 50 ML IVPB (08:32)
[2019-02-23] MEDS: GABAPENTIN (50 MG/ML PO SYG) GTB ×2 (08:32→21:10)
[2019-02-23] MEDS: QUETIAPINE 25 MG TAB GTB ×2 (09:00→21:00)
[2019-02-23 09:29] LABS: ADD MAN DIFF? NO
[2019-02-23 09:31] LABS: WHITE BLOOD COUNT 4.9 10^3/ul (4.8-10.8)
[2019-02-23 09:31] LABS: ABNORMAL IP MESSAGE 1; BASOPHILS % 0.2 % (0.0-2.0); EOSINOPHILS # 0.5 10^3/ul (0.0-0.5); EOSINOPHILS % 10.5 % (0.0-7.0); HEMATOCRIT 27.1 % (42.0-52.0); HEMOGLOBIN 7.7 g/dl (14.0-18.0); LYMPHOCYTES # 0.4 10^3/ul (0.8-2.9); LYMPHOCYTES % 8.5 % (15.0-51.0); MEAN CORPUSCULAR HEMOGLOBIN 29.1 pg (29.0-33.0); MEAN CORPUSCULAR HGB CONC 28.4 g/dl (32.0-37.0); MEAN CORPUSCULAR VOLUME 102.3 fl (82.0-101.0); MEAN PLATELET VOLUME 12.3 fl (7.4-10.4); MONOCYTE # 0.4 10^3/ul (0.3-0.9); MONOCYTES % 7.5 % (0.0-11.0); NEUTROPHIL # 3.6 10^3/ul (1.6-7.5); NEUTROPHILS % 72.5 % (39.0-77.0); PLATELET COUNT 92 10^3/UL (140-415); POSITIVE DIFF @See below; RED BLOOD COUNT 2.65 10^6/ul (4.70-6.10); RED CELL DISTRIBUTION WIDTH 17.8 % (11.5-14.5)
[2019-02-23 10:02] LABS: ANION GAP 4 (5-13); BLOOD UREA NITROGEN 78 mg/dl (7-20); CALCIUM 8.2 mg/dl (8.4-10.2); CARBON DIOXIDE 20 mmol/L (21-31); CHLORIDE 126 mmol/L (97-110); CREATININE 1.64 mg/dl (0.61-1.24); Estimated GFR 46 mL/min (>60); GLUCOSE 132 mg/dl (70-220); POTASSIUM 5.1 mmol/L (3.5-5.1); SODIUM 150 mmol/L (135-144)
[2019-02-23] MEDS: FAMOTIDINE 20 MG TAB GTB (21:10)
[2019-02-24] MEDS: IPRATROPIUM (NEB) 0.5 MG/2.5 ML AMP HHN ×4 (01:16→19:43)
[2019-02-24] MEDS: LEVALBUTEROL (NEB) 1.25 MG/0.5 ML AMP HHN ×4 (01:16→19:43)
[2019-02-24] MEDS: ACETYLCYSTEINE 20% 4 ML VIAL NEB ×4 (01:16→19:44)
[2019-02-24] MEDS: DEXTROSE 5% 1,000 ML IV ×3 (02:59→22:47)
[2019-02-24] MEDS: NORepinephrine 8MG/250 ML (PMX 250 ML IV (03:04)
[2019-02-24 05:14] LABS: ADD MAN DIFF? NO
[2019-02-24 05:20] LABS: WHITE BLOOD COUNT 3.6 10^3/ul (4.8-10.8)
[2019-02-24 05:20] LABS: ABNORMAL IP MESSAGE 1; BASOPHILS % 0.3 % (0.0-2.0); EOSINOPHILS # 0.6 10^3/ul (0.0-0.5); EOSINOPHILS % 16.1 % (0.0-7.0); HEMATOCRIT 25.8 % (42.0-52.0); HEMOGLOBIN 7.2 g/dl (14.0-18.0); LYMPHOCYTES # 0.4 10^3/ul (0.8-2.9); LYMPHOCYTES % 10.4 % (15.0-51.0); MEAN CORPUSCULAR HEMOGLOBIN 28.6 pg (29.0-33.0); MEAN CORPUSCULAR HGB CONC 27.9 g/dl (32.0-37.0); MEAN CORPUSCULAR VOLUME 102.4 fl (82.0-101.0); MEAN PLATELET VOLUME 13.4 fl (7.4-10.4); MONOCYTE # 0.3 10^3/ul (0.3-0.9); MONOCYTES % 8.2 % (0.0-11.0); NEUTROPHIL # 2.3 10^3/ul (1.6-7.5); NEUTROPHILS % 64.7 % (39.0-77.0); PLATELET COUNT 99 10^3/UL (140-415); POSITIVE DIFF @See below; RED BLOOD COUNT 2.52 10^6/ul (4.70-6.10); RED CELL DISTRIBUTION WIDTH 17.7 % (11.5-14.5)
[2019-02-24] MEDS: VANCOMYCIN 750 MG (PMX) 250 ML IVPB (05:32)
[2019-02-24] MEDS: metroNIDAZOLE 500 MG TAB NGT ×3 (05:32→21:28)
[2019-02-24 05:44] LABS: ANION GAP 4 (5-13); BLOOD UREA NITROGEN 77 mg/dl (7-20); CALCIUM 8.1 mg/dl (8.4-10.2); CARBON DIOXIDE 21 mmol/L (21-31); CHLORIDE 123 mmol/L (97-110); CREATININE 1.54 mg/dl (0.61-1.24); Estimated GFR 50 mL/min (>60); GLUCOSE 136 mg/dl (70-220); SODIUM 148 mmol/L (135-144)
[2019-02-24 05:46] LABS: POTASSIUM 5.2 mmol/L (3.5-5.1)
[2019-02-24 08:24] LABS: VANCOMYCIN,TROUGH 17.7 ug/ml (10.0-20.0)
[2019-02-24] MEDS: VORICONAZOLE 200 MG TAB PO ×2 (08:30→21:28)
[2019-02-24] MEDS: LEVETIRACETAM (100 MG/ML) 5ML CUP GTB ×2 (08:30→21:27)
[2019-02-24] MEDS: GABAPENTIN (50 MG/ML PO SYG) GTB ×2 (08:30→22:36)
[2019-02-24] MEDS: CEFEPIME 2GM/50 ML (PMX) 50 ML IVPB (08:30)
[2019-02-24] MEDS: ASCORBIC ACID 500 MG TAB GTB (08:30)
[2019-02-24] MEDS: ZINC SULFATE 220 MG CAP GTB (08:30)
[2019-02-24] MEDS: ENOXAPARIN 30 MG/0.3 ML SYG SC (08:37)
[2019-02-24] MEDS: QUETIAPINE 25 MG TAB GTB ×2 (08:45→21:28)
[2019-02-24] MEDS: FAMOTIDINE 20 MG TAB GTB (21:27)
[2019-02-25] MEDS: ACETYLCYSTEINE 20% 4 ML VIAL NEB ×4 (02:00→19:28)
[2019-02-25] MEDS: LEVALBUTEROL (HFA) 15 GM INHALER INH (02:00)
[2019-02-25] MEDS: IPRATROPIUM (HFA) 12.9 GM INHALER INH (02:00)
[2019-02-25] MEDS: metroNIDAZOLE 500 MG TAB NGT ×3 (06:07→21:03)
[2019-02-25] MEDS: LEVETIRACETAM (100 MG/ML) 5ML CUP GTB ×2 (08:34→20:53)
[2019-02-25] MEDS: ZINC SULFATE 220 MG CAP GTB (08:34)
[2019-02-25] MEDS: GABAPENTIN (50 MG/ML PO SYG) GTB ×2 (08:36→20:53)
[2019-02-25] MEDS: ASCORBIC ACID 500 MG TAB GTB (08:37)
[2019-02-25] MEDS: VORICONAZOLE 200 MG TAB PO ×2 (08:37→20:53)
[2019-02-25] MEDS: CEFEPIME 2GM/50 ML (PMX) 50 ML IVPB (08:37)
[2019-02-25] MEDS: QUETIAPINE 25 MG TAB GTB ×2 (08:37→20:53)
[2019-02-25] MEDS: ENOXAPARIN 30 MG/0.3 ML SYG SC (09:08)
[2019-02-25 12:28] LABS: AHG CROSSMATCH 1 2
[2019-02-25] MEDS: LEVALBUTEROL (NEB) 0.63 MG/3 ML AMP HHN ×2 (14:16→19:28)
[2019-02-25] MEDS: IPRATROPIUM (NEB) 0.5 MG/2.5 ML AMP HHN ×2 (14:16→19:20)
[2019-02-25] MEDS: FAMOTIDINE 20 MG TAB GTB (20:53)
[2019-02-26] MEDS: IPRATROPIUM (NEB) 0.5 MG/2.5 ML AMP HHN ×4 (01:09→19:11)
[2019-02-26] MEDS: LEVALBUTEROL (NEB) 0.63 MG/3 ML AMP HHN ×4 (01:09→19:11)
[2019-02-26] MEDS: ACETYLCYSTEINE 20% 4 ML VIAL NEB ×4 (01:19→19:11)
[2019-02-26] MEDS: metroNIDAZOLE 500 MG TAB NGT ×3 (06:06→21:05)
[2019-02-26 06:52] LABS: BLOOD UREA NITROGEN 67 mg/dl (7-20)
[2019-02-26 06:52] LABS: CREATININE 1.29 mg/dl (0.61-1.24)
[2019-02-26] MEDS: ENOXAPARIN 30 MG/0.3 ML SYG SC (08:45)
[2019-02-26] MEDS: VORICONAZOLE 200 MG TAB PO (08:54)
[2019-02-26] MEDS: ZINC SULFATE 220 MG CAP GTB (08:55)
[2019-02-26] MEDS: GABAPENTIN (50 MG/ML PO SYG) GTB ×2 (08:55→20:50)
[2019-02-26] MEDS: ASCORBIC ACID 500 MG TAB GTB (08:55)
[2019-02-26] MEDS: QUETIAPINE 25 MG TAB GTB ×2 (08:55→20:50)
[2019-02-26] MEDS: LEVETIRACETAM (100 MG/ML) 5ML CUP GTB ×2 (08:55→20:50)
[2019-02-26] MEDS: morphine 2 MG INJ IV (13:08)
[2019-02-26 19:38] LABS: WHITE BLOOD COUNT 5.4 10^3/ul (4.8-10.8)
[2019-02-26 19:38] LABS: ABNORMAL IP MESSAGE 1; ADD MAN DIFF? NO; BASOPHILS % 0.4 % (0.0-2.0); EOSINOPHILS # 0.5 10^3/ul (0.0-0.5); EOSINOPHILS % 9.7 % (0.0-7.0); HEMATOCRIT 32.1 % (42.0-52.0); HEMOGLOBIN 9.5 g/dl (14.0-18.0); LYMPHOCYTES # 0.4 10^3/ul (0.8-2.9); LYMPHOCYTES % 7.1 % (15.0-51.0); MEAN CORPUSCULAR HEMOGLOBIN 28.8 pg (29.0-33.0); MEAN CORPUSCULAR HGB CONC 29.6 g/dl (32.0-37.0); MEAN CORPUSCULAR VOLUME 97.3 fl (82.0-101.0); MEAN PLATELET VOLUME 12.8 fl (7.4-10.4); MONOCYTE # 0.4 10^3/ul (0.3-0.9); MONOCYTES % 6.5 % (0.0-11.0); NEUTROPHIL # 4.1 10^3/ul (1.6-7.5); NEUTROPHILS % 75.9 % (39.0-77.0); PLATELET COUNT 133 10^3/UL (140-415); POSITIVE DIFF @See below; RED CELL DISTRIBUTION WIDTH 19.4 % (11.5-14.5)
[2019-02-26 20:09] LABS: ANION GAP 4 (5-13); BLOOD UREA NITROGEN 65 mg/dl (7-20); CALCIUM 8.6 mg/dl (8.4-10.2); CARBON DIOXIDE 23 mmol/L (21-31); CHLORIDE 122 mmol/L (97-110); CREATININE 1.14 mg/dl (0.61-1.24); Estimated GFR > 60 mL/min (>60); GLUCOSE 108 mg/dl (70-220); SODIUM 149 mmol/L (135-144)
[2019-02-26 20:26] LABS: POTASSIUM 6.6 mmol/L (3.5-5.1)
[2019-02-26] MEDS: NA POLYST SULFON 15 GM/60 ML BTL GTB (20:50)
[2019-02-26] MEDS: FAMOTIDINE 20 MG TAB GTB (20:50)
[2019-02-27] MEDS: ACETYLCYSTEINE 20% 4 ML VIAL NEB ×4 (01:41→19:49)
[2019-02-27] MEDS: IPRATROPIUM (NEB) 0.5 MG/2.5 ML AMP HHN ×4 (01:41→19:49)
[2019-02-27] MEDS: LEVALBUTEROL (NEB) 0.63 MG/3 ML AMP HHN ×4 (01:41→19:49)
[2019-02-27] MEDS: morphine 2 MG INJ IV ×2 (03:37→21:01)
[2019-02-27] MEDS: metroNIDAZOLE 500 MG TAB NGT ×3 (05:37→22:47)
[2019-02-27] MEDS: GABAPENTIN (50 MG/ML PO SYG) GTB ×2 (08:15→20:59)
[2019-02-27] MEDS: LEVETIRACETAM (100 MG/ML) 5ML CUP GTB ×2 (08:15→20:57)
[2019-02-27] MEDS: FLUCONAZOLE 100 MG TAB PO (08:16)
[2019-02-27] MEDS: ASCORBIC ACID 500 MG TAB GTB (08:16)
[2019-02-27] MEDS: QUETIAPINE 25 MG TAB GTB ×2 (08:16→20:58)
[2019-02-27] MEDS: ENOXAPARIN 30 MG/0.3 ML SYG SC (08:18)
[2019-02-27] MEDS: ZINC SULFATE 220 MG CAP GTB (08:19)
[2019-02-27] MEDS: FAMOTIDINE 20 MG TAB GTB (20:57)
[2019-02-28] MEDS: morphine 2 MG INJ IV ×4 (01:35→21:20)
[2019-02-28] MEDS: ACETYLCYSTEINE 20% 4 ML VIAL NEB ×4 (01:46→20:20)
[2019-02-28] MEDS: IPRATROPIUM (NEB) 0.5 MG/2.5 ML AMP HHN ×4 (01:47→20:20)
[2019-02-28] MEDS: LEVALBUTEROL (NEB) 0.63 MG/3 ML AMP HHN ×4 (01:47→20:20)
[2019-02-28] MEDS: metroNIDAZOLE 500 MG TAB NGT ×2 (06:22→13:32)
[2019-02-28 06:41] LABS: ABNORMAL IP MESSAGE 1; HEMATOCRIT 34.5 % (42.0-52.0); HEMOGLOBIN 9.7 g/dl (14.0-18.0); MEAN CORPUSCULAR HEMOGLOBIN 28.4 pg (29.0-33.0); MEAN CORPUSCULAR HGB CONC 28.1 g/dl (32.0-37.0); MEAN CORPUSCULAR VOLUME 101.2 fl (82.0-101.0); PLATELET COUNT 109 10^3/UL (140-415); POSITIVE DIFF @See below; RED BLOOD COUNT 3.41 10^6/ul (4.70-6.10); RED CELL DISTRIBUTION WIDTH 19.8 % (11.5-14.5)
[2019-02-28 06:48] LABS: ADD MAN DIFF? YES
[2019-02-28 07:04] LABS: ALANINE AMINOTRANSFERASE 16 IU/L (13-69); ALBUMIN 2.5 g/dl (3.3-4.9); ALKALINE PHOSPHATASE 110 IU/L (42-121); ANION GAP 3 (5-13); ASPARTATE AMINO TRANSFERASE 22 IU/L (15-46); BILIRUBIN,INDIRECT 0.2 mg/dl (0-1.1); BILIRUBIN,TOTAL 0.2 mg/dl (0.2-1.3); BLOOD UREA NITROGEN 56 mg/dl (7-20); CALCIUM 8.7 mg/dl (8.4-10.2); CARBON DIOXIDE 26 mmol/L (21-31); CHLORIDE 123 mmol/L (97-110); CREATININE 1.01 mg/dl (0.61-1.24); Estimated GFR > 60 mL/min (>60); GLUCOSE 124 mg/dl (70-220); POTASSIUM 5.5 mmol/L (3.5-5.1); SODIUM 152 mmol/L (135-144); TOTAL PROTEIN 6.6 g/dl (6.1-8.1)
[2019-02-28] MEDS: QUETIAPINE 25 MG TAB GTB ×2 (08:07→22:05)
[2019-02-28] MEDS: FLUCONAZOLE 100 MG TAB PO (08:07)
[2019-02-28] MEDS: ZINC SULFATE 220 MG CAP GTB (08:07)
[2019-02-28] MEDS: ASCORBIC ACID 500 MG TAB GTB (08:07)
[2019-02-28] MEDS: NA POLYST SULFON 15 GM/60 ML BTL GTB (08:07)
[2019-02-28] MEDS: LEVETIRACETAM (100 MG/ML) 5ML CUP GTB ×2 (08:07→22:04)
[2019-02-28] MEDS: ENOXAPARIN 30 MG/0.3 ML SYG SC (08:19)
[2019-02-28 09:29] LABS: ANISOCYTOSIS 2+ (0-0); BAND NEUTROPHILS #M 0.6 10^3/ul (0.0-0.6); BAND NEUTROPHILS % (M) 12 % (0-4); EOSINOPHILS % (M) 2 % (0-7); GIANT THROMBO% (M) 2 % (0-0); LYMPHOCYTES #M 0.5 10^3/ul (0.8-2.9); LYMPHOCYTES % (M) 10 % (15-51); MICROCYTOSIS 2+ (0-0); MONOCYTE #M 0.2 10^3/ul (0.3-0.9); MONOCYTES % (M) 4 % (0-11); PLATELET ESTIMATE DECREASED; POIKILOCYTOSIS 3+ (0-0); POLYCHROMASIA 3+ (0-0); SEG NEUT #M 3.6 10^3/ul (1.6-7.5); SEGMENTED NEUTROPHILS (M) % 72 % (39-77); SMUDGE%M 30 % (0-0)
[2019-02-28] MEDS: GABAPENTIN (50 MG/ML PO SYG) GTB ×2 (09:55→22:04)
[2019-02-28] MEDS: FAMOTIDINE 20 MG TAB GTB (22:05)
[2019-03-01] MEDS: LEVALBUTEROL (NEB) 0.63 MG/3 ML AMP HHN ×3 (01:35→20:00)
[2019-03-01] MEDS: IPRATROPIUM (NEB) 0.5 MG/2.5 ML AMP HHN ×3 (01:35→19:59)
[2019-03-01] MEDS: ACETYLCYSTEINE 20% 4 ML VIAL NEB ×3 (01:35→20:00)
[2019-03-01] MEDS: ACETAMINOPHEN 650MG/20.3ML CUP GTB (01:49)
[2019-03-01 05:58] LABS: AADO2 Arterial 327.1 mmHg (7.0-24.0); Allen Test ACCEPTAB; Arterial Base Excess 1.3 mmol/L (-3.0-3); Arterial Blood Gas Oxygen Sat 96.9 mmHG (95.0-98.0); Arterial COHb 0.3 % (0.0-3.0); Arterial Fraction of Oxyhgb 96.3 % (93.0-99.0); Arterial HCO3 29.5 mmol/L (22.0-26.0); Arterial MetHb 0.3 % (0.0-1.5); Arterial pCO2 65.6 mmhg (35-45); Blood Gas Low PEEP Setting 0 cmH2O; MODE VENT - AC; Site Left Radial
[2019-03-01 06:59] LABS: ADD MAN DIFF? NO
[2019-03-01 07:05] LABS: WHITE BLOOD COUNT 6.3 10^3/ul (4.8-10.8)
[2019-03-01 07:05] LABS: ABNORMAL IP MESSAGE 1; BASOPHILS % 0.2 % (0.0-2.0); EOSINOPHILS # 0.1 10^3/ul (0.0-0.5); EOSINOPHILS % 2.2 % (0.0-7.0); HEMATOCRIT 31.2 % (42.0-52.0); HEMOGLOBIN 8.6 g/dl (14.0-18.0); LYMPHOCYTES # 0.2 10^3/ul (0.8-2.9); LYMPHOCYTES % 3.8 % (15.0-51.0); MEAN CORPUSCULAR HEMOGLOBIN 28.8 pg (29.0-33.0); MEAN CORPUSCULAR HGB CONC 27.6 g/dl (32.0-37.0); MEAN CORPUSCULAR VOLUME 104.3 fl (82.0-101.0); MEAN PLATELET VOLUME 12.8 fl (7.4-10.4); MONOCYTE # 0.5 10^3/ul (0.3-0.9); NEUTROPHIL # 5.4 10^3/ul (1.6-7.5); NEUTROPHILS % 85.3 % (39.0-77.0); PLATELET COUNT 131 10^3/UL (140-415); POSITIVE DIFF @See below; RED BLOOD COUNT 2.99 10^6/ul (4.70-6.10); RED CELL DISTRIBUTION WIDTH 19.8 % (11.5-14.5)
[2019-03-01 07:37] LABS: ANION GAP 0 (5-13); BLOOD UREA NITROGEN 51 mg/dl (7-20); CALCIUM 8.6 mg/dl (8.4-10.2); CARBON DIOXIDE 31 mmol/L (21-31); CHLORIDE 124 mmol/L (97-110); CREATININE 1.07 mg/dl (0.61-1.24); Estimated GFR > 60 mL/min (>60); GLUCOSE 127 mg/dl (70-220); POTASSIUM 4.7 mmol/L (3.5-5.1); SODIUM 155 mmol/L (135-144)
[2019-03-01 09:14] LABS: ANISOCYTOSIS 1+ (0-0); BAND NEUTROPHILS #M 1.2 10^3/ul (0.0-0.6); BAND NEUTROPHILS % (M) 20 % (0-4); EOSINOPHILS % (M) 2 % (0-7); GIANT THROMBO% (M) 1 % (0-0); LYMPHOCYTES #M 0.4 10^3/ul (0.8-2.9); LYMPHOCYTES % (M) 7 % (15-51); MICROCYTOSIS 1+ (0-0); MONOCYTE #M 0.1 10^3/ul (0.3-0.9); MONOCYTES % (M) 2 % (0-11); PLATELET ESTIMATE NORMAL; POLYCHROMASIA 2+ (0-0); REACTIVE LYMPHOCYTES% (M) 1 % (0-0); SEG NEUT #M 4.4 10^3/ul (1.6-7.5); SEGMENTED NEUTROPHILS (M) % 68 % (39-77); SMUDGE%M 6 % (0-0)
[2019-03-01] MEDS: ZINC SULFATE 220 MG CAP GTB (09:14)
[2019-03-01] MEDS: LEVETIRACETAM (100 MG/ML) 5ML CUP GTB ×2 (09:14→21:20)
[2019-03-01] MEDS: FLUCONAZOLE 100 MG TAB PO (09:14)
[2019-03-01] MEDS: QUETIAPINE 25 MG TAB GTB ×2 (09:14→21:00)
[2019-03-01] MEDS: GABAPENTIN (50 MG/ML PO SYG) GTB ×2 (09:14→21:21)
[2019-03-01] MEDS: ASCORBIC ACID 500 MG TAB GTB (09:14)
[2019-03-01] MEDS: ENOXAPARIN 30 MG/0.3 ML SYG SC (09:22)
[2019-03-01] MEDS: SOD CHLORIDE 0.9% 500 ML IV (16:04)
[2019-03-01] MEDS ORDERED: NORepinephrine 8MG/250 ML (PMX 250 ML (19:20)
[2019-03-01] MEDS ORDERED: NORepinephrine 8MG/250 ML (PMX 250 ML IV (19:44)
[2019-03-01] MEDS: SOD CHLORIDE 0.9% 1,000 ML IV (20:49)
[2019-03-01] MEDS: NORepinephrine 8MG/250 ML (PMX 250 ML IV (20:53)
[2019-03-01] MEDS: FAMOTIDINE 20 MG TAB GTB (21:21)
[2019-03-01] MEDS: ALBUMIN HUMAN 25% 100 ML IV (22:17)
[2019-03-01 22:34] LABS: ABNORMAL IP MESSAGE 1; HEMATOCRIT 35.7 % (42.0-52.0); HEMOGLOBIN 9.7 g/dl (14.0-18.0); MEAN CORPUSCULAR HGB CONC 27.2 g/dl (32.0-37.0); MEAN CORPUSCULAR VOLUME 106.6 fl (82.0-101.0); MEAN PLATELET VOLUME 12.8 fl (7.4-10.4); NUCLEATED RED BLOOD CELLS% 0.1 /100WBC (0.0-0.0); PLATELET COUNT 347 10^3/UL (140-415); POSITIVE DIFF @See below; RED BLOOD COUNT 3.35 10^6/ul (4.70-6.10); RED CELL DISTRIBUTION WIDTH 20.1 % (11.5-14.5)
[2019-03-01 22:34] LABS: WHITE BLOOD COUNT 30.4 10^3/ul (4.8-10.8)
[2019-03-01 22:41] LABS: ADD MAN DIFF? YES
[2019-03-01 22:52] LABS: ANION GAP 3 (5-13); BLOOD UREA NITROGEN 61 mg/dl (7-20); CALCIUM 8.5 mg/dl (8.4-10.2); CARBON DIOXIDE 29 mmol/L (21-31); CHLORIDE 122 mmol/L (97-110); CREATININE 1.43 mg/dl (0.61-1.24); Estimated GFR 54 mL/min (>60); GLUCOSE 132 mg/dl (70-220); POTASSIUM 5.1 mmol/L (3.5-5.1); SODIUM 154 mmol/L (135-144)
[2019-03-01 22:54] LABS: LACTIC ACID 1.9 mmol/L (0.5-2.0)
[2019-03-01] MEDS: SOD CHLORIDE 0.45% 1,000 ML IV (23:40)
[2019-03-01] MEDS: PHENYLephrine 20MG IN 250 ML 250 ML IV (23:46)
[2019-03-01 23:50] LABS: ANISOCYTOSIS 1+ (0-0); BAND NEUTROPHILS #M 6.3 10^3/ul (0.0-0.6); BAND NEUTROPHILS % (M) 21 % (0-4); EOSINOPHILS % (M) 2 % (0-7); GIANT THROMBO% (M) 6 % (0-0); LYMPHOCYTES #M 2.1 10^3/ul (0.8-2.9); LYMPHOCYTES % (M) 7 % (15-51); MICROCYTOSIS 1+ (0-0); MONOCYTE #M 2.1 10^3/ul (0.3-0.9); MONOCYTES % (M) 7 % (0-11); PLATELET ESTIMATE NORMAL; POIKILOCYTOSIS 3+ (0-0); POLYCHROMASIA 1+ (0-0); REACTIVE LYMPHOCYTES #M 0.3 10^3/ul (0.0-0.0); REACTIVE LYMPHOCYTES% (M) 1 % (0-0); SEG NEUT #M 20.8 10^3/ul (1.6-7.5); SEGMENTED NEUTROPHILS (M) % 62 % (39-77); SMUDGE%M 13 % (0-0)
[2019-03-01] MEDS: PIPER-TAZO 3.375 GM IV (PMX) 100 ML IVPB (23:52)
[2019-03-01] MEDS: NA POLYST SULFON 15 GM/60 ML BTL GTB (23:54)
[2019-03-02] MEDS: NORepinephrine 8MG/250 ML (PMX 250 ML IV ×3 (00:14→09:26)
[2019-03-02] MEDS: ACETAMINOPHEN 650MG/20.3ML CUP GTB ×2 (00:15→12:33)
[2019-03-02] MEDS: ACETYLCYSTEINE 20% 4 ML VIAL NEB ×2 (01:05→08:45)
[2019-03-02] MEDS: IPRATROPIUM (NEB) 0.5 MG/2.5 ML AMP HHN ×2 (01:05→08:44)
[2019-03-02] MEDS: LEVALBUTEROL (NEB) 0.63 MG/3 ML AMP HHN ×2 (01:05→08:44)
[2019-03-02] MEDS: PHENYLephrine 20MG IN 250 ML 250 ML IV (01:53)
[2019-03-02] MEDS: PHENYLephrine 40 MG in DEXTROSE 5% 246 ML IV ×3 (03:32→08:24)
[2019-03-02] MEDS: PIPER-TAZO 3.375 GM IV (PMX) 100 ML IVPB ×2 (05:18→12:32)
[2019-03-02 05:51] LABS: AADO2 Arterial 531.1 mmHg (7.0-24.0); Allen Test ACCEPTAB; Arterial Blood Gas Oxygen Sat 96.4 mmHG (95.0-98.0); Arterial COHb 0.1 % (0.0-3.0); Arterial Fraction of Oxyhgb 95.7 % (93.0-99.0); Arterial HCO3 23.2 mmol/L (22.0-26.0); Arterial MetHb 0.6 % (0.0-1.5); Arterial pCO2 81.2 mmhg (35-45); MODE VENT - AC; Site Right Radial
[2019-03-02] MEDS ORDERED: EPINEPHrine 0.1 MG/ML SYG ×2 (06:00→13:23)
[2019-03-02] MEDS: SOD CHLORIDE 0.45% 1,000 ML IV (06:48)
[2019-03-02] MEDS: QUETIAPINE 25 MG TAB GTB (09:00)
[2019-03-02] MEDS: ZINC SULFATE 220 MG CAP GTB (09:11)
[2019-03-02] MEDS: GABAPENTIN (50 MG/ML PO SYG) GTB (09:11)
[2019-03-02] MEDS: ASCORBIC ACID 500 MG TAB GTB (09:11)
[2019-03-02] MEDS: LEVETIRACETAM (100 MG/ML) 5ML CUP GTB (09:11)
[2019-03-02] MEDS: FLUCONAZOLE 100 MG TAB PO (09:11)
[2019-03-02] MEDS: ENOXAPARIN 30 MG/0.3 ML SYG SC (09:15)
[2019-03-02] MEDS ORDERED: metroNIDAZOLE 500 MG TAB PO (09:30)
[2019-03-02] MEDS ORDERED: VANCOMYCIN IV PER PHARMACY XX (09:30)
[2019-03-02] MEDS: VASOPRESSIN 60 UNIT in DEXTROSE 5% 57 ML IV (09:46)
[2019-03-02] MEDS ORDERED: PHENYLephrine 80 MG in DEXTROSE 5% 242 ML IV (10:30)
[2019-03-02 11:22] LABS: AADO2 Arterial 584.7 mmHg (7.0-24.0); Arterial Base Excess -7.2 mmol/L (-3.0-3); Arterial Blood Gas Oxygen Sat 84.5 mmHG (95.0-98.0); Arterial COHb 0 % (0.0-3.0); Arterial Fraction of Oxyhgb 84.2 % (93.0-99.0); Arterial HCO3 23.1 mmol/L (22.0-26.0); Arterial MetHb 0.3 % (0.0-1.5); MODE VENT - AC; Site Right Brachial
[2019-03-02] MEDS ORDERED: VASOPRESSIN 60 UNIT in DEXTROSE 5% 57 ML IV (11:30)
[2019-03-02] MEDS ORDERED: VANCOMYCIN 1 GM 250 ML IVPB (12:00)
[2019-03-02 12:06] LABS: AADO2 Arterial 598.5 mmHg (7.0-24.0); Arterial Base Excess -9.6 mmol/L (-3.0-3); Arterial Blood Gas Oxygen Sat 82.5 mmHG (95.0-98.0); Arterial COHb 0.3 % (0.0-3.0); Arterial Fraction of Oxyhgb 81.8 % (93.0-99.0); Arterial HCO3 20.1 mmol/L (22.0-26.0); Arterial MetHb 0.6 % (0.0-1.5); Arterial pCO2 63.4 mmhg (35-45); MODE VENT - AC; Site Right Brachial
[2019-03-02 13:28] LABS: WHITE BLOOD COUNT 42.5 10^3/ul (4.8-10.8)
[2019-03-02 13:28] LABS: ABNORMAL IP MESSAGE 1; HEMATOCRIT 34.3 % (42.0-52.0); HEMOGLOBIN 9.3 g/dl (14.0-18.0); MEAN CORPUSCULAR HEMOGLOBIN 29.3 pg (29.0-33.0); MEAN CORPUSCULAR HGB CONC 27.1 g/dl (32.0-37.0); MEAN CORPUSCULAR VOLUME 108.2 fl (82.0-101.0); MEAN PLATELET VOLUME 11.7 fl (7.4-10.4); NUCLEATED RED BLOOD CELLS% 0.5 /100WBC (0.0-0.0); PLATELET COUNT 436 10^3/UL (140-415); POSITIVE DIFF @See below; RED BLOOD COUNT 3.17 10^6/ul (4.70-6.10); RED CELL DISTRIBUTION WIDTH 19.8 % (11.5-14.5)
[2019-03-02 13:30] LABS: ADD MAN DIFF? YES
[2019-03-02 13:43] LABS: ALANINE AMINOTRANSFERASE 23 IU/L (13-69); ALBUMIN 2.4 g/dl (3.3-4.9); ALBUMIN/GLOBULIN RATIO 0.68; ALKALINE PHOSPHATASE 150 IU/L (42-121); ANION GAP 6 (5-13); ASPARTATE AMINO TRANSFERASE 22 IU/L (15-46); BILIRUBIN,INDIRECT 0.2 mg/dl (0-1.1); BILIRUBIN,TOTAL 0.2 mg/dl (0.2-1.3); BLOOD UREA NITROGEN 65 mg/dl (7-20); CALCIUM 11.1 mg/dl (8.4-10.2); CARBON DIOXIDE 23 mmol/L (21-31); CHLORIDE 119 mmol/L (97-110); CREATININE 1.94 mg/dl (0.61-1.24); Estimated GFR 38 mL/min (>60); GLUCOSE 136 mg/dl (70-220); PHOSPHORUS 5.5 mg/dl (2.5-4.9); POTASSIUM 4.4 mmol/L (3.5-5.1); SODIUM 148 mmol/L (135-144); TOTAL PROTEIN 5.9 g/dl (6.1-8.1)
[2019-03-02 14:04] LABS: ANISOCYTOSIS 2+ (0-0); BAND NEUTROPHILS #M 21.2 10^3/ul (0.0-0.6); BAND NEUTROPHILS % (M) 50 % (0-4); BURR CELLS 1+ (0-0); GIANT THROMBO% (M) 1 % (0-0); LYMPHOCYTES #M 1.7 10^3/ul (0.8-2.9); LYMPHOCYTES % (M) 4 % (15-51); METAMYELOCYTES #M 1.2 10^3/ul (0.0-0.0); METAMYELOCYTES %M 3 % (0-0); MONOCYTE #M 0.8 10^3/ul (0.3-0.9); MONOCYTES % (M) 2 % (0-11); MYELOCYTES #M 0.4 10^3/ul (0.0-0.0); MYELOCYTES % (M) 1 % (0-0); OVALOCYTES 1+ (0-0); PLATELET ESTIMATE INCREASED; POIKILOCYTOSIS 2+ (0-0); POLYCHROMASIA 2+ (0-0); SEGMENTED NEUTROPHILS (M) % 40 % (39-77); SMUDGE%M 4 % (0-0)
[2019-03-02] MEDS ORDERED: metroNIDAZOLE 500 MG/NS (PMX) 100 ML IVPB (14:30)
[2019-03-02] MEDS ORDERED: CASPOFUNGIN 50 MG in SOD CHLORIDE 0.9% 250 ML IVPB (14:30)
[2019-03-02] MEDS ORDERED: CASPOFUNGIN 70 MG in SOD CHLORIDE 0.9% 250 ML IVPB (14:30)
[2019-03-04] MEDS ORDERED: VANCOMYCIN 750 MG (PMX) 250 ML IVPB
== END 2019-03-02 14:14 | disposition expired | DRG 870 ==
LOC: TEL 02-25 00:50 → ICU 03-01 19:04 → E/R 08:09 → ICU 16:44
PROVIDERS: Internal Medicine
PROC: 02HV33Z Insertion of Infusion Device into Superior Vena Cava, Percutaneous Approach (ICD-10-PCS; principal; 2019-02-17)
PROC: 5A1955Z Respiratory Ventilation, Greater than 96 Consecutive Hours (ICD-10-PCS; 2019-02-17)
PROC: 0B21XFZ Change Tracheostomy Device in Trachea, External Approach (ICD-10-PCS; 2019-02-17)
PROC: 5A12012 Performance of Cardiac Output, Single, Manual (ICD-10-PCS; 2019-02-17)
DX: A41.9 Sepsis, unspecified organism (principal); J18.9 Pneumonia, unspecified organism; L89.154 Pressure ulcer of sacral region, stage 4; L89.323 Pressure ulcer of left buttock, stage 3; L89.313 Pressure ulcer of right buttock, stage 3; R65.21 Severe sepsis with septic shock; G82.50 Quadriplegia, unspecified; E43 Unspecified severe protein-calorie malnutrition; N17.9 Acute kidney failure, unspecified; J96.10 Chronic respiratory failure, unspecified whether with hypoxia or hypercapnia; N39.0 Urinary tract infection, site not specified; E87.2 Acidosis; J95.09 Other tracheostomy complication; G93.40 Encephalopathy, unspecified; N18.9 Chronic kidney disease, unspecified; R40.2432 Glasgow coma scale score 3-8, at arrival to emergency department; G40.909 Epilepsy, unspecified, not intractable, without status epilepticus; I46.9 Cardiac arrest, cause unspecified; R19.7 Diarrhea, unspecified; N31.9 Neuromuscular dysfunction of bladder, unspecified; F31.9 Bipolar disorder, unspecified; Y83.8 Other surgical procedures as the cause of abnormal reaction of the patient, or of later complication, without mention of misadventure at the time of the procedure; Z99.11 Dependence on respirator [ventilator] status; Z68.1 Body mass index [BMI] 19.9 or less, adult; Z93.50 Unspecified cystostomy status; Z93.1 Gastrostomy status
CPT/HCPCS: 36415; 36430; 36600; 70450; 71045; 76942; 80048; 80053; 80202; 81001; 82565; 82803; 82962; 83036; 83605; 83735; 84100; 84145; 84484; 84520; 85025; 85610; 85730; 86850; 86870; 86900; 86901; 86920; 87040-91; 87045; 87075; 87081; 87086; 92526; 92610; 93005; 94002; 94003; 94640; 94668; 99285-25